=== PATIENT | female | born 1940 | race Caucasian/White ===

== ENCOUNTER 2016-12-27 06:02 | Inpatient (IN) | payer OTHER ==
[2016-11-28 10:59] VITALS: BMI 29.0
--- NOTE | 2016-11-28 11:31 | PAT Medication Instructions ---
Service Date Nov 28, 2016. Current Home Medication List Diltiazem Hcl Ext Rel (Tiazac), 120 MG PO QAM Metformin Hcl (Glucophage), 500 MG PO BID Montelukast Sodium (Singulair), 10 MG PO QAM Naproxen (Aleve), 440 MG PO BID Omeprazole (Prilosec), 20 MG PO QAM Orphenadrine Citrate (Norflex), 100 MG PO BID Pioglitazone (Actos), 1 TAB PO QAM Pregabalin (Lyrica), 50 MG PO TID Simvastatin (Zocor), 20 MG PO QPM Telmisartan (Micardis), 80 MG PO QAM Tolterodine Tartrate (Detrol LA), 1 CAP PO QAM [Magnesium], 1 TAB PO QAM Medication Instructions For Your Scheduled Surgery - Hold the following medications per surgeon's instructions: Naproxen (Aleve), 440 MG PO BID - Hold the following medications 48 hours prior to surgery: Metformin Hcl (Glucophage), 500 MG PO BID - Hold the following medications the morning of surgery: Telmisartan (Micardis), 80 MG PO QAM [Magnesium], 1 TAB PO QAM Orphenadrine Citrate (Norflex), 100 MG PO BID Pioglitazone (Actos), 1 TAB PO QAM - Take the following medications the morning of surgery with a sip of water OTHERWISE NOTHING TO EAT OR DRINK AFTER MIDNIGHT: Montelukast Sodium (Singulair), 10 MG PO QAM Omeprazole (Prilosec), 20 MG PO QAM Diltiazem Hcl Ext Rel (Tiazac), 120 MG PO QAM Tolterodine Tartrate (Detrol LA), 1 CAP PO QAM Pregabalin (Lyrica), 50 MG PO TID - Take the following medications as scheduled the night before surgery: Pregabalin (Lyrica), 50 MG PO TID Simvastatin (Zocor), 20 MG PO QPM If you have any questions please call us at [phone] or [phone] or [phone]
--- NOTE | 2016-11-28 12:22 | DIAGNOSTIC IMAGING REPORT ---
CHEST PREADMISSION(PA/LAT) CLINICAL HISTORY: PAT preoperative evaluation COMPARISON STUDY: 06/13/2015 FINDINGS: The bones soft tissues and hemidiaphragms are normal. The cardiomediastinal silhouette is normal. The lungs are clear. The pulmonary vasculature is normal. IMPRESSION: Negative chest. The above report was generated using voice recognition software. It may contain grammatical, syntax or spelling errors. Electronically signed by: Taye Tucker M.D. 11/28/2016 12:21 PM Dictated Date/Time: 11/28/2016 12:20 PM
[2016-11-28 13:33] LABS: COMPLETE YES; EOS % 1.6 %; HEMATOCRIT 33.1 % (37-47); IG% 0.2 %; LYMPH % 13.7 %; LYMPH ABS # 0.69 K/uL (1.2-3.4); MEAN CELL VOLUME 81.1 fL (80-100); MEAN CORPUSCULAR HEMOGLOBIN 24.3 pg (25-34); MEAN CORPUSCULAR HGB CONC 29.9 g/dl (32-36); MEAN PLATELET VOLUME 10.6 fL (7.4-10.4); MONO % 9.3 %; NEUT % 75.2 %; PLATELET COUNT 259 K/uL (130-400); RED BLOOD COUNT 4.08 M/uL (4.2-5.4); WHITE BLOOD COUNT 5.03 K/uL (4.8-10.8)
[2016-11-28 13:49] LABS: INR 0.9 (0.9-1.1); PROTHROMBIN TIME (PATIENT) 10.1 SECONDS (9.0-12.0)
[2016-11-28 13:51] LABS: BUN/CREATININE RATIO 21.3 (10-20); CREATININE 1.5 mg/dl (0.60-1.20)
[2016-11-28 13:58] LABS: ESTIMATED AVERAGE GLUCOSE 140 mg/dl; HA1C FLAG Normal (Normal)
--- NOTE | 2016-12-26 16:37 | HISTORY & PHYSICAL EXAMINATION ---
DATE OF ADMISSION: 12/27/2016 CHIEF COMPLAINT: Right hip pain. HISTORY OF PRESENT ILLNESS: The patient is a 76-year-old female with known osteoarthritis about her right hip. She is unable to take anti-inflammatory medications due to stage III kidney disease. She has pain with activities of daily living and requires a cane to assist her in ambulation. Due to ongoing pain and disability, she now desires to proceed with right total hip arthroplasty. PAST MEDICAL HISTORY: Stage III chronic kidney disease, COPD, type 2 diabetes, hypertension, hyperkalemia, and normocytic anemia. PAST SURGICAL HISTORY: Knee replacement, lumbar spine surgery, section, colonoscopy, appendectomy, and hysterectomy. MEDICATIONS: Detrol-LA 4 mg daily, Lyrica 50 mg 3 times daily, orphenadrine citrate ER 100 mg 2 times daily, Micardis 80 mg daily, diltiazem CD 120 mg daily, Zocor 10 mg daily, Actos 30 mg daily, Singulair 10 mg daily, Glucophage 500 mg twice daily, and multivitamin daily. ALLERGIES: TAQUERIA INHIBITORS, ADHESIVE TAPE, BACTRIM, BARBITURATES, COZAAR, , IODINE, NORTRIPTYLINE, PENICILLIN A CHILD, PHENYTOIN SODIUM, QUININE SULFATE, AND ULTRAM. SOCIAL HISTORY AND REVIEW OF SYSTEMS: Noncontributory. PHYSICAL EXAMINATION: GENERAL: Well-nourished and well-developed elderly female, who appears her stated age. HEENT: Normocephalic and atraumatic. Extraocular movements intact. Oropharynx pink and moist. NECK: Supple without adenopathy. LUNGS: Clear to auscultation bilaterally. HEART: Regular rate and rhythm. ABDOMEN: Soft, nontender, and nondistended. Obese. EXTREMITIES: The upper extremities are within normal limits. The right hip demonstrates limited range of motion. There is limitation of active and passive internal/external rotation of the right hip with pain at end range. X-RAYS: X-rays were reviewed. She has moderate to severe osteoarthritis about the right hip with near complete loss of the joint space. There are large osteophytes about the femoral head and acetabulum. ASSESSMENT: Right hip degenerative joint disease. PLAN: Risks versus benefits were discussed. Consent was obtained. The patient's primary care physician is Dr. Chiu from [facility]. We will proceed with right total hip arthroplasty upon preop workup and medical clearance.
[~2016-12-27] VITALS: Ht 162.6 cm; Wt 74.0 kg
[2016-12-27] VITALS (10 sets, daily range): BP systolic 105–147; BP diastolic 58–77; PULSE 68–78; TEMP 36.2–37.2; O2SAT 87–100; Ht 162.6 cm; Wt 74.0 kg
[~2016-12-27 06:02] MED LIST: ACETAMINOPHEN 500 MG TAB PO SCH; ACT30 PO; CLINDAMYCIN 600 MG/54 ML D5W 54 ML IV SCH; DILT120C68 PO; DTRSR4 PO; FAMOTIDINE 20 MG TAB PO SCH; GABAPENTIN 300 MG CAP PO SCH; GLC/500 PO; GLIM1TAB2 PO; LACTATED RINGER'S 1000ML 1,000 ML IV SCH; LACTATED RINGER'S 1000ML 500 ML IV ONE; LACTATED RINGER'S 1000ML IV SCH; LYR50 PO; MAGNESIUM PO; METOCLOPRAMIDE HCL 10 MG TAB PO SCH; MONT1TAB3 PO; NAPR1TAB9 PO; ORPH100T PO; PRLSR20 PO; ROPIVACAINE 5MG/ML 30 ML 150 MG, BUPIVACAINE/EPINEPHR 0.5% MPF 30 ML, KETOROLAC TROMETH... INFIL SCH; SIMV5TAB2 PO; TELM80TA PO
[2016-12-27] MEDS: TRANEXAMIC ACID INJ 1,000 MG in SODIUM CHLORIDE 0.9% 100ML 100 ML IV SCH ×2 (06:30→07:46)
[2016-12-27] MEDS ORDERED: BUPIVACAINE 0.5 % 5 MG/1 ML PF 10ML VIAL ONE (06:36)
[2016-12-27] MEDS ORDERED: LIDOCAINE HCL 2% 2 ML VIAL (20MG/ML) ONE (07:45)
[2016-12-27] MEDS ORDERED: PROPOFOL IV EMULSION 10 MG/ML 20 ML VIAL IV ONE (07:45)
[2016-12-27] MEDS ORDERED: MIDAZOLAM HCL 1 MG/ML 2ML VIAL ONE (07:46)
[2016-12-27] MEDS ORDERED: FENTANYL CITRATE INJ 50 MCG/1 ML 2 ML VIAL ONE (07:46)
--- NOTE | 2016-12-27 08:10 | History & Physical Bridge Note ---
H&P Re-Evaluation Bridge Note: I have examined the patient, reviewed the History & Physical and in the interval since the performance of the History & Physical I have noted the following changes of clinical significance: No changes noted
[2016-12-27] MEDS ORDERED: POVIDONE-IODINE OP SOLN 30 ML BTL ONE (08:12)
[2016-12-27] MEDS ORDERED: ORTHO JOINT ANESTHETIC ONE (08:12)
[2016-12-27] MEDS ORDERED: BACITRACIN 50000 UNIT VIAL ONE (08:12)
[2016-12-27] MEDS ORDERED: EpHEDrine SULFATE INJ 50 MG/ML AMP ONE (09:08)
--- NOTE | 2016-12-27 09:09 | [facility] Post Operative Brief Note ---
Immediate Operative Summary Operative Date Dec 27, 2016. Pre-Operative Diagnosis Right Hip Degenerative Joint Disease Post-Operative Diagnosis Right Hip Degenerative Joint Disease Procedure(s) Performed Right Total Hip Arthroplasty Surgeon Dr. Hendricks Branch Examiner Surgeon(s) Duran Abarca PA-C Estimated Blood Loss 50cc Findings oa Specimens A: Right Femoral Head Complication(s) None Disposition Recovery Room / PACU
[2016-12-27] MEDS ORDERED: MoRPHine SULFATE 4 MG/ML 1 ML CARP\\VIAL IV PRN (09:45)
[2016-12-27] MEDS ORDERED: EpHEDrine SULFATE INJ 50 MG/ML AMP IV PRN (09:45)
[2016-12-27] MEDS ORDERED: ZOLPIDEM TARTRATE 5 MG TAB PO PRN (09:45)
[2016-12-27] MEDS ORDERED: FENTANYL CITRATE INJ 50 MCG/1 ML 2 ML VIAL IV PRN (09:45)
[2016-12-27] MEDS ORDERED: ALUMINUM/MAGNESIUM/SIMETH (MAALOX MAX) 30 ML UDC PO PRN (09:45)
[2016-12-27] MEDS ORDERED: ONDANSETRON INJ 2 MG/ML 2 ML VIAL IV PRN ×2 (09:45)
[2016-12-27] MEDS ORDERED: MAGNESIUM HYDROXIDE SUSP 30 ML UDC PO PRN (09:45)
[2016-12-27] MEDS ORDERED: METOCLOPRAMIDE HCL INJ 5 MG/ML 2 ML VIAL IV PRN (09:45)
[2016-12-27] MEDS ORDERED: ATROPINE SULFATE 0.1 MG/ML 5ML SYR IV PRN (09:45)
[2016-12-27] MEDS ORDERED: OXYCODONE HCL IR 5 MG TAB (IMMEDIATE RELEASE) PO PRN (09:45)
--- NOTE | 2016-12-27 10:23 | Anesthesiology Progress Note ---
Anesthesia Post Op Note Date & Time Dec 27, 2016 at 10:22 Vital Signs Pain Intensity: 0 Vital Signs Past 12 Hours Date Time Temp Pulse Resp B/P (MAP) Pulse Ox O2 Delivery O2 Flow Rate FiO2 12/27/16 09:56 121/55 12/27/16 09:53 78 16 12/27/16 09:53 78 16 100 12/27/16 09:51 126/57 12/27/16 09:48 78 15 12/27/16 09:48 78 15 100 12/27/16 09:46 130/56 12/27/16 09:43 79 16 12/27/16 09:43 79 16 100 12/27/16 09:41 126/57 12/27/16 09:38 83 26 100 12/27/16 09:38 82 26 12/27/16 09:36 135/58 12/27/16 09:33 36.2 83 20 138/60 (74) 96 Oxymask 10 12/27/16 09:33 85 12/27/16 09:33 85 138/60 97 12/27/16 07:07 37.2 75 20 147/76 98 Room Air Notes Mental Status: alert / awake / arousable, participated in evaluation Pt Amnestic to Procedure: Yes Nausea / Vomiting: adequately controlled Pain: adequately controlled Airway Patency, RR, SpO2: stable & adequate BP & HR: stable & adequate Hydration State: stable & adequate Neuraxial Anesthesia: was administered, sensory block is resolving Anesthetic Complications: no major complications apparent
--- NOTE | 2016-12-27 10:34 | DIAGNOSTIC IMAGING REPORT ---
R PELVIS/UNILATERAL HIP 1 VIEW CLINICAL HISTORY: 76 years-old Female presenting with arthroplasty, postop. TECHNIQUE: Single frontal view the pelvis and crosstable lateral view of the right hip were obtained. COMPARISON: None. FINDINGS: Postsurgical changes of total right hip arthroplasty. No acute fracture or malalignment. No hardware complication. A surgical drain, soft tissue emphysema, and overlying skin kristi noted. Remaining bony pelvis unremarkable. IMPRESSION: Expected postsurgical appearance status post total right hip arthroplasty. Electronically signed by: Woody García M.D. 12/27/2016 10:32 AM Dictated Date/Time: 12/27/2016 10:31 AM
[2016-12-27] MEDS ORDERED: MoRPHine SULFATE 2 MG/ML CARP IV PRN (11:30)
[2016-12-27] MEDS ORDERED: GLUCOSE 40% GEL 15 GM TUBE PO PRN (11:30)
[2016-12-27] MEDS ORDERED: GLUCAGON FOR INJ 1 MG VIAL SQ PRN (11:30)
[2016-12-27] MEDS ORDERED: GLUCOSE 10 TABS/TUBE PO PRN (11:30)
[2016-12-27] MEDS ORDERED: DEXTROSE 50% 50 ML SYR IV PRN (11:30)
--- NOTE | 2016-12-27 12:06 | OPERATIVE REPORT ---
DATE OF OPERATION: 12/27/2016 PREOPERATIVE DIAGNOSIS: Osteoarthritis, right hip. POSTOPERATIVE DIAGNOSIS: Osteoarthritis, right hip. PROCEDURE: Right connective total hip arthroplasty. SURGEON: Jose Hendricks. LAUNDRY FOLDER: Duran Abarca PA-C. ANESTHESIA: Spinal. COMPLICATIONS: None. OPERATION AND FINDINGS: Acetabular reamer used 54, acetabular shell 54, femoral stem 4, femoral head +0 x 36 mm ceramic. PROCEDURE: Following induction of adequate spinal anesthesia, the patient was placed in left lateral decubitus position and right Mikhail-Langenbeck incision was made. Subcutaneous tissue was sharply dissected. Electrocautery used for hemostasis. The fascia was incised throughout the length of the wound and a marie scissor placed beneath the short external rotators. The pyriformis was tagged with #1 Vicryl. The short external rotators were divided from the posterior aspect of the femur using electrocautery. These were swept posteriorly. A T-capsulotomy incision was made and the hip was dislocated using a combination of flexion, adduction, and internal rotation. Exposure of the femoral neck with old-style Hohmann and a blunt Hohmann was carried out and a femoral rasp was utilized as a guide for making the appropriate level femoral neck cut. This bone fragment was removed and reserved on the back table. Next, attention was turned to the acetabulum where bone hook was used to retract the femur while the offset retractors were placed anterior and posteriorly. A double-angled Hohmann was placed in superior and anterior position exposing the acetabulum nicely. Acetabular labrum as well as posterior capsule elements were removed using a long knife and a long pickup. Fovea centralis was cleared of all soft tissue. Sequential reamings were carried up to a 54 and decision was made to proceed with impaction of a 54 trabecular metal cup. This was impacted and held using a single 35 mm bone screw. The acetabular liner was placed with 15 of elevated posterior wall in the superior and posterior position. Next, attention was turned to the femoral portion of the case where a Bovie and pickup was used to further clear short external rotators from their insertion on the femur. Box osteotome was used to gain access to the femoral canal and the T-handled rasp and a rattail rasp were used to further open and lateral the canal. Sequentially raspings were carried up to a 54, which gave good fit and fill of the proximal femur. A trial reduction was carried out and 4 offset femoral neck component was chosen as the size to be used. A +0 x 36 mm femoral head was impacted into position, +0 head was utilized. The trial reduction was stable in all degrees of rotation with no [id number] impingement. The hip was dislocated. The trial components were removed and the final femoral stem, neck, and femoral head combination were assembled on the back table and impacted into position. Hip was relocated. Range of motion checked once again successful and the wound was irrigated. The pyriformis repaired to the greater trochanter using #1 Vicryl [id number] suture. A Hemovac drain was placed and the fascia was closed using #1 Vicryl, subcutaneous tissue was closed using 0 Dexon, and skin was closed with kristi. Sterile dressing of Adaptic, 4 x 4's, ABDs, and foam tape was applied. The patient tolerated the procedure well. Due to the complex nature of the procedure, the entire surgery was performed with the operational assistance of Duran Abarca PA-C. The commercial loan assistant, under direct supervision, was involved in the actual performance of all aspects of the surgical procedure including hemostasis, tissue retraction and incision, instrument management, patient positioning, and wound closure. DISPOSITION: Recovery room stable. I attest to the content of the Intraoperative Record and any orders documented therein. Any exception s are noted below.
[2016-12-27] MEDS ORDERED: SIMV10TA5 PO (12:07)
--- NOTE | 2016-12-27 12:45 | Medical Consult ---
Consultation Date of Consultation: Dec 27, 2016. Attending Physician: Jose Hendricks M.D. Reason for Consultation: post op medical management History of Present Illness Pt seen and examined after R total hip by Dr Hendricks today. Pt reports chronic dry cough in the mornings which is unchanged. Last BM yesterday. Has not voided yet after surgery. Has not eaten yet. Pt with recent RUSSELL and hyperkalemia, seen by nephorology. ARB and metformin held and was placed on lasix. Lasix was discontinued secondary to worsening kidney functions. Pt was on low potassium diet. Potassium returned to 4.7, CR 1.4 on 12/18/16. Pt had recent ankle sprain and was given prednisone. She then developed elevated BS. Started on glimepiride and then experienced hypoglycemia in the am and her dose was decreased. Now BS have been stable at home (119). Pt denies CP, SOB, PETERSON, dizziness, abdominal pain, N/V. Past Medical/Surgical History Medical Problems: (1) Allergic rhinitis Status: Chronic (2) CKD (chronic kidney disease), stage III Status: Chronic (3) COPD (chronic obstructive pulmonary disease) Status: Chronic (4) DM type 2 (diabetes mellitus, type 2) Status: Chronic (5) HTN (hypertension) Status: Chronic (6) Neuropathy, diabetic Status: Chronic (7) Stress incontinence Status: Chronic Surgical Problems: (1) H/O: hysterectomy Status: Chronic (2) History of appendectomy Status: Chronic (3) History of arthroplasty of left knee Status: Chronic (4) History of arthroplasty of right knee Status: Chronic (5) History of left oophorectomy Status: Chronic (6) History of lumbosacral spine surgery Status: Chronic (7) Hx laparoscopic cholecystectomy Status: Chronic (8) S/P section Status: Chronic Family History Asthma BROTHER SISTER FH: CAD (coronary artery disease) FATHER BROTHER FH: cancer MOTHER Social History Smoking Status: Never Smoker Alcohol Use: none Marital Status: Housing Status: lives with family Allergies Coded Allergies: Atropine (Verified Allergy, Intermediate, hives, 12/27/16) Barbiturates (Verified Allergy, Intermediate, hives, 12/27/16) Hyoscyamine (Verified Allergy, Intermediate, hives, 12/27/16) Iodine (Verified Allergy, Intermediate, BLISTERS WITH TOPICAL, 12/27/16) Nortriptyline (Verified Allergy, Intermediate, hives, 12/27/16) Phenobarbital (Verified Allergy, Intermediate, hives, 12/27/16) Phenytoin (Verified Allergy, Intermediate, HIVES, 12/27/16) Scopolamine (Verified Allergy, Intermediate, hives, 12/27/16) Sulfamethoxazole w/Trimethoprim (Verified Allergy, Intermediate, HIVES, ) Adhesives (Verified Allergy, Mild, HIVES, RASH, 12/27/16) Penicillins (Verified Allergy, Mild, UNKNOWN, 12/27/16) CI Pigment Blue 63 (Verified Adverse Reaction, Intermediate, loss of balance, 12/27/16) Duloxetine (Verified Adverse Reaction, Intermediate, loss of balance, 12/27) TAQUERIA Inhibitors (Verified Adverse Reaction, Mild, cough, 12/27/16) Losartan (Verified Adverse Reaction, Mild, GI UPSET, 12/27/16) Quinine Hydrochloride Dihydrate (Verified Adverse Reaction, Mild, GI UPSET , 12/27/16) Tramadol (Verified Adverse Reaction, Mild, N/V, 12/27/16) Home Medications Active Reported Zocor (Simvastatin) 10 Mg Tab 10 Mg PO QPM Glimepiride 1 Mg Tab 0.5 Tab PO QAM Aleve (Naproxen) 220 Mg Tab 440 Mg PO BID Lyrica (Pregabalin) 50 Mg Cap 50 Mg PO TID Detrol LA (Tolterodine Tartrate) 4 Mg Capcr 1 Cap PO QAM 90 Days Prilosec (Omeprazole) 20 Mg Capcr 20 Mg PO BID Singulair (Montelukast Sodium) 10 Mg Tab 10 Mg PO QAM Tiazac (Diltiazem HCl) 120 Mg Capcr 120 Mg PO QAM Actos (Pioglitazone) 30 Mg Tab 1 Tab PO QAM 90 Days Norflex (Orphenadrine Citrate) 100 Mg Tabcr 100 Mg PO BID Current Inpatient Medications Current Inpatient Medications Medications (Trade) Dose Ordered Sig/Charis Route Start Time Stop Time Status Last Admin Dose Admin Lactated Ringer's 1,000 ml @ 15 mls/hr Q24H IV 12/27/16 06:00 12/28/16 05:59 12/27/16 07:16 15 MLS/HR Lactated Ringer's 1,000 ml @ 60 mls/hr [id number] IV 12/27/16 06:00 12/27/16 22:39 Clindamycin Phosphate 54 ml @ 100 mls/hr PREOP IV 12/27/16 06:00 12/27/16 18:00 12/27/16 08:21 100 MLS/HR Acetaminophen (Tylenol Tab) 1,000 mg PREOP PO 12/27/16 06:00 12/27/16 18:00 12/27/16 07:22 1,000 MG Famotidine (Pepcid Tab) 20 mg PREOP PO 12/27/16 06:00 12/27/16 18:00 12/27/16 07:22 20 MG Gabapentin (Neurontin Cap) 300 mg PREOP PO 12/27/16 06:00 12/27/16 18:00 12/27/16 07:22 300 MG Metoclopramide HCl (Reglan Tab) 10 mg PREOP PO 12/27/16 06:00 12/27/16 18:00 12/27/16 07:21 10 MG Tranexamic Acid 1000 mg/Sodium Chloride 110 ml @ 660 mls/hr TODAY@06,0630 IV 12/27/16 06:00 12/27/16 18:00 12/27/16 07:46 660 MLS/HR Ropivacaine 150 mg/Bupivacaine HCl/Epinephrine Bitart 30 ml/ Ketorolac Tromethamine 30 mg/Dexamethasone Sodium Phosphate 4 mg/Ketamine HCl 10 mg/Clonidine 100 mcg/Sodium Chloride 30 ml/ Empty Bag 93.2 ml @ 0 mls/hr TODAY@06 INFIL 12/27/16 06:00 12/27/16 16:00 12/27/16 09:13 93.2 MLS/HR Fentanyl Citrate (Fentanyl Inj) 50 mcg Q5M PRN IV 12/27/16 09:45 12/27/16 14:45 Ondansetron HCl (Zofran Inj) 4 mg ONE PRN IV 12/27/16 09:45 12/27/16 14:45 Ephedrine Sulfate (EpHEDrine SULFATE INJ) 5 mg Q5M PRN IV 12/27/16 09:45 12/27/16 14:45 Sodium Chloride 1,000 ml @ 100 mls/hr Q10H IV 12/27/16 09:32 12/28/16 09:31 Clindamycin Phosphate 600 mg/ Dextrose 54 ml @ 100 mls/hr Q8H IV 12/27/16 16:00 12/28/16 00:33 Oxycodone HCl (Roxicodone Immediate Rel Tab) 1 TABLET FOR PAIN RATING... Q4H PRN PO 12/27/16 09:45 01/10/17 09:44 Morphine Sulfate (MoRPHine SULFATE INJ) 4 mg Q2HWA PRN IV 12/27/16 09:45 01/10/17 09:44 Acetaminophen (Tylenol Tab) 1,000 mg Q8H PO 12/27/16 22:00 01/26/17 21:59 Pregabalin (Lyrica Cap) 75 mg BID PO 12/27/16 21:00 01/26/17 20:59 UNV Magnesium Hydroxide (Milk Of Magnesia Susp) 30 ml Q6H PRN PO 12/27/16 09:45 01/26/17 09:44 Docusate Sodium (coLACE CAP) 100 mg BID PO 12/27/16 21:00 01/26/17 20:59 Diphenhydramine HCl (Benadryl Cap) 25 mg Q8H PRN PO 12/27/16 09:45 01/26/17 09:44 Al Hydrox/Mg Hydrox/Simethicone (Maalox Max Susp) 15 ml Q4H PRN PO 12/27/16 09:45 01/26/17 09:44 Zolpidem Tartrate (Ambien Tab) 5 mg HSZ PRN PO 12/27/16 09:45 01/26/17 09:44 Multivitamins (Multivitamin Tab) 1 tab QAM PO 12/28/16 09:00 01/27/17 08:59 Ondansetron HCl (Zofran Inj) 4 mg Q6H PRN IV 12/27/16 09:45 01/26/17 09:44 Metoclopramide HCl (Reglan Inj) 10 mg Q6H PRN IV 12/27/16 09:45 01/26/17 09:44 Ferrous Gluconate (Ferrous Gluconate Tab) 324 mg TIDM PO 12/27/16 12:30 01/26/17 12:29 Pantoprazole Sodium (Protonix Tab) 40 mg QAM PO 12/28/16 09:00 01/27/17 08:59 Dexamethasone Sodium Phosphate 10 mg/Syringe 2.5 ml @ 1 mls/min ONE ONCE IV 12/28/16 07:30 12/28/16 07:32 Aspirin (Ecotrin Tab) 81 mg BID PO 12/27/16 21:00 01/26/17 20:59 Diltiazem HCl (TIAzac CAP) 120 mg QAM PO 12/28/16 09:00 01/27/17 08:59 Montelukast Sodium (Singulair Tab) 10 mg QAM PO 12/28/16 09:00 01/27/17 08:59 Orphenadrine Citrate (Norflex Tab) 100 mg BID PO 12/27/16 21:00 01/26/17 20:59 Pregabalin (Lyrica Cap) 50 mg TID PO 12/27/16 14:00 01/26/17 13:59 UNV Simvastatin (Zocor Tab) 20 mg QPM PO 12/27/16 21:00 01/26/17 20:59 Tolterodine Tartrate (Detrol LA Cap) 4 mg QAM PO 12/28/16 09:00 01/27/17 08:59 Morphine Sulfate (MoRPHine SULFATE INJ) 2 mg Q2HWA PRN IV 12/27/16 11:30 01/10/17 11:29 Insulin Aspart (novoLOG ASPART) SLIDING SCALE If C... ACHS SC 12/27/16 12:00 01/26/17 11:59 Glucose (Glucose 40% Gel) 15-30 GRAMS 15 GRAMS... UD PRN PO 12/27/16 11:30 01/26/17 11:29 Glucose (Glucose Chew Tab) 4-8 Tablets 4 Tabl... UD PRN PO 12/27/16 11:30 01/26/17 11:29 Dextrose (Dextrose 50% 50ML Syringe) 25-50ML OF 50% DW IV FOR... UD PRN IV 12/27/16 11:30 01/26/17 11:29 Glucagon (Glucagon Inj) 1 mg UD PRN SQ 12/27/16 11:30 01/26/17 11:29 Review of Systems ROS as per HPI. All other systems reviewed and negative. Constitutional: No fever Respiratory: No cough, No shortness of breath Cardiovascular: No chest pain Abdomen: No nausea, No vomiting, No diarrhea, No GI bleeding Musculoskeletal: + joint pain Genitourinary - Female: No dysuria, No hematuria Hematologic / Lymphatic: No abnormal bleeding/bruising Physical Exam Date Time Temp Pulse Resp B/P (MAP) Pulse Ox O2 Delivery O2 Flow Rate FiO2 12/27/16 11:43 97 Nasal Cannula 2.0 12/27/16 11:42 72 16 114/70 (85) 87 Room Air 12/27/16 11:16 72 16 113/70 (84) 94 Room Air 12/27/16 10:45 36.3 78 16 112/69 (83) 95 Room Air 12/27/16 10:45 95 Room Air 12/27/16 10:45 Room Air 12/27/16 10:38 75 15 12/27/16 10:38 75 15 97 12/27/16 10:36 119/58 12/27/16 10:33 75 22 12/27/16 10:33 84 22 97 12/27/16 10:31 119/75 12/27/16 10:28 76 15 96 12/27/16 10:28 76 15 12/27/16 10:26 126/62 12/27/16 10:24 36.8 75 16 126/62 96 Nasal Cannula 2 12/27/16 10:23 74 23 100 12/27/16 10:23 74 23 12/27/16 10:22 74 14 96 12/27/16 10:22 75 14 12/27/16 10:21 115/64 12/27/16 10:17 77 16 12/27/16 10:17 75 16 100 12/27/16 10:16 117/58 12/27/16 10:12 77 16 99 12/27/16 10:12 77 16 12/27/16 10:11 122/61 12/27/16 10:07 77 14 12/27/16 10:07 77 14 98 12/27/16 10:06 117/54 12/27/16 10:02 77 15 12/27/16 10:02 77 15 99 12/27/16 10:01 119/54 12/27/16 09:57 79 15 12/27/16 09:57 79 15 100 12/27/16 09:56 121/55 12/27/16 09:53 78 16 12/27/16 09:53 78 16 100 12/27/16 09:51 126/57 12/27/16 09:48 78 15 12/27/16 09:48 78 15 100 12/27/16 09:46 130/56 12/27/16 09:43 79 16 12/27/16 09:43 79 16 100 12/27/16 09:41 126/57 12/27/16 09:38 83 26 100 12/27/16 09:38 82 26 12/27/16 09:36 135/58 12/27/16 09:33 36.2 83 20 138/60 (74) 96 Oxymask 10 12/27/16 09:33 85 12/27/16 09:33 85 138/60 97 12/27/16 07:07 37.2 75 20 147/76 98 Room Air General Appearance: WD/WN, no apparent distress, + pertinent finding (Daughter at bedside) Head: normocephalic, atraumatic Eyes: normal inspection, PERRL, EOMI, sclerae normal ENT: hearing grossly normal, pharynx normal Neck: supple, trachea midline Respiratory/Chest: lungs clear, normal breath sounds, no respiratory distress, no accessory muscle use Cardiovascular: regular rate, rhythm, no murmur Abdomen/GI: normal bowel sounds, non tender, soft Extremities/Musculoskelatal: no calf tenderness, no pedal edema, + pertinent finding (s/p R hip arthroplasty, dressing in place. Hemovac drain in place with bloody drainage. SCDs in place) Neurologic/Psych: alert, normal mood/affect, oriented x 3, + pertinent finding (Ankle flexion and extension intact bilaterally. Sensation to light touch intact bilateral feet) Skin: normal color, warm/dry, + pertinent finding (Dressing in place on R lateral hip) Laboratory Results Last 24 Hours Test 12/27/16 06:56 12/27/16 09:40 Bedside Glucose 124 mg/dl 153 mg/dl Assessment & Plan S/P R total hip arthroplasty Post-op day [address] Hendricks Pain management, wound care and activity as per ortho Monitor daily H&H for signs of acute blood loss anemia Continue incentive spirometry Continue PT/OT DM Type II Hold glimepiride and actos during hospitalization NovoLog sliding scale ordered Monitor BSG ACHS BS 120-150 so far today CKD Stage 3 Recent RUSSELL. Last CR 1.4 on 12/18/16 Check PRP tomorrow morning Hold NSAIDs and other nephrotoxins HTN Continue Cardizem BP stable currently 112/69 GERD Continue PPI Stress Incontinence Continue Detrol COPD Pt with hx of second hand smoke exposure with symptoms. No second hand smoke exposure currently and pt without any exacerbations. Does not use any inhalers currently. Hypercholesterolemia Continue Statin DVT prophylaxis as per ortho Disposition as per ortho Pt seen in collaboration with Dr Whitehead Pt will be seen tomorrow by Dr Howard SUPERVISING PHYSICIAN ADDENDUM Record reviewed. Patient interviewed and examined in her room around 19:30. Care coordinated with Fabienne Lucero PA-C. Please refer to her documentation for patient's history. Briefly, 76 YO female with history of hypertension, COPD, CKD, DM, and other problems. Underwent right ELIJAH today with Dr. Hendricks. Doing well postoperatively. No chest pain. No cough or dyspnea. No nausea or vomiting. Postop pain well-controlled. EXAM: General- sitting in chair at bedside, no distress VS- as noted HEENT- anicteric Neck- no JVD Lungs- clear Heart- RRR Abdomen- + BS, soft, nontender Extremities- TEDS on; no calf tenderness Neuro- alert, oriented DATA: Fingerstick blood sugar 277 at 17:07. Hgb A1C 6.5 on 11/28/16. Other labs studies as noted. ASSESSMENT AND PLAN: S/P ELIJAH POD # 0. Doing well postoperatively. HYPERTENSION Hemodynamically stable. Continue diltiazem. Follow and titrate therapy. COPD Respiratory status stable. DM TYPE 2 Well-controlled at home. Recent Hgb A1C 6.5 on 11/28/16. Blood sugars elevated postoperatively due to multiple variables. Hold oral agents during hospital stay. Lantus + NovoLog per protocol. VTE PROPHYLAXIS Per Ortho protocol. Please refer to FLOR Hawthorne's documentation for discussion of other issues. Thank you for this consultation. We will follow the patient with you during their hospital stay. Dr. Howard will be rounding for our team starting Thursday 12/28. You can reach a [facility] via pager @ [phone]. You can reach me via cell @ [phone]. Taurus Whitehead MD .
[2016-12-27] MEDS: SODIUM CHLORIDE 0.9% 1000ML 1,000 ML IV SCH ×2 (13:02→19:46)
[2016-12-27] MEDS: FERROUS GLUCONATE 324 MG TAB PO SCH ×2 (13:02→17:47)
[2016-12-27] MEDS: INSULIN ASPART 100 UNITS/ML 3 ML PEN SC SCH ×3 (13:10→21:05)
[2016-12-27] MEDS: PREGABALIN 50 MG CAP PO SCH ×2 (13:10→21:01)
[2016-12-27] MEDS: CLINDAMYCIN IV 600 MG in DEXTROSE 5% 50ML 50 ML IV SCH ×2 (16:03→23:28)
[2016-12-27] MEDS: ORPHENADRINE CITRATE 100 MG TABCR PO SCH (20:58)
[2016-12-27] MEDS: ASPIRIN 81 MG ECTAB PO SCH (20:58)
[2016-12-27] MEDS: DOCUSATE SODIUM 100 MG CAP PO SCH (20:59)
[2016-12-27] MEDS: SIMVASTATIN 10 MG TAB PO SCH (20:59)
[2016-12-27] MEDS ORDERED: PREGABALIN 75 MG CAP PO SCH (21:00)
[2016-12-27] MEDS: PANTOprazole SOD 40 MG TAB PO SCH (21:00)
[2016-12-27] MEDS ORDERED: SIMVASTATIN 5 MG TAB PO SCH (21:00)
[2016-12-27] MEDS: ACETAMINOPHEN 500 MG TAB PO SCH (21:02)
[2016-12-27] MEDS: INSULIN GLARGINE SOLOSTAR 100 UNITS/ML 3 ML PEN SC SCH (21:06)
[2016-12-28] MEDS ORDERED: INSULIN ASPART 100 UNITS/ML 3 ML PEN SC ONE (01:00)
[2016-12-28] MEDS: SODIUM CHLORIDE 0.9% 1000ML 1,000 ML IV SCH (03:44)
[2016-12-28 03:57] VITALS: BP 121/75; PULSE 69; TEMP 36.5; O2SAT 97
[2016-12-28] MEDS: ACETAMINOPHEN 500 MG TAB PO SCH ×3 (06:04→21:24)
[2016-12-28 06:56] LABS: BUN/CREATININE RATIO 13.2 (10-20); CALCIUM 7.9 mg/dl (8.5-10.1); POTASSIUM 4.1 mmol/L (3.5-5.1)
--- NOTE | 2016-12-28 07:25 | Orthopedic Progress Note ---
Orthopedic Progress Note Date of Service Dec 28, 2016. Subjective Post OP Day: 1 Reports: feeling well Objective N/V intact, dressing C/D/I (Hemovac d/c'd), toes mobile Date Time Temp Pulse Resp B/P (MAP) Pulse Ox O2 Delivery O2 Flow Rate FiO2 12/28/16 03:57 36.5 69 16 121/75 (90) 97 Room Air 12/27/16 23:34 Room Air 12/27/16 23:03 36.3 68 16 122/77 (92) 96 Room Air 12/27/16 18:57 36.4 70 17 109/64 (79) 98 Room Air 12/27/16 15:31 36.5 70 17 115/69 (84) 97 Room Air 12/27/16 15:15 Nasal Cannula 2.0 12/27/16 13:53 36.2 73 15 105/71 (82) 98 Nasal Cannula 2.0 12/27/16 13:14 36.3 73 17 107/58 (74) 100 Nasal Cannula 2.0 12/27/16 11:43 97 Nasal Cannula 2.0 12/27/16 11:42 72 16 114/70 (85) 87 Room Air 12/27/16 11:16 72 16 113/70 (84) 94 Room Air 12/27/16 10:45 36.3 78 16 112/69 (83) 95 Room Air 12/27/16 10:45 95 Room Air 12/27/16 10:45 Room Air 12/27/16 10:38 75 15 12/27/16 10:38 75 15 97 12/27/16 10:36 119/58 12/27/16 10:33 75 22 12/27/16 10:33 84 22 97 12/27/16 10:31 119/75 12/27/16 10:28 76 15 96 12/27/16 10:28 76 15 12/27/16 10:26 126/62 12/27/16 10:24 36.8 75 16 126/62 96 Nasal Cannula 2 12/27/16 10:23 74 23 100 12/27/16 10:23 74 23 12/27/16 10:22 74 14 96 12/27/16 10:22 75 14 12/27/16 10:21 115/64 12/27/16 10:17 77 16 12/27/16 10:17 75 16 100 12/27/16 10:16 117/58 12/27/16 10:12 77 16 99 12/27/16 10:12 77 16 12/27/16 10:11 122/61 12/27/16 10:07 77 14 12/27/16 10:07 77 14 98 12/27/16 10:06 117/54 12/27/16 10:02 77 15 12/27/16 10:02 77 15 99 12/27/16 10:01 119/54 12/27/16 09:57 79 15 12/27/16 09:57 79 15 100 12/27/16 09:56 121/55 12/27/16 09:53 78 16 12/27/16 09:53 78 16 100 12/27/16 09:51 126/57 12/27/16 09:48 78 15 12/27/16 09:48 78 15 100 12/27/16 09:46 130/56 12/27/16 09:43 79 16 12/27/16 09:43 79 16 100 12/27/16 09:41 126/57 12/27/16 09:38 83 26 100 12/27/16 09:38 82 26 12/27/16 09:36 135/58 12/27/16 09:33 36.2 83 20 138/60 (74) 96 Oxymask 10 12/27/16 09:33 85 12/27/16 09:33 85 138/60 97 Laboratory Results 24 Hours: Test 12/28/16 05:41 12/28/16 07:14 White Blood Count K/uL Red Blood Count M/uL Hemoglobin g/dL Hematocrit % Mean Corpuscular Volume fL Mean Corpuscular Hemoglobin pg Mean Corpuscular Hemoglobin Concent g/dl Platelet Count K/uL Assessment & Plan Assessment: 76 yo female stable POD #1 s/p right ELIJAH Plan: 1. Med management 2. DVT prophylaxis- ASA, SCDs 3. PT/OT 4. D/C planning- home w/ HH
--- NOTE | 2016-12-28 07:27 | Discharge Instructions ---
Discharge Instructions Date of Service Dec 28, 2016. Admission Reason for Admission: Right Hip Osteoarthritis Discharge Discharge Diagnosis / Problem: Right hip arthritis Discharge Goals Goal(s): Decrease discomfort, Improve function Activity Recommendations Activity Limitations: as noted below Weightbearing Status: Right weightbearing (as tolerated) . Instructions / Follow-Up Instructions / Follow-Up ACTIVITY RECOMMENDATIONS: SELF CARE INSTRUCTIONS AFTER TOTAL HIP REPLACEMENT Until the incision and soft tissues around your hip have healed, there is a possibility that the hip prosthesis could dislocate. A. Observe the following precautions to prevent dislocation: 1. Don't bend your hip greater than 90 degrees. 2. Avoid crossing your legs or ankles while standing or lying. 3. Sit with your feet placed 6 inches apart. 4. When sitting, keep your knees below your hips. Sit on a firm surface, avoid deep, soft chairs and couches. Use an elevated toilet seat in the bathroom. 5. Don't bend over at the waist. Use a long handled shoehorn and a sock aid to help you put on your shoes and socks. A lap polisher can help you fruit picker objects that are too high or too low to reach. 6. Keep car riding to a minimum for at least one month after surgery. B. Your balance may be shaky for a while. Use crutches or a walker until directed by your doctor. C. Use hand rails when walking on stairs. D. Wear low heeled shoes with non-slip soles. E. Be sure that your floors are free of things that could trip you - throw rugs , electrical cords, small objects. Avoid wet and waxed floors, especially with crutches and canes. F. Try to walk several times a day with rest periods between. G. Continue with all the exercises taught to you in the hospital. Again, make walking a part of your daily routine. SPECIAL CARE INSTRUCTIONS: VERY IMPORTANT TO READ AND REVIEW A. You may still be at risk for phlebitis and blood clots. 1. Wear surgical stockings (THOMAS hose) for 2 weeks after surgery to improve circulation and reduce swelling. 2. Take Aspirin 81mg twice daily for 4 weeks or as directed by your doctor. This is your blood thinner. 3. High risk patients may be prescribed a stronger blood thinner if necessary. 4. If you are on Coumadin normally, your family doctor/motor and controls tester should monitor your blood work. Expect a phone call the day of or the day after bloodwork is drawn to adjust your dosage. B. You must take antibiotics before having dental work, bladder, bowel and other surgery. Your doctor will provide you with a permanent card to carry describing precautions. C. Call [facility] if you have a fever, redness or swelling around the incision, cloudy drainage from incision, or sudden increase in pain in your hip, not relieved by your regular pain medication. D. Please call the office at if you have any concerns or questions about your operation or recovery. * YOU MAY SHOWER, NO TUB BATHS UNTIL CLEARED BY YOUR DOCTOR. * WEAR THOMAS HOSE 20 HOURS PER DAY FOR 2 WEEKS. * YOU SHOULD USE A WALKER OR CRUTCHES FOR 2-4 WEEKS. THIS WILL HELP PREVENT STRAIN ON YOUR HIP MUSCLE AND ALLOW IT TO HEAL PROPERLY. YOU MAY WEAN TO A CANE TOLERATED. * MOST PATIENTS WILL HAVE HOME NURSING FOR THERAPY. IF YOU DECIDE TO DO OUTPATIENT PHYSICAL THERAPY, PLEASE SCHEDULE THIS 3 TIMES PER WEEK. FOLLOW UP VISIT: If appointment is not already scheduled: Please call [facility] to make a follow-up appointment for 2 weeks after your surgery at . Current Hospital Diet Patient's current hospital diet: Diabetes Type 2 Diet, Low Potassium Diet (2g K) Discharge Diet Recommended Diet: Diabetes Type 2 Diet, Low Potassium Diet (2g K) Procedures Procedures Performed: Right Total Hip Arthroplasty Pending Studies Studies pending at discharge: no Laboratory Results Hemoglobin A1c Test 11/28/16 11:45 Range/Units Estimated Average Glucose 140 mg/dl Hemoglobin A1c 6.5 H 4.5-5.6 % Medical Emergencies . Who to Call and When: Medical Emergencies: If at any time you feel your situation is an emergency, please call 911 immediately. . Non-Emergent Contact Non-Emergency issues call your: Surgeon Call Non-Emergent contact if: temperature is above 101.5, your pain is not controlled, wound has increased drainage, wound has increased redness . "Provider Documentation" section prepared by Duran Abarca PA-C. . VTE Core Measure Inpt VTE Proph given/why not?: Other Anticoagulation (ASA 81mg bid), T.E.D. Stockings, SCD's [place] Drug Monitoring Program Search Results: patient reviewed within database, no issues identified
[2016-12-28] MEDS ORDERED: DEXAMETHASONE INJ 10 MG in SYRINGE 0 ML IV ONE (07:30)
[2016-12-28 07:38] VITALS: BP 145/75; PULSE 75; TEMP 36.7; O2SAT 97
[2016-12-28 08:09] LABS: HEMATOCRIT 27.3 % (37-47); MEAN CELL VOLUME 79.6 fL (80-100); MEAN CORPUSCULAR HEMOGLOBIN 24.8 pg (25-34); MEAN CORPUSCULAR HGB CONC 31.1 g/dl (32-36); MEAN PLATELET VOLUME 10.2 fL (7.4-10.4); PLATELET COUNT 166 K/uL (130-400); RED BLOOD COUNT 3.43 M/uL (4.2-5.4)
[2016-12-28 08:10] LABS: ANISOCYTOSIS PRESENT; COMPLETE YES; IG% 0.3 %; LYMPH % 3.5 %; LYMPH ABS # 0.31 K/uL (1.2-3.4); MONO % 9.7 %; NEUT % 86.5 %
[2016-12-28] MEDS: ASPIRIN 81 MG ECTAB PO SCH ×2 (08:13→21:13)
[2016-12-28] MEDS: MULTIVITAMIN TAB PO SCH (08:13)
[2016-12-28] MEDS: MONTELUKAST SOD 10 MG TAB PO SCH (08:13)
[2016-12-28] MEDS: TOLTERODINE TARTRATE LA 4 MG CAPCR PO SCH (08:14)
[2016-12-28] MEDS: DILTIAZEM HCL 120 MG EXT REL CAP PO SCH (08:14)
[2016-12-28] MEDS: DOCUSATE SODIUM 100 MG CAP PO SCH ×2 (08:14→21:13)
[2016-12-28] MEDS: PANTOprazole SOD 40 MG TAB PO SCH ×2 (08:14→21:14)
[2016-12-28] MEDS: FERROUS GLUCONATE 324 MG TAB PO SCH ×3 (08:14→18:27)
[2016-12-28] MEDS: ORPHENADRINE CITRATE 100 MG TABCR PO SCH ×2 (08:14→21:14)
[2016-12-28] MEDS: PREGABALIN 50 MG CAP PO SCH ×3 (08:18→21:21)
[2016-12-28] MEDS: INSULIN GLARGINE SOLOSTAR 100 UNITS/ML 3 ML PEN SC SCH ×2 (08:21→21:20)
--- NOTE | 2016-12-28 08:32 | Anesthesiology Progress Note ---
Anesthesia Post Op Note Date & Time Dec 28, 2016 at 08:32 Vital Signs Vital Signs Past 12 Hours Date Time Temp Pulse Resp B/P (MAP) Pulse Ox O2 Delivery O2 Flow Rate FiO2 12/28/16 07:38 36.7 75 16 145/75 (98) 97 Room Air 12/28/16 03:57 36.5 69 16 121/75 (90) 97 Room Air 12/27/16 23:34 Room Air 12/27/16 23:03 36.3 68 16 122/77 (92) 96 Room Air Notes Mental Status: alert / awake / arousable, participated in evaluation Pt Amnestic to Procedure: Yes Nausea / Vomiting: adequately controlled Pain: adequately controlled Airway Patency, RR, SpO2: stable & adequate BP & HR: stable & adequate Hydration State: stable & adequate Neuraxial Anesthesia: was administered, sensory block resolved Anesthetic Complications: no major complications apparent
[2016-12-28] MEDS ORDERED: NON-FORMULARY MEDICATION (Pioglitazone (Actos) 1 TAB) PO SCH (09:00)
[2016-12-28] MEDS ORDERED: GLIMEPIRIDE PO SCH (09:00)
[2016-12-28] MEDS ORDERED: PANTOprazole SOD 40 MG TAB PO SCH (09:00)
[2016-12-28] MEDS: INSULIN ASPART 100 UNITS/ML 3 ML PEN SC SCH ×4 (09:14→21:19)
[2016-12-28 11:19] VITALS: BP 121/72; PULSE 73; TEMP 36.2; O2SAT 96
[2016-12-28 14:50] VITALS: BP 116/70; PULSE 69; TEMP 36.5; O2SAT 97
[2016-12-28] MEDS: SIMVASTATIN 10 MG TAB PO SCH (21:14)
--- NOTE | 2016-12-28 22:41 | Progress Note ---
Medicine Progress Note Date & Time of Visit: Dec 28, 2016 at 22:35. Subjective resting in bed, comfortable states she feels well overall denies right hip pain no headache, dizziness, chest pain, dyspnea, nausea, problems with urination or BM no other symptoms Objective Last 8 Hrs Date Time Temp Pulse Resp B/P (MAP) Pulse Ox O2 Delivery O2 Flow Rate FiO2 12/28/16 15:05 Room Air 12/28/16 14:50 36.5 69 18 116/70 (85) 97 Room Air Physical Exam: General- oriented x 3, not in distress, speaks in sentences with no effort Eyes- anicteric Neck- supple, no JVD Lungs- clear to auscultation bilaterally Heart- regular rhythm; no murmur, normal rate Abdomen- normal bowel sounds, soft, nontender Extremities- no pretibial edema, no calf tenderness (+) right hip surgical site with dressing in place- no bleeding or discharge, no tenderness noted Neuro- alert, oriented x 3;no gross focal deficits Skin- warm & dry Laboratory Results: Last 24 Hours Test 12/28/16 00:53 12/28/16 05:41 12/28/16 07:14 12/28/16 08:17 Bedside Glucose 215 mg/dl 192 mg/dl White Blood Count K/uL 8.80 K/uL Red Blood Count M/uL 3.43 M/uL Hemoglobin g/dL 8.5 g/dL Hematocrit % 27.3 % Mean Corpuscular Volume fL 79.6 fL Mean Corpuscular Hemoglobin pg 24.8 pg Mean Corpuscular Hemoglobin Concent g/dl 31.1 g/dl Platelet Count K/uL 166 K/uL RDW Standard Deviation fL 44.3 fL RDW Coefficient of Variation % 15.2 % Sodium Level 141 mmol/L Potassium Level 4.1 mmol/L Chloride Level 108 mmol/L Carbon Dioxide Level 26 mmol/L Anion Gap 7.0 mmol/L Blood Urea Nitrogen 13 mg/dl Creatinine 1.00 mg/dl Est Creatinine Clear Calc Drug Dose 47.9 ml/min Estimated GFR () 63.8 Estimated GFR (Non- 55.1 BUN/Creatinine Ratio 13.2 Random Glucose 221 mg/dl Calcium Level 7.9 mg/dl Hepatitis C Antibody Screen NEG Mean Platelet Volume 10.2 fL Neutrophils (%) (Auto) 86.5 % Lymphocytes (%) (Auto) 3.5 % Monocytes (%) (Auto) 9.7 % Eosinophils (%) (Auto) 0.0 % Basophils (%) (Auto) 0.0 % Neutrophils # (Auto) 7.61 K/uL Lymphocytes # (Auto) 0.31 K/uL Monocytes # (Auto) 0.85 K/uL Eosinophils # (Auto) 0.00 K/uL Basophils # (Auto) 0.00 K/uL Immature Granulocyte % (Auto) 0.3 % Immature Granulocyte # (Auto) 0.03 K/uL Anisocytosis PRESENT Test 12/28/16 11:43 12/28/16 16:57 12/28/16 20:27 Bedside Glucose 200 mg/dl 245 mg/dl 273 mg/dl Assessment & Plan S/P R total hip arthroplasty Post-op day 1 Pain management, wound care and activity as per ortho -- appear stable overall except for hyperglycemia, management noted below Monitor daily H&H Continue incentive spirometry Continue PT/OT DM Type II Hold glimepiride and actos during hospitalization NovoLog sliding scale and Lantus BID ordered -- BSGs elevated likely from post op stress, dexamethasone received will consult Pharmacy Glycemic Control SVCs CKD Stage 3 Recent RUSSELL. Last CR 1.4 on 12/18/16 Crea stable HTN stable Continue Cardizem GERD Continue PPI Stress Incontinence Continue Detrol COPD stable Hypercholesterolemia Continue Statin DVT prophylaxis as per ortho Thank you for this consultation. We will follow the patient with you during their hospital stay. You can reach a member of the [facility] Hospitalist Team 15/10 via pager @ [phone]. Current Inpatient Medications: Current Inpatient Medications Medications (Trade) Dose Ordered Sig/Charis Route Start Time Stop Time Status Last Admin Dose Admin Oxycodone HCl (Roxicodone Immediate Rel Tab) 1 TABLET FOR PAIN RATING... Q4H PRN PO 12/27/16 09:45 01/10/17 09:44 Morphine Sulfate (MoRPHine SULFATE INJ) 4 mg Q2HWA PRN IV 12/27/16 09:45 01/10/17 09:44 Acetaminophen (Tylenol Tab) 1,000 mg Q8H PO 12/27/16 22:00 01/26/17 21:59 12/28/16 21:24 1,000 MG Magnesium Hydroxide (Milk Of Magnesia Susp) 30 ml Q6H PRN PO 12/27/16 09:45 01/26/17 09:44 Docusate Sodium (coLACE CAP) 100 mg BID PO 12/27/16 21:00 01/26/17 20:59 12/28/16 21:13 100 MG Diphenhydramine HCl (Benadryl Cap) 25 mg Q8H PRN PO 12/27/16 09:45 01/26/17 09:44 Al Hydrox/Mg Hydrox/Simethicone (Maalox Max Susp) 15 ml Q4H PRN PO 12/27/16 09:45 01/26/17 09:44 Zolpidem Tartrate (Ambien Tab) 5 mg HSZ PRN PO 12/27/16 09:45 01/26/17 09:44 Multivitamins (Multivitamin Tab) 1 tab QAM PO 12/28/16 09:00 01/27/17 08:59 12/28/16 08:13 1 TAB Ondansetron HCl (Zofran Inj) 4 mg Q6H PRN IV 12/27/16 09:45 01/26/17 09:44 Metoclopramide HCl (Reglan Inj) 10 mg Q6H PRN IV 12/27/16 09:45 01/26/17 09:44 Ferrous Gluconate (Ferrous Gluconate Tab) 324 mg TIDM PO 12/27/16 12:30 01/26/17 12:29 12/28/16 18:27 324 MG Aspirin (Ecotrin Tab) 81 mg BID PO 12/27/16 21:00 01/26/17 20:59 12/28/16 21:13 81 MG Diltiazem HCl (TIAzac CAP) 120 mg QAM PO 12/28/16 09:00 01/27/17 08:59 12/28/16 08:14 120 MG Montelukast Sodium (Singulair Tab) 10 mg QAM PO 12/28/16 09:00 01/27/17 08:59 12/28/16 08:13 10 MG Orphenadrine Citrate (Norflex Tab) 100 mg BID PO 12/27/16 21:00 01/26/17 20:59 12/28/16 21:14 100 MG Pregabalin (Lyrica Cap) 50 mg TID PO 12/27/16 14:00 01/26/17 13:59 12/28/16 21:21 50 MG Tolterodine Tartrate (Detrol LA Cap) 4 mg QAM PO 12/28/16 09:00 01/27/17 08:59 12/28/16 08:14 4 MG Morphine Sulfate (MoRPHine SULFATE INJ) 2 mg Q2HWA PRN IV 12/27/16 11:30 01/10/17 11:29 Insulin Aspart (novoLOG ASPART) SLIDING SCALE If C... ACHS SC 12/27/16 12:00 01/26/17 11:59 12/28/16 21:19 4 UNITS Glucose (Glucose 40% Gel) 15-30 GRAMS 15 GRAMS... UD PRN PO 12/27/16 11:30 01/26/17 11:29 Glucose (Glucose Chew Tab) 4-8 Tablets 4 Tabl... UD PRN PO 12/27/16 11:30 01/26/17 11:29 Dextrose (Dextrose 50% 50ML Syringe) 25-50ML OF 50% DW IV FOR... UD PRN IV 12/27/16 11:30 01/26/17 11:29 Glucagon (Glucagon Inj) 1 mg UD PRN SQ 12/27/16 11:30 01/26/17 11:29 Pantoprazole Sodium (Protonix Tab) 40 mg BID PO 12/27/16 21:00 01/27/17 08:59 12/28/16 21:14 40 MG Simvastatin (Zocor Tab) 10 mg QPM PO 12/27/16 21:00 01/26/17 20:59 12/28/16 21:14 10 MG Insulin Glargine (Lantus Solostar Pen) 5 units BID SC 12/27/16 21:00 01/26/17 20:59 12/28/16 21:20 5 UNITS Miscellaneous Information (Consult Glycemic Management Pharmacy) 1 ea NOW STAT N/A 12/28/16 22:29 12/28/16 22:30 UNV
[2016-12-28] MEDS ORDERED: PHARMACY GLYCEMIC MGMT CONSULT PRN (22:42)
[2016-12-28] MEDS ORDERED: INSULIN GLARGINE SOLOSTAR 100 UNITS/ML 3 ML PEN SC STA (22:44)
[2016-12-28 23:23] VITALS: BP 151/71; PULSE 70; TEMP 36.5; O2SAT 99
[2016-12-29] MEDS: INSULIN ASPART 100 UNITS/ML 3 ML PEN SC SCH ×5 (00:13→18:15)
[2016-12-29] MEDS: ACETAMINOPHEN 500 MG TAB PO SCH ×2 (05:21→13:25)
[2016-12-29 06:28] LABS: BUN/CREATININE RATIO 15.7 (10-20); CALCIUM 8.3 mg/dl (8.5-10.1); CREATININE 0.91 mg/dl (0.60-1.20); POTASSIUM 3.8 mmol/L (3.5-5.1)
[2016-12-29 07:02] VITALS: BP 135/75; PULSE 73; TEMP 36.6; O2SAT 98
--- NOTE | 2016-12-29 08:16 | Orthopedic Progress Note ---
Orthopedic Progress Note Date of Service Dec 29, 2016. Subjective Post OP Day: 2 Reports: feeling well Objective calves soft nontender, N/V intact, dressing C/D/I, toes mobile Date Time Temp Pulse Resp B/P (MAP) Pulse Ox O2 Delivery O2 Flow Rate FiO2 12/29/16 07:05 Room Air 12/29/16 07:02 36.6 73 18 135/75 (95) 98 Room Air 12/28/16 23:23 36.5 70 16 151/71 (97) 99 Room Air 12/28/16 23:15 Room Air 12/28/16 15:05 Room Air 12/28/16 14:50 36.5 69 18 116/70 (85) 97 Room Air 12/28/16 11:19 36.2 73 16 121/72 (88) 96 Room Air Assessment & Plan Assessment: 76 yo female stable POD #2 s/p right ELIJAH Plan: 1. Med management 2. DVT prophylaxis- ASA, SCDs 3. PT/OT 4. D/C planning- home w/ HH
[2016-12-29] MEDS ORDERED: RXC5 PO (08:20)
[2016-12-29] MEDS ORDERED: ACET-24 PO (08:20)
[2016-12-29] MEDS ORDERED: ONDA8TAB12 PO ×2 (08:20→17:39)
[2016-12-29] MEDS ORDERED: FRRG PO (08:20)
[2016-12-29] MEDS ORDERED: ASPEC81 PO (08:20)
[2016-12-29] MEDS ORDERED: INSULIN GLARGINE SOLOSTAR 100 UNITS/ML 3 ML PEN SC SCH (09:00)
[2016-12-29] MEDS: FERROUS GLUCONATE 324 MG TAB PO SCH ×3 (09:04→17:45)
[2016-12-29] MEDS: MONTELUKAST SOD 10 MG TAB PO SCH (09:04)
[2016-12-29] MEDS: MULTIVITAMIN TAB PO SCH (09:04)
[2016-12-29] MEDS: TOLTERODINE TARTRATE LA 4 MG CAPCR PO SCH (09:04)
[2016-12-29] MEDS: ASPIRIN 81 MG ECTAB PO SCH (09:05)
[2016-12-29] MEDS: DILTIAZEM HCL 120 MG EXT REL CAP PO SCH (09:05)
[2016-12-29] MEDS: PANTOprazole SOD 40 MG TAB PO SCH (09:05)
[2016-12-29] MEDS: ORPHENADRINE CITRATE 100 MG TABCR PO SCH (09:05)
[2016-12-29] MEDS: DOCUSATE SODIUM 100 MG CAP PO SCH (09:06)
[2016-12-29] MEDS: PREGABALIN 50 MG CAP PO SCH ×2 (09:07→13:24)
[2016-12-29 11:55] LABS: HEMATOCRIT 28.2 % (37-47); IG% 0.4 %; MEAN CELL VOLUME 79.2 fL (80-100); MEAN CORPUSCULAR HGB CONC 31.6 g/dl (32-36); MEAN PLATELET VOLUME 9.8 fL (7.4-10.4); MONO % 8.2 %; NEUT % 87.4 %; PLATELET COUNT 180 K/uL (130-400); RED BLOOD COUNT 3.56 M/uL (4.2-5.4); WHITE BLOOD COUNT 12.37 K/uL (4.8-10.8)
[2016-12-29 12:26] LABS: COMPLETE YES; TEAR DROP CELLS OCCASIONAL
[2016-12-29 15:15] VITALS: BP 134/82; PULSE 69; TEMP 36.6; O2SAT 97
[2016-12-29 16:04] VITALS: BP 134/82; PULSE 69; TEMP 36.6; O2SAT 97
[2016-12-29] MEDS ORDERED: FERR325T18 PO (17:39)
[2016-12-29] MEDS ORDERED: ASPI81TA28 PO (17:39)
[2016-12-31] MEDS ORDERED: OXYC-609 PO (17:39)
--- NOTE | 2017-01-09 12:53 | DISCHARGE SUMMARY ---
CHIEF COMPLAINT: Right hip pain. Please see complete history and physical examination. HOSPITAL COURSE: The patient underwent right total hip arthroplasty without complication. She tolerated the procedure well and was discharged to recovery room in stable condition. Her postoperative course was relatively uneventful. Her postoperative pain was reasonably well controlled with a combination of spinal anesthesia, intraoperative joint injection, IV, and oral pain medications. She was started on aspirin for DVT prophylaxis. She also utilized THOMAS stockings and SCDs for additional prophylaxis. Her H&H was stable and did not require transfusion. A medical consult was asked for to assist in her postoperative medical management. Her surgical drain was discontinued on postoperative day 1, her surgical dressing will remain in place for approximately 7 days postoperative. She tolerated postoperative physical therapy reasonably well where she was ambulating and transferring appropriately. She was observing all total hip precautions. She was discharged home on postoperative day 2. She will continue physical therapy at home. She will continue her aspirin for DVT prophylaxis and follow up in our office in approximately 10-14 days for initial postop evaluation.
== END 2016-12-29 18:20 | disposition home health service (06) | DRG 470 ==
LOC: C.ACU 06:02 → C.3E 08:00 → ENRESERV 10:11
PROC: 0SR901Z Replacement of Right Hip Joint with Metal Synthetic Substitute, Open Approach (ICD-10-PCS; principal; 2016-12-27 08:15)
DX: M16.11 Unilateral primary osteoarthritis, right hip (principal); N18.3 Chronic kidney disease, stage 3 (moderate); J44.9 Chronic obstructive pulmonary disease, unspecified; E11.40 Type 2 diabetes mellitus with diabetic neuropathy, unspecified; Z96.659 Presence of unspecified artificial knee joint; N39.3 Stress incontinence (female) (male); I12.9 Hypertensive chronic kidney disease with stage 1 through stage 4 chronic kidney disease, or unspecified chronic kidney disease

== ENCOUNTER 2017-01-02 16:26 | Inpatient (IN) | payer OTHER ==
[~2017-01-02] VITALS: Ht 162.6 cm; Wt 80.2 kg
[~2017-01-02 16:26] MED LIST changes: +ACET-24 PO; -ACETAMINOPHEN 500 MG TAB PO SCH; +ASPEC81 PO; +ASPI81TA28 PO; -CLINDAMYCIN 600 MG/54 ML D5W 54 ML IV SCH; -FAMOTIDINE 20 MG TAB PO SCH; +FERR325T18 PO; +FRRG PO; -GABAPENTIN 300 MG CAP PO SCH; -GLC/500 PO; -LACTATED RINGER'S 1000ML 1,000 ML IV SCH; -LACTATED RINGER'S 1000ML 500 ML IV ONE; -LACTATED RINGER'S 1000ML IV SCH; -MAGNESIUM PO; -METOCLOPRAMIDE HCL 10 MG TAB PO SCH; -NAPR1TAB9 PO; +ONDA8TAB12 PO; +OXYC-609 PO; -ROPIVACAINE 5MG/ML 30 ML 150 MG, BUPIVACAINE/EPINEPHR 0.5% MPF 30 ML, KETOROLAC TROMETH... INFIL SCH; +RXC5 PO; +SIMV10TA5 PO; -SIMV5TAB2 PO; -TELM80TA PO
[2017-01-02] MEDS ORDERED: ONDANSETRON INJ 2 MG/ML 2 ML VIAL IV STA (16:50)
[2017-01-02] MEDS ORDERED: SODIUM CHLORIDE 0.9% 1000ML 1,000 ML IV STA (16:50)
--- NOTE | 2017-01-02 16:56 | EMERGENCY ROOM VISIT NOTE ---
History Report prepared by Corey: Ramu Noonan Under the Supervision of: Dr. Mike Thakkar D.O. First contact with patient: 16:44 Chief Complaint: HIP PAIN Stated Complaint: HIP PAIN History of Present Illness The patient is a 76 year old female who presents to the Emergency Room with complaints of constant right hip pain starting around 1400 today. The patient states that her right leg gave out from under her, she felt a pop, and she fell. The patient had her right hip replaced six days ago. The patient denies any left leg pain, foot pain, abdominal pain, and neck pain. The patient states that she took oxycodone, and the last time she ate was 1100. Source of History: patient Onset: 1400 Position: other (right hip) Timing: constant Associated Symptoms: No neck pain, No abdominal pain Review of Systems See HPI for pertinent positives & negatives. A total of 10 systems reviewed and were otherwise negative. Past Medical & Surgical Medical Problems: (1) Allergic rhinitis (2) Arthritis of right hip (3) CKD (chronic kidney disease), stage III (4) COPD (chronic obstructive pulmonary disease) (5) Displaced intertrochanteric fracture of femur (6) DM type 2 (diabetes mellitus, type 2) (7) HTN (hypertension) (8) Lumbar stenosis with neurogenic claudication (9) Neuropathy, diabetic (10) Stress incontinence Surgical Problems: (1) H/O: hysterectomy (2) History of appendectomy (3) History of arthroplasty of left knee (4) History of arthroplasty of right knee (5) History of left oophorectomy (6) History of lumbosacral spine surgery (7) Hx laparoscopic cholecystectomy (8) S/P section Family History Asthma BROTHER SISTER FH: CAD (coronary artery disease) FATHER BROTHER FH: cancer MOTHER Social History Smoking Status: Never Smoker Marital Status: Housing Status: lives with family Current/Historical Medications Scheduled Acetaminophen (Sb Non-Aspirin Extra Stre), 1,000 MG PO Q8H Aspirin (Aspirin Ec), 81 MG PO BID Diltiazem Hcl Ext Rel (Tiazac), 120 MG PO QAM Ferrous Gluconate (Ferrous Gluconate), 324 MG PO TIDM Glimepiride (Glimepiride), 0.5 TAB PO QAM Montelukast Sodium (Singulair), 10 MG PO QAM Omeprazole (Prilosec), 20 MG PO BID Orphenadrine Citrate (Norflex), 100 MG PO BID Pioglitazone (Actos), 1 TAB PO QAM Pregabalin (Lyrica), 50 MG PO TID Simvastatin (Zocor), 10 MG PO QPM Tolterodine Tartrate (Detrol LA), 1 CAP PO QAM Scheduled PRN Ondansetron Hcl (Zofran), 8 MG PO Q8 PRN for Nausea or Vomiting Oxycodone HCl (Oxycodone HCl), 1-2 TAB PO Q4H PRN for Pain Allergies Coded Allergies: Atropine (Verified Allergy, Intermediate, hives, 01/02/17) Barbiturates (Verified Allergy, Intermediate, hives, 01/02/17) Hyoscyamine (Verified Allergy, Intermediate, hives, 01/02/17) Iodine (Verified Allergy, Intermediate, BLISTERS WITH TOPICAL, 01/02/17) Nortriptyline (Verified Allergy, Intermediate, hives, 01/02/17) Phenobarbital (Verified Allergy, Intermediate, hives, 01/02/17) Phenytoin (Verified Allergy, Intermediate, HIVES, 01/02/17) Scopolamine (Verified Allergy, Intermediate, hives, 01/02/17) Sulfamethoxazole w/Trimethoprim (Verified Allergy, Intermediate, HIVES, ) Adhesives (Verified Allergy, Mild, HIVES, RASH, 01/02/17) Penicillins (Verified Allergy, Mild, UNKNOWN, 01/02/17) CI Pigment Blue 63 (Verified Adverse Reaction, Intermediate, loss of balance, 01/02/17) Duloxetine (Verified Adverse Reaction, Intermediate, loss of balance, 02/08) TAQUERIA Inhibitors (Verified Adverse Reaction, Mild, cough, 01/02/17) Losartan (Verified Adverse Reaction, Mild, GI UPSET, 01/02/17) Quinine Hydrochloride Dihydrate (Verified Adverse Reaction, Mild, GI UPSET , 01/02/17) Tramadol (Verified Adverse Reaction, Mild, N/V, 01/02/17) Physical Exam Vital Signs Date Time Temp Pulse Resp B/P (MAP) Pulse Ox O2 Delivery O2 Flow Rate FiO2 01/02/17 19:01 100 161/82 95 Room Air 01/02/17 17:27 88 01/02/17 16:46 37.5 95 140/90 96 Room Air Physical Exam GENERAL: Patient is awake, alert, and very anxious and uncomfortable. EYES: The conjunctivae are clear. The pupils are round and reactive. EARS, NOSE, MOUTH AND THROAT: The nose is without any evidence of any deformity. Mucous membranes are moist tongue is midline NECK: The neck is nontender and supple. RESPIRATORY: Normal respiratory effort is noted there is no evidence of wheezing rhonchi or rales CARDIOVASCULAR: Regular rate and rhythm noted there no murmurs rubs or gallops normal S1 normal S2 GASTROINTESTINAL: The abdomen is soft. Bowel sounds are present in all quadrants. Abdomen is nontender MUSCULOSKELETAL/EXTREMITIES: Right lower extremity was shortened and mildly internally rotated. The patient resists and range of motion at the hip. Significant tenderness in the right hip. Recent post-surgical site on the lateral aspect of the right hip.. Skin kristi in place. No swelling or erythema. SKIN: Pedal edema bilaterally. There is no obvious evidence of any rash. There are no petechiae, pallor or cyanosis noted. NEUROLOGIC: Patient is awake alert and oriented x3 Medical Decision & Procedures ER Provider Diagnostic Interpretation: Radiology results as stated below per my review and radiologist interpretation: R PELVIS/UNILATERAL HIP 2-3VIEWS CLINICAL HISTORY: Right hip pain following fall. Recent right hip replacement. COMPARISON: Pelvis and right hip radiographs December 27, 2016. FINDINGS: There is a new acute mildly displaced intertrochanteric periprosthetic fracture of the right femur. Fracture is displaced 6 mm. Fracture involves the lesser trochanter. The right hip arthroplasty is anatomically aligned. The hardware is intact. Lumbar spine fusion and discectomy is noted. IMPRESSION: Acute mildly displaced intertrochanteric periprosthetic fracture of the right femur. Electronically signed by: Chavez Ruiz M.D. 01/02/2017 5:48 PM Dictated Date/Time: 01/02/2017 5:46 PM Laboratory Results Test 01/02/17 16:55 01/02/17 18:13 Immature Granulocyte % (Auto) 0.7 % White Blood Count 4.59 K/uL (4.8-10.8) Red Blood Count 3.51 M/uL (4.2-5.4) Hemoglobin 8.7 g/dL (12.0-16.0) Hematocrit 28.2 % (37-47) Mean Corpuscular Volume 80.3 fL (80-100) Mean Corpuscular Hemoglobin 24.8 pg (25-34) Mean Corpuscular Hemoglobin Concent 30.9 g/dl (32-36) Platelet Count 187 K/uL (130-400) Mean Platelet Volume 9.6 fL (7.4-10.4) Neutrophils (%) (Auto) 73.4 % Lymphocytes (%) (Auto) 17.2 % Monocytes (%) (Auto) 6.5 % Eosinophils (%) (Auto) 2.2 % Basophils (%) (Auto) 0.0 % Neutrophils # (Auto) 3.37 K/uL (1.4-6.5) Lymphocytes # (Auto) 0.79 K/uL (1.2-3.4) Monocytes # (Auto) 0.30 K/uL (0.11-0.59) Eosinophils # (Auto) 0.10 K/uL (0-0.5) Basophils # (Auto) 0.00 K/uL (0-0.2) Immature Granulocyte # (Auto) 0.03 K/uL (0.00-0.02) Red Blood Cell Morphology Unremarkable Prothrombin Time 10.4 SECONDS (9.0-12.0) Prothromb Time International Ratio 1.0 (0.9-1.1) Activated Partial Thromboplast Time 24.4 SECONDS (21.0-31.0) Partial Thromboplastin Ratio 0.9 Total Bilirubin 0.4 mg/dl (0.2-1) Direct Bilirubin < 0.1 mg/dl (0-0.2) Aspartate Amino Transf (AST/SGOT) 19 U/L (15-37) Alanine Aminotransferase (ALT/SGPT) 31 U/L (12-78) Alkaline Phosphatase 99 U/L (45-117) Total Protein 6.2 gm/dl (6.4-8.2) Albumin 2.8 gm/dl (3.4-5.0) Lipase 119 U/L (73-393) Urine Color YELLOW Urine Appearance CLOUDY (CLEAR) Urine pH 5.5 (4.5-7.5) Urine Specific [place] 1.017 (1.000-1.030) Urine Protein NEG (NEG) Urine Glucose (UA) NEG (NEG) Urine Ketones NEG (NEG) Urine Occult Blood NEG (NEG) Urine Nitrite POS (NEG) Urine Bilirubin NEG (NEG) Urine Urobilinogen NEG (NEG) Urine Leukocyte Esterase LARGE (NEG) Urine WBC (Auto) >30 /hpf (0-5) Urine RBC (Auto) 0-4 /hpf (0-4) Urine Hyaline Casts (Auto) 0 /lpf (0-5) Urine Epithelial Cells (Auto) 10-20 /lpf (0-5) Urine Bacteria (Auto) 4+ (NEG) Urine Pathogenic Casts /lpf (0) Laboratory results per my review. Medications Administered Medications (Trade) Dose Ordered Sig/Charis Route Start Time Stop Time Status Last Admin Dose Admin Sodium Chloride 1,000 ml @ 125 mls/hr Q8H STAT IV 01/02/17 16:50 01/02/17 20:26 DC 01/02/17 17:19 125 MLS/HR Morphine Sulfate (MoRPHine SULFATE INJ) 4 mg Q15M PRN IV 01/02/17 17:00 01/02/17 20:30 DC 01/02/17 17:20 4 MG Ondansetron HCl (Zofran Inj) 4 mg NOW STAT IV 01/02/17 16:50 01/02/17 16:53 DC 01/02/17 17:19 4 MG ED Course 1644: The patient was evaluated in room B4. A complete history and physical examination were performed. 1650: Zofran Inj 4mg IV, NSS 1,000 ml @ 125 mls/hr IV 1700: Morphine Sulfate 4mg IV 1804: I reevaluated the patient, and I discussed the treatment plan with her, and she is agreeable. 1815: I discussed the patient's case with Dr. So, Orthopedics, and he recommends evaluation by a hospitalist for further management and treatment. 1818: I discussed the patient's case with MARCELA Collins. The patient will be evaluated for further management. Medical Decision Differential diagnosis: Etiologies such as fracture, dislocation, neurovascular compromise, compartment syndrome, soft tissue injury, as well as others were entertained. Nursing notes reviewed. Additional history is obtained from the patient's daughter. The patient is a 76-year-old female who presented to the emergency department for an evaluation after a right hip injury. The patient has a history of a recently replaced right hip. She states that she felt a pain in her right thigh and then fell to the ground. Her x-rays revealed a periprosthetic right hip fracture. The patient was treated with IV fluids IV pain medicine IV antiemetics. She was reevaluated multiple times. On subsequent reevaluation she was much more comfortable. I discussed her case with the on-call orthopedic physician covering for the patient's primary orthopedic surgeon. I also discussed his case with the [facility] hospitalist. The patient was felt to be a good candidate for further operative management of this hip fracture. She was agreeable to this plan. Medication Reconcilliation Current Medication List: was personally reviewed by me Blood Pressure Screening Patient's blood pressure: Elevated blood pressure Blood pressure disposition: Elevated BP felt to be situational Consults Time Called: 174 Consulting Physician: Dr. So, Orthopedics Returned Call: [phone] I discussed the patient's case with Dr. So, Orthopedics, and he recommends evaluation by a hospitalist for further management and treatment. Additional Consults: Time Called: 180 Consulted Physician: MARCELA Collins Returned Call: [phone] Additional Comments: I discussed the patient's case with MARCELA Collins. The patient will be evaluated for further management. Impression Primary Impression: Periprosthetic hip fracture Additional Impression: Postoperative anemia Scribe Attestation The scribe's documentation has been prepared under my direction and personally reviewed by me in its entirety. I confirm that the note above accurately reflects all work, treatment, procedures, and medical decision making performed by me. Departure Information Dispostion Being Evaluated By Hospitalist Referrals Thais Chiu M.D. (PCP) Patient Instructions My [facility] Problem Qualifiers Primary Impression: Periprosthetic hip fracture Encounter type: initial encounter Qualified Codes: M97.8XXA - Periprosthetic fracture around other internal prosthetic joint, initial encounter; Z96.649 - Presence of unspecified artificial hip joint
[2017-01-02] MEDS ORDERED: MoRPHine SULFATE 4 MG/ML 1 ML CARP\\VIAL IV PRN (17:00)
[2017-01-02 17:08] LABS: EOS % 2.2 %; HEMATOCRIT 28.2 % (37-47); IG% 0.7 %; LYMPH % 17.2 %; LYMPH ABS # 0.79 K/uL (1.2-3.4); MEAN CELL VOLUME 80.3 fL (80-100); MEAN CORPUSCULAR HEMOGLOBIN 24.8 pg (25-34); MEAN CORPUSCULAR HGB CONC 30.9 g/dl (32-36); MEAN PLATELET VOLUME 9.6 fL (7.4-10.4); MONO % 6.5 %; NEUT % 73.4 %; PLATELET COUNT 187 K/uL (130-400); RED BLOOD COUNT 3.51 M/uL (4.2-5.4); WHITE BLOOD COUNT 4.59 K/uL (4.8-10.8)
[2017-01-02 17:17] LABS: PARTIAL THROMBOPLASTIN RATIO 0.9; PROTHROMBIN TIME (PATIENT) 10.4 SECONDS (9.0-12.0)
[2017-01-02 17:28] LABS: COMPLETE YES
[2017-01-02 17:37] LABS: BLOOD UREA NITROGEN 22 mg/dl (7-18); BUN/CREATININE RATIO 20.2 (10-20); CALCIUM 8.6 mg/dl (8.5-10.1); CARBON DIOXIDE 27 mmol/L (21-32); CHLORIDE 106 mmol/L (98-107); GLUCOSE 146 mg/dl (70-99); POTASSIUM 3.9 mmol/L (3.5-5.1); SODIUM 140 mmol/L (136-145)
[2017-01-02 17:40] LABS: ALKALINE PHOSPHATASE 99 U/L (45-117); ALT/SGPT 31 U/L (12-78); AST/SGOT 19 U/L (15-37)
--- NOTE | 2017-01-02 17:50 | DIAGNOSTIC IMAGING REPORT ---
R PELVIS/UNILATERAL HIP 2-3VIEWS CLINICAL HISTORY: Right hip pain following fall. Recent right hip replacement. COMPARISON: Pelvis and right hip radiographs December 27, 2016. FINDINGS: There is a new acute mildly displaced intertrochanteric periprosthetic fracture of the right femur. Fracture is displaced 6 mm. Fracture involves the lesser trochanter. The right hip arthroplasty is anatomically aligned. The hardware is intact. Lumbar spine fusion and discectomy is noted. IMPRESSION: Acute mildly displaced intertrochanteric periprosthetic fracture of the right femur. Electronically signed by: Chavez Ruiz M.D. 01/02/2017 5:48 PM Dictated Date/Time: 01/02/2017 5:46 PM
[2017-01-02] MEDS ORDERED: BISACODYL 10 MG SUPP PR PRN (19:15)
[2017-01-02] MEDS ORDERED: NALOXONE HCL 0.4 MG/1 ML VIAL/CARP IV PRN (19:15)
[2017-01-02] MEDS ORDERED: HYDROmorphone INJ 0.5 MG/0.5 ML SYR IV PRN ×2 (19:15)
[2017-01-02] MEDS ORDERED: SOD PHOSPHATE/SOD BIPHOSPHATE ENEMA 132 ML BTL PR PRN (19:15)
[2017-01-02] MEDS ORDERED: MAGNESIUM HYDROXIDE SUSP 30 ML UDC PO PRN (19:15)
[2017-01-02] MEDS ORDERED: ONDANSETRON INJ 2 MG/ML 2 ML VIAL IV PRN (19:15)
--- NOTE | 2017-01-02 19:33 | History and Physical ---
History & Physical Date & Time of Service: Jan 02, 2017 at 19:22 Chief Complaint: Hip Pain Primary Care Physician: Thais Chiu M.D. History of Present Illness Source: patient, clinic records, hospital records This is a 76yo F with a PMH of R OA (s/p R ELIJAH on 12/28), CKD III, COPD, DM II, HTN and other conditions listed below who presents with R hip pain that started at 2pm this afternoon. Last , patient underwent a R hip replacement with Dr. Hendricks. Did well post-operatively and was discharged home on Saturday evening. Has been recovering without issue at home until this afternoon, when patient was ambulating by walker into her living room and her right leg "gave out". Patient states that she heard a popping noise and slowly fell onto her walker. This event was not precipitated by any lightheadedness, CP or SOB. Was able to sit down on edge of chair but was in severe 10/10 pain. Patient was home alone at this time but was able to call daughter at work. Was encouraged to call an ambulance. Currently patient endorses 6/10 pain, even after initial morphine. Denies any lightheadedness, confusion, headache, visual change, CP, SOB, nausea, vomiting, abd pain, numbness/tingling in LE. Denies any pain in L leg. Past Medical/Surgical History Medical Problems: (1) Allergic rhinitis Status: Chronic (2) CKD (chronic kidney disease), stage III Status: Chronic (3) COPD (chronic obstructive pulmonary disease) Status: Chronic (4) DM type 2 (diabetes mellitus, type 2) Status: Chronic (5) HTN (hypertension) Status: Chronic (6) Neuropathy, diabetic Status: Chronic (7) Stress incontinence Status: Chronic Surgical Problems: (1) H/O: hysterectomy Status: Chronic (2) History of appendectomy Status: Chronic (3) History of arthroplasty of left knee Status: Chronic (4) History of arthroplasty of right knee Status: Chronic (5) History of left oophorectomy Status: Chronic (6) History of lumbosacral spine surgery Status: Chronic (7) Hx laparoscopic cholecystectomy Status: Chronic (8) S/P section Status: Chronic Family History Asthma BROTHER SISTER FH: CAD (coronary artery disease) FATHER BROTHER FH: cancer MOTHER Social History Smoking Status: Never Smoker Marital Status: Housing status: lives with family (daughter Ally) Multi-Drug Resistant Organisms History of MDRO: No Allergies Coded Allergies: Atropine (Verified Allergy, Intermediate, hives, 01/02/17) Barbiturates (Verified Allergy, Intermediate, hives, 01/02/17) Hyoscyamine (Verified Allergy, Intermediate, hives, 01/02/17) Iodine (Verified Allergy, Intermediate, BLISTERS WITH TOPICAL, 01/02/17) Nortriptyline (Verified Allergy, Intermediate, hives, 01/02/17) Phenobarbital (Verified Allergy, Intermediate, hives, 01/02/17) Phenytoin (Verified Allergy, Intermediate, HIVES, 01/02/17) Scopolamine (Verified Allergy, Intermediate, hives, 01/02/17) Sulfamethoxazole w/Trimethoprim (Verified Allergy, Intermediate, HIVES, ) Adhesives (Verified Allergy, Mild, HIVES, RASH, 01/02/17) Penicillins (Verified Allergy, Mild, UNKNOWN, 01/02/17) CI Pigment Blue 63 (Verified Adverse Reaction, Intermediate, loss of balance, 01/02/17) Duloxetine (Verified Adverse Reaction, Intermediate, loss of balance, 02/08) TAQUERIA Inhibitors (Verified Adverse Reaction, Mild, cough, 01/02/17) Losartan (Verified Adverse Reaction, Mild, GI UPSET, 01/02/17) Quinine Hydrochloride Dihydrate (Verified Adverse Reaction, Mild, GI UPSET , 01/02/17) Tramadol (Verified Adverse Reaction, Mild, N/V, 01/02/17) Home Medications Scheduled Acetaminophen (Sb Non-Aspirin Extra Stre), 1,000 MG PO Q8H Aspirin (Aspirin Ec), 81 MG PO BID Diltiazem Hcl Ext Rel (Tiazac), 120 MG PO QAM Ferrous Gluconate (Ferrous Gluconate), 324 MG PO TIDM Glimepiride (Glimepiride), 0.5 TAB PO QAM Montelukast Sodium (Singulair), 10 MG PO QAM Omeprazole (Prilosec), 20 MG PO BID Orphenadrine Citrate (Norflex), 100 MG PO BID Pioglitazone (Actos), 1 TAB PO QAM Pregabalin (Lyrica), 50 MG PO TID Simvastatin (Zocor), 10 MG PO QPM Tolterodine Tartrate (Detrol LA), 1 CAP PO QAM Scheduled PRN Ondansetron Hcl (Zofran), 8 MG PO Q8 PRN for Nausea or Vomiting Oxycodone HCl (Oxycodone HCl), 1-2 TAB PO Q4H PRN for Pain Review of Systems Constitutional- no fever; no weight loss Eyes- no acute visual changes ENT- no sinus drainage; no pharyngitis Pulmonary- no cough, no wheezing, no shortness of breath Cardiac- See HPI GI- no nausea, no vomiting, no diarrhea, no melena, no hematochezia - no dysuria, no hematuria Musculoskeletal- See HPI Derm- no rashes, no new skin lesions, no changing skin lesions Hematologic- no unusual bruising, no unusual bleeding Lymphatics- no adenopathy Endocrine- no polyuria or polydipsia; no heat or cold intolerance Neuro- no headaches, no focal neurologic symptoms Psych- no anxiety, no depression Physical Exam Vital Signs Date Time Temp Pulse Resp B/P (MAP) Pulse Ox O2 Delivery O2 Flow Rate FiO2 01/02/17 19:01 100 161/82 95 Room Air 01/02/17 17:27 88 01/02/17 16:46 37.5 95 140/90 96 Room Air General appearance: awake and alert, appears healthy, no deformities BP: 140/90 HR: 95, regular Resp: 16 Eyes: Sclera: white, conjuntiva: pink. Eyelids without erythema or lesions. PERRL. Pupils and irises round and symmetric. ENT: External ears without lesions, masses or tenderness. Nose with pink mucosa , no discharge. Septum midline, turbinates normal. Oropharynx mucosa intact.Dentition intact. Neck: Supple, without lesions or masses. Trachea midline. Thyroid is non- enlarged, non-tender. Respiratory: Normal respiratory effort. No intercostal retractions or use of accessory muscles. Chest is non-tender. Clear breath sounds on auscultation. No wheezing, rales, rhonci. Cardiovascular: No lifts or heaves visualized. PMI palpable, non-displaced. S1 S2 normal, no murmurs, gallops, rubs. No edema in extremities. GI: No masses or abnormal pulsations visualized. Bowel sounds normal. Abdomen soft, non-tender. No hepatomegaly or splenomegaly. MSK: No clubbing, cyanosis of digits. Normal capillary refill. R hip shortened and externally rotated. Unable to move 2/2 pain. [place] visualized on hip without any surrounding erythema. L LE without any asymmetry, defects or tenderness. Full ROM and 5/5 BARI. No muscle atrophy or abnormal movements. DP pulses 2+ bilaterally. Skin: No rashes, lesions, ulcers. Palpation is normal, no induration or sub- cutaneous nodules. Neuro: CN II-XII intact. Sensation intact with light and sharp touch. Proprioception intact. Psych: Normal judgement, insight. Alert and oriented to person, place, time. Normal mood and affect. Diagnostics Laboratory Results Results Past 24 Hours Test 01/02/17 16:55 01/02/17 18:13 Range/Units White Blood Count 4.59 4.8-10.8 K/uL Red Blood Count 3.51 4.2-5.4 M/uL Hemoglobin 8.7 12.0-16.0 g/dL Hematocrit 28.2 37-47 % Mean Corpuscular Volume 80.3 80-100 fL Mean Corpuscular Hemoglobin 24.8 25-34 pg Mean Corpuscular Hemoglobin Concent 30.9 32-36 g/dl Platelet Count 187 130-400 K/uL Mean Platelet Volume 9.6 7.4-10.4 fL Neutrophils (%) (Auto) 73.4 % Lymphocytes (%) (Auto) 17.2 % Monocytes (%) (Auto) 6.5 % Eosinophils (%) (Auto) 2.2 % Basophils (%) (Auto) 0.0 % Neutrophils # (Auto) 3.37 1.4-6.5 K/uL Lymphocytes # (Auto) 0.79 1.2-3.4 K/uL Monocytes # (Auto) 0.30 0.11-0.59 K/uL Eosinophils # (Auto) 0.10 0-0.5 K/uL Basophils # (Auto) 0.00 0-0.2 K/uL RDW Standard Deviation 45.7 36.4-46.3 fL RDW Coefficient of Variation 15.7 11.5-14.5 % Immature Granulocyte % (Auto) 0.7 % Immature Granulocyte # (Auto) 0.03 0.00-0.02 K/uL Red Blood Cell Morphology Unremarkable Prothrombin Time 10.4 9.0-12.0 SECONDS Prothromb Time International Ratio 1.0 0.9-1.1 Activated Partial Thromboplast Time 24.4 21.0-31.0 SECONDS Partial Thromboplastin Ratio 0.9 Sodium Level 140 136-145 mmol/L Potassium Level 3.9 3.5-5.1 mmol/L Chloride Level 106 98-107 mmol/L Carbon Dioxide Level 27 21-32 mmol/L Anion Gap 7.0 3-11 mmol/L Blood Urea Nitrogen 22 7-18 mg/dl Creatinine 1.10 0.60-1.20 mg/dl Est Creatinine Clear Calc Drug Dose 45.3 ml/min Estimated GFR () 56.9 Estimated GFR (Non- 49.1 BUN/Creatinine Ratio 20.2 10-20 Random Glucose 146 70-99 mg/dl Calcium Level 8.6 8.5-10.1 mg/dl Total Bilirubin 0.4 0.2-1 mg/dl Direct Bilirubin < 0.1 0-0.2 mg/dl Aspartate Amino Transf (AST/SGOT) 19 15-37 U/L Alanine Aminotransferase (ALT/SGPT) 31 12-78 U/L Alkaline Phosphatase 99 45-117 U/L Total Protein 6.2 6.4-8.2 gm/dl Albumin 2.8 3.4-5.0 gm/dl Lipase 119 73-393 U/L Diagnostic Radiology Hip/pelvis XR: IMPRESSION: Acute mildly displaced intertrochanteric periprosthetic fracture of the right femur. Impression Assessment and Plan This is a 76yo F with a PMH of R OA (s/p R hip replacement on 12/28), CKD III, COPD, DM II, HTN and other conditions listed below who presents with R hip pain that started at 2pm this afternoon. R periprosthetic femur fracture: -Hip/pelvis XR shows "acute mildly displaced intertrochanteric periprosthetic fracture of the R femur" -Hemodynamically stable -Recent CX (11/28/16) was normal. -Recent EKG (11/28/16) with NSR and LAD (previously documented) -Ortho consulted; plan for surgical repair tomorrow -Pain control, pre-op antibiotics, IVF per protocol -NPO after midnight Iron deficiency anemia: -Diagnosed with MORENO during pre-operative labwork -Started on iron supplement -Hgb of 8.7 today. Was 8.9 when discharged 6 days ago -Type and screen ordered with H/H in AM -Ortho to decide whether or not a transfusion is indicated DM II: well-controlled -Has not been taking glimepiride and actos since hospital discharge due to low BG readings -Hgb a1c of 6.5 in Nov -Hold home meds -In-patient management plan per attending addendum CKD III: -Recent RUSSELL at the end of Nov (Cr 1.4) -Cr 1.1 today, which is back to baseline -BMP in AM -Avoid nephrotoxic agents HTN: -BP elevated slightly to 161/82 -Likely 2/2 pain -Continue Diltiazem -Monitor COPD: -No exacerbation. Patient at baseline for dyspnea. -O2 saturation in high 90s on room air -Continue singulair HLD: -Continue statin GERD: -Continue PPI Stress Incontinence: -Continue Detrol DVT Ppx: Per ortho Code status: FULL, per my discussion with patient PCP: Apple Keller seen in collaboration with Dr. Whitehead. Level of Care Med/Surg Advanced Directives Existing Living Will: Yes Resuscitation Status FULL RESUSCITATION VTE Prophylaxis VTE Risk Assessment Done? Y/N: Yes Risk Level: Moderate Given or contraindicated: SCD's Note ATTENDING ADDENDUM Record reviewed. Patient interviewed and examined in ED. Care coordinated with Scarlet Evans PA-C. Please refer to her documentation for patient's history. Briefly, 76 YO female with history of hypertension, COPD, CKD, DM, and other problems. Underwent right ELIJAH on 12/27/16. Did well postoperatively and discharged to home. Today she was ambulating with walker and about to sit down, when she simultaneously experienced her right leg giving out and a popping sensation in her right hip. No syncope, near-syncope, trauma. EXAM: General- somewhat uncomfortable, no acute distress VS- as noted Lungs- clear Heart- RRR Abdomen- + BS, soft, nontender Extremities- right leg shortened; no pretibial edema or calf tenderness Neuro- alert DATA: Hgb 8.7 Random glucose 146. BUN 22, creatinine 1.1. Other lab studies as noted. R PELVIS/UNILATERAL HIP 2-3VIEWS FINDINGS: There is a new acute mildly displaced intertrochanteric periprosthetic fracture of the right femur. Fracture is displaced 6 mm. Fracture involves the lesser trochanter. The right hip arthroplasty is anatomically aligned. The hardware is intact. Lumbar spine fusion and discectomy is noted. IMPRESSION: Acute mildly displaced intertrochanteric periprosthetic fracture of the right femur. Electronically signed by: Chavez Ruiz M.D. 01/02/2017 5:48 PM Dictated Date/Time: 01/02/2017 5:46 PM ASSESSMENT AND PLAN: PERIPROSTHETIC FRACTURE RIGHT FEMUR Management per Geriatric Hip Fracture protocol. Consult Ortho and Anesthesia. HYPERTENSION Hemodynamically stable. Continue diltiazem. Follow and titrate therapy. COPD Respiratory status stable. DM TYPE 2 Well-controlled at home. Recent Hgb A1C 6.5 on 11/28/16. Random blood glucose in ED 146. Hold oral agents during hospital stay. Lantus + NovoLog per protocol. ANEMIA Hgb 8.7 compared to discharge Hgb of 8.9 on 12/29/16. Probably no need for transfusion at this time per guidelines. Type and screen pRBC's. Follow H/H. VTE PROPHYLAXIS SCD's preop. Postop prophylaxis to be determined. Please refer to FLOR Evans's documentation for discussion of other issues. Taurus Whitehead MD
[2017-01-02 19:49] LABS: URINE APPEARANCE CLOUDY (CLEAR); URINE BILIRUBIN NEG (NEG); URINE COLOR YELLOW; URINE NITRITE POS (NEG); URINE PH 5.5 (4.5-7.5); URINE SPECIFIC GRAVITY 1.017 (1.000-1.030); UROBILINOGEN NEG (NEG)
[2017-01-02 19:52] LABS: MANUAL MICROSCOPIC REQUIRED? NO; REVIEW REQ? YES
[2017-01-02 20:15] VITALS: BP 153/61; PULSE 101; TEMP 37.8; O2SAT 93; Ht 162.6 cm; Wt 80.2 kg
[2017-01-02] MEDS: SODIUM CHLORIDE 0.9% 1000ML 1,000 ML IV SCH (20:36)
[2017-01-02] MEDS: PANTOprazole SOD 40 MG TAB PO SCH (21:00)
--- NOTE | 2017-01-02 21:06 | Progress Note ---
Progress Note Date of Service Jan 02, 2017. Progress Note Pt is a 76 yo female s/p R ELIJAH on 12/27/16 who fell at home and sustained R periprosthetic hip fx. Pt is scheduled for ORIF tomorrow. Pt seen and interviewed. PMH significant for COPD that is well controlled, HTN, hyperlipidemia and DM II. Anesthesia plan discussed with patient and daughter, all questions answered and consent was signed. Pt was advised to be NPO after midnight.
[2017-01-02] MEDS: PREGABALIN 50 MG CAP PO SCH (21:10)
[2017-01-02] MEDS: ORPHENADRINE CITRATE 100 MG TABCR PO SCH (21:10)
[2017-01-02] MEDS: DOCUSATE SODIUM/SENNA 50/8.6MG TAB PO SCH (21:11)
[2017-01-02] MEDS: SIMVASTATIN 10 MG TAB PO SCH (21:11)
[2017-01-02] MEDS: ACETAMINOPHEN 500 MG TAB PO SCH (21:11)
[2017-01-02 21:52] VITALS: O2SAT 98
[2017-01-02] MEDS ORDERED: GLUCOSE 40% GEL 15 GM TUBE PO PRN (22:30)
[2017-01-02] MEDS ORDERED: GLUCOSE 10 TABS/TUBE PO PRN (22:30)
[2017-01-02] MEDS ORDERED: DEXTROSE 50% 50 ML SYR IV PRN (22:30)
[2017-01-02] MEDS ORDERED: GLUCAGON FOR INJ 1 MG VIAL SQ PRN (22:30)
[2017-01-02 23:35] VITALS: BP 119/72; PULSE 91; TEMP 37.2; O2SAT 99
[2017-01-03] VITALS (20 sets, daily range): BP systolic 110–165; BP diastolic 60–87; PULSE 71–90; TEMP 36.5–37.8; O2SAT 89–100
[2017-01-03] MEDS ORDERED: NURSING DECISION MEDICATION ORDER SCH (01:30)
[2017-01-03] MEDS: SODIUM CHLORIDE 0.9% 1000ML 1,000 ML IV SCH ×2 (05:26→17:52)
[2017-01-03] MEDS: ACETAMINOPHEN 500 MG TAB PO SCH ×3 (05:27→21:12)
[2017-01-03] MEDS: INSULIN ASPART 100 UNITS/ML 3 ML PEN SC SCH ×4 (05:31→21:18)
[2017-01-03] MEDS ORDERED: CLINDAMYCIN IV 900 MG in DEXTROSE 5% 100ML 100 ML IV SCH (06:00)
[2017-01-03 06:11] LABS: BUN/CREATININE RATIO 17.6 (10-20); CALCIUM 7.5 mg/dl (8.5-10.1); CREATININE 1.1 mg/dl (0.60-1.20); POTASSIUM 4.4 mmol/L (3.5-5.1)
[2017-01-03 06:13] LABS: HEMATOCRIT 21.6 % (37-47); MEAN CELL VOLUME 80.6 fL (80-100); MEAN CORPUSCULAR HEMOGLOBIN 25.4 pg (25-34); MEAN CORPUSCULAR HGB CONC 31.5 g/dl (32-36); MEAN PLATELET VOLUME 9.4 fL (7.4-10.4); PLATELET COUNT 145 K/uL (130-400); RED BLOOD COUNT 2.68 M/uL (4.2-5.4); WHITE BLOOD COUNT 3.62 K/uL (4.8-10.8)
[2017-01-03] MEDS ORDERED: BUPIVACAINE 0.5 % 5 MG/1 ML PF 10ML VIAL ONE (06:45)
[2017-01-03] MEDS ORDERED: INSULIN ASPART 100 UNITS/ML 3 ML PEN SC SCH (08:00)
--- NOTE | 2017-01-03 08:16 | CONSULTATION REPORT ---
DATE OF CONSULTATION: 01/03/2017 CHIEF COMPLAINT: Right periprosthetic hip fracture. HISTORY OF PRESENT ILLNESS: Ms. Tellez is a pleasant 76-year-old female who is status post right total hip arthroplasty with Dr. Hendricks on 12/28/2016. The patient had a noncomplicated intraoperative course. She was discharged home last week in stable condition. The patient states she was doing well at home. She was ambulating to the living room with her walker when she heard a popping noise and her right leg gave way. The patient was able to lower herself into a chair. She did not fall. She did not lose consciousness or hit her head. The patient was having severe pain at 10/10. The patient was home alone but she did call her daughter who told her to call an ambulance. The patient was brought to [facility] for further evaluation. PAST MEDICAL HISTORY: Allergic rhinitis, stage III kidney disease, COPD, type 2 diabetes, hypertension, chronic neuropathy, and stress incontinence. PAST SURGICAL HISTORY: Bilateral total knee arthroplasty, appendectomy, hysterectomy, x3, cholecystectomy, and spine surgery. FAMILY HISTORY: Noncontributory. SOCIAL HISTORY: The patient denies alcohol or tobacco use. She lives at home alone in a single floor with her daughter. She is retired. ALLERGIES: Please see the chart. MEDICATIONS: Please see the chart. PHYSICAL EXAMINATION: VITAL SIGNS: Height 64 inches, weight 176 pounds. BMI is 30. GENERAL: This is a well-developed, well-nourished female who is alert and oriented x3. Mood and affect are appropriate. She is currently in no acute distress. HEENT: Normocephalic, atraumatic. Mucous membranes are moist and intact. NECK: Supple without lymphadenopathy. HEART: Regular rate and rhythm without murmurs, rubs or gallops. LUNGS: Clear to auscultation without wheezes or rhonchi. ABDOMEN: Soft and nontender. Bowel sounds are equal and active. EXTREMITIES: No ecchymosis, redness or warmth. She does have some increased swelling of the right thigh and right lower extremity is slightly shortened. Range of motion was deferred due to fracture. Calves are soft and nontender. She has full dorsi plantarflexion. Previous hip incision is healing well. There is no redness or drainage. X-RAY EXAMINATION: AP views of the pelvis show a mildly displaced right intertrochanteric periprosthetic hip fracture. PLAN: I had a slight fever yesterday evening at 37.8. She also had 6.8 this morning. She is currently receiving 2 units of PRBCs, pending medical reevaluation. She may be cleared for ORIF this afternoon. She is currently n.p.o., may consider holding off until tomorrow until her hemoglobin is stabilized. We will discuss with Dr. Hendricks who will consent the patient later today.
--- NOTE | 2017-01-03 08:26 | Clinical Documentation Query ---
CLINICAL DOCUMENTATION QUERY Dr. BUNDY, In your clinical opinion is this patient being managed for: ( + ) Acute blood loss anemia ( ) Not Agree ( ) Other explanation of clinical findings (Please Explain) ( ) Unable to determine (Please Define) ( ) Need to Discuss The medical record reflects the following clinical findings, treatment, and risk factors. Clinical Indicators: 76 yo female presenting with a periprosthetic R femur fracture. Presenting Hgb 8.7, Hct 28.2 which has dropped to 6.8/21.6 Treatment: IV fluids, transfuse 1 U PRBC Risk Factors: periprosthetic R femur fracture Please clarify and document your clinical opinion in the progress notes and discharge summary. Terms such as "probable", "suspected", "likely", "questionable", "possible", or "still to be ruled out" are acceptable. IF IN AGREEMENT, YOU MUST DOCUMENT ABOVE DIAGNOSTIC STATEMENT IN DAILY PROGRESS NOTES AND DISCHARGE SUMMARY. This document is not part of the patient's record. Thank You, Cathy Zavaleta RN [phone]
[2017-01-03] MEDS: INSULIN GLARGINE SOLOSTAR 100 UNITS/ML 3 ML PEN SC SCH ×2 (09:44→21:19)
[2017-01-03] MEDS: ORPHENADRINE CITRATE 100 MG TABCR PO SCH ×2 (09:52→21:12)
[2017-01-03] MEDS: TOLTERODINE TARTRATE LA 4 MG CAPCR PO SCH (09:52)
[2017-01-03] MEDS: MONTELUKAST SOD 10 MG TAB PO SCH (09:53)
[2017-01-03] MEDS: DILTIAZEM HCL 120 MG EXT REL CAP PO SCH (09:56)
[2017-01-03] MEDS: PREGABALIN 50 MG CAP PO SCH ×3 (09:57→21:11)
[2017-01-03] MEDS: PANTOprazole SOD 40 MG TAB PO SCH ×2 (10:18→21:11)
[2017-01-03] MEDS ORDERED: MIDAZOLAM HCL 1 MG/ML 2ML VIAL ONE ×2 (11:02→11:49)
[2017-01-03] MEDS ORDERED: FENTANYL CITRATE INJ 50 MCG/1 ML 2 ML VIAL ONE ×2 (11:02→11:49)
[2017-01-03] MEDS ORDERED: LIDOCAINE HCL 2% 2 ML VIAL (20MG/ML) ONE (11:07)
[2017-01-03] MEDS ORDERED: PROPOFOL IV EMULSION 10 MG/ML 20 ML VIAL IV ONE ×2 (11:07→11:45)
[2017-01-03] MEDS ORDERED: ONDANSETRON INJ 2 MG/ML 2 ML VIAL ONE (11:07)
[2017-01-03] MEDS ORDERED: ORTHO JOINT ANESTHETIC ONE (12:15)
[2017-01-03] MEDS ORDERED: BACITRACIN 50000 UNIT VIAL ONE (12:15)
[2017-01-03] MEDS ORDERED: ROPIVACAINE 5MG/ML 30 ML 150 MG, BUPIVACAINE/EPINEPHR 0.5% MPF 30 ML, KETOROLAC TROMETH... INFIL SCH ×7 (12:30)
[2017-01-03] MEDS ORDERED: CLINDAMYCIN 600 MG/54 ML D5W IV ONE (12:51)
[2017-01-03] MEDS ORDERED: ATROPINE SULFATE 0.1 MG/ML 5ML SYR IV PRN (14:00)
[2017-01-03] MEDS ORDERED: ONDANSETRON INJ 2 MG/ML 2 ML VIAL IV PRN (14:00)
[2017-01-03] MEDS ORDERED: PHENYLEPHRINE 100MCG/ML 5ML SYR IV PRN (14:00)
[2017-01-03] MEDS ORDERED: HYDROmorphone INJ 2 MG/ML SYR/VIAL IV PRN (14:00)
[2017-01-03] MEDS ORDERED: EpHEDrine SULFATE INJ 50 MG/ML AMP IV PRN (14:00)
[2017-01-03] MEDS ORDERED: PHENYLEPHRINE 100MCG/ML 5ML SYR ONE (14:16)
--- NOTE | 2017-01-03 16:19 | DIAGNOSTIC IMAGING REPORT ---
R HIP OR FILMS CLINICAL HISTORY: Right hip revision. Periprosthetic fracture. COMPARISON STUDY: Pelvis and right hip radiographs December 03, 2016. FLUOROSCOPY TIME: 11 seconds. FINDINGS: 2 fluoroscopic images demonstrate placement of proximal right femoral cerclage wires for the periprosthetic fracture of the right femur shown on exam of January 02, 2017. IMPRESSION: Fluoroscopic images demonstrating placement of cerclage wires for the periprosthetic right femoral fracture. Electronically signed by: Chavez Ruiz M.D. 01/03/2017 4:17 PM Dictated Date/Time: 01/03/2017 4:16 PM
--- NOTE | 2017-01-03 17:10 | Anesthesiology Progress Note ---
Anesthesia Post Op Note Date & Time Jan 03, 2017 at 17:09 Vital Signs Pain Intensity: 0 Vital Signs Past 12 Hours Date Time Temp Pulse Resp B/P (MAP) Pulse Ox O2 Delivery O2 Flow Rate FiO2 01/03/17 16:58 72 15 100 01/03/17 16:58 72 15 01/03/17 16:56 131/58 01/03/17 16:53 75 20 96 01/03/17 16:53 82 20 01/03/17 16:51 115/60 01/03/17 16:48 22 01/03/17 16:48 22 01/03/17 16:47 125/59 01/03/17 16:45 73 19 01/03/17 16:45 89 19 96 01/03/17 16:41 156/70 01/03/17 16:40 75 22 01/03/17 16:40 74 22 01/03/17 16:37 142/73 01/03/17 16:35 71 16 01/03/17 16:35 71 16 100 01/03/17 16:31 128/68 01/03/17 16:30 75 17 92 01/03/17 16:30 36.8 75 16 128/68 100 Oxymask 10 01/03/17 16:30 76 17 01/03/17 16:06 Room Air 98.0 01/03/17 16:03 37.0 74 18 165/87 (113) 89 Room Air 01/03/17 12:25 37.5 83 18 142/65 97 01/03/17 11:25 37.2 78 18 140/75 96 01/03/17 11:25 37.2 78 18 140/75 96 01/03/17 11:10 37.4 80 78 162/75 96 01/03/17 11:01 37.4 75 18 144/73 94 01/03/17 10:15 36.8 72 16 135/76 100 1.0 01/03/17 09:55 134/75 (94) 01/03/17 09:13 36.9 71 17 120/76 100 1.0 01/03/17 08:45 36.9 71 18 127/72 97 1.0 01/03/17 08:15 37.0 72 15 119/75 100 1.0 01/03/17 08:00 37.0 71 20 116/69 100 1.0 01/03/17 07:45 Nasal Cannula 1.0 01/03/17 07:42 37.1 75 20 128/60 01/03/17 07:38 37.1 75 20 128/60 100 1.0 Notes Mental Status: alert / awake / arousable, participated in evaluation Pt Amnestic to Procedure: Yes Nausea / Vomiting: adequately controlled Pain: adequately controlled Airway Patency, RR, SpO2: stable & adequate BP & HR: stable & adequate Hydration State: stable & adequate Neuraxial Anesthesia: was administered, sensory block is resolving Anesthetic Complications: no major complications apparent
[2017-01-03] MEDS ORDERED: NURSING VERBAL MED ORDER ONE (17:45)
--- NOTE | 2017-01-03 17:51 | OPERATIVE REPORT ---
REVISED REPORT DATE OF OPERATION: 01/03/2017 PREOPERATIVE DIAGNOSIS: Periprosthetic femur fracture, right. POSTOPERATIVE DIAGNOSIS: Periprosthetic femur fracture, right. PROCEDURE: Open reduction internal fixation, proximal femur fracture with revision femoral stem and head to holiness modular conical stem. SURGEON: Dr. Hendricks. TROLLEY OPERATOR: Campos Fox PA-C. He was necessary for all portions of the case including prepping, draping, environmental services assistant, wound closure and dressing application. ANESTHESIA: General. COMPLICATIONS: None. DESCRIPTION OF PROCEDURE: Following induction of adequate general anesthesia, the patient was placed in right lateral decubitus position and right Mikhail-Langenbeck incision was reopened. Subcutaneous tissue was sharply dissected. Electrocautery was used for hemostasis. The extensor clot was noted throughout the wound and the femoral stem was sounded easily be removed using a pair of pliers. The fracture was explored and could be manually reduced with the leg in neutral reduction was carried out. A single cable was placed beneath the lesser trochanter circumferentially. Check x-rays revealed adequate reduction and a second cable was placed in the greater trochanter to undergo the lesser trochanter as an adequate calcar remained to cable above the lesser trochanter. The construct was stable and attention was turned to the proximal femur where lateralizing femur was used to remove the medial surface of the undersurface of the greater trochanter. Sequential reamings were taken up to a size 16, which seemed to give good filling of the canal with stability and a proximal reaming was carried out for a 21 mm proximal body. Trials were placed in multiple lengths arriving finally on a 21 cone body, +0 length and a minus 5 femoral neck. This was the shortest construct available with aforementioned stem. Trials were all removed, the hip was thoroughly irrigated and the final body was impacted into position and torqued in place. The final ceramic femoral head was impacted into position, the hip was reduced, and found to be quite stable. The cables were finally tightened up and locked with the set screws. Cables were cut to appropriate length. Wound was thoroughly irrigated, joint injection was utilized throughout the joint and an iodine soak was carried out. A Hemovac drain was placed. Fascia was closed using #1 Vicryl, subcutaneous tissue was closed using 0 Dexon, and the skin was closed with kristi. Sterile dressing of Adaptic, 4x4s, ABDs, foam tape was applied. The patient tolerated the procedure well. I attest to the content of the Intraoperative Record and any orders documented therein. Any exceptions are noted below. MTDD
--- NOTE | 2017-01-03 17:52 | DIAGNOSTIC IMAGING REPORT ---
R HIP UNILATERAL 2 VIEWS CLINICAL HISTORY: post-op ELIJAH revision COMPARISON: Pelvis and right hip radiographs January 02, 2017. FINDINGS: Alignment of the total right hip arthroplasty is anatomic. Revision right hip arthroplasty is noted with placement of cerclage wires. Alignment of the periprosthetic fracture is now near anatomic. Skin kristi and drains are in place. IMPRESSION: Expected findings following revision right hip arthroplasty with placement of proximal femoral cerclage wires. Electronically signed by: Chavez Ruiz M.D. 01/03/2017 5:51 PM Dictated Date/Time: 01/03/2017 5:48 PM
[2017-01-03] MEDS: OXYCODONE HCL IR 5 MG TAB (IMMEDIATE RELEASE) PO PRN (18:11)
--- NOTE | 2017-01-03 19:06 | Progress Note ---
Internal Med Progress Note Date of Service: Jan 03, 2017. Provider Documentation: SUBJECTIVE: The patient was seen and examined S/P ORIF Has Pain at the surgery site Denies any CP,Palpitation ,SOB OBJECTIVE: Vital Signs-as noted below Exam: General-NO distress at rest Eyes-normal ENT-normal Neck-supple Lungs-Clear to auscultate bilaterally Heart-Regular,no murmur appreciated Abdomen-Benign,no masses,bowel sound present Extremities-NO edema Neuro-AAOx3 Lab data as noted below. ASSESSMENT & PLAN: ASSESSMENT AND PLAN: PERIPROSTHETIC FRACTURE RIGHT FEMUR Management per Geriatric Hip Fracture protocol. Consult Ortho and Anesthesia. 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 Management as per Ortho Acute Blood Loss Anemia Hb dropped to 6.8 Received 2 units of PRBC Hb went up to 9.9 HYPERTENSION Hemodynamically stable. Continue diltiazem. Follow and titrate therapy. BP remains stable COPD Respiratory status stable. Continue current medications DM TYPE 2 Well-controlled at home. Recent Hgb A1C 6.5 on 11/28/16. Random blood glucose in ED 146. Hold oral agents during hospital stay. Lantus + NovoLog per protocol. HLD: -Continue statin GERD: -Continue PPI Stress Incontinence: -Continue Detrol VTE PROPHYLAXIS SCD's preop. Postop prophylaxis to be determined. Vital Signs: Date Time Temp Pulse Resp B/P (MAP) Pulse Ox O2 Delivery O2 Flow Rate FiO2 01/03/17 18:16 36.8 82 18 154/62 (92) 91 Nasal Cannula 2.0 01/03/17 17:45 37.1 89 18 143/76 (98) 92 Nasal Cannula 2.0 01/03/17 17:45 Nasal Cannula 2.0 01/03/17 17:45 Nasal Cannula 2.0 01/03/17 17:32 75 15 100 01/03/17 17:32 75 15 01/03/17 17:30 133/67 01/03/17 17:27 76 19 01/03/17 17:27 75 19 95 01/03/17 17:25 117/70 01/03/17 17:22 22 01/03/17 17:22 78 22 01/03/17 17:21 119/79 01/03/17 17:17 72 16 01/03/17 17:17 100 16 98 01/03/17 17:17 36.9 01/03/17 17:16 137/71 01/03/17 17:14 75 16 01/03/17 17:14 77 16 97 01/03/17 17:11 131/94 01/03/17 17:09 76 20 90 01/03/17 17:09 76 20 01/03/17 17:06 141/73 01/03/17 17:04 77 19 01/03/17 17:04 76 19 85 01/03/17 16:59 74 17 01/03/17 16:59 73 17 98 01/03/17 16:58 72 15 100 01/03/17 16:58 72 15 01/03/17 16:56 131/58 01/03/17 16:53 75 20 96 01/03/17 16:53 82 20 01/03/17 16:51 115/60 01/03/17 16:48 22 01/03/17 16:48 22 01/03/17 16:47 125/59 01/03/17 16:45 73 19 01/03/17 16:45 89 19 96 01/03/17 16:41 156/70 01/03/17 16:40 75 22 01/03/17 16:40 74 22 01/03/17 16:37 142/73 01/03/17 16:35 71 16 01/03/17 16:35 71 16 100 01/03/17 16:31 128/68 01/03/17 16:30 75 17 92 01/03/17 16:30 36.8 75 16 128/68 100 Oxymask 10 01/03/17 16:30 76 17 01/03/17 16:06 Room Air 98.0 01/03/17 16:03 37.0 74 18 165/87 (113) 89 Room Air 01/03/17 12:25 37.5 83 18 142/65 97 01/03/17 11:25 37.2 78 18 140/75 96 01/03/17 11:25 37.2 78 18 140/75 96 01/03/17 11:10 37.4 80 78 162/75 96 01/03/17 11:01 37.4 75 18 144/73 94 01/03/17 10:15 36.8 72 16 135/76 100 1.0 01/03/17 09:55 134/75 (94) 01/03/17 09:13 36.9 71 17 120/76 100 1.0 01/03/17 08:45 36.9 71 18 127/72 97 1.0 01/03/17 08:15 37.0 72 15 119/75 100 1.0 01/03/17 08:00 37.0 71 20 116/69 100 1.0 01/03/17 07:45 Nasal Cannula 1.0 01/03/17 07:42 37.1 75 20 128/60 01/03/17 07:38 37.1 75 20 128/60 100 1.0 01/03/17 00:03 Nasal Cannula 1.0 01/02/17 23:35 37.2 91 16 119/72 (88) 99 Nasal Cannula 2.0 01/02/17 21:52 98 Nasal Cannula 1.0 01/02/17 20:15 37.8 101 18 153/61 (91) 93 Room Air 01/02/17 20:15 37.8 101 18 153/61 93 Room Air 01/02/17 19:01 100 161/82 95 Room Air Lab Results: Results Past 24 Hours Test 01/03/17 05:18 01/03/17 05:22 01/03/17 05:30 01/03/17 16:33 Range/Units Sodium Level 141 136-145 mmol/L Potassium Level 4.4 3.5-5.1 mmol/L Chloride Level 108 98-107 mmol/L Carbon Dioxide Level 28 21-32 mmol/L Anion Gap 5.0 3-11 mmol/L Blood Urea Nitrogen 19 7-18 mg/dl Creatinine 1.10 0.60-1.20 mg/dl Est Creatinine Clear Calc Drug Dose 45.3 ml/min Estimated GFR () 56.9 Estimated GFR (Non- 49.1 BUN/Creatinine Ratio 17.6 10-20 Random Glucose 114 70-99 mg/dl Calcium Level 7.5 8.5-10.1 mg/dl White Blood Count 3.62 4.8-10.8 K/uL Red Blood Count 2.68 4.2-5.4 M/uL Hemoglobin 6.8 12.0-16.0 g/dL Hematocrit 21.6 37-47 % Mean Corpuscular Volume 80.6 80-100 fL Mean Corpuscular Hemoglobin 25.4 25-34 pg Mean Corpuscular Hemoglobin Concent 31.5 32-36 g/dl RDW Standard Deviation 46.8 36.4-46.3 fL RDW Coefficient of Variation 15.9 11.5-14.5 % Platelet Count 145 130-400 K/uL Mean Platelet Volume 9.4 7.4-10.4 fL Bedside Glucose 114 84 70-90 mg/dl Test 01/03/17 17:10 Range/Units Hemoglobin 9.9 12.0-16.0 g/dL Hematocrit 30.0 37-47 % Microbiology Results 01/02/17 MRSA DNA Surveillance Screen - Final, Complete Specimen Negative for MRSA by DNA Probe
[2017-01-03] MEDS: SIMVASTATIN 10 MG TAB PO SCH (21:12)
[2017-01-03] MEDS: DOCUSATE SODIUM/SENNA 50/8.6MG TAB PO SCH (21:12)
[2017-01-03] MEDS: CLINDAMYCIN IV 600 MG in DEXTROSE 5% 50ML 50 ML IV SCH (21:52)
[2017-01-04] MEDS: SODIUM CHLORIDE 0.9% 1000ML 1,000 ML IV SCH ×3 (02:27→21:29)
[2017-01-04 03:39] VITALS: BP 117/70; PULSE 67; TEMP 36.4; O2SAT 100
[2017-01-04] MEDS: ACETAMINOPHEN 500 MG TAB PO SCH ×3 (05:43→21:29)
[2017-01-04] MEDS: CLINDAMYCIN IV 600 MG in DEXTROSE 5% 50ML 50 ML IV SCH ×2 (05:43→13:26)
[2017-01-04] MEDS ORDERED: CLINDAMYCIN 600 MG/54 ML D5W 54 ML IV SCH (06:00)
--- NOTE | 2017-01-04 06:31 | Clinical Documentation Query ---
CLINICAL DOCUMENTATION QUERY Dr. WILEY, LATERALITY IS INCORRECT ON THE OPERATIVE RECORD In your clinical opinion is this patient being managed for: ( ) ORIF Right Femur ( ) Not Agree ( ) Other explanation of clinical findings (Please Explain) ( ) Unable to determine (Please Define) ( X ) Need to Discuss ORIF/Revision ELIJAH The medical record reflects the following clinical findings, treatment, and risk factors. Clinical Indicators: Pt admitted with R periprosthetic femur fracture. Operative record indicates pt with Periprosthetic femur fracture, left. Treatment: ORIF RIGHT femur Risk Factors:femur fracture Please clarify and document your clinical opinion in the progress notes and discharge summary. Terms such as "probable", "suspected", "likely", "questionable", "possible", or "still to be ruled out" are acceptable. IF IN AGREEMENT, YOU MUST DOCUMENT ABOVE DIAGNOSTIC STATEMENT IN DAILY PROGRESS NOTES AND DISCHARGE SUMMARY. This document is not part of the patient's record. Thank You, Cathy Zavaleta, JORDIN [phone]
[2017-01-04 07:20] VITALS: BP 120/68; PULSE 68; TEMP 36.9; O2SAT 99
[2017-01-04 07:54] LABS: MEAN CELL VOLUME 81.4 fL (80-100); MEAN CORPUSCULAR HEMOGLOBIN 26.4 pg (25-34); MEAN CORPUSCULAR HGB CONC 32.5 g/dl (32-36); MEAN PLATELET VOLUME 9.7 fL (7.4-10.4); PLATELET COUNT 132 K/uL (130-400); RED BLOOD COUNT 2.95 M/uL (4.2-5.4); WHITE BLOOD COUNT 6.11 K/uL (4.8-10.8)
--- NOTE | 2017-01-04 07:56 | Anesthesiology Progress Note ---
Anesthesia Post Op Note Date & Time Jan 04, 2017 at 07:55 Vital Signs Vital Signs Past 12 Hours Date Time Temp Pulse Resp B/P (MAP) Pulse Ox O2 Delivery O2 Flow Rate FiO2 01/04/17 07:20 36.9 68 19 120/68 (85) 99 Room Air 01/04/17 03:39 36.4 67 16 117/70 (86) 100 Nasal Cannula 2.0 01/04/17 00:00 Nasal Cannula 2.0 01/03/17 23:05 36.5 73 16 110/70 (83) 100 Nasal Cannula 2.0 01/03/17 20:50 37.8 83 18 113/66 (82) 98 Nasal Cannula 2.0 Notes Mental Status: alert / awake / arousable, participated in evaluation Pt Amnestic to Procedure: Yes Nausea / Vomiting: adequately controlled Pain: adequately controlled Airway Patency, RR, SpO2: stable & adequate BP & HR: stable & adequate Hydration State: stable & adequate Neuraxial Anesthesia: was administered, sensory block resolved Anesthetic Complications: no major complications apparent
--- NOTE | 2017-01-04 08:28 | Orthopedic Progress Note ---
Orthopedic Progress Note Date of Service Jan 04, 2017. Subjective Post OP Day: 1 Reports: feeling well, pain controlled w PO medications, Denies: chest pain, SOB , nausea / vomiting, light headedness, calf pain Objective calves soft nontender, N/V intact, hip located, dressing C/D/I, A&O x3, toes mobile, hemovac drainage (75ml latest shift) Date Time Temp Pulse Resp B/P (MAP) Pulse Ox O2 Delivery O2 Flow Rate FiO2 01/04/17 07:20 36.9 68 19 120/68 (85) 99 Room Air 01/04/17 03:39 36.4 67 16 117/70 (86) 100 Nasal Cannula 2.0 01/04/17 00:00 Nasal Cannula 2.0 01/03/17 23:05 36.5 73 16 110/70 (83) 100 Nasal Cannula 2.0 01/03/17 20:50 37.8 83 18 113/66 (82) 98 Nasal Cannula 2.0 01/03/17 19:45 37.6 82 18 119/69 (86) 97 Nasal Cannula 2.0 01/03/17 19:00 37.5 82 18 123/65 (84) 94 Nasal Cannula 2.0 01/03/17 18:16 36.8 82 18 154/62 (92) 91 Nasal Cannula 2.0 01/03/17 17:45 37.1 89 18 143/76 (98) 92 Nasal Cannula 2.0 01/03/17 17:45 Nasal Cannula 2.0 01/03/17 17:45 Nasal Cannula 2.0 01/03/17 17:32 75 15 100 01/03/17 17:32 75 15 01/03/17 17:30 133/67 01/03/17 17:27 76 19 01/03/17 17:27 75 19 95 01/03/17 17:25 117/70 01/03/17 17:22 22 01/03/17 17:22 78 22 01/03/17 17:21 119/79 01/03/17 17:17 72 16 01/03/17 17:17 100 16 98 01/03/17 17:17 36.9 01/03/17 17:16 137/71 01/03/17 17:14 75 16 01/03/17 17:14 77 16 97 01/03/17 17:11 131/94 01/03/17 17:09 76 20 90 01/03/17 17:09 76 20 01/03/17 17:06 141/73 01/03/17 17:04 77 19 01/03/17 17:04 76 19 85 01/03/17 16:59 74 17 01/03/17 16:59 73 17 98 01/03/17 16:58 72 15 100 01/03/17 16:58 72 15 01/03/17 16:56 131/58 01/03/17 16:53 75 20 96 01/03/17 16:53 82 20 01/03/17 16:51 115/60 01/03/17 16:48 22 01/03/17 16:48 22 01/03/17 16:47 125/59 01/03/17 16:45 73 19 01/03/17 16:45 89 19 96 01/03/17 16:41 156/70 01/03/17 16:40 75 22 01/03/17 16:40 74 22 01/03/17 16:37 142/73 01/03/17 16:35 71 16 01/03/17 16:35 71 16 100 01/03/17 16:31 128/68 01/03/17 16:30 75 17 92 01/03/17 16:30 36.8 75 16 128/68 100 Oxymask 10 01/03/17 16:30 76 17 01/03/17 16:06 Room Air 98.0 01/03/17 16:03 37.0 74 18 165/87 (113) 89 Room Air 01/03/17 12:25 37.5 83 18 142/65 97 01/03/17 11:25 37.2 78 18 140/75 96 01/03/17 11:25 37.2 78 18 140/75 96 01/03/17 11:10 37.4 80 78 162/75 96 01/03/17 11:01 37.4 75 18 144/73 94 01/03/17 10:15 36.8 72 16 135/76 100 1.0 01/03/17 09:55 134/75 (94) 01/03/17 09:13 36.9 71 17 120/76 100 1.0 01/03/17 08:45 36.9 71 18 127/72 97 1.0 Laboratory Results 24 Hours: Test 01/03/17 17:10 01/04/17 07:08 Hematocrit 30.0 % 24.0 % Hemoglobin 9.9 g/dL 7.8 g/dL Assessment & Plan Assessment: POD 1 s/p R ELIJAH Revision/ORIF femur Anemia Plan: PT/OT - NWB RLE Follow H/H - will redraw H/H at 1600 - asymptomatic at present time Hoping to go to [facility] upon DC 1653 ADDENDUM: HGB 7.9 NO OVERALL CHANGE. WILL REDRAW H/H TOMORROW AM. Inhouse Planning Pain Management: Dilaudid, PO Tylenol, Oxy IR DVT Prophylaxis: TEDs, SCDs, Xarelto Discharge Planning Discharge Planning: rehab hospital
[2017-01-04 08:37] LABS: BUN/CREATININE RATIO 18.8 (10-20); CALCIUM 7.2 mg/dl (8.5-10.1); CREATININE 0.8 mg/dl (0.60-1.20); POTASSIUM 4.6 mmol/L (3.5-5.1)
[2017-01-04] MEDS: TOLTERODINE TARTRATE LA 4 MG CAPCR PO SCH (08:48)
[2017-01-04] MEDS: ORPHENADRINE CITRATE 100 MG TABCR PO SCH ×2 (08:49→21:00)
[2017-01-04] MEDS: PANTOprazole SOD 40 MG TAB PO SCH ×2 (08:49→21:00)
[2017-01-04] MEDS: MONTELUKAST SOD 10 MG TAB PO SCH (08:49)
[2017-01-04 08:51] VITALS: BP 135/77; PULSE 73
[2017-01-04] MEDS: DILTIAZEM HCL 120 MG EXT REL CAP PO SCH (08:52)
[2017-01-04] MEDS: INSULIN ASPART 100 UNITS/ML 3 ML PEN SC SCH ×4 (08:55→21:03)
[2017-01-04] MEDS: PREGABALIN 50 MG CAP PO SCH ×3 (08:56→21:00)
[2017-01-04] MEDS: INSULIN GLARGINE SOLOSTAR 100 UNITS/ML 3 ML PEN SC SCH ×2 (08:56→21:01)
[2017-01-04] MEDS: OXYCODONE HCL IR 5 MG TAB (IMMEDIATE RELEASE) PO PRN (12:02)
[2017-01-04 14:58] VITALS: BP 123/71; PULSE 77; TEMP 36.8; O2SAT 98
[2017-01-04] MEDS: RIVAROXABAN 10 MG TAB PO SCH (15:33)
[2017-01-04 16:18] LABS: HEMATOCRIT 23.5 % (37-47)
--- NOTE | 2017-01-04 18:23 | Progress Note ---
Subjective Date of Service: Jan 04, 2017. Subjective Pt evaluation today including: conversation w/ patient, physical exam, lab review, review of studies, review of inpatient medication list Saw/examined the patient in room 361 Pain improved with pain medications Good PO intake No other issues to note Problem List Medical Problems: (1) Periprosthetic hip fracture Status: Acute (2) Postoperative anemia Status: Acute Review of Systems Constitutional: No fever, No chills Respiratory: No cough, No shortness of breath Cardiac: No chest pain Abdomen: No pain, No nausea, No vomiting, No diarrhea Musculoskeletal: + joint pain (controlled with pain) Medications Current Inpatient Medications Medications (Trade) Dose Ordered Sig/Charis Route Start Time Stop Time Status Last Admin Dose Admin Sodium Chloride 1,000 ml @ 100 mls/hr Q10H IV 01/02/17 20:30 02/01/17 20:29 01/04/17 13:25 100 MLS/HR Ondansetron HCl (Zofran Inj) 4 mg Q6H PRN IV 01/02/17 19:15 02/01/17 19:14 Hydromorphone HCl (Dilaudid Inj) 0.25 mg Q20M PRN IV 01/02/17 19:15 01/16/17 19:14 01/02/17 21:05 0.25 MG Hydromorphone HCl (Dilaudid Inj) 0.5 mg Q20M PRN IV 01/02/17 19:15 01/16/17 19:14 Naloxone HCl (Narcan Inj) 0.1 mg PRN PRN IV 01/02/17 19:15 02/01/17 19:14 Senna/Docusate Sodium (Senokot S Tab) 2 tab HS PO 01/02/17 21:00 02/01/17 20:59 01/03/17 21:12 2 TAB Polyethylene (Miralax Powder Packet) 17 gm DAILY PRN PO 01/02/17 19:15 02/01/17 19:14 Magnesium Hydroxide (Milk Of Magnesia Susp) 30 ml DAILY PRN PO 01/02/17 19:15 02/01/17 19:14 Bisacodyl (Dulcolax Supp) 10 mg DAILY PRN RI 01/02/17 19:15 02/01/17 19:14 Sodium Biphosphate/ Sodium Phosphate (Fleet Enema) 132 ml PRN PRN RI 01/02/17 19:15 Acetaminophen (Tylenol Tab) 1,000 mg Q8H PO 01/02/17 22:00 02/01/17 21:59 01/04/17 13:27 1,000 MG Diltiazem HCl (TIAzac CAP) 120 mg QAM PO 01/03/17 09:00 02/02/17 08:59 01/04/17 08:52 120 MG Montelukast Sodium (Singulair Tab) 10 mg QAM PO 01/03/17 09:00 02/02/17 08:59 01/04/17 08:49 10 MG Orphenadrine Citrate (Norflex Tab) 100 mg BID PO 01/02/17 21:00 02/01/17 20:59 01/04/17 08:49 100 MG Pregabalin (Lyrica Cap) 50 mg TID PO 01/02/17 21:00 02/01/17 20:59 01/04/17 13:30 50 MG Simvastatin (Zocor Tab) 10 mg QPM PO 01/02/17 21:00 02/01/17 20:59 01/03/17 21:12 10 MG Tolterodine Tartrate (Detrol LA Cap) 4 mg QAM PO 01/03/17 09:00 02/02/17 08:59 01/04/17 08:48 4 MG Pantoprazole Sodium (Protonix Tab) 40 mg BID PO 01/02/17 21:00 02/01/17 20:59 01/04/17 08:49 40 MG Insulin Glargine (Lantus Solostar Pen) 6 units BID SC 01/03/17 09:00 02/02/17 08:59 01/04/17 08:56 6 UNITS Glucose (Glucose 40% Gel) 15-30 GRAMS 15 GRAMS... UD PRN PO 01/02/17 22:30 02/01/17 22:29 Glucose (Glucose Chew Tab) 4-8 Tablets 4 Tabl... UD PRN PO 01/02/17 22:30 02/01/17 22:29 Dextrose (Dextrose 50% 50ML Syringe) 25-50ML OF 50% DW IV FOR... UD PRN IV 01/02/17 22:30 11/10/17 22:29 Glucagon (Glucagon Inj) 1 mg UD PRN SQ 01/02/17 22:30 02/01/17 22:29 Oxycodone HCl (Roxicodone Immediate Rel Tab) @ Q6 PRN PO 01/03/17 16:00 01/17/17 15:59 01/04/17 12:02 10 MG Rivaroxaban (Xarelto Tab) 10 mg DAILY@1600 PO 01/04/17 16:00 02/03/17 15:59 01/04/17 15:33 10 MG Clindamycin Phosphate 600 mg/ Dextrose 54 ml @ 100 mls/hr Q8H IV 01/03/17 22:00 01/04/17 21:59 01/04/17 13:26 100 MLS/HR Insulin Aspart (novoLOG ASPART) SLIDING SCALE G... ACHS SC 01/03/17 21:00 02/02/17 20:59 01/04/17 13:22 3 UNITS Objective Vital Signs Date Time Temp Pulse Resp B/P (MAP) Pulse Ox O2 Delivery O2 Flow Rate FiO2 01/04/17 15:59 Room Air 01/04/17 14:58 36.8 77 18 123/71 (88) 98 Room Air 01/04/17 08:51 73 135/77 (96) 01/04/17 07:35 Nasal Cannula 01/04/17 07:20 36.9 68 19 120/68 (85) 99 Room Air 01/04/17 03:39 36.4 67 16 117/70 (86) 100 Nasal Cannula 2.0 01/04/17 00:00 Nasal Cannula 2.0 01/03/17 23:05 36.5 73 16 110/70 (83) 100 Nasal Cannula 2.0 01/03/17 20:50 37.8 83 18 113/66 (82) 98 Nasal Cannula 2.0 01/03/17 19:45 37.6 82 18 119/69 (86) 97 Nasal Cannula 2.0 01/03/17 19:00 37.5 82 18 123/65 (84) 94 Nasal Cannula 2.0 Physical Exam General Appearance: no apparent distress Respiratory/Chest: lungs clear, normal breath sounds, no respiratory distress, no accessory muscle use Cardiovascular: regular rate, rhythm, no edema, no murmur Extremities: normal inspection, no pedal edema Neurologic/Psychiatric: no motor/sensory deficits, alert, normal mood/affect Laboratory Results Last 24 Hours Test 01/03/17 20:46 01/04/17 07:08 01/04/17 07:50 01/04/17 12:02 Bedside Glucose 182 mg/dl 141 mg/dl 166 mg/dl White Blood Count 6.11 K/uL Red Blood Count 2.95 M/uL Hemoglobin 7.8 g/dL Hematocrit 24.0 % Mean Corpuscular Volume 81.4 fL Mean Corpuscular Hemoglobin 26.4 pg Mean Corpuscular Hemoglobin Concent 32.5 g/dl RDW Standard Deviation 45.1 fL RDW Coefficient of Variation 15.2 % Platelet Count 132 K/uL Mean Platelet Volume 9.7 fL Sodium Level 136 mmol/L Potassium Level 4.6 mmol/L Chloride Level 106 mmol/L Carbon Dioxide Level 25 mmol/L Anion Gap 5.0 mmol/L Blood Urea Nitrogen 15 mg/dl Creatinine 0.80 mg/dl Est Creatinine Clear Calc Drug Dose 62.3 ml/min Estimated GFR () 83.6 Estimated GFR (Non- 72.1 BUN/Creatinine Ratio 18.8 Random Glucose 132 mg/dl Calcium Level 7.2 mg/dl Chemistry Specimen Hemolysis Test 01/04/17 16:02 Hemoglobin 7.9 g/dL Hematocrit 23.5 % Assessment and Plan PERIPROSTHETIC FRACTURE RIGHT FEMUR Management per Geriatric Hip Fracture protocol Consult Ortho and Anesthesia s/p ELIJAH R hip revision/L femur ORIF Hgb = 7.9 monitor H/H, no coronary artery disease; if stable, no need for transfusion Acute Blood Loss Anemia Hb dropped to 6.8 Received 2 units of PRBC Hb went up to 9.9 Hgb at 7.9 today, recheck in AM (01/05) HYPERTENSION Hemodynamically stable. Continue diltiazem. Follow and titrate therapy. BP remains stable COPD Respiratory status stable. Continue current medications DM TYPE 2 Well-controlled at home. Recent Hgb A1C 6.5 on 11/28/16. Random blood glucose in ED 146. Hold oral agents during hospital stay. Lantus + NovoLog per protocol. HLD: -Continue statin GERD: -Continue PPI Stress Incontinence: -Continue Detrol VTE PROPHYLAXIS SCD's preop. Postop prophylaxis to be determined.
[2017-01-04] MEDS: SIMVASTATIN 10 MG TAB PO SCH (21:00)
[2017-01-04] MEDS: DOCUSATE SODIUM/SENNA 50/8.6MG TAB PO SCH (21:00)
[2017-01-04 23:47] VITALS: BP 120/75; PULSE 75; TEMP 37; O2SAT 93
[2017-01-05] MEDS: ACETAMINOPHEN 500 MG TAB PO SCH ×3 (06:02→21:46)
[2017-01-05 07:03] VITALS: BP 143/71; PULSE 74; TEMP 36.9; O2SAT 93
[2017-01-05 07:19] LABS: HEMATOCRIT 24.7 % (37-47); MEAN CELL VOLUME 81.3 fL (80-100); MEAN CORPUSCULAR HGB CONC 33.2 g/dl (32-36); PLATELET COUNT 165 K/uL (130-400); RED BLOOD COUNT 3.04 M/uL (4.2-5.4); WHITE BLOOD COUNT 4.66 K/uL (4.8-10.8)
[2017-01-05 07:53] LABS: BLOOD UREA NITROGEN 13 mg/dl (7-18); BUN/CREATININE RATIO 14.9 (10-20); CALCIUM 7.8 mg/dl (8.5-10.1); CARBON DIOXIDE 26 mmol/L (21-32); CHLORIDE 109 mmol/L (98-107); CREATININE 0.84 mg/dl (0.60-1.20); GLUCOSE 113 mg/dl (70-99); SODIUM 140 mmol/L (136-145)
[2017-01-05] MEDS: INSULIN ASPART 100 UNITS/ML 3 ML PEN SC SCH ×4 (08:00→21:00)
[2017-01-05] MEDS: SODIUM CHLORIDE 0.9% 1000ML 1,000 ML IV SCH ×2 (08:04→19:19)
[2017-01-05] MEDS: MONTELUKAST SOD 10 MG TAB PO SCH (08:05)
[2017-01-05] MEDS: TOLTERODINE TARTRATE LA 4 MG CAPCR PO SCH (08:05)
[2017-01-05] MEDS: DILTIAZEM HCL 120 MG EXT REL CAP PO SCH (08:05)
[2017-01-05] MEDS: PANTOprazole SOD 40 MG TAB PO SCH ×2 (08:05→20:09)
[2017-01-05] MEDS: ORPHENADRINE CITRATE 100 MG TABCR PO SCH ×2 (08:05→20:09)
[2017-01-05] MEDS: OXYCODONE HCL IR 5 MG TAB (IMMEDIATE RELEASE) PO PRN ×3 (08:05→20:10)
[2017-01-05] MEDS: PREGABALIN 50 MG CAP PO SCH ×3 (08:05→20:10)
[2017-01-05] MEDS: INSULIN GLARGINE SOLOSTAR 100 UNITS/ML 3 ML PEN SC SCH ×2 (08:09→21:48)
--- NOTE | 2017-01-05 09:27 | Orthopedic Progress Note ---
Orthopedic Progress Note Date of Service Jan 05, 2017. Subjective Post OP Day: 2 Reports: feeling well, pain controlled w PO medications, Denies: complaints, chest pain, SOB, nausea / vomiting, light headedness, calf pain Objective calves soft nontender, N/V intact, hip located, dressing C/D/I, A&O x3, toes mobile Date Time Temp Pulse Resp B/P (MAP) Pulse Ox O2 Delivery O2 Flow Rate FiO2 01/05/17 07:03 36.9 74 19 143/71 (95) 93 Room Air 01/04/17 23:53 Room Air 01/04/17 23:47 37.0 75 16 120/75 (90) 93 Room Air 01/04/17 15:59 Room Air 01/04/17 14:58 36.8 77 18 123/71 (88) 98 Room Air Laboratory Results 24 Hours: Test 01/04/17 16:02 01/05/17 06:29 Hematocrit 23.5 % 24.7 % Hemoglobin 7.9 g/dL 8.2 g/dL Assessment & Plan Assessment: POD 2 s/p R ELIJAH Revision/ORIF femur Anemia Plan: PT/OT - NWB RLE Follow H/H - will redraw H/H at 1600 - asymptomatic at present time Hoping to go to [facility] upon DC H/H stable, asymptomatic, will cont to observe. Discharge Planning Discharge Planning: rehab hospital
[2017-01-05 15:05] VITALS: BP 127/70; PULSE 75; TEMP 36.8; O2SAT 97
[2017-01-05] MEDS: RIVAROXABAN 10 MG TAB PO SCH (15:49)
[2017-01-05 16:00] VITALS: O2SAT 97
--- NOTE | 2017-01-05 18:08 | Progress Note ---
Subjective Date of Service: Jan 05, 2017. Subjective Pt evaluation today including: conversation w/ patient, physical exam, lab review, review of studies, review of inpatient medication list Saw/examined the patient in room 361 She is doing okay, pain controlled with pain medications No BMs as of yet No other issues to note. Problem List Medical Problems: (1) Periprosthetic hip fracture Status: Acute (2) Postoperative anemia Status: Acute Review of Systems Constitutional: No fever, No chills Respiratory: No cough, No sputum, No shortness of breath Cardiac: No chest pain Abdomen: No pain, No nausea, No vomiting, No diarrhea Heme: No abnormal bleeding/bruising Medications Current Inpatient Medications Medications (Trade) Dose Ordered Sig/Charis Route Start Time Stop Time Status Last Admin Dose Admin Sodium Chloride 1,000 ml @ 100 mls/hr Q10H IV 01/02/17 20:30 02/01/17 20:29 01/05/17 08:04 100 MLS/HR Ondansetron HCl (Zofran Inj) 4 mg Q6H PRN IV 01/02/17 19:15 02/01/17 19:14 Hydromorphone HCl (Dilaudid Inj) 0.25 mg Q20M PRN IV 01/02/17 19:15 01/16/17 19:14 01/02/17 21:05 0.25 MG Hydromorphone HCl (Dilaudid Inj) 0.5 mg Q20M PRN IV 01/02/17 19:15 01/16/17 19:14 01/05/17 08:58 0.5 MG Naloxone HCl (Narcan Inj) 0.1 mg PRN PRN IV 01/02/17 19:15 02/01/17 19:14 Senna/Docusate Sodium (Senokot S Tab) 2 tab HS PO 01/02/17 21:00 02/01/17 20:59 01/04/17 21:00 2 TAB Polyethylene (Miralax Powder Packet) 17 gm DAILY PRN PO 01/02/17 19:15 02/01/17 19:14 Magnesium Hydroxide (Milk Of Magnesia Susp) 30 ml DAILY PRN PO 01/02/17 19:15 02/01/17 19:14 01/05/17 08:04 30 ML Bisacodyl (Dulcolax Supp) 10 mg DAILY PRN AL 01/02/17 19:15 02/01/17 19:14 Sodium Biphosphate/ Sodium Phosphate (Fleet Enema) 132 ml PRN PRN AL 01/02/17 19:15 Acetaminophen (Tylenol Tab) 1,000 mg Q8H PO 01/02/17 22:00 02/01/17 21:59 01/05/17 13:37 1,000 MG Diltiazem HCl (TIAzac CAP) 120 mg QAM PO 01/03/17 09:00 02/02/17 08:59 01/05/17 08:05 120 MG Montelukast Sodium (Singulair Tab) 10 mg QAM PO 01/03/17 09:00 02/02/17 08:59 01/05/17 08:05 10 MG Orphenadrine Citrate (Norflex Tab) 100 mg BID PO 01/02/17 21:00 02/01/17 20:59 01/05/17 08:05 100 MG Pregabalin (Lyrica Cap) 50 mg TID PO 01/02/17 21:00 02/01/17 20:59 01/05/17 13:36 50 MG Simvastatin (Zocor Tab) 10 mg QPM PO 01/02/17 21:00 02/01/17 20:59 01/04/17 21:00 10 MG Tolterodine Tartrate (Detrol LA Cap) 4 mg QAM PO 01/03/17 09:00 02/02/17 08:59 01/05/17 08:05 4 MG Pantoprazole Sodium (Protonix Tab) 40 mg BID PO 01/02/17 21:00 02/01/17 20:59 01/05/17 08:05 40 MG Insulin Glargine (Lantus Solostar Pen) 6 units BID SC 01/03/17 09:00 02/02/17 08:59 01/05/17 08:09 6 UNITS Glucose (Glucose 40% Gel) 15-30 GRAMS 15 GRAMS... UD PRN PO 01/02/17 22:30 02/01/17 22:29 Glucose (Glucose Chew Tab) 4-8 Tablets 4 Tabl... UD PRN PO 01/02/17 22:30 02/01/17 22:29 Dextrose (Dextrose 50% 50ML Syringe) 25-50ML OF 50% DW IV FOR... UD PRN IV 01/02/17 22:30 02/01/17 22:29 Glucagon (Glucagon Inj) 1 mg UD PRN SQ 01/02/17 22:30 02/01/17 22:29 Oxycodone HCl (Roxicodone Immediate Rel Tab) @ Q6 PRN PO 01/03/17 16:00 01/17/17 15:59 01/05/17 13:37 10 MG Rivaroxaban (Xarelto Tab) 10 mg DAILY@1600 PO 01/04/17 16:00 02/03/17 15:59 01/05/17 15:49 10 MG Insulin Aspart (novoLOG ASPART) SLIDING SCALE G... ACHS SC 01/03/17 21:00 02/02/17 20:59 01/04/17 21:03 1 UNITS Objective Vital Signs Date Time Temp Pulse Resp B/P (MAP) Pulse Ox O2 Delivery O2 Flow Rate FiO2 01/05/17 16:00 97 Room Air 01/05/17 15:05 36.8 75 18 127/70 (89) 97 Room Air 01/05/17 10:35 Room Air 01/05/17 07:03 36.9 74 19 143/71 (95) 93 Room Air 01/04/17 23:53 Room Air 01/04/17 23:47 37.0 75 16 120/75 (90) 93 Room Air Physical Exam General Appearance: no apparent distress Respiratory/Chest: lungs clear, normal breath sounds, no respiratory distress, no accessory muscle use Cardiovascular: regular rate, rhythm, no edema, no murmur Laboratory Results Last 24 Hours Test 01/04/17 21:00 01/05/17 06:29 01/05/17 08:03 01/05/17 08:09 Bedside Glucose 170 mg/dl 125 mg/dl White Blood Count 4.66 K/uL Red Blood Count 3.04 M/uL Hemoglobin 8.2 g/dL Hematocrit 24.7 % Mean Corpuscular Volume 81.3 fL Mean Corpuscular Hemoglobin 27.0 pg Mean Corpuscular Hemoglobin Concent 33.2 g/dl RDW Standard Deviation 46.2 fL RDW Coefficient of Variation 15.7 % Platelet Count 165 K/uL Mean Platelet Volume 10.0 fL Sodium Level 140 mmol/L Potassium Level mmol/L 4.1 mmol/L Chloride Level 109 mmol/L Carbon Dioxide Level 26 mmol/L Anion Gap 5.0 mmol/L Blood Urea Nitrogen 13 mg/dl Creatinine 0.84 mg/dl Est Creatinine Clear Calc Drug Dose 59.3 ml/min Estimated GFR () 78.8 Estimated GFR (Non- 68.0 BUN/Creatinine Ratio 14.9 Random Glucose 113 mg/dl Calcium Level 7.8 mg/dl Test 01/05/17 11:48 Bedside Glucose 129 mg/dl Assessment and Plan PERIPROSTHETIC FRACTURE RIGHT FEMUR 01/05 Hgb > 8 continue pain regimen bowel regimen for constipation - milk of mag added NWB status on R plan to d/c to rehab Management per Geriatric Hip Fracture protocol Consult Ortho and Anesthesia s/p ELIJAH R hip revision/L femur ORIF Hgb = 7.9 monitor H/H, no coronary artery disease; if stable, no need for transfusion Acute Blood Loss Anemia Hb dropped to 6.8 Received 2 units of PRBC Hb went up to 9.9 Hgb at 7.9 today, recheck in AM (01/05) HYPERTENSION Hemodynamically stable. Continue diltiazem. Follow and titrate therapy. BP remains stable COPD Respiratory status stable. Continue current medications DM TYPE 2 Well-controlled at home. Recent Hgb A1C 6.5 on 11/28/16. Random blood glucose in ED 146. Hold oral agents during hospital stay. Lantus + NovoLog per protocol. HLD: -Continue statin GERD: -Continue PPI Stress Incontinence: -Continue Detrol VTE PROPHYLAXIS SCD's preop. Postop prophylaxis to be determined.
[2017-01-05] MEDS: DOCUSATE SODIUM/SENNA 50/8.6MG TAB PO SCH (20:09)
[2017-01-05] MEDS: SIMVASTATIN 10 MG TAB PO SCH (20:10)
[2017-01-06] VITALS (7 sets, daily range): BP systolic 131–179; BP diastolic 66–75; PULSE 75–97; TEMP 36.9–39.4; O2SAT 94–98
[2017-01-06] MEDS: SODIUM CHLORIDE 0.9% 1000ML 1,000 ML IV SCH ×2 (04:56→13:57)
[2017-01-06] MEDS: ACETAMINOPHEN 500 MG TAB PO SCH ×3 (05:56→22:33)
[2017-01-06 06:24] LABS: HEMATOCRIT 24.9 % (37-47); MEAN CELL VOLUME 82.7 fL (80-100); MEAN CORPUSCULAR HEMOGLOBIN 26.6 pg (25-34); MEAN CORPUSCULAR HGB CONC 32.1 g/dl (32-36); MEAN PLATELET VOLUME 9.3 fL (7.4-10.4); PLATELET COUNT 177 K/uL (130-400); RED BLOOD COUNT 3.01 M/uL (4.2-5.4); WHITE BLOOD COUNT 4.27 K/uL (4.8-10.8)
--- NOTE | 2017-01-06 06:52 | Orthopedic Progress Note ---
Orthopedic Progress Note Date of Service Jan 06, 2017. Subjective Post OP Day: 3 Reports: feeling well, pain controlled w PO medications, Denies: complaints, chest pain, SOB, nausea / vomiting, light headedness, calf pain Objective calves soft nontender, N/V intact, capillary refill less than 2 sec., incision C /D/I, A&O x3, toes mobile Date Time Temp Pulse Resp B/P (MAP) Pulse Ox O2 Delivery O2 Flow Rate FiO2 01/06/17 00:07 37.0 75 18 146/75 (98) 97 Room Air 01/05/17 19:45 Room Air 01/05/17 16:00 97 Room Air 01/05/17 15:05 36.8 75 18 127/70 (89) 97 Room Air 01/05/17 10:35 Room Air 01/05/17 07:03 36.9 74 19 143/71 (95) 93 Room Air Laboratory Results 24 Hours: Test 01/06/17 05:54 Hematocrit 24.9 % Hemoglobin 8.0 g/dL Assessment & Plan Assessment: POD 3 s/p R ELIJAH Revision/ORIF femur Anemia- H/h Stable, asymptomatic Plan: PT/OT - NWB RLE Hoping to go to [facility] upon DC H/H stable, asymptomatic, will cont to observe. Discharge Planning Discharge Planning: rehab hospital
[2017-01-06 06:54] LABS: BUN/CREATININE RATIO 13.5 (10-20); CALCIUM 7.6 mg/dl (8.5-10.1); CREATININE 0.8 mg/dl (0.60-1.20); POTASSIUM 4.2 mmol/L (3.5-5.1)
[2017-01-06] MEDS: INSULIN ASPART 100 UNITS/ML 3 ML PEN SC SCH ×4 (08:00→21:00)
[2017-01-06] MEDS: INSULIN GLARGINE SOLOSTAR 100 UNITS/ML 3 ML PEN SC SCH ×2 (09:00→21:00)
[2017-01-06] MEDS: TOLTERODINE TARTRATE LA 4 MG CAPCR PO SCH (10:15)
[2017-01-06] MEDS: ORPHENADRINE CITRATE 100 MG TABCR PO SCH ×2 (10:15→21:28)
[2017-01-06] MEDS: PREGABALIN 50 MG CAP PO SCH ×3 (10:15→21:28)
[2017-01-06] MEDS: MONTELUKAST SOD 10 MG TAB PO SCH (10:16)
[2017-01-06] MEDS: DILTIAZEM HCL 120 MG EXT REL CAP PO SCH (10:16)
[2017-01-06] MEDS: PANTOprazole SOD 40 MG TAB PO SCH ×2 (10:16→21:28)
[2017-01-06] MEDS: POLYETHYLENE (MIRALAX) 17 GM PACK PO PRN (12:24)
[2017-01-06] MEDS: RIVAROXABAN 10 MG TAB PO SCH (16:05)
[2017-01-06] MEDS: SIMVASTATIN 10 MG TAB PO SCH (21:28)
[2017-01-06] MEDS: DOCUSATE SODIUM/SENNA 50/8.6MG TAB PO SCH (21:28)
--- NOTE | 2017-01-06 22:51 | DIAGNOSTIC IMAGING REPORT ---
CHEST ONE VIEW PORTABLE CLINICAL HISTORY: Postoperative fever. COMPARISON STUDY: Chest radiograph November 28, 2016. FINDINGS: Lung volumes are normal. There is no pneumothorax or pleural effusion. Minimal left basilar opacity favors atelectasis. There is no evidence of pulmonary edema. Cardiomediastinal silhouette is normal. There are cholecystectomy clips. IMPRESSION: 1. No acute cardiopulmonary findings. 2. Mild left basilar opacity suggestive of atelectasis. Electronically signed by: Chavez Ruiz M.D. 01/06/2017 10:50 PM Dictated Date/Time: 01/06/2017 10:49 PM
[2017-01-06 23:24] LABS: URINE APPEARANCE CLOUDY (CLEAR); URINE BILIRUBIN NEG (NEG); URINE COLOR YELLOW; URINE NITRITE POS (NEG); URINE PH 5.5 (4.5-7.5); URINE SPECIFIC GRAVITY 1.013 (1.000-1.030); UROBILINOGEN NEG (NEG); ZZUR CULT IF INDIC CLEAN CATCH YES
[2017-01-06 23:25] LABS: MANUAL MICROSCOPIC REQUIRED? NO; REVIEW REQ? YES
--- NOTE | 2017-01-06 23:55 | Progress Note ---
Subjective Date of Service: Jan 06, 2017. Subjective Pt evaluation today including: conversation w/ patient, physical exam, lab review, review of studies, review of inpatient medication list Saw/examined the patient in room 361 +fevers earlier today on repeat temp; down to 38.1 Denies cough/shortness of breath No swelling of lower extremities Problem List Medical Problems: (1) Periprosthetic hip fracture Status: Acute (2) Postoperative anemia Status: Acute Review of Systems Constitutional: + fever, + chills, No weakness Respiratory: No cough, No sputum, No shortness of breath Cardiac: No chest pain Abdomen: No pain, No nausea, No diarrhea Medications Current Inpatient Medications Medications (Trade) Dose Ordered Sig/Charis Route Start Time Stop Time Status Last Admin Dose Admin Sodium Chloride 1,000 ml @ 100 mls/hr Q10H IV 01/02/17 20:30 02/01/17 20:29 01/06/17 13:57 100 MLS/HR Ondansetron HCl (Zofran Inj) 4 mg Q6H PRN IV 01/02/17 19:15 02/01/17 19:14 Hydromorphone HCl (Dilaudid Inj) 0.25 mg Q20M PRN IV 01/02/17 19:15 01/16/17 19:14 01/02/17 21:05 0.25 MG Hydromorphone HCl (Dilaudid Inj) 0.5 mg Q20M PRN IV 01/02/17 19:15 01/16/17 19:14 01/05/17 08:58 0.5 MG Naloxone HCl (Narcan Inj) 0.1 mg PRN PRN IV 01/02/17 19:15 02/01/17 19:14 Senna/Docusate Sodium (Senokot S Tab) 2 tab HS PO 01/02/17 21:00 02/01/17 20:59 01/06/17 21:28 2 TAB Polyethylene (Miralax Powder Packet) 17 gm DAILY PRN PO 01/02/17 19:15 02/01/17 19:14 01/06/17 12:24 17 GM Magnesium Hydroxide (Milk Of Magnesia Susp) 30 ml DAILY PRN PO 01/02/17 19:15 02/01/17 19:14 01/05/17 08:04 30 ML Bisacodyl (Dulcolax Supp) 10 mg DAILY PRN [place] 01/02/17 19:15 02/01/17 19:14 01/06/17 10:14 10 MG Sodium Biphosphate/ Sodium Phosphate (Fleet Enema) 132 ml PRN PRN [place] 01/02/17 19:15 Acetaminophen (Tylenol Tab) 1,000 mg Q8H PO 01/02/17 22:00 02/01/17 21:59 01/06/17 22:33 1,000 MG Diltiazem HCl (TIAzac CAP) 120 mg QAM PO 01/03/17 09:00 02/02/17 08:59 01/06/17 10:16 120 MG Montelukast Sodium (Singulair Tab) 10 mg QAM PO 01/03/17 09:00 02/02/17 08:59 01/06/17 10:16 10 MG Orphenadrine Citrate (Norflex Tab) 100 mg BID PO 01/02/17 21:00 02/01/17 20:59 01/06/17 21:28 100 MG Pregabalin (Lyrica Cap) 50 mg TID PO 01/02/17 21:00 02/01/17 20:59 01/06/17 21:28 50 MG Simvastatin (Zocor Tab) 10 mg QPM PO 01/02/17 21:00 02/01/17 20:59 01/06/17 21:28 10 MG Tolterodine Tartrate (Detrol LA Cap) 4 mg QAM PO 01/03/17 09:00 02/02/17 08:59 01/06/17 10:15 4 MG Pantoprazole Sodium (Protonix Tab) 40 mg BID PO 01/02/17 21:00 02/01/17 20:59 01/06/17 21:28 40 MG Insulin Glargine (Lantus Solostar Pen) 6 units BID SC 01/03/17 09:00 02/02/17 08:59 01/05/17 21:48 6 UNITS Glucose (Glucose 40% Gel) 15-30 GRAMS 15 GRAMS... UD PRN PO 01/02/17 22:30 02/01/17 22:29 Glucose (Glucose Chew Tab) 4-8 Tablets 4 Tabl... UD PRN PO 01/02/17 22:30 02/01/17 22:29 Dextrose (Dextrose 50% 50ML Syringe) 25-50ML OF 50% DW IV FOR... UD PRN IV 01/02/17 22:30 02/01/17 22:29 Glucagon (Glucagon Inj) 1 mg UD PRN SQ 01/02/17 22:30 02/01/17 22:29 Oxycodone HCl (Roxicodone Immediate Rel Tab) @ Q6 PRN PO 01/03/17 16:00 01/17/17 15:59 01/05/17 20:10 10 MG Rivaroxaban (Xarelto Tab) 10 mg DAILY@1600 PO 01/04/17 16:00 02/03/17 15:59 01/06/17 16:05 10 MG Insulin Aspart (novoLOG ASPART) SLIDING SCALE G... ACHS SC 01/03/17 21:00 02/02/17 20:59 01/06/17 18:24 1 UNITS Objective Vital Signs Date Time Temp Pulse Resp B/P (MAP) Pulse Ox O2 Delivery O2 Flow Rate FiO2 01/06/17 22:33 39.4 01/06/17 21:40 39.1 95 24 179/69 (105) 98 Room Air 01/06/17 15:56 38.1 91 20 147/73 (97) 98 Room Air 01/06/17 15:50 Room Air 01/06/17 15:00 39.0 97 20 131/66 (87) 95 Room Air 01/06/17 07:40 94 Room Air 01/06/17 07:08 36.9 97 18 148/70 (96) 94 Room Air 01/06/17 00:07 37.0 75 18 146/75 (98) 97 Room Air Physical Exam General Appearance: no apparent distress Respiratory/Chest: lungs clear, normal breath sounds, no respiratory distress, no accessory muscle use Cardiovascular: regular rate, rhythm, no edema, no murmur Extremities: normal inspection, no pedal edema, no calf tenderness Laboratory Results Last 24 Hours Test 01/06/17 05:54 01/06/17 08:21 01/06/17 12:04 01/06/17 17:20 White Blood Count 4.27 K/uL Red Blood Count 3.01 M/uL Hemoglobin 8.0 g/dL Hematocrit 24.9 % Mean Corpuscular Volume 82.7 fL Mean Corpuscular Hemoglobin 26.6 pg Mean Corpuscular Hemoglobin Concent 32.1 g/dl RDW Standard Deviation 49.0 fL RDW Coefficient of Variation 16.3 % Platelet Count 177 K/uL Mean Platelet Volume 9.3 fL Nucleated RBC Absolute Count (auto) 0.02 K/uL Nucleated Red Blood Cells % 0.4 % Sodium Level 140 mmol/L Potassium Level 4.2 mmol/L Chloride Level 109 mmol/L Carbon Dioxide Level 26 mmol/L Anion Gap 6.0 mmol/L Blood Urea Nitrogen 11 mg/dl Creatinine 0.80 mg/dl Est Creatinine Clear Calc Drug Dose 62.3 ml/min Estimated GFR () 83.6 Estimated GFR (Non- 72.1 BUN/Creatinine Ratio 13.5 Random Glucose 84 mg/dl Calcium Level 7.6 mg/dl Bedside Glucose 80 mg/dl 75 mg/dl 82 mg/dl Test 01/06/17 21:04 01/06/17 23:05 Bedside Glucose 87 mg/dl Urine Color YELLOW Urine Appearance CLOUDY Urine pH 5.5 Urine Specific [place] 1.013 Urine Protein NEG Urine Glucose (UA) NEG Urine Ketones NEG Urine Occult Blood TRACE Urine Nitrite POS Urine Bilirubin NEG Urine Urobilinogen NEG Urine Leukocyte Esterase MODERATE Urine WBC (Auto) >30 /hpf Urine RBC (Auto) 0-4 /hpf Urine Hyaline Casts (Auto) 0 /lpf Urine Epithelial Cells (Auto) 5-10 /lpf Urine Bacteria (Auto) 3+ Urine Pathogenic Casts /lpf Assessment and Plan PERIPROSTHETIC FRACTURE RIGHT FEMUR 01/06 Hgb stable developed fevers CXR no acute findings possibly UTI - UA dirty, cultures pending, Rocephin started 01/05 Hgb > 8 continue pain regimen bowel regimen for constipation - milk of mag added NWB status on R plan to d/c to rehab Management per Geriatric Hip Fracture protocol Consult Ortho and Anesthesia s/p ELIJAH R hip revision/L femur ORIF Hgb = 7.9 monitor H/H, no coronary artery disease; if stable, no need for transfusion Acute Blood Loss Anemia Hb dropped to 6.8 Received 2 units of PRBC Hb went up to 9.9 Hgb at 7.9 today, recheck in AM (01/05) HYPERTENSION Hemodynamically stable. Continue diltiazem. Follow and titrate therapy. BP remains stable COPD Respiratory status stable. Continue current medications DM TYPE 2 Well-controlled at home. Recent Hgb A1C 6.5 on 11/28/16. Random blood glucose in ED 146. Hold oral agents during hospital stay. Lantus + NovoLog per protocol. HLD: -Continue statin GERD: -Continue PPI Stress Incontinence: -Continue Detrol VTE PROPHYLAXIS SCD's preop. Postop prophylaxis to be determined.
[2017-01-07] VITALS (7 sets, daily range): BP systolic 129–152; BP diastolic 71–77; PULSE 71–95; TEMP 37–38.3; O2SAT 94–98
[2017-01-07] MEDS ORDERED: CEFTRIAXONE SOD INJ 1 GM in DEXTROSE 5% ADD-VANTAGE 50ML 50 ML IV SCH ×2
[2017-01-07] MEDS: SODIUM CHLORIDE 0.9% 1000ML 1,000 ML IV SCH ×3 (00:40→20:13)
[2017-01-07] MEDS: CIPROFLOXACIN 500 MG TAB PO SCH ×3 (00:48→22:37)
[2017-01-07] MEDS: ACETAMINOPHEN 500 MG TAB PO SCH ×3 (05:52→22:40)
[2017-01-07 06:59] LABS: HEMATOCRIT 22.9 % (37-47); MEAN CELL VOLUME 81.2 fL (80-100); MEAN CORPUSCULAR HEMOGLOBIN 26.6 pg (25-34); MEAN CORPUSCULAR HGB CONC 32.8 g/dl (32-36); MEAN PLATELET VOLUME 9.3 fL (7.4-10.4); PLATELET COUNT 194 K/uL (130-400); RED BLOOD COUNT 2.82 M/uL (4.2-5.4); WHITE BLOOD COUNT 4.21 K/uL (4.8-10.8)
[2017-01-07 07:32] LABS: BUN/CREATININE RATIO 16.7 (10-20); CALCIUM 7.4 mg/dl (8.5-10.1); CREATININE 0.69 mg/dl (0.60-1.20)
--- NOTE | 2017-01-07 08:37 | Consultant Recommendations ---
Metal Sorter Recommendations Date of Service Jan 07, 2017. Metal Sorter Recommendations [facility] [place] HIP FRACTURE SELF CARE INSTRUCTIONS: A. You are to ambulate with a walker or crutches for approximately 6 weeks. B. You are NON WEIGHT BEARING on your operative lower extremity for at least 4 weeks. C. Wear low heeled shoes with non-slip soles D. Be sure that your floors are free of things that could trip you throw rugs, electrical cords, and small objects. Avoid wet and waxed floors, especially with crutches/walker/cane. E. Try to walk several times a day with rest periods between. F. You may shower 48 hours after surgery and get the incision area wet, but DO NOT soak or submerge incision area in water. (No baths, swimming pools, hot tubs ) G. You may have a large, band-aid like dressing over your incision (Aquacel). This will remain on your incision for 7 days, and then can be removed. You CAN shower with this on. If incision is leaking through the dressing, please call the office . H. Do NOT apply soap or any ointment/lotions directly over incision. I. You may use ice as needed to operative site. SPECIAL CARE INSTRUCTIONS: VERY IMPORTANT TO READ AND REVIEW A. You may be at risk for phlebitis or blood clots. a. Wear surgical stockings (THOMAS hose) for 2 weeks after surgery to improve circulation and reduce swelling. b. Take XARELTO 10MG DAILY or as directed. This is your blood thinner. c. If you are on Coumadin- you will have daily/weekly blood work to monitor your levels. This will be done by either your family physician/ dance studio manager (if you are on Coumadin chronically) versus your orthopedic surgeon. Expect a phone call the day of or the day after your blood work is drawn to adjust your dose accordingly. B. There are a few signs you need to watch for after you are home. Call [facility] at [phone] if you experience any of the following: a. If you have a temperature of 101 degrees or higher. b. Sudden increase in pain in your hip not relieved by rest or pain medication. c. Any fluid or drainage from the incision; redness of the incision. d. Shortness of breath or chest pain. B. Please call [facility] at [phone] if you have any questions or concerns about your operation or recovery. C. Call your physician if: a. Temperature is greater than 101 degrees (F). b. Pain is not relieved by prescribed pain medications. c. Increase drainage or redness from incision. d. Unanswered questions or concerns. D. Pain Medication: a. You will be prescribed pain medication upon discharge that should last till your first post-operative appointment. b. If you experience nausea and/or skin rash, discontinue this medication and contact our office for an alternative medication. c. Caution- narcotic pain medication can cause constipation. FOLLOW UP VISIT: Please call [facility] at [phone] to schedule a follow up appointment 10-14 days from the date of your surgery date.
--- NOTE | 2017-01-07 08:39 | Orthopedic Progress Note ---
Orthopedic Progress Note Date of Service Jan 07, 2017. Subjective Post OP Day: 4 Reports: feeling well, Denies: chest pain, SOB, nausea / vomiting, light headedness, calf pain Objective calves soft nontender, N/V intact, capillary refill less than 2 sec., incision C /D/I, A&O x3, toes mobile Date Time Temp Pulse Resp B/P (MAP) Pulse Ox O2 Delivery O2 Flow Rate FiO2 01/07/17 07:19 37.0 71 17 129/71 (90) 98 Room Air 01/07/17 00:15 37.4 01/07/17 00:01 38.3 95 16 152/74 (100) 94 Room Air 01/06/17 23:50 Room Air 01/06/17 22:33 39.4 01/06/17 21:40 39.1 95 24 179/69 (105) 98 Room Air 01/06/17 15:56 38.1 91 20 147/73 (97) 98 Room Air 01/06/17 15:50 Room Air 01/06/17 15:00 39.0 97 20 131/66 (87) 95 Room Air Laboratory Results 24 Hours: Test 01/07/17 06:37 Hematocrit 22.9 % Hemoglobin 7.5 g/dL Assessment & Plan Assessment: POD 4 s/p R ELIJAH Revision/ORIF femur Anemia- H/h Stable, asymptomatic Plan: PT/OT - NWB RLE Hoping to go to [facility] upon DC H/H stable, asymptomatic, will cont to observe. ORTHOPEDICALLY STABLE. ORTHO WILL SIGN OFF. FOLLOW UP IN 10 DAYS. MAINTAIN NWB STATUS. SEE [facility] CENTER ASSOCIATE RECOMMENDATIONS. Inhouse Planning Pain Management: Dilaudid, PO Tylenol, Oxy IR DVT Prophylaxis: TEDs, SCDs, Xarelto Discharge Planning Discharge Planning: rehab hospital
[2017-01-07] MEDS: INSULIN GLARGINE SOLOSTAR 100 UNITS/ML 3 ML PEN SC SCH ×2 (09:00→21:00)
[2017-01-07] MEDS: INSULIN ASPART 100 UNITS/ML 3 ML PEN SC SCH ×4 (09:16→21:00)
[2017-01-07] MEDS: ORPHENADRINE CITRATE 100 MG TABCR PO SCH ×2 (09:17→22:37)
[2017-01-07] MEDS: TOLTERODINE TARTRATE LA 4 MG CAPCR PO SCH (09:17)
[2017-01-07] MEDS: PANTOprazole SOD 40 MG TAB PO SCH ×2 (09:18→22:38)
[2017-01-07] MEDS: MONTELUKAST SOD 10 MG TAB PO SCH (09:18)
[2017-01-07] MEDS: DILTIAZEM HCL 120 MG EXT REL CAP PO SCH (09:18)
[2017-01-07] MEDS: PREGABALIN 50 MG CAP PO SCH ×3 (09:19→22:37)
[2017-01-07] MEDS: RIVAROXABAN 10 MG TAB PO SCH (15:38)
--- NOTE | 2017-01-07 16:49 | Progress Note ---
Subjective Date of Service: Jan 07, 2017. Subjective Pt evaluation today including: conversation w/ patient, physical exam, lab review, review of studies, review of inpatient medication list Saw/examined the patient in room 361 Feeling better today Yesterday was spiking fevers/chills - was really weak Currently, resting, and no distress Problem List Medical Problems: (1) Periprosthetic hip fracture Status: Acute (2) Postoperative anemia Status: Acute Review of Systems Constitutional: + fever, + chills, + weakness Respiratory: No cough, No sputum, No shortness of breath Cardiac: No chest pain Abdomen: No pain, No nausea, No vomiting, No diarrhea Medications Current Inpatient Medications Medications (Trade) Dose Ordered Sig/Charis Route Start Time Stop Time Status Last Admin Dose Admin Sodium Chloride 1,000 ml @ 100 mls/hr Q10H IV 01/02/17 20:30 02/01/17 20:29 01/07/17 10:34 100 MLS/HR Ondansetron HCl (Zofran Inj) 4 mg Q6H PRN IV 01/02/17 19:15 02/01/17 19:14 Hydromorphone HCl (Dilaudid Inj) 0.25 mg Q20M PRN IV 01/02/17 19:15 01/16/17 19:14 01/02/17 21:05 0.25 MG Hydromorphone HCl (Dilaudid Inj) 0.5 mg Q20M PRN IV 01/02/17 19:15 01/16/17 19:14 01/05/17 08:58 0.5 MG Naloxone HCl (Narcan Inj) 0.1 mg PRN PRN IV 01/02/17 19:15 02/01/17 19:14 Senna/Docusate Sodium (Senokot S Tab) 2 tab HS PO 01/02/17 21:00 02/01/17 20:59 01/06/17 21:28 2 TAB Polyethylene (Miralax Powder Packet) 17 gm DAILY PRN PO 01/02/17 19:15 02/01/17 19:14 01/06/17 12:24 17 GM Magnesium Hydroxide (Milk Of Magnesia Susp) 30 ml DAILY PRN PO 01/02/17 19:15 02/01/17 19:14 01/05/17 08:04 30 ML Bisacodyl (Dulcolax Supp) 10 mg DAILY PRN [place] 01/02/17 19:15 02/01/17 19:14 01/06/17 10:14 10 MG Sodium Biphosphate/ Sodium Phosphate (Fleet Enema) 132 ml PRN PRN [place] 01/02/17 19:15 Acetaminophen (Tylenol Tab) 1,000 mg Q8H PO 01/02/17 22:00 02/01/17 21:59 01/07/17 13:36 1,000 MG Diltiazem HCl (TIAzac CAP) 120 mg QAM PO 01/03/17 09:00 02/02/17 08:59 01/07/17 09:18 120 MG Montelukast Sodium (Singulair Tab) 10 mg QAM PO 01/03/17 09:00 02/02/17 08:59 01/07/17 09:18 10 MG Orphenadrine Citrate (Norflex Tab) 100 mg BID PO 01/02/17 21:00 02/01/17 20:59 01/07/17 09:17 100 MG Pregabalin (Lyrica Cap) 50 mg TID PO 01/02/17 21:00 02/01/17 20:59 01/07/17 13:36 50 MG Simvastatin (Zocor Tab) 10 mg QPM PO 01/02/17 21:00 02/01/17 20:59 01/06/17 21:28 10 MG Tolterodine Tartrate (Detrol LA Cap) 4 mg QAM PO 01/03/17 09:00 02/02/17 08:59 01/07/17 09:17 4 MG Pantoprazole Sodium (Protonix Tab) 40 mg BID PO 01/02/17 21:00 02/01/17 20:59 01/07/17 09:18 40 MG Insulin Glargine (Lantus Solostar Pen) 6 units BID SC 01/03/17 09:00 02/02/17 08:59 01/05/17 21:48 6 UNITS Glucose (Glucose 40% Gel) 15-30 GRAMS 15 GRAMS... UD PRN PO 01/02/17 22:30 02/01/17 22:29 Glucose (Glucose Chew Tab) 4-8 Tablets 4 Tabl... UD PRN PO 01/02/17 22:30 02/01/17 22:29 Dextrose (Dextrose 50% 50ML Syringe) 25-50ML OF 50% DW IV FOR... UD PRN IV 01/02/17 22:30 02/01/17 22:29 Glucagon (Glucagon Inj) 1 mg UD PRN SQ 01/02/17 22:30 02/01/17 22:29 Oxycodone HCl (Roxicodone Immediate Rel Tab) @ Q6 PRN PO 01/03/17 16:00 01/17/17 15:59 01/05/17 20:10 10 MG Rivaroxaban (Xarelto Tab) 10 mg DAILY@1600 PO 01/04/17 16:00 02/03/17 15:59 01/07/17 15:38 10 MG Insulin Aspart (novoLOG ASPART) SLIDING SCALE G... ACHS SC 01/03/17 21:00 02/02/17 20:59 01/06/17 18:24 1 UNITS Ciprofloxacin (Cipro Tab) 500 mg BID PO 01/07/17 00:30 01/17/17 00:29 01/07/17 09:17 500 MG Objective Vital Signs Date Time Temp Pulse Resp B/P (MAP) Pulse Ox O2 Delivery O2 Flow Rate FiO2 01/07/17 15:30 37.6 01/07/17 15:21 38.2 85 17 148/72 (97) 94 Room Air 01/07/17 13:23 37.0 71 17 98 Room Air 01/07/17 08:10 Room Air 01/07/17 07:19 37.0 71 17 129/71 (90) 98 Room Air 01/07/17 00:15 37.4 01/07/17 00:01 38.3 95 16 152/74 (100) 94 Room Air 01/06/17 23:50 Room Air 01/06/17 22:33 39.4 01/06/17 21:40 39.1 95 24 179/69 (105) 98 Room Air Physical Exam General Appearance: no apparent distress Respiratory/Chest: chest non-tender, lungs clear, normal breath sounds, no respiratory distress, no accessory muscle use Cardiovascular: regular rate, rhythm, no edema, no murmur Abdomen: normal bowel sounds, non tender, soft, + pertinent finding (Zafar catheter in place) Laboratory Results Last 24 Hours Test 01/06/17 17:20 01/06/17 21:04 01/06/17 23:05 01/07/17 06:37 Bedside Glucose 82 mg/dl 87 mg/dl Urine Color YELLOW Urine Appearance CLOUDY Urine pH 5.5 Urine Specific [place] 1.013 Urine Protein NEG Urine Glucose (UA) NEG Urine Ketones NEG Urine Occult Blood TRACE Urine Nitrite POS Urine Bilirubin NEG Urine Urobilinogen NEG Urine Leukocyte Esterase MODERATE Urine WBC (Auto) >30 /hpf Urine RBC (Auto) 0-4 /hpf Urine Hyaline Casts (Auto) 0 /lpf Urine Epithelial Cells (Auto) 5-10 /lpf Urine Bacteria (Auto) 3+ Urine Pathogenic Casts /lpf White Blood Count 4.21 K/uL Red Blood Count 2.82 M/uL Hemoglobin 7.5 g/dL Hematocrit 22.9 % Mean Corpuscular Volume 81.2 fL Mean Corpuscular Hemoglobin 26.6 pg Mean Corpuscular Hemoglobin Concent 32.8 g/dl RDW Standard Deviation 49.8 fL RDW Coefficient of Variation 16.7 % Platelet Count 194 K/uL Mean Platelet Volume 9.3 fL Sodium Level 141 mmol/L Potassium Level 4.0 mmol/L Chloride Level 108 mmol/L Carbon Dioxide Level 26 mmol/L Anion Gap 7.0 mmol/L Blood Urea Nitrogen 12 mg/dl Creatinine 0.69 mg/dl Est Creatinine Clear Calc Drug Dose 72.2 ml/min Estimated GFR () 98.7 Estimated GFR (Non- 85.2 BUN/Creatinine Ratio 16.7 Random Glucose 74 mg/dl Calcium Level 7.4 mg/dl Test 01/07/17 08:02 01/07/17 12:10 Bedside Glucose 82 mg/dl 98 mg/dl Assessment and Plan PERIPROSTHETIC FRACTURE RIGHT FEMUR 01/07 patient has been spiking fevers likely secondary to UTI started on Cipro if fevers persist, may consider d/c'ing Zafar - though difficult due to NWB status of R LE monitor H/H - if <7 - can transfuse plan is to d/c to [facility] when stable 01/06 Hgb stable developed fevers CXR no acute findings possibly UTI - UA dirty, cultures pending, Rocephin started 01/05 Hgb > 8 continue pain regimen bowel regimen for constipation - milk of mag added NWB status on R plan to d/c to rehab Management per Geriatric Hip Fracture protocol Consult Ortho and Anesthesia s/p ELIJAH R hip revision/L femur ORIF Hgb = 7.9 monitor H/H, no coronary artery disease; if stable, no need for transfusion Acute Blood Loss Anemia Hb dropped to 6.8 Received 2 units of PRBC Hb went up to 9.9 Hgb at 7.9 today, recheck in AM (01/05) HYPERTENSION Hemodynamically stable. Continue diltiazem. Follow and titrate therapy. BP remains stable COPD Respiratory status stable. Continue current medications DM TYPE 2 Well-controlled at home. Recent Hgb A1C 6.5 on 11/28/16. Random blood glucose in ED 146. Hold oral agents during hospital stay. Lantus + NovoLog per protocol. HLD: -Continue statin GERD: -Continue PPI Stress Incontinence: -Continue Detrol VTE PROPHYLAXIS SCD's preop. Postop prophylaxis to be determined.
[2017-01-07] MEDS: DOCUSATE SODIUM/SENNA 50/8.6MG TAB PO SCH (22:38)
[2017-01-07] MEDS: SIMVASTATIN 10 MG TAB PO SCH (22:39)
[2017-01-07] MEDS: OXYCODONE HCL IR 5 MG TAB (IMMEDIATE RELEASE) PO PRN (23:24)
[2017-01-08] VITALS (16 sets, daily range): BP systolic 138–160; BP diastolic 66–80; PULSE 77–97; TEMP 36.8–38.1; O2SAT 93–96
[2017-01-08] MEDS: SODIUM CHLORIDE 0.9% 1000ML 1,000 ML IV SCH ×2 (05:38→16:03)
[2017-01-08] MEDS: ACETAMINOPHEN 500 MG TAB PO SCH ×3 (05:38→21:45)
[2017-01-08 06:45] LABS: MEAN CELL VOLUME 81.7 fL (80-100); MEAN CORPUSCULAR HEMOGLOBIN 26.5 pg (25-34); MEAN CORPUSCULAR HGB CONC 32.4 g/dl (32-36); MEAN PLATELET VOLUME 8.9 fL (7.4-10.4); PLATELET COUNT 193 K/uL (130-400); RED BLOOD COUNT 2.57 M/uL (4.2-5.4); WHITE BLOOD COUNT 3.66 K/uL (4.8-10.8)
[2017-01-08 07:12] LABS: BUN/CREATININE RATIO 16.1 (10-20); CALCIUM 7.9 mg/dl (8.5-10.1); CREATININE 0.7 mg/dl (0.60-1.20); POTASSIUM 3.7 mmol/L (3.5-5.1)
[2017-01-08] MEDS: INSULIN GLARGINE SOLOSTAR 100 UNITS/ML 3 ML PEN SC SCH (09:30)
[2017-01-08] MEDS: CIPROFLOXACIN 500 MG TAB PO SCH ×2 (09:34→20:26)
[2017-01-08] MEDS: MONTELUKAST SOD 10 MG TAB PO SCH (09:35)
[2017-01-08] MEDS: ORPHENADRINE CITRATE 100 MG TABCR PO SCH ×2 (09:35→20:26)
[2017-01-08] MEDS: TOLTERODINE TARTRATE LA 4 MG CAPCR PO SCH (09:35)
[2017-01-08] MEDS: PANTOprazole SOD 40 MG TAB PO SCH ×2 (09:35→20:26)
[2017-01-08] MEDS: PREGABALIN 50 MG CAP PO SCH ×3 (09:35→20:26)
[2017-01-08] MEDS: DILTIAZEM HCL 120 MG EXT REL CAP PO SCH (09:36)
[2017-01-08] MEDS: INSULIN ASPART 100 UNITS/ML 3 ML PEN SC SCH ×4 (09:38→20:33)
[2017-01-08 12:35] LABS: HEMATOCRIT 26.4 % (37-47)
--- NOTE | 2017-01-08 15:27 | Progress Note ---
Medicine Progress Note Date & Time of Visit: Jan 08, 2017 at 15:27. Subjective resting in bed, comfortable states she feels about the same as yesterday had some chills after lunch, appetite fair denies abdominal pain, cough, headache, nausea/vomiting right hip pain tolerable denies other symptoms Objective Last 8 Hrs Date Time Temp Pulse Resp B/P (MAP) Pulse Ox O2 Delivery O2 Flow Rate FiO2 01/08/17 11:12 37.5 77 16 147/80 (102) 95 Room Air 01/08/17 11:02 37.5 77 14 147/80 95 01/08/17 10:00 37.3 84 16 150/72 95 01/08/17 10:00 Room Air 01/08/17 09:30 37.3 97 16 146/66 01/08/17 09:00 37.1 79 16 150/72 96 01/08/17 08:50 95 Room Air 01/08/17 08:45 36.8 81 16 150/74 94 01/08/17 08:30 36.8 80 16 160/76 01/08/17 08:25 36.8 80 16 160/76 Physical Exam: General- oriented x 3, not in distress, speaks in sentences with no effort Head- atraumatic Eyes- PERRL, EOMI, anicteric ENT- oropharynx clear Neck- supple, no JVD, no adenopathy, no thyromegaly Lungs- clear breath sounds bilaterally Heart- regular rhythm; no murmur, normal rate Abdomen- normal bowel sounds, soft, nontender Extremities- Right Hip: surgical dressing in place, (+) moderate edema on the thigh with no tenderness/erythema/warmth trace pretibial edema, no calf tenderness; peripheral pulses intact Neuro- alert, oriented x 3;no gross focal deficits Skin- warm & dry Laboratory Results: Last 24 Hours Test 01/07/17 16:50 01/07/17 20:46 01/08/17 06:14 01/08/17 07:52 Bedside Glucose 101 mg/dl 94 mg/dl 80 mg/dl White Blood Count 3.66 K/uL Red Blood Count 2.57 M/uL Hemoglobin 6.8 g/dL Hematocrit 21.0 % Mean Corpuscular Volume 81.7 fL Mean Corpuscular Hemoglobin 26.5 pg Mean Corpuscular Hemoglobin Concent 32.4 g/dl RDW Standard Deviation 49.9 fL RDW Coefficient of Variation 16.6 % Platelet Count 193 K/uL Mean Platelet Volume 8.9 fL Sodium Level 143 mmol/L Potassium Level 3.7 mmol/L Chloride Level 110 mmol/L Carbon Dioxide Level 26 mmol/L Anion Gap 7.0 mmol/L Blood Urea Nitrogen 11 mg/dl Creatinine 0.70 mg/dl Est Creatinine Clear Calc Drug Dose 71.1 ml/min Estimated GFR () 98.2 Estimated GFR (Non- 84.8 BUN/Creatinine Ratio 16.1 Random Glucose 87 mg/dl Calcium Level 7.9 mg/dl Test 01/08/17 12:06 Hemoglobin 8.6 g/dL Hematocrit 26.4 % Assessment & Plan 76 year old female with history of DM, HTN, COPD presenting with right hip pain s/p right hip surgery 12/28/16. PERIPROSTHETIC FRACTURE RIGHT FEMUR - 01/04/16: s/p repair of periprosthetic fracture by Dr. Hendricks : Open reduction internal fixation, proximal femur fracture with revision femoral stem and head to [employer] modular conical stem. - (+) fevers 01/06- cultures blood: negative so far urine: gram negative bacilli - on Cipro Day 2 fever curve improving change richardson cath ff up cultures ACUTE BLOOD LOSS ANEMIA Hb dropped to 6.8 Received 2 units of PRBC Hg went down again to 6.8 - no signs of acute bleeding - 2 more units pRBC ordered - monitor Hg HYPERTENSION Hemodynamically stable. Continue diltiazem. COPD Respiratory status stable. Continue current medications DM TYPE 2 Well-controlled at home. Recent Hgb A1C 6.5 on 11/28/16. Hold oral agents during hospital stay. Lantus decreased to daily as BSG low in AM monitor also on ISS HLD: -Continue statin GERD: -Continue PPI Stress Incontinence: -Continue Detrol VTE PROPHYLAXIS on Xarelto Disposition work up and treatment for fever and anemia in progress anticipate d/c to [facility] when medically stable PCP Dr. Chiu Ortho Dr. Hendricks Current Inpatient Medications: Current Inpatient Medications Medications (Trade) Dose Ordered Sig/Charis Route Start Time Stop Time Status Last Admin Dose Admin Sodium Chloride 1,000 ml @ 100 mls/hr Q10H IV 01/02/17 20:30 02/01/17 20:29 01/08/17 05:38 100 MLS/HR Ondansetron HCl (Zofran Inj) 4 mg Q6H PRN IV 01/02/17 19:15 02/01/17 19:14 Hydromorphone HCl (Dilaudid Inj) 0.25 mg Q20M PRN IV 01/02/17 19:15 01/16/17 19:14 01/02/17 21:05 0.25 MG Hydromorphone HCl (Dilaudid Inj) 0.5 mg Q20M PRN IV 01/02/17 19:15 01/16/17 19:14 01/05/17 08:58 0.5 MG Naloxone HCl (Narcan Inj) 0.1 mg PRN PRN IV 01/02/17 19:15 02/01/17 19:14 Senna/Docusate Sodium (Senokot S Tab) 2 tab HS PO 01/02/17 21:00 02/01/17 20:59 01/07/17 22:38 2 TAB Polyethylene (Miralax Powder Packet) 17 gm DAILY PRN PO 01/02/17 19:15 02/01/17 19:14 01/06/17 12:24 17 GM Magnesium Hydroxide (Milk Of Magnesia Susp) 30 ml DAILY PRN PO 01/02/17 19:15 02/01/17 19:14 01/05/17 08:04 30 ML Bisacodyl (Dulcolax Supp) 10 mg DAILY PRN [place] 01/02/17 19:15 02/01/17 19:14 01/06/17 10:14 10 MG Sodium Biphosphate/ Sodium Phosphate (Fleet Enema) 132 ml PRN PRN LA 01/02/17 19:15 Acetaminophen (Tylenol Tab) 1,000 mg Q8H PO 01/02/17 22:00 02/01/17 21:59 01/08/17 13:23 1,000 MG Diltiazem HCl (TIAzac CAP) 120 mg QAM PO 01/03/17 09:00 02/02/17 08:59 01/08/17 09:36 120 MG Montelukast Sodium (Singulair Tab) 10 mg QAM PO 01/03/17 09:00 02/02/17 08:59 01/08/17 09:35 10 MG Orphenadrine Citrate (Norflex Tab) 100 mg BID PO 01/02/17 21:00 02/01/17 20:59 01/08/17 09:35 100 MG Pregabalin (Lyrica Cap) 50 mg TID PO 01/02/17 21:00 02/01/17 20:59 01/08/17 13:22 50 MG Simvastatin (Zocor Tab) 10 mg QPM PO 01/02/17 21:00 02/01/17 20:59 01/07/17 22:39 10 MG Tolterodine Tartrate (Detrol LA Cap) 4 mg QAM PO 01/03/17 09:00 02/02/17 08:59 01/08/17 09:35 4 MG Pantoprazole Sodium (Protonix Tab) 40 mg BID PO 01/02/17 21:00 02/01/17 20:59 01/08/17 09:35 40 MG Glucose (Glucose 40% Gel) 15-30 GRAMS 15 GRAMS... UD PRN PO 01/02/17 22:30 02/01/17 22:29 Glucose (Glucose Chew Tab) 4-8 Tablets 4 Tabl... UD PRN PO 01/02/17 22:30 02/01/17 22:29 Dextrose (Dextrose 50% 50ML Syringe) 25-50ML OF 50% DW IV FOR... UD PRN IV 01/02/17 22:30 02/01/17 22:29 Glucagon (Glucagon Inj) 1 mg UD PRN SQ 01/02/17 22:30 02/01/17 22:29 Oxycodone HCl (Roxicodone Immediate Rel Tab) @ Q6 PRN PO 01/03/17 16:00 01/17/17 15:59 01/07/17 23:24 10 MG Rivaroxaban (Xarelto Tab) 10 mg DAILY@1600 PO 01/04/17 16:00 02/03/17 15:59 01/07/17 15:38 10 MG Insulin Aspart (novoLOG ASPART) SLIDING SCALE G... ACHS SC 01/03/17 21:00 02/02/17 20:59 01/08/17 12:59 1 UNITS Ciprofloxacin (Cipro Tab) 500 mg BID PO 01/07/17 00:30 01/17/17 00:29 01/08/17 09:34 500 MG Insulin Glargine (Lantus Solostar Pen) 6 units DAILY SC 01/09/17 09:00 02/02/17 08:59
[2017-01-08] MEDS: RIVAROXABAN 10 MG TAB PO SCH (16:03)
[2017-01-08] MEDS: DOCUSATE SODIUM/SENNA 50/8.6MG TAB PO SCH (20:26)
[2017-01-08] MEDS: SIMVASTATIN 10 MG TAB PO SCH (20:26)
[2017-01-09] MEDS: SODIUM CHLORIDE 0.9% 1000ML 1,000 ML IV SCH ×2 (01:54→12:56)
[2017-01-09] MEDS: ACETAMINOPHEN 500 MG TAB PO SCH ×3 (05:50→21:32)
[2017-01-09 06:20] LABS: HEMATOCRIT 25.4 % (37-47); IG% 0.9 %; LYMPH % 16.2 %; LYMPH ABS # 0.54 K/uL (1.2-3.4); MEAN CELL VOLUME 82.7 fL (80-100); MEAN CORPUSCULAR HGB CONC 33.9 g/dl (32-36); MEAN PLATELET VOLUME 9.2 fL (7.4-10.4); MONO % 12.9 %; PLATELET COUNT 231 K/uL (130-400); RED BLOOD COUNT 3.07 M/uL (4.2-5.4); WHITE BLOOD COUNT 3.34 K/uL (4.8-10.8)
[2017-01-09 06:46] LABS: BUN/CREATININE RATIO 11.3 (10-20); CALCIUM 7.7 mg/dl (8.5-10.1); CREATININE 0.74 mg/dl (0.60-1.20)
[2017-01-09 06:55] LABS: COMPLETE YES
[2017-01-09 07:34] VITALS: BP 150/72; PULSE 84; TEMP 37.5; O2SAT 95
[2017-01-09] MEDS: MONTELUKAST SOD 10 MG TAB PO SCH (08:25)
[2017-01-09] MEDS: TOLTERODINE TARTRATE LA 4 MG CAPCR PO SCH (08:25)
[2017-01-09] MEDS: PANTOprazole SOD 40 MG TAB PO SCH ×2 (08:25→20:38)
[2017-01-09] MEDS: DILTIAZEM HCL 120 MG EXT REL CAP PO SCH (08:25)
[2017-01-09] MEDS: CIPROFLOXACIN 500 MG TAB PO SCH ×2 (08:25→20:37)
[2017-01-09] MEDS: ORPHENADRINE CITRATE 100 MG TABCR PO SCH ×2 (08:26→20:38)
[2017-01-09] MEDS: PREGABALIN 50 MG CAP PO SCH ×3 (08:27→20:37)
[2017-01-09] MEDS: INSULIN GLARGINE SOLOSTAR 100 UNITS/ML 3 ML PEN SC SCH (08:34)
[2017-01-09] MEDS: INSULIN ASPART 100 UNITS/ML 3 ML PEN SC SCH ×4 (08:35→20:37)
[2017-01-09 15:25] VITALS: BP 142/71; PULSE 78; TEMP 37.2; O2SAT 94
[2017-01-09] MEDS: RIVAROXABAN 10 MG TAB PO SCH (15:47)
[2017-01-09] MEDS: POLYETHYLENE (MIRALAX) 17 GM PACK PO PRN (16:37)
--- NOTE | 2017-01-09 18:22 | Progress Note ---
Medicine Progress Note Date & Time of Visit: Jan 09, 2017 at 18:14. Subjective seen having dinner, brighter states she feels improved today denies abdominal pain, nausea no chest pain, dyspnea, dizziness denies other symptoms Objective Last 8 Hrs Date Time Temp Pulse Resp B/P (MAP) Pulse Ox O2 Delivery O2 Flow Rate FiO2 01/09/17 15:40 Room Air 01/09/17 15:25 37.2 78 17 142/71 (94) 94 Room Air Physical Exam: General- oriented x 3, not in distress, speaks in sentences with no effort Eyes- EOMI, anicteric Neck- supple, no JVD Lungs- clear breath sounds bilaterally, no rales/wheezes Heart- regular rhythm; no murmur, normal rate Abdomen- normal bowel sounds, soft, nontender Extremities- Right Hip: surgical dressing in place, (+) moderate edema on the thigh with no tenderness/erythema/warmth grade 1 lower leg edema on the right, mild on the lef, no calf tenderness; peripheral pulses intact Neuro- alert, oriented x 3;no gross focal deficits Skin- warm & dry Laboratory Results: Last 24 Hours Test 01/08/17 20:32 01/09/17 05:58 01/09/17 08:15 01/09/17 12:12 Bedside Glucose 131 mg/dl 109 mg/dl 104 mg/dl White Blood Count 3.34 K/uL Red Blood Count 3.07 M/uL Hemoglobin 8.6 g/dL Hematocrit 25.4 % Mean Corpuscular Volume 82.7 fL Mean Corpuscular Hemoglobin 28.0 pg Mean Corpuscular Hemoglobin Concent 33.9 g/dl Platelet Count 231 K/uL Mean Platelet Volume 9.2 fL Neutrophils (%) (Auto) 61.0 % Lymphocytes (%) (Auto) 16.2 % Monocytes (%) (Auto) 12.9 % Eosinophils (%) (Auto) 9.0 % Basophils (%) (Auto) 0.0 % Neutrophils # (Auto) 2.04 K/uL Lymphocytes # (Auto) 0.54 K/uL Monocytes # (Auto) 0.43 K/uL Eosinophils # (Auto) 0.30 K/uL Basophils # (Auto) 0.00 K/uL RDW Standard Deviation 49.3 fL RDW Coefficient of Variation 16.3 % Immature Granulocyte % (Auto) 0.9 % Immature Granulocyte # (Auto) 0.03 K/uL Red Blood Cell Morphology Unremarkable Sodium Level 141 mmol/L Potassium Level 4.0 mmol/L Chloride Level 109 mmol/L Carbon Dioxide Level 25 mmol/L Anion Gap 7.0 mmol/L Blood Urea Nitrogen 8 mg/dl Creatinine 0.74 mg/dl Est Creatinine Clear Calc Drug Dose 67.3 ml/min Estimated GFR () 91.9 Estimated GFR (Non- 79.3 BUN/Creatinine Ratio 11.3 Random Glucose 101 mg/dl Calcium Level 7.7 mg/dl Assessment & Plan 76 year old female with history of DM, HTN, COPD presenting with right hip pain s/p right hip surgery 12/28/16. PERIPROSTHETIC FRACTURE RIGHT FEMUR - 01/04/16: s/p repair of periprosthetic fracture by Dr. Hendricks : Open reduction internal fixation, proximal femur fracture with revision femoral stem and head to [employer] modular conical stem. - (+) fevers 01/06- cultures blood: negative so far urine: Klebsiella , pansensitive - on Cipro Day 3 fever continues to improve changed richardson cath - anticipate d/c to [facility] tomorrow if afebrile, feels better ACUTE BLOOD LOSS ANEMIA Hb dropped to 6.8 Received 2 units of PRBC Hg went down again to 6.8 - no signs of acute bleeding - 2 more units pRBC ordered - Hg increased again to 8.6 monitor HYPERTENSION BP not at goal add Lisinopril 5mg po daily Continue diltiazem. -- monitor BP COPD Respiratory status stable. Continue current medications DM TYPE 2 Well-controlled at home. Recent Hgb A1C 6.5 on 11/28/16. Hold oral agents during hospital stay. Lantus decreased to daily as BSG low in AM HLD: -Continue statin GERD: -Continue PPI Stress Incontinence: -Continue Detrol VTE PROPHYLAXIS on Xarelto Disposition anticipate d/c to [facility] tomorrow when medically stable PCP Dr. Chiu Ortho Dr. Hendricks Current Inpatient Medications: Current Inpatient Medications Medications (Trade) Dose Ordered Sig/Charis Route Start Time Stop Time Status Last Admin Dose Admin Ondansetron HCl (Zofran Inj) 4 mg Q6H PRN IV 01/02/17 19:15 02/01/17 19:14 Hydromorphone HCl (Dilaudid Inj) 0.25 mg Q20M PRN IV 01/02/17 19:15 01/16/17 19:14 01/02/17 21:05 0.25 MG Hydromorphone HCl (Dilaudid Inj) 0.5 mg Q20M PRN IV 01/02/17 19:15 01/16/17 19:14 01/05/17 08:58 0.5 MG Naloxone HCl (Narcan Inj) 0.1 mg PRN PRN IV 01/02/17 19:15 02/01/17 19:14 Senna/Docusate Sodium (Senokot S Tab) 2 tab HS PO 01/02/17 21:00 02/01/17 20:59 01/08/17 20:26 2 TAB Polyethylene (Miralax Powder Packet) 17 gm DAILY PRN PO 01/02/17 19:15 02/01/17 19:14 01/09/17 16:37 17 GM Magnesium Hydroxide (Milk Of Magnesia Susp) 30 ml DAILY PRN PO 01/02/17 19:15 02/01/17 19:14 01/05/17 08:04 30 ML Bisacodyl (Dulcolax Supp) 10 mg DAILY PRN [place] 01/02/17 19:15 02/01/17 19:14 01/06/17 10:14 10 MG Sodium Biphosphate/ Sodium Phosphate (Fleet Enema) 132 ml PRN PRN [place] 01/02/17 19:15 Acetaminophen (Tylenol Tab) 1,000 mg Q8H PO 01/02/17 22:00 02/01/17 21:59 01/09/17 13:01 1,000 MG Diltiazem HCl (TIAzac CAP) 120 mg QAM PO 01/03/17 09:00 02/02/17 08:59 01/09/17 08:25 120 MG Montelukast Sodium (Singulair Tab) 10 mg QAM PO 01/03/17 09:00 02/02/17 08:59 01/09/17 08:25 10 MG Orphenadrine Citrate (Norflex Tab) 100 mg BID PO 01/02/17 21:00 02/01/17 20:59 01/09/17 08:26 100 MG Pregabalin (Lyrica Cap) 50 mg TID PO 01/02/17 21:00 02/01/17 20:59 01/09/17 13:01 50 MG Simvastatin (Zocor Tab) 10 mg QPM PO 01/02/17 21:00 02/01/17 20:59 01/08/17 20:26 10 MG Tolterodine Tartrate (Detrol LA Cap) 4 mg QAM PO 01/03/17 09:00 02/02/17 08:59 01/09/17 08:25 4 MG Pantoprazole Sodium (Protonix Tab) 40 mg BID PO 01/02/17 21:00 02/01/17 20:59 01/09/17 08:25 40 MG Glucose (Glucose 40% Gel) 15-30 GRAMS 15 GRAMS... UD PRN PO 01/02/17 22:30 02/01/17 22:29 Glucose (Glucose Chew Tab) 4-8 Tablets 4 Tabl... UD PRN PO 01/02/17 22:30 02/01/17 22:29 Dextrose (Dextrose 50% 50ML Syringe) 25-50ML OF 50% DW IV FOR... UD PRN IV 01/02/17 22:30 02/01/17 22:29 Glucagon (Glucagon Inj) 1 mg UD PRN SQ 01/02/17 22:30 02/01/17 22:29 Oxycodone HCl (Roxicodone Immediate Rel Tab) @ Q6 PRN PO 01/03/17 16:00 01/17/17 15:59 01/07/17 23:24 10 MG Rivaroxaban (Xarelto Tab) 10 mg DAILY@1600 PO 01/04/17 16:00 02/03/17 15:59 01/09/17 15:47 10 MG
[2017-01-09] MEDS: DOCUSATE SODIUM/SENNA 50/8.6MG TAB PO SCH (20:38)
[2017-01-09] MEDS: SIMVASTATIN 10 MG TAB PO SCH (20:38)
[2017-01-09 23:15] VITALS: BP 150/64; PULSE 97; TEMP 38.2; O2SAT 96
[2017-01-09 23:48] VITALS: TEMP 37.6
[2017-01-10] VITALS (10 sets, daily range): BP systolic 147–158; BP diastolic 67–81; PULSE 81–97; TEMP 37–38.5; O2SAT 95–96
[2017-01-10] MEDS: ACETAMINOPHEN 500 MG TAB PO SCH (05:25)
[2017-01-10 06:30] LABS: BASO % 0.3 %; BASO ABS # 0.01 K/uL (0-0.2); EOS % 13.3 %; HEMATOCRIT 25.8 % (37-47); IG% 0.7 %; LYMPH % 18.3 %; LYMPH ABS # 0.55 K/uL (1.2-3.4); MEAN CELL VOLUME 82.4 fL (80-100); MEAN CORPUSCULAR HEMOGLOBIN 26.5 pg (25-34); MEAN CORPUSCULAR HGB CONC 32.2 g/dl (32-36); MEAN PLATELET VOLUME 8.7 fL (7.4-10.4); MONO % 11.6 %; NEUT % 55.8 %; PLATELET COUNT 249 K/uL (130-400); RED BLOOD COUNT 3.13 M/uL (4.2-5.4); WHITE BLOOD COUNT 3.01 K/uL (4.8-10.8)
--- NOTE | 2017-01-10 06:41 | DIAGNOSTIC IMAGING REPORT ---
ULTRASOUND VENOUS DOPPLER LWR EXT BILA CLINICAL HISTORY: Leg swelling COMPARISON STUDY: No previous studies for comparison. FINDINGS: Real-time and color flow Doppler imaging were performed. Flow was seen within the femoral, popliteal and calf veins with no intraluminal thrombus demonstrated. The saphenous vein is patent. IMPRESSION: No evidence of lower extremity DVT. Electronically signed by: Nicolas Gore M.D. 01/10/2017 6:40 AM Dictated Date/Time: 01/10/2017 6:39 AM
[2017-01-10 07:00] LABS: COMPLETE YES; POIKILOCYTOSIS PRESENT
[2017-01-10 07:12] LABS: BUN/CREATININE RATIO 16.5 (10-20); CALCIUM 7.8 mg/dl (8.5-10.1); CREATININE 0.59 mg/dl (0.60-1.20); POTASSIUM 3.4 mmol/L (3.5-5.1)
[2017-01-10] MEDS: INSULIN ASPART 100 UNITS/ML 3 ML PEN SC SCH ×4 (08:00→21:00)
[2017-01-10] MEDS ORDERED: POTASSIUM CHLORIDE 10 MEQ TABCR PO ONE (09:00)
[2017-01-10] MEDS ORDERED: LISINOPRIL 5 MG TAB PO SCH (09:00)
[2017-01-10] MEDS: LEVOFLOXACIN / D5W 750 MG in PREMIXED IN D5W 150 ML IV SCH (09:24)
[2017-01-10] MEDS: PANTOprazole SOD 40 MG TAB PO SCH ×2 (09:25→20:27)
[2017-01-10] MEDS: ORPHENADRINE CITRATE 100 MG TABCR PO SCH ×2 (09:25→20:27)
[2017-01-10] MEDS: TOLTERODINE TARTRATE LA 4 MG CAPCR PO SCH (09:25)
[2017-01-10] MEDS: MONTELUKAST SOD 10 MG TAB PO SCH (09:26)
[2017-01-10] MEDS: DILTIAZEM HCL 120 MG EXT REL CAP PO SCH (09:26)
--- NOTE | 2017-01-10 09:32 | Progress Note ---
Medicine Progress Note Date & Time of Visit: Jan 10, 2017 at 09:28. Subjective patient seen sitting in bedside chair, comfortable spiked fever last night feels fine this morning denies abdominal pain, nausea, chills denies dizziness, chest pain, palpitations, dyspnea no other symptoms Objective Last 8 Hrs Date Time Temp Pulse Resp B/P (MAP) Pulse Ox O2 Delivery O2 Flow Rate FiO2 01/10/17 08:31 37.2 97 20 150/81 (104) 95 Room Air 01/10/17 05:26 37.0 Physical Exam: General- oriented x 3, not in distress, speaks in sentences with no effort Eyes- anicteric Neck- no JVD Lungs- clear breath sounds BL Heart- regular rhythm; no murmur, normal rate Abdomen- normal bowel sounds, soft, nontender Extremities- Right Hip: surgical wound healing well, no signs of infection , (+) moderate edema on the thigh with no tenderness/erythema/warmth grade 1 lower leg edema on the right, mild on the left, no calf tenderness; peripheral pulses intact Neuro- alert, oriented x 3;no gross focal deficits Skin- warm & dry Laboratory Results: Last 24 Hours Test 01/09/17 12:12 01/09/17 17:04 01/09/17 20:04 01/10/17 06:13 Bedside Glucose 104 mg/dl 101 mg/dl 140 mg/dl White Blood Count 3.01 K/uL Red Blood Count 3.13 M/uL Hemoglobin 8.3 g/dL Hematocrit 25.8 % Mean Corpuscular Volume 82.4 fL Mean Corpuscular Hemoglobin 26.5 pg Mean Corpuscular Hemoglobin Concent 32.2 g/dl Platelet Count 249 K/uL Mean Platelet Volume 8.7 fL Neutrophils (%) (Auto) 55.8 % Lymphocytes (%) (Auto) 18.3 % Monocytes (%) (Auto) 11.6 % Eosinophils (%) (Auto) 13.3 % Basophils (%) (Auto) 0.3 % Neutrophils # (Auto) 1.68 K/uL Lymphocytes # (Auto) 0.55 K/uL Monocytes # (Auto) 0.35 K/uL Eosinophils # (Auto) 0.40 K/uL Basophils # (Auto) 0.01 K/uL RDW Standard Deviation 48.7 fL RDW Coefficient of Variation 16.1 % Immature Granulocyte % (Auto) 0.7 % Immature Granulocyte # (Auto) 0.02 K/uL Poikilocytosis PRESENT Sodium Level 142 mmol/L Potassium Level 3.4 mmol/L Chloride Level 109 mmol/L Carbon Dioxide Level 28 mmol/L Anion Gap 5.0 mmol/L Blood Urea Nitrogen 10 mg/dl Creatinine 0.59 mg/dl Est Creatinine Clear Calc Drug Dose 84.4 ml/min Estimated GFR () 103.9 Estimated GFR (Non- 89.7 BUN/Creatinine Ratio 16.5 Random Glucose 87 mg/dl Calcium Level 7.8 mg/dl Test 01/10/17 08:04 Bedside Glucose 99 mg/dl Assessment & Plan 76 year old female with history of DM, HTN, COPD presenting with right hip pain s/p right hip surgery 12/28/16. PERIPROSTHETIC FRACTURE RIGHT FEMUR - 01/04/16: s/p repair of periprosthetic fracture by Dr. Hendricks : Open reduction internal fixation, proximal femur fracture with revision femoral stem and head to [employer] modular conical stem. - (+) fevers 01/06- cultures blood: negative so far urine: Klebsiella , pansensitive - (+) fever spike evening of 01/08/17 change Cipro po BID to Levaquin IV (abx day 4) - if afebrile for 24 hr, d/c to HS ACUTE BLOOD LOSS ANEMIA Hb dropped to 6.8 Received 2 units of PRBC Hg went down again to 6.8 - no signs of acute bleeding - 2 more units pRBC ordered - Hg remains ~8 monitor HYPERTENSION BP not at goal added Lisinopril 5mg po daily Continue diltiazem. -- monitor BP COPD Respiratory status stable. Continue current medications DM TYPE 2 Well-controlled at home. Recent Hgb A1C 6.5 on 11/28/16. Hold oral agents during hospital stay. Lantus decreased to daily as BSG low in AM -- BSGs stable HLD: -Continue statin GERD: -Continue PPI Stress Incontinence: -Continue Detrol VTE PROPHYLAXIS on Xarelto Disposition anticipate d/c to [facility] when afebrile for [address] Chiu Orth[address] Dr[address] Hendricks Current Inpatient Medications: Current Inpatient Medications Medications (Trade) Dose Ordered Sig/Charis Route Start Time Stop Time Status Last Admin Dose Admin Ondansetron HCl (Zofran Inj) 4 mg Q6H PRN IV 01/02/17 19:15 02/01/17 19:14 Hydromorphone HCl (Dilaudid Inj) 0.25 mg Q20M PRN IV 01/02/17 19:15 01/16/17 19:14 01/02/17 21:05 0.25 MG Hydromorphone HCl (Dilaudid Inj) 0.5 mg Q20M PRN IV 01/02/17 19:15 01/16/17 19:14 01/05/17 08:58 0.5 MG Naloxone HCl (Narcan Inj) 0.1 mg PRN PRN IV 01/02/17 19:15 02/01/17 19:14 Senna/Docusate Sodium (Senokot S Tab) 2 tab HS PO 01/02/17 21:00 02/01/17 20:59 01/09/17 20:38 2 TAB Polyethylene (Miralax Powder Packet) 17 gm DAILY PRN PO 01/02/17 19:15 02/01/17 19:14 01/09/17 16:37 17 GM Magnesium Hydroxide (Milk Of Magnesia Susp) 30 ml DAILY PRN PO 01/02/17 19:15 02/01/17 19:14 01/05/17 08:04 30 ML Bisacodyl (Dulcolax Supp) 10 mg DAILY PRN [place] 01/02/17 19:15 02/01/17 19:14 01/06/17 10:14 10 MG Sodium Biphosphate/ Sodium Phosphate (Fleet Enema) 132 ml PRN PRN [place] 01/02/17 19:15 Diltiazem HCl (TIAzac CAP) 120 mg QAM PO 01/03/17 09:00 02/02/17 08:59 01/09/17 08:25 120 MG Montelukast Sodium (Singulair Tab) 10 mg QAM PO 01/03/17 09:00 02/02/17 08:59 01/09/17 08:25 10 MG Orphenadrine Citrate (Norflex Tab) 100 mg BID PO 01/02/17 21:00 02/01/17 20:59 01/09/17 20:38 100 MG Pregabalin (Lyrica Cap) 50 mg TID PO 01/02/17 21:00 02/01/17 20:59 01/09/17 20:37 50 MG Simvastatin (Zocor Tab) 10 mg QPM PO 01/02/17 21:00 02/01/17 20:59 01/09/17 20:38 10 MG Tolterodine Tartrate (Detrol LA Cap) 4 mg QAM PO 01/03/17 09:00 02/02/17 08:59 01/09/17 08:25 4 MG Pantoprazole Sodium (Protonix Tab) 40 mg BID PO 01/02/17 21:00 02/01/17 20:59 01/09/17 20:38 40 MG Glucose (Glucose 40% Gel) 15-30 GRAMS 15 GRAMS... UD PRN PO 01/02/17 22:30 02/01/17 22:29 Glucose (Glucose Chew Tab) 4-8 Tablets 4 Tabl... UD PRN PO 01/02/17 22:30 02/01/17 22:29 Dextrose (Dextrose 50% 50ML Syringe) 25-50ML OF 50% DW IV FOR... UD PRN IV 01/02/17 22:30 02/01/17 22:29 Glucagon (Glucagon Inj) 1 mg UD PRN SQ 01/02/17 22:30 02/01/17 22:29 Oxycodone HCl (Roxicodone Immediate Rel Tab) @ Q6 PRN PO 01/03/17 16:00 01/17/17 15:59 01/07/17 23:24 10 MG Rivaroxaban (Xarelto Tab) 10 mg DAILY@1600 PO 01/04/17 16:00 02/03/17 15:59 01/09/17 15:47 10 MG Insulin Aspart (novoLOG ASPART) SLIDING SCALE G... ACHS SC 01/03/17 21:00 02/02/17 20:59 01/09/17 19:09 1 UNITS Insulin Glargine (Lantus Solostar Pen) 6 units DAILY SC 01/09/17 09:00 02/02/17 08:59 01/09/17 08:34 6 UNITS Lisinopril (Zestril Tab) 5 mg QAM PO 01/10/17 09:00 02/09/17 08:59 Levofloxacin 750 mg/Prmx 150 ml @ 100 mls/hr DAILY@0800 IV 01/10/17 08:00 01/20/17 07:59 Acetaminophen (Tylenol Tab) 1,000 mg Q8H PRN PO 01/10/17 14:00 02/01/17 21:59
[2017-01-10] MEDS: PREGABALIN 50 MG CAP PO SCH ×3 (09:37→20:27)
[2017-01-10] MEDS: INSULIN GLARGINE SOLOSTAR 100 UNITS/ML 3 ML PEN SC SCH (09:38)
[2017-01-10] MEDS: RIVAROXABAN 10 MG TAB PO SCH (16:36)
[2017-01-10] MEDS: ACETAMINOPHEN 500 MG TAB PO PRN (18:16)
[2017-01-10] MEDS ORDERED: ENALAPRILAT IV 0.625 MG in DEXTROSE 5% 25ML 25 ML IV PRN (18:45)
[2017-01-10] MEDS: DOCUSATE SODIUM/SENNA 50/8.6MG TAB PO SCH (20:27)
[2017-01-10] MEDS: SIMVASTATIN 10 MG TAB PO SCH (20:28)
[2017-01-11] VITALS (10 sets, daily range): BP systolic 143–164; BP diastolic 73–84; PULSE 80–91; TEMP 36.8–37.9; O2SAT 95–96
[2017-01-11 05:51] LABS: BASO % 0.4 %; BASO ABS # 0.01 K/uL (0-0.2); EOS % 13.8 %; HEMATOCRIT 24.4 % (37-47); IG% 0.7 %; LYMPH % 20.1 %; LYMPH ABS # 0.57 K/uL (1.2-3.4); MEAN CELL VOLUME 81.9 fL (80-100); MEAN CORPUSCULAR HEMOGLOBIN 26.2 pg (25-34); MEAN PLATELET VOLUME 8.8 fL (7.4-10.4); MONO % 15.2 %; NEUT % 49.8 %; PLATELET COUNT 278 K/uL (130-400); RED BLOOD COUNT 2.98 M/uL (4.2-5.4); WHITE BLOOD COUNT 2.83 K/uL (4.8-10.8)
[2017-01-11 06:26] LABS: BUN/CREATININE RATIO 13.6 (10-20); CREATININE 0.75 mg/dl (0.60-1.20); POTASSIUM 3.5 mmol/L (3.5-5.1)
[2017-01-11 06:32] LABS: COMPLETE YES; HYPERSEGMENTED POLYS 1+; LARGE PLATELETS 1+; OVALOCYTES 1+; TEAR DROP CELLS OCCASIONAL
[2017-01-11] MEDS: LEVOFLOXACIN / D5W 750 MG in PREMIXED IN D5W 150 ML IV SCH (07:43)
[2017-01-11] MEDS: LISINOPRIL 10 MG TAB PO SCH (08:39)
[2017-01-11] MEDS: PREGABALIN 50 MG CAP PO SCH ×3 (08:39→21:01)
[2017-01-11] MEDS: DILTIAZEM HCL 120 MG EXT REL CAP PO SCH (08:40)
[2017-01-11] MEDS: PANTOprazole SOD 40 MG TAB PO SCH ×2 (08:40→21:01)
[2017-01-11] MEDS: MONTELUKAST SOD 10 MG TAB PO SCH (08:40)
[2017-01-11] MEDS: TOLTERODINE TARTRATE LA 4 MG CAPCR PO SCH (08:40)
[2017-01-11] MEDS: ORPHENADRINE CITRATE 100 MG TABCR PO SCH ×2 (08:41→21:01)
[2017-01-11] MEDS: INSULIN ASPART 100 UNITS/ML 3 ML PEN SC SCH ×4 (08:44→20:59)
[2017-01-11] MEDS: INSULIN GLARGINE SOLOSTAR 100 UNITS/ML 3 ML PEN SC SCH (08:45)
--- NOTE | 2017-01-11 08:50 | Progress Note ---
Medicine Progress Note Date & Time of Visit: Jan 11, 2017 at 08:31. Subjective seen resting in bed, comfortable spiked fevers in the evening states she was sweaty reports dry cough no abdominal pain, diarrhea richardson cath still in place denies other symptoms Objective Last 8 Hrs Date Time Temp Pulse Resp B/P (MAP) Pulse Ox O2 Delivery O2 Flow Rate FiO2 01/11/17 07:50 37.0 80 17 144/73 (96) 96 Room Air 01/11/17 05:57 36.8 Physical Exam: General- oriented x 3, not in distress, speaks in sentences with no effort Eyes- anicteric Neck- no JVD Lungs- clear breath sounds BL, no crackles, wheezing Heart- regular rhythm; no murmur, normal rate Abdomen- normal bowel sounds, soft, nontender Extremities- Right Hip: surgical wound healing well, no signs of infection , (+) moderate edema on the thigh with no tenderness/erythema/warmth grade 1 lower leg edema on the right, mild on the left, no calf tenderness; peripheral pulses intact Neuro- alert, oriented x 3;no gross focal deficits Skin- warm & dry Laboratory Results: Last 24 Hours Test 01/10/17 12:21 01/10/17 17:29 01/10/17 20:35 01/11/17 05:34 Bedside Glucose 104 mg/dl 113 mg/dl 144 mg/dl White Blood Count 2.83 K/uL Red Blood Count 2.98 M/uL Hemoglobin 7.8 g/dL Hematocrit 24.4 % Mean Corpuscular Volume 81.9 fL Mean Corpuscular Hemoglobin 26.2 pg Mean Corpuscular Hemoglobin Concent 32.0 g/dl Platelet Count 278 K/uL Mean Platelet Volume 8.8 fL Neutrophils (%) (Auto) 49.8 % Lymphocytes (%) (Auto) 20.1 % Monocytes (%) (Auto) 15.2 % Eosinophils (%) (Auto) 13.8 % Basophils (%) (Auto) 0.4 % Neutrophils # (Auto) 1.41 K/uL Lymphocytes # (Auto) 0.57 K/uL Monocytes # (Auto) 0.43 K/uL Eosinophils # (Auto) 0.39 K/uL Basophils # (Auto) 0.01 K/uL RDW Standard Deviation 49.4 fL RDW Coefficient of Variation 16.3 % Immature Granulocyte % (Auto) 0.7 % Immature Granulocyte # (Auto) 0.02 K/uL Hypersegmented Polys 1+ Large Platelets 1+ Tear Drop Cells OCCASIONAL Ovalocytes 1+ Sodium Level 140 mmol/L Potassium Level 3.5 mmol/L Chloride Level 107 mmol/L Carbon Dioxide Level 26 mmol/L Anion Gap 7.0 mmol/L Blood Urea Nitrogen 10 mg/dl Creatinine 0.75 mg/dl Est Creatinine Clear Calc Drug Dose 66.4 ml/min Estimated GFR () 90.4 Estimated GFR (Non- 78.0 BUN/Creatinine Ratio 13.6 Random Glucose 101 mg/dl Calcium Level 8.0 mg/dl Date/Time Source Procedure Growth Status 01/10/17 19:27 Blood Blood Culture Pending Received 01/10/17 19:19 Blood Blood Culture Pending Received 01/10/17 20:45 Urine,Catheterized Urine Culture Pending Received Assessment & Plan 76 year old female with history of DM, HTN, COPD presenting with right hip pain s/p right hip surgery 12/28/16. PERIPROSTHETIC FRACTURE RIGHT FEMUR - 01/04/16: s/p repair of periprosthetic fracture by Dr. Hendricks : Open reduction internal fixation, proximal femur fracture with revision femoral stem and head to voodoo modular conical stem. - (+) persistent fever spikes cultures blood: negative so far urine: Klebsiella , pansensitive 01/10/17: changed Cipro po BID to Levaquin IV ( now abx day 5) - repeat urine and blood cultures ordered cxr ordered ID consulted ACUTE BLOOD LOSS ANEMIA s/p 3 units pRBC ordered Hg 7.8 1 more unit prbc ordered HYPERTENSION BP not at goal added Lisinopril 10 mg po daily Continue diltiazem. -- monitor BP COPD Respiratory status stable. Continue current medications DM TYPE 2 Well-controlled at home. Recent Hgb A1C 6.5 on 11/28/16. Hold oral agents during hospital stay. Lantus decreased to daily as BSG low in AM -- BSGs stable HLD: -Continue statin GERD: -Continue PPI Stress Incontinence: -Continue Detrol VTE PROPHYLAXIS on Xarelto Disposition anticipate d/c to [facility] when stable PCP Dr. Chiu Ortho Dr. Hendricks Current Inpatient Medications: Current Inpatient Medications Medications (Trade) Dose Ordered Sig/Charis Route Start Time Stop Time Status Last Admin Dose Admin Ondansetron HCl (Zofran Inj) 4 mg Q6H PRN IV 01/02/17 19:15 02/01/17 19:14 Hydromorphone HCl (Dilaudid Inj) 0.25 mg Q20M PRN IV 01/02/17 19:15 01/16/17 19:14 01/02/17 21:05 0.25 MG Hydromorphone HCl (Dilaudid Inj) 0.5 mg Q20M PRN IV 01/02/17 19:15 01/16/17 19:14 01/05/17 08:58 0.5 MG Naloxone HCl (Narcan Inj) 0.1 mg PRN PRN IV 01/02/17 19:15 02/01/17 19:14 Senna/Docusate Sodium (Senokot S Tab) 2 tab HS PO 01/02/17 21:00 02/01/17 20:59 01/10/17 20:27 2 TAB Polyethylene (Miralax Powder Packet) 17 gm DAILY PRN PO 01/02/17 19:15 02/01/17 19:14 01/09/17 16:37 17 GM Magnesium Hydroxide (Milk Of Magnesia Susp) 30 ml DAILY PRN PO 01/02/17 19:15 02/01/17 19:14 01/05/17 08:04 30 ML Bisacodyl (Dulcolax Supp) 10 mg DAILY PRN HI 01/02/17 19:15 02/01/17 19:14 01/06/17 10:14 10 MG Sodium Biphosphate/ Sodium Phosphate (Fleet Enema) 132 ml PRN PRN HI 01/02/17 19:15 Diltiazem HCl (TIAzac CAP) 120 mg QAM PO 01/03/17 09:00 02/02/17 08:59 01/10/17 09:26 120 MG Montelukast Sodium (Singulair Tab) 10 mg QAM PO 01/03/17 09:00 02/02/17 08:59 01/10/17 09:26 10 MG Orphenadrine Citrate (Norflex Tab) 100 mg BID PO 01/02/17 21:00 02/01/17 20:59 01/10/17 20:27 100 MG Pregabalin (Lyrica Cap) 50 mg TID PO 01/02/17 21:00 02/01/17 20:59 01/10/17 20:27 50 MG Simvastatin (Zocor Tab) 10 mg QPM PO 01/02/17 21:00 02/01/17 20:59 01/10/17 20:28 10 MG Tolterodine Tartrate (Detrol LA Cap) 4 mg QAM PO 01/03/17 09:00 02/02/17 08:59 01/10/17 09:25 4 MG Pantoprazole Sodium (Protonix Tab) 40 mg BID PO 01/02/17 21:00 02/01/17 20:59 01/10/17 20:27 40 MG Glucose (Glucose 40% Gel) 15-30 GRAMS 15 GRAMS... UD PRN PO 01/02/17 22:30 02/01/17 22:29 Glucose (Glucose Chew Tab) 4-8 Tablets 4 Tabl... UD PRN PO 01/02/17 22:30 02/01/17 22:29 Dextrose (Dextrose 50% 50ML Syringe) 25-50ML OF 50% DW IV FOR... UD PRN IV 01/02/17 22:30 02/01/17 22:29 Glucagon (Glucagon Inj) 1 mg UD PRN SQ 01/02/17 22:30 02/01/17 22:29 Oxycodone HCl (Roxicodone Immediate Rel Tab) @ Q6 PRN PO 01/03/17 16:00 01/17/17 15:59 01/07/17 23:24 10 MG Rivaroxaban (Xarelto Tab) 10 mg DAILY@1600 PO 01/04/17 16:00 02/03/17 15:59 01/10/17 16:36 10 MG Insulin Aspart (novoLOG ASPART) SLIDING SCALE G... ACHS SC 01/03/17 21:00 02/02/17 20:59 01/10/17 18:09 1 UNITS Insulin Glargine (Lantus Solostar Pen) 6 units DAILY SC 01/09/17 09:00 02/02/17 08:59 01/10/17 09:38 6 UNITS Levofloxacin 750 mg/Prmx 150 ml @ 100 mls/hr DAILY@0800 IV 01/10/17 08:00 01/20/17 07:59 01/11/17 07:43 100 MLS/HR Acetaminophen (Tylenol Tab) 1,000 mg Q8H PRN PO 01/10/17 14:00 02/01/17 21:59 01/10/17 18:16 1,000 MG Enalaprilat 0.625 mg/Dextrose 25.5 ml @ 100 mls/hr Q6H PRN IV 01/10/17 18:45 02/09/17 18:44 Lisinopril (Zestril Tab) 10 mg QAM PO 01/11/17 09:00 02/09/17 08:59
--- NOTE | 2017-01-11 09:30 | DIAGNOSTIC IMAGING REPORT ---
CHEST ONE VIEW PORTABLE HISTORY: Cough. r/o pneumonia COMPARISON: Chest 01/06/2017. FINDINGS: Linear densities the left lung base persist and favor subsegmental atelectasis or scarring. Otherwise, the lungs are clear. No pleural fusions. No pneumothorax. The heart is normal in size. IMPRESSION: No significant change compared to the prior study. No acute process. Electronically signed by: Boyd Garcia M.D. 01/11/2017 9:28 AM Dictated Date/Time: 01/11/2017 9:26 AM
--- NOTE | 2017-01-11 15:02 | Medical Consult ---
Consultation Date of Consultation: Jan 11, 2017. Attending Physician: Kai Howard MD Reason for Consultation: Fever, s/p hip surgery History of Present Illness 73-year-old female with history of diabetes mellitus, status post right hip replacement in early December, who did well initially, but who was readmitted after suffering fracture, now status post Surgical repair. Patient has had persistent fever postoperatively, without localizing signs or symptoms, and feeling reasonably well except for chills with fever. Has had positive urine culture for Klebsiella, treated with levofloxacin, with follow-up culture pending. Chest x-ray shows no evidence of pneumonia, surgical site has been healing well without evidence of infection. Patient voices no other localizing signs or symptoms of infection. Past Medical/Surgical History Medical Problems: (1) Periprosthetic hip fracture Status: Acute (2) Postoperative anemia Status: Acute Medical Problems: (1) Allergic rhinitis (2) Arthritis of right hip (3) CKD (chronic kidney disease), stage III (4) COPD (chronic obstructive pulmonary disease) (5) Displaced intertrochanteric fracture of femur (6) DM type 2 (diabetes mellitus, type 2) (7) HTN (hypertension) (8) Lumbar stenosis with neurogenic claudication (9) Neuropathy, diabetic (10) Stress incontinence Surgical Problems: (1) H/O: hysterectomy (2) History of appendectomy (3) History of arthroplasty of left knee (4) History of arthroplasty of right knee (5) History of left oophorectomy (6) History of lumbosacral spine surgery (7) Hx laparoscopic cholecystectomy (8) S/P section Family History Asthma BROTHER SISTER FH: CAD (coronary artery disease) FATHER BROTHER FH: cancer MOTHER Social History Smoking Status: Never Smoker Marital Status: Housing Status: lives with family Allergies Coded Allergies: Atropine (Verified Allergy, Intermediate, hives, 01/02/17) Barbiturates (Verified Allergy, Intermediate, hives, 01/02/17) Hyoscyamine (Verified Allergy, Intermediate, hives, 01/02/17) Iodine (Verified Allergy, Intermediate, BLISTERS WITH TOPICAL, 01/02/17) Nortriptyline (Verified Allergy, Intermediate, hives, 01/02/17) Phenobarbital (Verified Allergy, Intermediate, hives, 01/02/17) Phenytoin (Verified Allergy, Intermediate, HIVES, 01/02/17) Scopolamine (Verified Allergy, Intermediate, hives, 01/02/17) Sulfamethoxazole w/Trimethoprim (Verified Allergy, Intermediate, HIVES, ) Adhesives (Verified Allergy, Mild, HIVES, RASH, 01/02/17) Penicillins (Verified Allergy, Mild, UNKNOWN, 01/02/17) CI Pigment Blue 63 (Verified Adverse Reaction, Intermediate, loss of balance, 01/02/17) Duloxetine (Verified Adverse Reaction, Intermediate, loss of balance, 02/08) TAQUERIA Inhibitors (Verified Adverse Reaction, Mild, cough, 01/02/17) Losartan (Verified Adverse Reaction, Mild, GI UPSET, 01/02/17) Quinine Hydrochloride Dihydrate (Verified Adverse Reaction, Mild, GI UPSET , 01/02/17) Tramadol (Verified Adverse Reaction, Mild, N/V, 01/02/17) Current Inpatient Medications Current Inpatient Medications Medications (Trade) Dose Ordered Sig/Charis Route Start Time Stop Time Status Last Admin Dose Admin Ondansetron HCl (Zofran Inj) 4 mg Q6H PRN IV 01/02/17 19:15 02/01/17 19:14 Hydromorphone HCl (Dilaudid Inj) 0.25 mg Q20M PRN IV 01/02/17 19:15 01/16/17 19:14 01/02/17 21:05 0.25 MG Hydromorphone HCl (Dilaudid Inj) 0.5 mg Q20M PRN IV 01/02/17 19:15 01/16/17 19:14 01/05/17 08:58 0.5 MG Naloxone HCl (Narcan Inj) 0.1 mg PRN PRN IV 01/02/17 19:15 02/01/17 19:14 Senna/Docusate Sodium (Senokot S Tab) 2 tab HS PO 01/02/17 21:00 02/01/17 20:59 01/10/17 20:27 2 TAB Polyethylene (Miralax Powder Packet) 17 gm DAILY PRN PO 01/02/17 19:15 02/01/17 19:14 01/09/17 16:37 17 GM Magnesium Hydroxide (Milk Of Magnesia Susp) 30 ml DAILY PRN PO 01/02/17 19:15 02/01/17 19:14 01/05/17 08:04 30 ML Bisacodyl (Dulcolax Supp) [address] 01/02/17 19:15 02/01/17 19:14 01/06/17 10:14 10 MG Sodium Biphosphate/ Sodium Phosphate (Fleet Enema) [address] 01/02/17 19:15 Diltiazem HCl (TIAzac CAP) 120 mg QAM PO 01/03/17 09:00 02/02/17 08:59 01/11/17 08:40 120 MG Montelukast Sodium (Singulair Tab) 10 mg QAM PO 01/03/17 09:00 02/02/17 08:59 01/11/17 08:40 10 MG Orphenadrine Citrate (Norflex Tab) 100 mg BID PO 01/02/17 21:00 02/01/17 20:59 01/11/17 08:41 100 MG Pregabalin (Lyrica Cap) 50 mg TID PO 01/02/17 21:00 02/01/17 20:59 01/11/17 14:46 50 MG Simvastatin (Zocor Tab) 10 mg QPM PO 01/02/17 21:00 02/01/17 20:59 01/10/17 20:28 10 MG Tolterodine Tartrate (Detrol LA Cap) 4 mg QAM PO 01/03/17 09:00 02/02/17 08:59 01/11/17 08:40 4 MG Pantoprazole Sodium (Protonix Tab) 40 mg BID PO 01/02/17 21:00 02/01/17 20:59 01/11/17 08:40 40 MG Glucose (Glucose 40% Gel) 15-30 GRAMS 15 GRAMS... UD PRN PO 01/02/17 22:30 02/01/17 22:29 Glucose (Glucose Chew Tab) 4-8 Tablets 4 Tabl... UD PRN PO 01/02/17 22:30 02/01/17 22:29 Dextrose (Dextrose 50% 50ML Syringe) 25-50ML OF 50% DW IV FOR... UD PRN IV 01/02/17 22:30 02/01/17 22:29 Glucagon (Glucagon Inj) 1 mg UD PRN SQ 01/02/17 22:30 02/01/17 22:29 Oxycodone HCl (Roxicodone Immediate Rel Tab) @ Q6 PRN PO 01/03/17 16:00 01/17/17 15:59 01/07/17 23:24 10 MG Rivaroxaban (Xarelto Tab) 10 mg DAILY@1600 PO 01/04/17 16:00 02/03/17 15:59 01/10/17 16:36 10 MG Insulin Aspart (novoLOG ASPART) SLIDING SCALE G... ACHS SC 01/03/17 21:00 02/02/17 20:59 01/11/17 08:44 1 UNITS Insulin Glargine (Lantus Solostar Pen) 6 units DAILY SC 01/09/17 09:00 02/02/17 08:59 01/11/17 08:45 6 UNITS Levofloxacin 750 mg/Prmx 150 ml @ 100 mls/hr DAILY@0800 IV 01/10/17 08:00 01/20/17 07:59 01/11/17 07:43 100 MLS/HR Acetaminophen (Tylenol Tab) 1,000 mg Q8H PRN PO 01/10/17 14:00 02/01/17 21:59 01/10/17 18:16 1,000 MG Enalaprilat 0.625 mg/Dextrose 25.5 ml @ 100 mls/hr Q6H PRN IV 01/10/17 18:45 02/09/17 18:44 Lisinopril (Zestril Tab) 10 mg QAM PO 01/11/17 09:00 02/09/17 08:59 01/11/17 08:39 10 MG Review of Systems All systems were reviewed and are negative except as per HPI Physical Exam Date Time Temp Pulse Resp B/P (MAP) Pulse Ox O2 Delivery O2 Flow Rate FiO2 01/11/17 12:15 37.1 85 16 162/79 95 01/11/17 11:16 37.1 82 17 159/80 96 01/11/17 10:45 37.1 82 17 164/79 95 01/11/17 10:15 36.9 84 17 162/84 96 01/11/17 10:00 37.0 83 16 152/81 96 01/11/17 09:45 37.0 86 18 143/79 96 01/11/17 07:50 37.0 80 17 144/73 (96) 96 Room Air 01/11/17 07:35 Room Air 01/11/17 05:57 36.8 01/10/17 23:55 Room Air 01/10/17 23:14 37.1 86 17 147/76 (99) 95 Room Air 01/10/17 22:00 37.3 01/10/17 20:13 38.5 91 151/67 (95) 01/10/17 18:12 37.8 01/10/17 16:40 37.7 01/10/17 16:30 Room Air General Appearance: WD/WN, no apparent distress Head: normocephalic, atraumatic Eyes: normal inspection, EOMI, funduscopic exam normal ENT: normal ENT inspection, hearing grossly normal, pharynx normal Neck: supple, no adenopathy, thyroid normal, trachea midline Respiratory/Chest: chest non-tender, lungs clear, normal breath sounds, no respiratory distress Cardiovascular: regular rate, rhythm, no gallop, no murmur Abdomen/GI: normal bowel sounds, non tender, soft, no organomegaly Back: normal inspection, no CVA tenderness Extremities/Musculoskelatal: no calf tenderness, normal capillary refill Neurologic/Psych: alert, normal mood/affect, oriented x 3 Skin: normal color, no rash, + pertinent finding ( surgical site appears clean without evidence of infection) Lymphatic: no adenopathy Laboratory Results Date/Time Source Procedure Growth Status 01/10/17 19:27 Blood Blood Culture Pending Received 01/10/17 19:19 Blood Blood Culture Pending Received 01/10/17 20:45 Urine,Catheterized Urine Culture - Preliminary NO GROWTH - LESS THAN 1,000 COLONIES/... Resulted Last 24 Hours Test 01/10/17 17:29 01/10/17 20:35 01/11/17 05:34 01/11/17 07:59 Bedside Glucose 113 mg/dl 144 mg/dl 102 mg/dl White Blood Count 2.83 K/uL Red Blood Count 2.98 M/uL Hemoglobin 7.8 g/dL Hematocrit 24.4 % Mean Corpuscular Volume 81.9 fL Mean Corpuscular Hemoglobin 26.2 pg Mean Corpuscular Hemoglobin Concent 32.0 g/dl Platelet Count 278 K/uL Mean Platelet Volume 8.8 fL Neutrophils (%) (Auto) 49.8 % Lymphocytes (%) (Auto) 20.1 % Monocytes (%) (Auto) 15.2 % Eosinophils (%) (Auto) 13.8 % Basophils (%) (Auto) 0.4 % Neutrophils # (Auto) 1.41 K/uL Lymphocytes # (Auto) 0.57 K/uL Monocytes # (Auto) 0.43 K/uL Eosinophils # (Auto) 0.39 K/uL Basophils # (Auto) 0.01 K/uL RDW Standard Deviation 49.4 fL RDW Coefficient of Variation 16.3 % Immature Granulocyte % (Auto) 0.7 % Immature Granulocyte # (Auto) 0.02 K/uL Hypersegmented Polys 1+ Large Platelets 1+ Tear Drop Cells OCCASIONAL Ovalocytes 1+ Sodium Level 140 mmol/L Potassium Level 3.5 mmol/L Chloride Level 107 mmol/L Carbon Dioxide Level 26 mmol/L Anion Gap 7.0 mmol/L Blood Urea Nitrogen 10 mg/dl Creatinine 0.75 mg/dl Est Creatinine Clear Calc Drug Dose 66.4 ml/min Estimated GFR () 90.4 Estimated GFR (Non- 78.0 BUN/Creatinine Ratio 13.6 Random Glucose 101 mg/dl Calcium Level 8.0 mg/dl Test 01/11/17 12:13 Bedside Glucose 82 mg/dl Patient Name: CHERRI WILKINSON Unit Number: [id number] Dictated: 01/11/17925 Transcribed: 01/11/17925 Bustle Printed Date/Time: [~ rep prt dt]/[~ rep prt tm] [~ rep ct labl] - [~ rep ct ivnm] [facility] [place] [address] Dictated: 01/11/17925 Transcribed: 01/11/17925 Bustle Printed Date/Time: [~ rep prt dt]/[~ rep prt tm] [~ rep ct labl] - [~ rep ct ivnm] Patient: CHERRI WILKINSON Address1: [address] [facility] Rec: [id number] Address2: [facility] [address] ID: [id number] [facility] [place] [place] [address] Date: 1940 Sex: F Room/Bed: [facility] Ref Phy: Thais Chiu M.D. SC: DEDE Att Phy: Kai Howard MD Report #: [id number] Annette Phy: Thais Chiu M.D. Test: [id number] Admit Phy: Taurus Whitehead M.D. Rn Acute Dialysis: [id number] Interpreting Phy: Boyd Garcia MD Diagnosis: DISPLACED INTERTROCHANTERIC FRACTURE OF FEMUR Ordering Phy: Kai Howard MD Service Date: 01/11/17 Admit Date: 01/02/1710/11/17 MNE: [id number] CONF: DICTATED BY: Boyd Garcia M.D.]] CC: Thasi Chiu M.D., Robin A., MD Endcc: [~ rep ct add3]] CHEST ONE VIEW PORTABLE HISTORY: Cough. r/o pneumonia COMPARISON: Chest 01/06/2017. FINDINGS: Linear densities the left lung base persist and favor subsegmental atelectasis or scarring. Otherwise, the lungs are clear. No pleural fusions. No pneumothorax. The heart is normal in size. IMPRESSION: No significant change compared to the prior study. No acute process. Electronically signed by: Boyd Garcia M.D. 01/11/2017 9:28 AM Dictated Date/Time: 01/11/2017 9:26 AM The status of this report is Signed. Draft = Not yet reviewed or approved by Radiologist. Signed = Reviewed and approved by Radiologist. <AttendingPhy>Kai Howard MD</AttendingPhy> <FamilyPhy>Thais Chiu M.D.</FamilyPhy> <PrimaryPhy>Thais Chiu M.D.</PrimaryPhy> <UnitNumber> [id number]</UnitNumber> <VisitNumber>[id number]</VisitNumber> <PatientName> CHERRI WILKINSON</PatientName> <DateOfBirth>1940</DateOfBirth> < Location>[facility]</Location> <ServiceDate>01/02/17</ServiceDate> <MNE>ESINDI</MNE> <OrderingPhy>Kai Howard MD</OrderingPhy> <OrderingPhyMNE>f rep ord dr lopez </OrderingPhyMNE> <DictatingPhyMNE>f rep dict dr lopez</DictatingPhyMNE> < CCListMNE>f rep ct mne</CCListMNE> <AdmittingPhyMNE>f pt admit dr lopez</ AdmittingPhyMNE> <AttendingPhyMNE>f pt attend dr lopez</AttendingPhyMNE> <ConsultingPhyMNE>f pt consult dr lopez</ConsultingPhyMNE> <FamilyPhyMNE>f pt fam dr lopez</FamilyPhyMNE> <OtherPhyMNE>f pt other dr lopez</OtherPhyMNE> < PrimaryPhyMNE>f pt prim care dr lopez</PrimaryPhyMNE> <ReferringPhyMNE>f pt referring dr lopez</ReferringPhyMNE> Assessment & Plan Intermittent fever following hip surgery, treated Klebsiella UTI, without other localizing finding and negative cultures. Afebrile thus far today. Wonder about possibility of fever associated with transfusions. Would continue present Rx for now pending culture results. Will follow.
[2017-01-11] MEDS: RIVAROXABAN 10 MG TAB PO SCH (15:57)
[2017-01-11] MEDS: POLYETHYLENE (MIRALAX) 17 GM PACK PO PRN (19:23)
[2017-01-11] MEDS: SIMVASTATIN 10 MG TAB PO SCH (21:01)
[2017-01-11] MEDS: DOCUSATE SODIUM/SENNA 50/8.6MG TAB PO SCH (21:01)
[2017-01-12] VITALS (8 sets, daily range): BP systolic 99–161; BP diastolic 58–81; PULSE 90–95; TEMP 36.8–39.4; O2SAT 92–96
[2017-01-12 06:10] LABS: BASO % 0.3 %; BASO ABS # 0.01 K/uL (0-0.2); COMPLETE YES; EOS % 10.1 %; HEMATOCRIT 28.6 % (37-47); IG% 0.7 %; LYMPH % 26.1 %; MEAN CELL VOLUME 82.4 fL (80-100); MEAN CORPUSCULAR HEMOGLOBIN 26.8 pg (25-34); MEAN CORPUSCULAR HGB CONC 32.5 g/dl (32-36); MEAN PLATELET VOLUME 8.8 fL (7.4-10.4); MONO % 14.3 %; NEUT % 48.5 %; PLATELET COUNT 310 K/uL (130-400); RED BLOOD COUNT 3.47 M/uL (4.2-5.4); WHITE BLOOD COUNT 3.07 K/uL (4.8-10.8)
[2017-01-12 06:42] LABS: BUN/CREATININE RATIO 12.8 (10-20); CALCIUM 8.3 mg/dl (8.5-10.1); CREATININE 0.75 mg/dl (0.60-1.20); POTASSIUM 3.6 mmol/L (3.5-5.1)
[2017-01-12] MEDS: INSULIN GLARGINE SOLOSTAR 100 UNITS/ML 3 ML PEN SC SCH (09:00)
[2017-01-12] MEDS: PREGABALIN 50 MG CAP PO SCH ×3 (09:17→20:58)
[2017-01-12] MEDS: TOLTERODINE TARTRATE LA 4 MG CAPCR PO SCH (09:18)
[2017-01-12] MEDS: DILTIAZEM HCL 120 MG EXT REL CAP PO SCH (09:18)
[2017-01-12] MEDS: LEVOFLOXACIN / D5W 750 MG in PREMIXED IN D5W 150 ML IV SCH (09:18)
[2017-01-12] MEDS: MONTELUKAST SOD 10 MG TAB PO SCH (09:18)
[2017-01-12] MEDS: ORPHENADRINE CITRATE 100 MG TABCR PO SCH ×2 (09:18→20:58)
[2017-01-12] MEDS: PANTOprazole SOD 40 MG TAB PO SCH ×2 (09:19→20:58)
[2017-01-12] MEDS: LISINOPRIL 10 MG TAB PO SCH (09:20)
[2017-01-12] MEDS: INSULIN ASPART 100 UNITS/ML 3 ML PEN SC SCH ×4 (09:21→20:58)
--- NOTE | 2017-01-12 09:58 | Progress Note ---
Medicine Progress Note Date & Time of Visit: Jan 12, 2017 at 09:56. Subjective seen resting in bed, using ipad states she feels better today no chills no cough, dyspnea, abdominal pain no bleeding denies other symptoms Objective Last 8 Hrs Date Time Temp Pulse Resp B/P (MAP) Pulse Ox O2 Delivery O2 Flow Rate FiO2 01/12/17 06:52 37.5 90 17 161/76 (104) 92 Room Air 01/12/17 03:36 37.7 Physical Exam: General- oriented x 3, not in distress, speaks in sentences with no effort Eyes- anicteric Neck- no JVD Lungs- clear BS BL Heart- regular rhythm; no murmur, normal rate Abdomen- normal bowel sounds, soft, nontender Extremities- Right Hip: surgical wound healing well, no signs of infection , (+) mild edema on the thigh with no tenderness/erythema/warmth trace edema on the right, mild on the left, no calf tenderness; peripheral pulses intact Neuro- alert, oriented x 3;no gross focal deficits Skin- warm & dry Laboratory Results: Last 24 Hours Test 01/11/17 12:13 01/11/17 15:13 01/11/17 17:12 01/11/17 20:58 Bedside Glucose 82 mg/dl 89 mg/dl 100 mg/dl Procalcitonin 0.07 ng/ml Test 01/12/17 05:42 01/12/17 08:00 White Blood Count 3.07 K/uL Red Blood Count 3.47 M/uL Hemoglobin 9.3 g/dL Hematocrit 28.6 % Mean Corpuscular Volume 82.4 fL Mean Corpuscular Hemoglobin 26.8 pg Mean Corpuscular Hemoglobin Concent 32.5 g/dl Platelet Count 310 K/uL Mean Platelet Volume 8.8 fL Neutrophils (%) (Auto) 48.5 % Lymphocytes (%) (Auto) 26.1 % Monocytes (%) (Auto) 14.3 % Eosinophils (%) (Auto) 10.1 % Basophils (%) (Auto) 0.3 % Neutrophils # (Auto) 1.49 K/uL Lymphocytes # (Auto) 0.80 K/uL Monocytes # (Auto) 0.44 K/uL Eosinophils # (Auto) 0.31 K/uL Basophils # (Auto) 0.01 K/uL RDW Standard Deviation 47.8 fL RDW Coefficient of Variation 15.7 % Immature Granulocyte % (Auto) 0.7 % Immature Granulocyte # (Auto) 0.02 K/uL Sodium Level 139 mmol/L Potassium Level 3.6 mmol/L Chloride Level 105 mmol/L Carbon Dioxide Level 26 mmol/L Anion Gap 8.0 mmol/L Blood Urea Nitrogen 10 mg/dl Creatinine 0.75 mg/dl Est Creatinine Clear Calc Drug Dose 66.4 ml/min Estimated GFR () 90.4 Estimated GFR (Non- 78.0 BUN/Creatinine Ratio 12.8 Random Glucose 81 mg/dl Calcium Level 8.3 mg/dl Bedside Glucose 87 mg/dl Assessment & Plan 76 year old female with history of DM, HTN, COPD presenting with right hip pain s/p right hip surgery 12/28/16. PERIPROSTHETIC FRACTURE RIGHT FEMUR - 01/04/16: s/p repair of periprosthetic fracture by Dr. Hendricks : Open reduction internal fixation, proximal femur fracture with revision femoral stem and head to yazdanism modular conical stem. - (+) persistent fever spikes cultures blood: negative so far urine: Klebsiella , pansensitive 01/10/17: changed Cipro po BID to Levaquin IV ( now abx day 6) - repeat urine and blood cultures ordered: negative so far cxr ordered: no pneumonia ID consulted, appreciate the consult ACUTE BLOOD LOSS ANEMIA s/p 3 units pRBC ordered Hg 7.8 1 more unit prbc ordered -- Hg now 9 HYPERTENSION BP not at goal added Lisinopril 10 mg po daily Continue diltiazem. -- monitor BP COPD Respiratory status stable. Continue current medications DM TYPE 2 Well-controlled at home. Recent Hgb A1C 6.5 on 11/28/16. Hold oral agents during hospital stay. Lantus decreased to daily as BSG low in AM -- BSGs stable HLD: -Continue statin GERD: -Continue PPI Stress Incontinence: -Continue Detrol VTE PROPHYLAXIS on Xarelto Disposition anticipate d/c to [facility] when stable PCP Dr. Apple Hendricks Current Inpatient Medications: Current Inpatient Medications Medications (Trade) Dose Ordered Sig/Charis Route Start Time Stop Time Status Last Admin Dose Admin Ondansetron HCl (Zofran Inj) 4 mg Q6H PRN IV 01/02/17 19:15 11/10/17 19:14 Hydromorphone HCl (Dilaudid Inj) 0.25 mg Q20M PRN IV 01/02/17 19:15 01/16/17 19:14 01/02/17 21:05 0.25 MG Hydromorphone HCl (Dilaudid Inj) 0.5 mg Q20M PRN IV 01/02/17 19:15 01/16/17 19:14 01/05/17 08:58 0.5 MG Naloxone HCl (Narcan Inj) 0.1 mg PRN PRN IV 01/02/17 19:15 02/01/17 19:14 Senna/Docusate Sodium (Senokot S Tab) 2 tab HS PO 01/02/17 21:00 02/01/17 20:59 01/11/17 21:01 2 TAB Polyethylene (Miralax Powder Packet) 17 gm DAILY PRN PO 01/02/17 19:15 02/01/17 19:14 01/11/17 19:23 17 GM Magnesium Hydroxide (Milk Of Magnesia Susp) 30 ml DAILY PRN PO 01/02/17 19:15 02/01/17 19:14 01/05/17 08:04 30 ML Bisacodyl (Dulcolax Supp) 10 mg DAILY PRN [place] 01/02/17 19:15 02/01/17 19:14 01/06/17 10:14 10 MG Sodium Biphosphate/ Sodium Phosphate (Fleet Enema) 132 ml PRN PRN [place] 01/02/17 19:15 Diltiazem HCl (TIAzac CAP) 120 mg QAM PO 01/03/17 09:00 02/02/17 08:59 01/12/17 09:18 120 MG Montelukast Sodium (Singulair Tab) 10 mg QAM PO 01/03/17 09:00 02/02/17 08:59 01/12/17 09:18 10 MG Orphenadrine Citrate (Norflex Tab) 100 mg BID PO 01/02/17 21:00 02/01/17 20:59 01/12/17 09:18 100 MG Pregabalin (Lyrica Cap) 50 mg TID PO 01/02/17 21:00 02/01/17 20:59 01/12/17 09:17 50 MG Simvastatin (Zocor Tab) 10 mg QPM PO 01/02/17 21:00 02/01/17 20:59 01/11/17 21:01 10 MG Tolterodine Tartrate (Detrol LA Cap) 4 mg QAM PO 01/03/17 09:00 02/02/17 08:59 01/12/17 09:18 4 MG Pantoprazole Sodium (Protonix Tab) 40 mg BID PO 01/02/17 21:00 02/01/17 20:59 01/12/17 09:19 40 MG Glucose (Glucose 40% Gel) 15-30 GRAMS 15 GRAMS... UD PRN PO 01/02/17 22:30 02/01/17 22:29 Glucose (Glucose Chew Tab) 4-8 Tablets 4 Tabl... UD PRN PO 01/02/17 22:30 02/01/17 22:29 Dextrose (Dextrose 50% 50ML Syringe) 25-50ML OF 50% DW IV FOR... UD PRN IV 01/02/17 22:30 02/01/17 22:29 Glucagon (Glucagon Inj) 1 mg UD PRN SQ 01/02/17 22:30 02/01/17 22:29 Oxycodone HCl (Roxicodone Immediate Rel Tab) @ Q6 PRN PO 01/03/17 16:00 01/17/17 15:59 01/07/17 23:24 10 MG Rivaroxaban (Xarelto Tab) 10 mg DAILY@1600 PO 01/04/17 16:00 02/03/17 15:59 01/11/17 15:57 10 MG Insulin Aspart (novoLOG ASPART) SLIDING SCALE G... ACHS SC 01/03/17 21:00 02/02/17 20:59 01/11/17 08:44 1 UNITS Insulin Glargine (Lantus Solostar Pen) 6 units DAILY SC 01/09/17 09:00 02/02/17 08:59 01/11/17 08:45 6 UNITS Levofloxacin 750 mg/Prmx 150 ml @ 100 mls/hr DAILY@0800 IV 01/10/17 08:00 01/20/17 07:59 01/12/17 09:18 100 MLS/HR Acetaminophen (Tylenol Tab) 1,000 mg Q8H PRN PO 01/10/17 14:00 02/01/17 21:59 01/10/17 18:16 1,000 MG Enalaprilat 0.625 mg/Dextrose 25.5 ml @ 100 mls/hr Q6H PRN IV 01/10/17 18:45 02/09/17 18:44 Lisinopril (Zestril Tab) 10 mg QAM PO 01/11/17 09:00 02/09/17 08:59 01/12/17 09:20 10 MG
[2017-01-12] MEDS: OXYCODONE HCL IR 5 MG TAB (IMMEDIATE RELEASE) PO PRN ×2 (13:52→19:58)
[2017-01-12] MEDS: RIVAROXABAN 10 MG TAB PO SCH (15:26)
--- NOTE | 2017-01-12 18:41 | Infectious Disease Progress Nt ---
Progress Note Date of Service Jan 12, 2017. Subjective Pt evaluation today including: conversation w/ patient, physical exam, chart review, lab review, review of studies, conversation w/ mergers and acquisitions consultant, review of inpatient medication list Patient transfused this morning, with fever all afternoon, but now afebrile in feeling well. Had chills with fever, otherwise offers no new complaints. Mild chronic cough, without sputum production, no GI or complaints. Follow- up urine culture negative. All Other Systems: Reviewed and Negative Medications Current Inpatient Medications Medications (Trade) Dose Ordered Sig/Charis Route Start Time Stop Time Status Last Admin Dose Admin Ondansetron HCl (Zofran Inj) 4 mg Q6H PRN IV 01/02/17 19:15 02/01/17 19:14 Hydromorphone HCl (Dilaudid Inj) 0.25 mg Q20M PRN IV 01/02/17 19:15 01/16/17 19:14 01/02/17 21:05 0.25 MG Hydromorphone HCl (Dilaudid Inj) 0.5 mg Q20M PRN IV 01/02/17 19:15 01/16/17 19:14 01/05/17 08:58 0.5 MG Naloxone HCl (Narcan Inj) 0.1 mg PRN PRN IV 01/02/17 19:15 02/01/17 19:14 Senna/Docusate Sodium (Senokot S Tab) 2 tab HS PO 01/02/17 21:00 02/01/17 20:59 01/11/17 21:01 2 TAB Polyethylene (Miralax Powder Packet) 17 gm DAILY PRN PO 01/02/17 19:15 02/01/17 19:14 01/11/17 19:23 17 GM Magnesium Hydroxide (Milk Of Magnesia Susp) 30 ml DAILY PRN PO 01/02/17 19:15 02/01/17 19:14 01/05/17 08:04 30 ML Bisacodyl (Dulcolax Supp) 10 mg DAILY PRN [place] 01/02/17 19:15 02/01/17 19:14 01/06/17 10:14 10 MG Sodium Biphosphate/ Sodium Phosphate (Fleet Enema) 132 ml PRN PRN [place] 01/02/17 19:15 Diltiazem HCl (TIAzac CAP) 120 mg QAM PO 01/03/17 09:00 02/02/17 08:59 01/12/17 09:18 120 MG Montelukast Sodium (Singulair Tab) 10 mg QAM PO 01/03/17 09:00 02/02/17 08:59 01/12/17 09:18 10 MG Orphenadrine Citrate (Norflex Tab) 100 mg BID PO 01/02/17 21:00 02/01/17 20:59 01/12/17 09:18 100 MG Pregabalin (Lyrica Cap) 50 mg TID PO 01/02/17 21:00 02/01/17 20:59 01/12/17 14:01 50 MG Simvastatin (Zocor Tab) 10 mg QPM PO 01/02/17 21:00 02/01/17 20:59 01/11/17 21:01 10 MG Tolterodine Tartrate (Detrol LA Cap) 4 mg QAM PO 01/03/17 09:00 02/02/17 08:59 01/12/17 09:18 4 MG Pantoprazole Sodium (Protonix Tab) 40 mg BID PO 01/02/17 21:00 02/01/17 20:59 01/12/17 09:19 40 MG Glucose (Glucose 40% Gel) 15-30 GRAMS 15 GRAMS... UD PRN PO 01/02/17 22:30 02/01/17 22:29 Glucose (Glucose Chew Tab) 4-8 Tablets 4 Tabl... UD PRN PO 01/02/17 22:30 02/01/17 22:29 Dextrose (Dextrose 50% 50ML Syringe) 25-50ML OF 50% DW IV FOR... UD PRN IV 01/02/17 22:30 02/01/17 22:29 Glucagon (Glucagon Inj) 1 mg UD PRN SQ 01/02/17 22:30 02/01/17 22:29 Oxycodone HCl (Roxicodone Immediate Rel Tab) @ Q6 PRN PO 01/03/17 16:00 01/17/17 15:59 01/12/17 13:52 5 MG Rivaroxaban (Xarelto Tab) 10 mg DAILY@1600 PO 01/04/17 16:00 02/03/17 15:59 01/12/17 15:26 10 MG Insulin Aspart (novoLOG ASPART) SLIDING SCALE G... ACHS SC 01/03/17 21:00 02/02/17 20:59 01/11/17 08:44 1 UNITS Insulin Glargine (Lantus Solostar Pen) 6 units DAILY SC 01/09/17 09:00 02/02/17 08:59 01/11/17 08:45 6 UNITS Levofloxacin 750 mg/Prmx 150 ml @ 100 mls/hr DAILY@0800 IV 01/10/17 08:00 01/20/17 07:59 01/12/17 09:18 100 MLS/HR Acetaminophen (Tylenol Tab) 1,000 mg Q8H PRN PO 01/10/17 14:00 02/01/17 21:59 01/10/17 18:16 1,000 MG Enalaprilat 0.625 mg/Dextrose 25.5 ml @ 100 mls/hr Q6H PRN IV 01/10/17 18:45 02/09/17 18:44 Lisinopril (Zestril Tab) 10 mg QAM PO 01/11/17 09:00 02/09/17 08:59 01/12/17 09:20 10 MG Objective Vital Signs Date Time Temp Pulse Resp B/P (MAP) Pulse Ox O2 Delivery O2 Flow Rate FiO2 01/12/17 15:08 38.5 94 18 127/75 (92) 94 Room Air 01/12/17 14:09 94 95 01/12/17 08:15 Room Air 01/12/17 06:52 37.5 90 17 161/76 (104) 92 Room Air 01/12/17 03:36 37.7 01/11/17 23:30 Room Air 01/11/17 23:18 37.9 91 16 154/78 (103) 95 Room Air Physical Exam General Appearance: WD/WN, no apparent distress Eyes: normal inspection, EOMI, sclerae normal ENT: normal ENT inspection, pharynx normal Neck: supple, no adenopathy, thyroid normal, trachea midline Respiratory/Chest: chest non-tender, lungs clear, normal breath sounds, no respiratory distress Cardiovascular: regular rate, rhythm, no gallop, no murmur Abdomen: normal bowel sounds, non tender, soft, no organomegaly Extremities: non-tender, no calf tenderness, normal capillary refill Neurologic/Psychiatric: alert, normal mood/affect, oriented x 3 Skin: normal color, warm/dry, no rash Lymphatic: no adenopathy Laboratory Results RUN DATE: 01/12/17 [facility] LAB PAGE 1 RUN TIME: 1148 Specimen Inquiry PATIENT: CHERRI WILKINSON LOC: W U # : [id number] AGE/SX: 76/F ROOM: [facility] REG : 01/02/[address]: Kai Howard MD : 1940 BED: 1 DIS : STATUS: ADM IN TLOC: SPEC #: [id number] KANU: 01/10/17 STATUS: COMP REQ #: [id number] RECD: 01/10/[address]: Kai Howard MD SOURCE: URINE CATH ENTR: 01/10/[address] [facility] [address]: Casey So D.O. [facility]: Taurus Whitehead M.D. Lavery, Doriann M.D. Martin, Jill ., P.A.-C. Wigan, Caroline V., M.D. ORDERED: CULTURE UR CATH COMMENTS: Has Specimen Been Obtained/Collected? Y Procedure Result Verified Site URINE CULTURE Final 01/12/17-1148 NO GROWTH - LESS THAN 1,000 COLONIES/ML Last 24 Hours Test 01/11/17 20:58 01/12/17 05:42 01/12/17 08:00 01/12/17 12:05 Bedside Glucose 100 mg/dl 87 mg/dl 92 mg/dl White Blood Count 3.07 K/uL Red Blood Count 3.47 M/uL Hemoglobin 9.3 g/dL Hematocrit 28.6 % Mean Corpuscular Volume 82.4 fL Mean Corpuscular Hemoglobin 26.8 pg Mean Corpuscular Hemoglobin Concent 32.5 g/dl Platelet Count 310 K/uL Mean Platelet Volume 8.8 fL Neutrophils (%) (Auto) 48.5 % Lymphocytes (%) (Auto) 26.1 % Monocytes (%) (Auto) 14.3 % Eosinophils (%) (Auto) 10.1 % Basophils (%) (Auto) 0.3 % Neutrophils # (Auto) 1.49 K/uL Lymphocytes # (Auto) 0.80 K/uL Monocytes # (Auto) 0.44 K/uL Eosinophils # (Auto) 0.31 K/uL Basophils # (Auto) 0.01 K/uL RDW Standard Deviation 47.8 fL RDW Coefficient of Variation 15.7 % Immature Granulocyte % (Auto) 0.7 % Immature Granulocyte # (Auto) 0.02 K/uL Sodium Level 139 mmol/L Potassium Level 3.6 mmol/L Chloride Level 105 mmol/L Carbon Dioxide Level 26 mmol/L Anion Gap 8.0 mmol/L Blood Urea Nitrogen 10 mg/dl Creatinine 0.75 mg/dl Est Creatinine Clear Calc Drug Dose 66.4 ml/min Estimated GFR () 90.4 Estimated GFR (Non- 78.0 BUN/Creatinine Ratio 12.8 Random Glucose 81 mg/dl Calcium Level 8.3 mg/dl Test 01/12/17 17:11 Bedside Glucose 78 mg/dl Assessment and Plan Intermittent fever following hip surgery, treated Klebsiella UTI, without other localizing finding and negative cultures. Has been afebrile, developed fever following transfusion. Still no localizing signs or symptoms of infection, and cultures negative to date. Suspect we are dealing with either transfusion reaction, drug fever or atelectasis. Have discontinued levofloxacin given negative urine cultures, will follow.
[2017-01-12] MEDS: SIMVASTATIN 10 MG TAB PO SCH (20:58)
[2017-01-12] MEDS: DOCUSATE SODIUM/SENNA 50/8.6MG TAB PO SCH (20:58)
[2017-01-12] MEDS: ACETAMINOPHEN 500 MG TAB PO PRN (20:59)
[2017-01-13 06:35] LABS: BASO % 0.3 %; BASO ABS # 0.01 K/uL (0-0.2); EOS % 7.2 %; HEMATOCRIT 27.6 % (37-47); IG% 0.8 %; LYMPH % 17.3 %; LYMPH ABS # 0.65 K/uL (1.2-3.4); MEAN CELL VOLUME 83.1 fL (80-100); MEAN CORPUSCULAR HEMOGLOBIN 26.8 pg (25-34); MEAN CORPUSCULAR HGB CONC 32.2 g/dl (32-36); MEAN PLATELET VOLUME 8.6 fL (7.4-10.4); MONO % 18.4 %; PLATELET COUNT 304 K/uL (130-400); RED BLOOD COUNT 3.32 M/uL (4.2-5.4); WHITE BLOOD COUNT 3.75 K/uL (4.8-10.8)
[2017-01-13 06:55] LABS: ANISOCYTOSIS PRESENT; COMPLETE YES
[2017-01-13 06:56] VITALS: BP 134/71; PULSE 90; TEMP 38.1; O2SAT 93
[2017-01-13 07:08] LABS: BUN/CREATININE RATIO 14.7 (10-20); CALCIUM 7.8 mg/dl (8.5-10.1); CREATININE 0.82 mg/dl (0.60-1.20); POTASSIUM 3.9 mmol/L (3.5-5.1)
[2017-01-13] MEDS: TOLTERODINE TARTRATE LA 4 MG CAPCR PO SCH (08:54)
[2017-01-13] MEDS: ORPHENADRINE CITRATE 100 MG TABCR PO SCH ×2 (08:54→20:47)
[2017-01-13] MEDS: DILTIAZEM HCL 120 MG EXT REL CAP PO SCH (08:54)
[2017-01-13] MEDS: MONTELUKAST SOD 10 MG TAB PO SCH (08:54)
[2017-01-13] MEDS: PANTOprazole SOD 40 MG TAB PO SCH ×2 (08:54→20:47)
[2017-01-13] MEDS: LISINOPRIL 10 MG TAB PO SCH (08:54)
[2017-01-13] MEDS: INSULIN ASPART 100 UNITS/ML 3 ML PEN SC SCH ×4 (09:00→20:51)
[2017-01-13] MEDS: INSULIN GLARGINE SOLOSTAR 100 UNITS/ML 3 ML PEN SC SCH (09:00)
[2017-01-13] MEDS: OXYCODONE HCL IR 5 MG TAB (IMMEDIATE RELEASE) PO PRN (09:01)
[2017-01-13] MEDS: PREGABALIN 50 MG CAP PO SCH ×3 (09:01→20:46)
--- NOTE | 2017-01-13 09:38 | Progress Note ---
Medicine Progress Note Date & Time of Visit: Jan 13, 2017 at 09:35. Subjective patient seen sitting in bedside chair, comfortable states she feels fine denies cough, sputum, abdominal pain, hip pain, fever/chills, diarrhea no other symptoms Objective Last 8 Hrs Date Time Temp Pulse Resp B/P (MAP) Pulse Ox O2 Delivery O2 Flow Rate FiO2 01/13/17 06:56 38.1 90 18 134/71 (92) 93 Room Air Physical Exam: General- oriented x 3, not in distress, speaks in sentences with no effort Eyes- anicteric Neck- no JVD Lungs- clear BS bilaterally Heart- regular rhythm; no murmur, normal rate Abdomen- normal bowel sounds, soft, nontender Extremities- Right Hip: surgical wound healing well, no signs of infection , (+) mild edema on the thigh with no tenderness/erythema/warmth mild edema on the right, mild on the left, no calf tenderness; peripheral pulses intact Neuro- alert, oriented x 3;no gross focal deficits Skin- warm & dry Laboratory Results: Last 24 Hours Test 01/12/17 12:05 01/12/17 17:11 01/12/17 20:38 01/13/17 06:15 Bedside Glucose 92 mg/dl 78 mg/dl 115 mg/dl White Blood Count 3.75 K/uL Red Blood Count 3.32 M/uL Hemoglobin 8.9 g/dL Hematocrit 27.6 % Mean Corpuscular Volume 83.1 fL Mean Corpuscular Hemoglobin 26.8 pg Mean Corpuscular Hemoglobin Concent 32.2 g/dl Platelet Count 304 K/uL Mean Platelet Volume 8.6 fL Neutrophils (%) (Auto) 56.0 % Lymphocytes (%) (Auto) 17.3 % Monocytes (%) (Auto) 18.4 % Eosinophils (%) (Auto) 7.2 % Basophils (%) (Auto) 0.3 % Neutrophils # (Auto) 2.10 K/uL Lymphocytes # (Auto) 0.65 K/uL Monocytes # (Auto) 0.69 K/uL Eosinophils # (Auto) 0.27 K/uL Basophils # (Auto) 0.01 K/uL RDW Standard Deviation 49.0 fL RDW Coefficient of Variation 15.9 % Immature Granulocyte % (Auto) 0.8 % Immature Granulocyte # (Auto) 0.03 K/uL Anisocytosis PRESENT Sodium Level 139 mmol/L Potassium Level 3.9 mmol/L Chloride Level 105 mmol/L Carbon Dioxide Level 27 mmol/L Anion Gap 7.0 mmol/L Blood Urea Nitrogen 12 mg/dl Creatinine 0.82 mg/dl Est Creatinine Clear Calc Drug Dose 60.7 ml/min Estimated GFR () 81.1 Estimated GFR (Non- 70.0 BUN/Creatinine Ratio 14.7 Random Glucose 93 mg/dl Calcium Level 7.8 mg/dl Test 01/13/17 07:57 Bedside Glucose 106 mg/dl Assessment & Plan 76 year old female with history of DM, HTN, COPD presenting with right hip pain s/p right hip surgery 12/28/16. PERIPROSTHETIC FRACTURE RIGHT FEMUR - 01/04/16: s/p repair of periprosthetic fracture by Dr. Hendricks : Open reduction internal fixation, proximal femur fracture with revision femoral stem and head to christian modular conical stem. - (+) persistent fever spikes cultures blood: negative so far urine: Klebsiella , pansensitive 01/10/17: changed Cipro po BID to Levaquin IV ( now abx day 6) - (+) persistent fever spikes - repeat urine and blood cultures ordered: negative so far cxr ordered: no pneumonia ID consulted, appreciate the consult finished Levaquin check CT of the hip to r/o infection, abscess ACUTE BLOOD LOSS ANEMIA s/p 3 units pRBC ordered Hg 7.8 1 more unit prbc ordered -- Hg now 9 HYPERTENSION BP not at goal added Lisinopril 10 mg po daily Continue diltiazem. -- monitor BP COPD Respiratory status stable. Continue current medications DM TYPE 2 Well-controlled at home. Recent Hgb A1C 6.5 on 11/28/16. Hold oral agents during hospital stay. Lantus decreased to daily as BSG low in AM -- BSGs stable HLD: -Continue statin GERD: -Continue PPI Stress Incontinence: -Continue Detrol VTE PROPHYLAXIS on Xarelto Disposition anticipate d/c to [facility] when stable PCP Dr. Chiu Ortho Dr. Hendricks Current Inpatient Medications: Current Inpatient Medications Medications (Trade) Dose Ordered Sig/Charis Route Start Time Stop Time Status Last Admin Dose Admin Ondansetron HCl (Zofran Inj) 4 mg Q6H PRN IV 01/02/17 19:15 02/01/17 19:14 Hydromorphone HCl (Dilaudid Inj) 0.25 mg Q20M PRN IV 01/02/17 19:15 01/16/17 19:14 01/02/17 21:05 0.25 MG Hydromorphone HCl (Dilaudid Inj) 0.5 mg Q20M PRN IV 01/02/17 19:15 01/16/17 19:14 01/05/17 08:58 0.5 MG Naloxone HCl (Narcan Inj) 0.1 mg PRN PRN IV 01/02/17 19:15 02/01/17 19:14 Senna/Docusate Sodium (Senokot S Tab) 2 tab HS PO 01/02/17 21:00 02/01/17 20:59 01/12/17 20:58 2 TAB Polyethylene (Miralax Powder Packet) 17 gm DAILY PRN PO 01/02/17 19:15 02/01/17 19:14 01/11/17 19:23 17 GM Magnesium Hydroxide (Milk Of Magnesia Susp) 30 ml DAILY PRN PO 01/02/17 19:15 02/01/17 19:14 01/05/17 08:04 30 ML Bisacodyl (Dulcolax Supp) 10 mg DAILY PRN [place] 01/02/17 19:15 02/01/17 19:14 01/06/17 10:14 10 MG Sodium Biphosphate/ Sodium Phosphate (Fleet Enema) 132 ml PRN PRN [place] 01/02/17 19:15 Diltiazem HCl (TIAzac CAP) 120 mg QAM PO 01/03/17 09:00 02/02/17 08:59 01/13/17 08:54 120 MG Montelukast Sodium (Singulair Tab) 10 mg QAM PO 01/03/17 09:00 02/02/17 08:59 01/13/17 08:54 10 MG Orphenadrine Citrate (Norflex Tab) 100 mg BID PO 01/02/17 21:00 02/01/17 20:59 01/13/17 08:54 100 MG Pregabalin (Lyrica Cap) 50 mg TID PO 01/02/17 21:00 02/01/17 20:59 01/13/17 09:01 50 MG Simvastatin (Zocor Tab) 10 mg QPM PO 01/02/17 21:00 02/01/17 20:59 01/12/17 20:58 10 MG Tolterodine Tartrate (Detrol LA Cap) 4 mg QAM PO 01/03/17 09:00 02/02/17 08:59 01/13/17 08:54 4 MG Pantoprazole Sodium (Protonix Tab) 40 mg BID PO 01/02/17 21:00 02/01/17 20:59 01/13/17 08:54 40 MG Glucose (Glucose 40% Gel) 15-30 GRAMS 15 GRAMS... UD PRN PO 01/02/17 22:30 02/01/17 22:29 Glucose (Glucose Chew Tab) 4-8 Tablets 4 Tabl... UD PRN PO 01/02/17 22:30 02/01/17 22:29 Dextrose (Dextrose 50% 50ML Syringe) 25-50ML OF 50% DW IV FOR... UD PRN IV 01/02/17 22:30 02/01/17 22:29 Glucagon (Glucagon Inj) 1 mg UD PRN SQ 01/02/17 22:30 02/01/17 22:29 Oxycodone HCl (Roxicodone Immediate Rel Tab) @ Q6 PRN PO 01/03/17 16:00 01/17/17 15:59 01/13/17 09:01 5 MG Rivaroxaban (Xarelto Tab) 10 mg DAILY@1600 PO 01/04/17 16:00 02/03/17 15:59 01/12/17 15:26 10 MG Insulin Aspart (novoLOG ASPART) SLIDING SCALE G... ACHS SC 01/03/17 21:00 02/02/17 20:59 01/13/17 09:00 1 UNITS Insulin Glargine (Lantus Solostar Pen) 6 units DAILY SC 01/09/17 09:00 02/02/17 08:59 01/13/17 09:00 6 UNITS Acetaminophen (Tylenol Tab) 1,000 mg Q8H PRN PO 01/10/17 14:00 02/01/17 21:59 01/12/17 20:59 1,000 MG Enalaprilat 0.625 mg/Dextrose 25.5 ml @ 100 mls/hr Q6H PRN IV 01/10/17 18:45 02/09/17 18:44 Lisinopril (Zestril Tab) 10 mg QAM PO 01/11/17 09:00 02/09/17 08:59 01/13/17 08:54 10 MG
--- NOTE | 2017-01-13 11:52 | DIAGNOSTIC IMAGING REPORT ---
CT R HIP-LOWER EXTREMITY WITHOUT CT DOSE: 370.10 mGy.cm CLINICAL HISTORY: Right hip pain. Fever. TECHNIQUE: Helical images were acquired in the transverse plane. No intravenous contrast was administered. A dose lowering technique was utilized adhering to the principles of ALARA. COMPARISON STUDY: Conventional radiographic study dated 01/03/2017 FINDINGS: There are postsurgical changes of a total right hip arthroplasty. There is a long femoral spike. There is a nondisplaced fracture of the medial cortex of the subtrochanteric femur. 2 cerclage wires are visualized. There is right thigh edema. There are no fluid collections on this noncontrast study to indicate an abscess. Evaluation the proximal soft tissues is significantly limited due to metallic artifact. Surgical IMPRESSION: 1. Postsurgical changes of a total right hip arthroplasty revision 2. Nondisplaced fracture involving the medial cortex of the subtrochanteric femur 3. Right thigh edema 4. There are no fluid collections suspicious for an abscess. Electronically signed by: Nicolas Gore M.D. 01/13/2017 11:51 AM Dictated Date/Time: 01/13/2017 11:47 AM
[2017-01-13 13:45] VITALS: TEMP 39.1
[2017-01-13] MEDS: ACETAMINOPHEN 500 MG TAB PO PRN ×2 (13:49→23:05)
[2017-01-13 13:50] VITALS: BP 145/83; PULSE 96; O2SAT 97
[2017-01-13 15:56] VITALS: BP 112/67; PULSE 95; TEMP 37.4; O2SAT 97
[2017-01-13] MEDS: RIVAROXABAN 10 MG TAB PO SCH (16:19)
[2017-01-13] MEDS: DOCUSATE SODIUM/SENNA 50/8.6MG TAB PO SCH (20:47)
[2017-01-13] MEDS: SIMVASTATIN 10 MG TAB PO SCH (20:48)
[2017-01-13 22:50] VITALS: BP 159/74; PULSE 98; TEMP 38.6; O2SAT 93
[2017-01-13 22:55] VITALS: TEMP 37.8; O2SAT 94
[2017-01-14 03:07] VITALS: TEMP 36.9
[2017-01-14 07:08] VITALS: BP 144/75; PULSE 70; TEMP 36.9; O2SAT 93
[2017-01-14 07:36] LABS: BASO % 0.6 %; BASO ABS # 0.02 K/uL (0-0.2); EOS % 8.1 %; HEMATOCRIT 27.2 % (37-47); IG% 0.3 %; LYMPH % 18.5 %; LYMPH ABS # 0.57 K/uL (1.2-3.4); MEAN CELL VOLUME 83.7 fL (80-100); MEAN CORPUSCULAR HEMOGLOBIN 27.4 pg (25-34); MEAN CORPUSCULAR HGB CONC 32.7 g/dl (32-36); MEAN PLATELET VOLUME 8.8 fL (7.4-10.4); MONO % 18.2 %; NEUT % 54.3 %; PLATELET COUNT 307 K/uL (130-400); RED BLOOD COUNT 3.25 M/uL (4.2-5.4); WHITE BLOOD COUNT 3.08 K/uL (4.8-10.8)
[2017-01-14 08:05] LABS: BUN/CREATININE RATIO 13.8 (10-20); CALCIUM 8.2 mg/dl (8.5-10.1); CREATININE 0.8 mg/dl (0.60-1.20)
[2017-01-14 08:11] LABS: COMPLETE YES; HYPERSEGMENTED POLYS 1+; TOXIC GRANULATION 1+
[2017-01-14] MEDS: LISINOPRIL 10 MG TAB PO SCH (08:49)
[2017-01-14] MEDS: DILTIAZEM HCL 120 MG EXT REL CAP PO SCH (08:49)
[2017-01-14] MEDS: TOLTERODINE TARTRATE LA 4 MG CAPCR PO SCH (08:50)
[2017-01-14] MEDS: PANTOprazole SOD 40 MG TAB PO SCH ×2 (08:50→20:53)
[2017-01-14] MEDS: ORPHENADRINE CITRATE 100 MG TABCR PO SCH ×2 (08:50→20:52)
[2017-01-14] MEDS: MONTELUKAST SOD 10 MG TAB PO SCH (08:50)
[2017-01-14] MEDS: INSULIN ASPART 100 UNITS/ML 3 ML PEN SC SCH ×4 (08:52→20:54)
[2017-01-14] MEDS: PREGABALIN 50 MG CAP PO SCH ×3 (08:56→20:52)
[2017-01-14] MEDS: INSULIN GLARGINE SOLOSTAR 100 UNITS/ML 3 ML PEN SC SCH (08:56)
[2017-01-14 09:33] VITALS: BP 136/72; PULSE 80; O2SAT 93
[2017-01-14 15:16] VITALS: BP 126/63; PULSE 85; TEMP 37.3; O2SAT 93
[2017-01-14] MEDS: RIVAROXABAN 10 MG TAB PO SCH (16:05)
--- NOTE | 2017-01-14 16:41 | Infectious Disease Progress Nt ---
Progress Note Date of Service Jan 14, 2017. Subjective Pt evaluation today including: conversation w/ patient, physical exam, chart review, lab review, review of studies, conversation w/ disaster recovery consultant, review of inpatient medication list Patient again with fever last night, but afebrile all today. Feels well, offers no new specific complaints. CT scan of the hip did not show any evidence of deep infection. All Other Systems: Reviewed and Negative Medications Current Inpatient Medications Medications (Trade) Dose Ordered Sig/Charis Route Start Time Stop Time Status Last Admin Dose Admin Ondansetron HCl (Zofran Inj) 4 mg Q6H PRN IV 01/02/17 19:15 02/01/17 19:14 01/13/17 12:58 4 MG Hydromorphone HCl (Dilaudid Inj) 0.25 mg Q20M PRN IV 01/02/17 19:15 01/16/17 19:14 01/02/17 21:05 0.25 MG Hydromorphone HCl (Dilaudid Inj) 0.5 mg Q20M PRN IV 01/02/17 19:15 01/16/17 19:14 01/05/17 08:58 0.5 MG Naloxone HCl (Narcan Inj) 0.1 mg PRN PRN IV 01/02/17 19:15 02/01/17 19:14 Senna/Docusate Sodium (Senokot S Tab) 2 tab HS PO 01/02/17 21:00 02/01/17 20:59 01/13/17 20:47 2 TAB Polyethylene (Miralax Powder Packet) 17 gm DAILY PRN PO 01/02/17 19:15 02/01/17 19:14 01/11/17 19:23 17 GM Magnesium Hydroxide (Milk Of Magnesia Susp) 30 ml DAILY PRN PO 01/02/17 19:15 02/01/17 19:14 01/05/17 08:04 30 ML Bisacodyl (Dulcolax Supp) 10 mg DAILY PRN [place] 01/02/17 19:15 02/01/17 19:14 01/06/17 10:14 10 MG Sodium Biphosphate/ Sodium Phosphate (Fleet Enema) 132 ml PRN PRN [place] 01/02/17 19:15 Diltiazem HCl (TIAzac CAP) 120 mg QAM PO 01/03/17 09:00 02/02/17 08:59 01/14/17 08:49 120 MG Montelukast Sodium (Singulair Tab) 10 mg QAM PO 01/03/17 09:00 02/02/17 08:59 01/14/17 08:50 10 MG Orphenadrine Citrate (Norflex Tab) 100 mg BID PO 01/02/17 21:00 02/01/17 20:59 01/14/17 08:50 100 MG Pregabalin (Lyrica Cap) 50 mg TID PO 01/02/17 21:00 02/01/17 20:59 01/14/17 13:40 50 MG Simvastatin (Zocor Tab) 10 mg QPM PO 01/02/17 21:00 02/01/17 20:59 01/13/17 20:48 10 MG Tolterodine Tartrate (Detrol LA Cap) 4 mg QAM PO 01/03/17 09:00 02/02/17 08:59 01/14/17 08:50 4 MG Pantoprazole Sodium (Protonix Tab) 40 mg BID PO 01/02/17 21:00 02/01/17 20:59 01/14/17 08:50 40 MG Glucose (Glucose 40% Gel) 15-30 GRAMS 15 GRAMS... UD PRN PO 01/02/17 22:30 02/01/17 22:29 Glucose (Glucose Chew Tab) 4-8 Tablets 4 Tabl... UD PRN PO 01/02/17 22:30 02/01/17 22:29 Dextrose (Dextrose 50% 50ML Syringe) 25-50ML OF 50% DW IV FOR... UD PRN IV 01/02/17 22:30 02/01/17 22:29 Glucagon (Glucagon Inj) 1 mg UD PRN SQ 01/02/17 22:30 02/01/17 22:29 Oxycodone HCl (Roxicodone Immediate Rel Tab) @ Q6 PRN PO 01/03/17 16:00 01/17/17 15:59 01/13/17 09:01 5 MG Rivaroxaban (Xarelto Tab) 10 mg DAILY@1600 PO 01/04/17 16:00 02/03/17 15:59 01/14/17 16:05 10 MG Insulin Aspart (novoLOG ASPART) SLIDING SCALE G... ACHS SC 01/03/17 21:00 02/02/17 20:59 01/14/17 12:56 1 UNITS Insulin Glargine (Lantus Solostar Pen) 6 units DAILY SC 01/09/17 09:00 02/02/17 08:59 01/14/17 08:56 6 UNITS Acetaminophen (Tylenol Tab) 1,000 mg Q8H PRN PO 01/10/17 14:00 02/01/17 21:59 01/13/17 23:05 1,000 MG Enalaprilat 0.625 mg/Dextrose 25.5 ml @ 100 mls/hr Q6H PRN IV 01/10/17 18:45 02/09/17 18:44 Lisinopril (Zestril Tab) 10 mg QAM PO 01/11/17 09:00 02/09/17 08:59 01/14/17 08:49 10 MG Objective Vital Signs Date Time Temp Pulse Resp B/P (MAP) Pulse Ox O2 Delivery O2 Flow Rate FiO2 01/14/17 15:16 37.3 85 18 126/63 (84) 93 Room Air 01/14/17 09:33 80 93 01/14/17 07:35 Room Air 01/14/17 07:08 36.9 70 18 144/75 (98) 93 Room Air 01/14/17 03:07 36.9 01/13/17 23:45 Room Air 01/13/17 22:55 37.8 94 Room Air 01/13/17 22:50 38.6 98 18 159/74 (102) 93 Room Air Physical Exam General Appearance: WD/WN, no apparent distress Eyes: normal inspection, EOMI, sclerae normal ENT: normal ENT inspection, pharynx normal Neck: supple, no adenopathy, thyroid normal, trachea midline Respiratory/Chest: chest non-tender, lungs clear, normal breath sounds, no respiratory distress Cardiovascular: regular rate, rhythm, no gallop, no murmur Abdomen: normal bowel sounds, non tender, soft, no organomegaly Extremities: non-tender, no calf tenderness Neurologic/Psychiatric: alert, normal mood/affect, oriented x 3 Skin: normal color, no rash, + pertinent finding ( Surgical site appears uninfected) Lymphatic: no adenopathy Laboratory Results Last 24 Hours Test 01/13/17 17:06 01/13/17 20:35 01/14/17 07:16 01/14/17 07:50 Bedside Glucose 119 mg/dl 130 mg/dl 83 mg/dl White Blood Count 3.08 K/uL Red Blood Count 3.25 M/uL Hemoglobin 8.9 g/dL Hematocrit 27.2 % Mean Corpuscular Volume 83.7 fL Mean Corpuscular Hemoglobin 27.4 pg Mean Corpuscular Hemoglobin Concent 32.7 g/dl Platelet Count 307 K/uL Mean Platelet Volume 8.8 fL Neutrophils (%) (Auto) 54.3 % Lymphocytes (%) (Auto) 18.5 % Monocytes (%) (Auto) 18.2 % Eosinophils (%) (Auto) 8.1 % Basophils (%) (Auto) 0.6 % Neutrophils # (Auto) 1.67 K/uL Lymphocytes # (Auto) 0.57 K/uL Monocytes # (Auto) 0.56 K/uL Eosinophils # (Auto) 0.25 K/uL Basophils # (Auto) 0.02 K/uL RDW Standard Deviation 48.3 fL RDW Coefficient of Variation 15.7 % Immature Granulocyte % (Auto) 0.3 % Immature Granulocyte # (Auto) 0.01 K/uL Hypersegmented Polys 1+ Toxic Granulation 1+ Red Blood Cell Morphology Unremarkable Sodium Level 141 mmol/L Potassium Level 4.0 mmol/L Chloride Level 106 mmol/L Carbon Dioxide Level 29 mmol/L Anion Gap 6.0 mmol/L Blood Urea Nitrogen 11 mg/dl Creatinine 0.80 mg/dl Est Creatinine Clear Calc Drug Dose 62.3 ml/min Estimated GFR () 83.6 Estimated GFR (Non- 72.1 BUN/Creatinine Ratio 13.8 Random Glucose 81 mg/dl Calcium Level 8.2 mg/dl Test 01/14/17 11:58 Bedside Glucose 86 mg/dl Assessment and Plan Intermittent fever following hip surgery, treated Klebsiella UTI, without other localizing finding and negative cultures. Has been afebrile, developed fever following transfusion. Still no localizing signs or symptoms of infection, and cultures negative to date. Suspect we are dealing with either transfusion reaction, drug fever or atelectasis. Will watch tonight recurrence of fever. Will follow.
--- NOTE | 2017-01-14 17:07 | Progress Note ---
Medicine Progress Note Date & Time of Visit: Jan 14, 2017 at 17:06. Subjective states she feels good today denies chills no cough, abdominal pain ,nausea/vomiting, diarrhea no other symptoms Objective Last 8 Hrs Date Time Temp Pulse Resp B/P (MAP) Pulse Ox O2 Delivery O2 Flow Rate FiO2 01/14/17 15:53 Room Air 01/14/17 15:16 37.3 85 18 126/63 (84) 93 Room Air 01/14/17 09:33 80 93 Physical Exam: General- oriented x 3, not in distress, speaks in sentences with no effort Lungs- clear breath sounds bilaterally Heart- regular rhythm; no murmur, normal rate Abdomen- normal bowel sounds, soft, nontender Extremities- Right Hip: surgical wound healing well, no signs of infection , (+) mild edema on the thigh with no tenderness/erythema/warmth mild edema on the right, mild on the left, no calf tenderness; peripheral pulses intact Neuro- alert, oriented x 3;no gross focal deficits Skin- warm & dry Laboratory Results: Last 24 Hours Test 01/13/17 20:35 01/14/17 07:16 01/14/17 07:50 01/14/17 11:58 Bedside Glucose 130 mg/dl 83 mg/dl 86 mg/dl White Blood Count 3.08 K/uL Red Blood Count 3.25 M/uL Hemoglobin 8.9 g/dL Hematocrit 27.2 % Mean Corpuscular Volume 83.7 fL Mean Corpuscular Hemoglobin 27.4 pg Mean Corpuscular Hemoglobin Concent 32.7 g/dl Platelet Count 307 K/uL Mean Platelet Volume 8.8 fL Neutrophils (%) (Auto) 54.3 % Lymphocytes (%) (Auto) 18.5 % Monocytes (%) (Auto) 18.2 % Eosinophils (%) (Auto) 8.1 % Basophils (%) (Auto) 0.6 % Neutrophils # (Auto) 1.67 K/uL Lymphocytes # (Auto) 0.57 K/uL Monocytes # (Auto) 0.56 K/uL Eosinophils # (Auto) 0.25 K/uL Basophils # (Auto) 0.02 K/uL RDW Standard Deviation 48.3 fL RDW Coefficient of Variation 15.7 % Immature Granulocyte % (Auto) 0.3 % Immature Granulocyte # (Auto) 0.01 K/uL Hypersegmented Polys 1+ Toxic Granulation 1+ Red Blood Cell Morphology Unremarkable Sodium Level 141 mmol/L Potassium Level 4.0 mmol/L Chloride Level 106 mmol/L Carbon Dioxide Level 29 mmol/L Anion Gap 6.0 mmol/L Blood Urea Nitrogen 11 mg/dl Creatinine 0.80 mg/dl Est Creatinine Clear Calc Drug Dose 62.3 ml/min Estimated GFR () 83.6 Estimated GFR (Non- 72.1 BUN/Creatinine Ratio 13.8 Random Glucose 81 mg/dl Calcium Level 8.2 mg/dl Assessment & Plan 76 year old female with history of DM, HTN, COPD presenting with right hip pain s/p right hip surgery 12/28/16. PERIPROSTHETIC FRACTURE RIGHT FEMUR - 01/04/16: s/p repair of periprosthetic fracture by Dr. Hendricks : Open reduction internal fixation, proximal femur fracture with revision femoral stem and head to advent modular conical stem. - (+) persistent fever spikes cultures blood: negative so far urine: Klebsiella , pansensitive 01/10/17: changed Cipro po BID to Levaquin IV - (+) persistent fever spikes - repeat urine and blood cultures ordered: negative so far cxr ordered: no pneumonia ID consulted, appreciate the consult finished Levaquin check CT of the hip to r/o infection, abscess: no infection - 01/14: afebrile so far possible d/c to tomorrow if afebrile ACUTE BLOOD LOSS ANEMIA s/p 3 units pRBC ordered Hg 7.8 1 more unit prbc ordered -- Hg now 9 HYPERTENSION BP not at goal added Lisinopril 10 mg po daily Continue diltiazem. -- monitor BP, improving COPD Respiratory status stable. Continue current medications DM TYPE 2 Well-controlled at home. Recent Hgb A1C 6.5 on 11/28/16. Hold oral agents during hospital stay. Lantus decreased to daily as BSG low in AM -- BSGs stable HLD: -Continue statin GERD: -Continue PPI Stress Incontinence: -Continue Detrol VTE PROPHYLAXIS on Xarelto Disposition anticipate d/c to [facility] when stable PCP Dr. Apple Hendricks Current Inpatient Medications: Current Inpatient Medications Medications (Trade) Dose Ordered Sig/Charis Route Start Time Stop Time Status Last Admin Dose Admin Ondansetron HCl (Zofran Inj) 4 mg Q6H PRN IV 01/02/17 19:15 02/01/17 19:14 01/13/17 12:58 4 MG Hydromorphone HCl (Dilaudid Inj) 0.25 mg Q20M PRN IV 01/02/17 19:15 01/16/17 19:14 01/02/17 21:05 0.25 MG Hydromorphone HCl (Dilaudid Inj) 0.5 mg Q20M PRN IV 01/02/17 19:15 01/16/17 19:14 01/05/17 08:58 0.5 MG Naloxone HCl (Narcan Inj) 0.1 mg PRN PRN IV 01/02/17 19:15 02/01/17 19:14 Senna/Docusate Sodium (Senokot S Tab) 2 tab HS PO 01/02/17 21:00 02/01/17 20:59 01/13/17 20:47 2 TAB Polyethylene (Miralax Powder Packet) 17 gm DAILY PRN PO 01/02/17 19:15 02/01/17 19:14 01/11/17 19:23 17 GM Magnesium Hydroxide (Milk Of Magnesia Susp) 30 ml DAILY PRN PO 01/02/17 19:15 02/01/17 19:14 01/05/17 08:04 30 ML Bisacodyl (Dulcolax Supp) 10 mg DAILY PRN [place] 01/02/17 19:15 02/01/17 19:14 01/06/17 10:14 10 MG Sodium Biphosphate/ Sodium Phosphate (Fleet Enema) 132 ml PRN PRN [place] 01/02/17 19:15 Diltiazem HCl (TIAzac CAP) 120 mg QAM PO 01/03/17 09:00 02/02/17 08:59 01/14/17 08:49 120 MG Montelukast Sodium (Singulair Tab) 10 mg QAM PO 01/03/17 09:00 02/02/17 08:59 01/14/17 08:50 10 MG Orphenadrine Citrate (Norflex Tab) 100 mg BID PO 01/02/17 21:00 02/01/17 20:59 01/14/17 08:50 100 MG Pregabalin (Lyrica Cap) 50 mg TID PO 01/02/17 21:00 02/01/17 20:59 01/14/17 13:40 50 MG Simvastatin (Zocor Tab) 10 mg QPM PO 01/02/17 21:00 02/01/17 20:59 01/13/17 20:48 10 MG Tolterodine Tartrate (Detrol LA Cap) 4 mg QAM PO 01/03/17 09:00 02/02/17 08:59 01/14/17 08:50 4 MG Pantoprazole Sodium (Protonix Tab) 40 mg BID PO 01/02/17 21:00 02/01/17 20:59 01/14/17 08:50 40 MG Glucose (Glucose 40% Gel) 15-30 GRAMS 15 GRAMS... UD PRN PO 01/02/17 22:30 02/01/17 22:29 Glucose (Glucose Chew Tab) 4-8 Tablets 4 Tabl... UD PRN PO 01/02/17 22:30 02/01/17 22:29 Dextrose (Dextrose 50% 50ML Syringe) 25-50ML OF 50% DW IV FOR... UD PRN IV 01/02/17 22:30 02/01/17 22:29 Glucagon (Glucagon Inj) 1 mg UD PRN SQ 01/02/17 22:30 02/01/17 22:29 Oxycodone HCl (Roxicodone Immediate Rel Tab) @ Q6 PRN PO 01/03/17 16:00 01/17/17 15:59 01/13/17 09:01 5 MG Rivaroxaban (Xarelto Tab) 10 mg DAILY@1600 PO 01/04/17 16:00 02/03/17 15:59 01/14/17 16:05 10 MG Insulin Aspart (novoLOG ASPART) SLIDING SCALE G... ACHS SC 01/03/17 21:00 02/02/17 20:59 01/14/17 12:56 1 UNITS Insulin Glargine (Lantus Solostar Pen) 6 units DAILY SC 01/09/17 09:00 02/02/17 08:59 01/14/17 08:56 6 UNITS Acetaminophen (Tylenol Tab) 1,000 mg Q8H PRN PO 01/10/17 14:00 02/01/17 21:59 01/13/17 23:05 1,000 MG Enalaprilat 0.625 mg/Dextrose 25.5 ml @ 100 mls/hr Q6H PRN IV 01/10/17 18:45 02/09/17 18:44 Lisinopril (Zestril Tab) 10 mg QAM PO 01/11/17 09:00 02/09/17 08:59 01/14/17 08:49 10 MG
[2017-01-14 20:06] VITALS: O2SAT 95
[2017-01-14] MEDS: DOCUSATE SODIUM/SENNA 50/8.6MG TAB PO SCH (20:53)
[2017-01-14] MEDS: SIMVASTATIN 10 MG TAB PO SCH (20:54)
[2017-01-14 23:03] VITALS: BP 124/71; PULSE 81; TEMP 37.3; O2SAT 92
[2017-01-15 06:58] VITALS: BP 134/72; PULSE 79; TEMP 37.1; O2SAT 95
[2017-01-15 06:59] LABS: BASO % 1.3 %; BASO ABS # 0.04 K/uL (0-0.2); EOS % 7.5 %; HEMATOCRIT 26.8 % (37-47); IG% 0.3 %; LYMPH % 28.7 %; LYMPH ABS # 0.88 K/uL (1.2-3.4); MEAN CELL VOLUME 83.8 fL (80-100); MEAN CORPUSCULAR HEMOGLOBIN 26.6 pg (25-34); MEAN CORPUSCULAR HGB CONC 31.7 g/dl (32-36); MEAN PLATELET VOLUME 8.7 fL (7.4-10.4); MONO % 19.2 %; PLATELET COUNT 348 K/uL (130-400); WHITE BLOOD COUNT 3.07 K/uL (4.8-10.8)
[2017-01-15 07:32] LABS: BUN/CREATININE RATIO 13.2 (10-20); CALCIUM 8.2 mg/dl (8.5-10.1); CREATININE 0.76 mg/dl (0.60-1.20); POTASSIUM 3.8 mmol/L (3.5-5.1)
[2017-01-15 08:13] LABS: COMPLETE YES; HYPERSEGMENTED POLYS 1+
[2017-01-15] MEDS: INSULIN ASPART 100 UNITS/ML 3 ML PEN SC SCH ×2 (08:31→13:49)
[2017-01-15] MEDS: INSULIN GLARGINE SOLOSTAR 100 UNITS/ML 3 ML PEN SC SCH (08:32)
[2017-01-15] MEDS: PANTOprazole SOD 40 MG TAB PO SCH (08:32)
[2017-01-15] MEDS: MONTELUKAST SOD 10 MG TAB PO SCH (08:32)
[2017-01-15] MEDS: DILTIAZEM HCL 120 MG EXT REL CAP PO SCH (08:33)
[2017-01-15] MEDS: TOLTERODINE TARTRATE LA 4 MG CAPCR PO SCH (08:34)
[2017-01-15] MEDS: LISINOPRIL 10 MG TAB PO SCH (08:35)
[2017-01-15] MEDS: PREGABALIN 50 MG CAP PO SCH ×2 (08:36→13:49)
[2017-01-15] MEDS: ORPHENADRINE CITRATE 100 MG TABCR PO SCH (08:36)
[2017-01-15 09:30] VITALS: BP 134/72; PULSE 79; TEMP 37.1; O2SAT 95
--- NOTE | 2017-01-15 10:02 | Progress Note ---
Medicine Progress Note Date & Time of Visit: Jan 15, 2017 at 09:43. Subjective patient seen resting in chair, comfortable states she feels fine overall denies chills, cough, problems with urination or BMs no other symptoms states she is ready and would like to be discharged today Objective Last 8 Hrs Date Time Temp Pulse Resp B/P (MAP) Pulse Ox O2 Delivery O2 Flow Rate FiO2 01/15/17 09:30 37.1 79 18 95 Room Air 01/15/17 08:25 Room Air 01/15/17 06:58 37.1 79 18 134/72 (92) 95 Room Air Physical Exam: General- oriented x 3, not in distress, speaks in sentences with no effort Lungs- clear breath sounds bilaterally, no crackles/wheezing Heart- regular rhythm; no murmur, normal rate Abdomen- normal bowel sounds, soft, nontender Extremities- Right Hip: surgical wound healing well, no signs of infection , (+) mild edema on the thigh with no tenderness/erythema/warmth mild edema on the right, mild on the left, no calf tenderness; peripheral pulses intact Neuro- alert, oriented x 3;no gross focal deficits Skin- warm & dry Laboratory Results: Last 24 Hours Test 01/14/17 11:58 01/14/17 17:07 01/14/17 20:31 01/15/17 06:15 Bedside Glucose 86 mg/dl 92 mg/dl 150 mg/dl White Blood Count 3.07 K/uL Red Blood Count 3.20 M/uL Hemoglobin 8.5 g/dL Hematocrit 26.8 % Mean Corpuscular Volume 83.8 fL Mean Corpuscular Hemoglobin 26.6 pg Mean Corpuscular Hemoglobin Concent 31.7 g/dl Platelet Count 348 K/uL Mean Platelet Volume 8.7 fL Neutrophils (%) (Auto) 43.0 % Lymphocytes (%) (Auto) 28.7 % Monocytes (%) (Auto) 19.2 % Eosinophils (%) (Auto) 7.5 % Basophils (%) (Auto) 1.3 % Neutrophils # (Auto) 1.32 K/uL Lymphocytes # (Auto) 0.88 K/uL Monocytes # (Auto) 0.59 K/uL Eosinophils # (Auto) 0.23 K/uL Basophils # (Auto) 0.04 K/uL RDW Standard Deviation 48.1 fL RDW Coefficient of Variation 15.6 % Immature Granulocyte % (Auto) 0.3 % Immature Granulocyte # (Auto) 0.01 K/uL Hypersegmented Polys 1+ Sodium Level 141 mmol/L Potassium Level 3.8 mmol/L Chloride Level 107 mmol/L Carbon Dioxide Level 27 mmol/L Anion Gap 7.0 mmol/L Blood Urea Nitrogen 10 mg/dl Creatinine 0.76 mg/dl Est Creatinine Clear Calc Drug Dose 65.5 ml/min Estimated GFR () 88.9 Estimated GFR (Non- 76.7 BUN/Creatinine Ratio 13.2 Random Glucose 88 mg/dl Calcium Level 8.2 mg/dl Assessment & Plan 76 year old female with history of DM, HTN, COPD presenting with right hip pain s/p right hip surgery 12/28/16. PERIPROSTHETIC FRACTURE RIGHT FEMUR - 01/04/16: s/p repair of periprosthetic fracture by Dr. Hendricks : Open reduction internal fixation, proximal femur fracture with revision femoral stem and head to [facility] modular conical stem. - (+) persistent fever spikes cultures blood: negative so far urine: Klebsiella , pansensitive 01/10/17: changed Cipro po BID to Levaquin IV - (+) persistent fever spikes - repeat urine and blood cultures ordered: negative so far cxr ordered: no pneumonia ID consulted, appreciate the consult finished Levaquin check CT of the hip to r/o infection, abscess: no infection - afebrile for 24 hours, clinically doing well, no signs/symptoms of infection d/c to HS today ACUTE BLOOD LOSS ANEMIA s/p 4 units pRBC ordered - Hg 8.5 - monitor CBC closely HYPERTENSION BP not at goal added Lisinopril 10 mg po daily Continue diltiazem i- improving -- monitor BP COPD Respiratory status stable. Continue current medications DM TYPE 2 Well-controlled at home. Recent Hgb A1C 6.5 on 11/28/16. Held oral agents during hospital stay. given Lantus and Sliding scale as inpatient resume oral medications monitor BSGs HLD: -Continue statin GERD: -Continue PPI Stress Incontinence: -Continue Detrol VTE PROPHYLAXIS on Xarelto Ortho SVC c/o Dr. Hendricks to determine duration of Xarelto for DVT prophylaxisw Disposition d/c to HS today follow up with Orthopedic Surgeon Dr. Hendricks in 1 week ff up with Primary Care Physician Dr. Chiu after Rehab stay Current Inpatient Medications: Current Inpatient Medications Medications (Trade) Dose Ordered Sig/Charis Route Start Time Stop Time Status Last Admin Dose Admin Ondansetron HCl (Zofran Inj) 4 mg Q6H PRN IV 01/02/17 19:15 02/01/17 19:14 01/13/17 12:58 4 MG Hydromorphone HCl (Dilaudid Inj) 0.25 mg Q20M PRN IV 01/02/17 19:15 01/16/17 19:14 01/02/17 21:05 0.25 MG Hydromorphone HCl (Dilaudid Inj) 0.5 mg Q20M PRN IV 01/02/17 19:15 01/16/17 19:14 01/05/17 08:58 0.5 MG Naloxone HCl (Narcan Inj) 0.1 mg PRN PRN IV 01/02/17 19:15 02/01/17 19:14 Senna/Docusate Sodium (Senokot S Tab) 2 tab HS PO 01/02/17 21:00 02/01/17 20:59 01/14/17 20:53 2 TAB Polyethylene (Miralax Powder Packet) 17 gm DAILY PRN PO 01/02/17 19:15 02/01/17 19:14 01/11/17 19:23 17 GM Magnesium Hydroxide (Milk Of Magnesia Susp) 30 ml DAILY PRN PO 01/02/17 19:15 02/01/17 19:14 01/05/17 08:04 30 ML Bisacodyl (Dulcolax Supp) 10 mg DAILY PRN [place] 01/02/17 19:15 02/01/17 19:14 01/06/17 10:14 10 MG Sodium Biphosphate/ Sodium Phosphate (Fleet Enema) 132 ml PRN PRN [place] 01/02/17 19:15 Diltiazem HCl (TIAzac CAP) 120 mg QAM PO 01/03/17 09:00 02/02/17 08:59 01/15/17 08:33 120 MG Montelukast Sodium (Singulair Tab) 10 mg QAM PO 01/03/17 09:00 02/02/17 08:59 01/15/17 08:32 10 MG Orphenadrine Citrate (Norflex Tab) 100 mg BID PO 01/02/17 21:00 02/01/17 20:59 01/15/17 08:36 100 MG Pregabalin (Lyrica Cap) 50 mg TID PO 01/02/17 21:00 02/01/17 20:59 01/15/17 08:36 50 MG Simvastatin (Zocor Tab) 10 mg QPM PO 01/02/17 21:00 02/01/17 20:59 01/14/17 20:54 10 MG Tolterodine Tartrate (Detrol LA Cap) 4 mg QAM PO 01/03/17 09:00 02/02/17 08:59 01/15/17 08:34 4 MG Pantoprazole Sodium (Protonix Tab) 40 mg BID PO 01/02/17 21:00 02/01/17 20:59 01/15/17 08:32 40 MG Glucose (Glucose 40% Gel) 15-30 GRAMS 15 GRAMS... UD PRN PO 01/02/17 22:30 02/01/17 22:29 Glucose (Glucose Chew Tab) 4-8 Tablets 4 Tabl... UD PRN PO 01/02/17 22:30 02/01/17 22:29 Dextrose (Dextrose 50% 50ML Syringe) 25-50ML OF 50% DW IV FOR... UD PRN IV 01/02/17 22:30 02/01/17 22:29 Glucagon (Glucagon Inj) 1 mg UD PRN SQ 01/02/17 22:30 02/01/17 22:29 Oxycodone HCl (Roxicodone Immediate Rel Tab) @ Q6 PRN PO 01/03/17 16:00 01/17/17 15:59 01/13/17 09:01 5 MG Rivaroxaban (Xarelto Tab) 10 mg DAILY@1600 PO 01/04/17 16:00 02/03/17 15:59 01/14/17 16:05 10 MG Insulin Aspart (novoLOG ASPART) SLIDING SCALE G... ACHS SC 01/03/17 21:00 02/02/17 20:59 01/14/17 12:56 1 UNITS Insulin Glargine (Lantus Solostar Pen) 6 units DAILY SC 01/09/17 09:00 02/02/17 08:59 01/14/17 08:56 6 UNITS Acetaminophen (Tylenol Tab) 1,000 mg Q8H PRN PO 01/10/17 14:00 02/01/17 21:59 01/13/17 23:05 1,000 MG Enalaprilat 0.625 mg/Dextrose 25.5 ml @ 100 mls/hr Q6H PRN IV 01/10/17 18:45 02/09/17 18:44 Lisinopril (Zestril Tab) 10 mg QAM PO 01/11/17 09:00 02/09/17 08:59 01/15/17 08:35 10 MG
[2017-01-15] MEDS ORDERED: LSN10 PO (10:10)
[2017-01-15] MEDS ORDERED: SENN8.6T7 PO (10:10)
[2017-01-15] MEDS ORDERED: OXYC-609 PO (10:10)
[2017-01-15] MEDS ORDERED: XRL10 PO (10:10)
[2017-01-15] MEDS ORDERED: ACET-24 PO (10:10)
--- NOTE | 2017-01-15 10:22 | Discharge Instructions ---
Discharge Instructions Date of Service Jan 15, 2017. Admission Reason for Admission: Displaced Intertrochanteric Fracture Of Femur Discharge Discharge Diagnosis / Problem: Periprosthetic femur fracture, right Discharge Goals Goal(s): Diagnostic testing, Therapeutic intervention Activity Recommendations Activity Level: Assistance Required Therapies: Physical Therapy, Occupational Therapy Weightbearing Status: Right non-weightbearing (at least 4 weeks per Ortho) . Additional Information Patient informed of condition: Yes Advance Directives: No (Unknown) DNR: No (Patient is Full Code) Level of Care: Acute Rehab Communicable Disease: No Prognosis: Improving Instructions / Follow-Up Instructions / Follow-Up PLEASE MONITOR BP, TEMPERATURE, BSG'S DAILY. CHECK CBC IN 3-5 DAYS (RE: ANEMIA, LAST HG 8.5). FOLLOW UP WITH ORTHOPEDIC SURGEON DR. WILEY THIS WEEK. FOLLOW UP WITH PRIMARY CARE PHYSICIAN DR. WONG AFTER REHAB STAY. PLEASE REFER TO ACCOMPANYING HOSPITAL DISCHARGE SUMMARY FOR FURTHER DETAILS. Current Hospital Diet Patient's current hospital diet: Diabetes Type 2 Diet Discharge Diet Recommended Diet: AHA Diet (Heart Healthy), Diabetes Type 2 Diet Procedures Procedures Performed: Right Hip Revision Periprosthetic Femur Fracture, pRBC transfusion 4 units Pending Studies Studies pending at discharge: yes List of pending studies: repeat CBC Physician Orders On Transfer Special Precautions: PLEASE MONITOR BP, TEMPERATURE, BSG'S DAILY. CHECK CBC IN 3-5 DAYS (RE: ANEMIA, LAST HG 8.5). FOLLOW UP WITH ORTHOPEDIC SURGEON DR. WILEY THIS WEEK. FOLLOW UP WITH PRIMARY CARE PHYSICIAN DR. WONG AFTER REHAB STAY. PLEASE REFER TO ACCOMPANYING HOSPITAL DISCHARGE SUMMARY FOR FURTHER DETAILS. Laboratory Results Hemoglobin A1c Test 11/28/16 11:45 Range/Units Estimated Average Glucose 140 mg/dl Hemoglobin A1c 6.5 H 4.5-5.6 % Medical Emergencies . Who to Call and When: Medical Emergencies: If at any time you feel your situation is an emergency, please call 911 immediately. . Non-Emergent Contact Non-Emergency issues call your: Primary Care Provider, Surgeon Call Non-Emergent contact if: you have a fever, your pain is not controlled, your pain is worsening, wound has increased drainage, wound has increased redness, wound has increased pain, you have any medication questions . . "Provider Documentation" section prepared by Kai Howard. . Hydropress Operator Recommendations Hydropress Operator Recommendations: UOC DISCHARGE INSTRUCTIONS: HIP FRACTURE SELF CARE INSTRUCTIONS: A. You are to ambulate with a walker or crutches for approximately 6 weeks. B. You are NON WEIGHT BEARING on your operative lower extremity for at least 4 weeks. C. Wear low heeled shoes with non-slip soles D. Be sure that your floors are free of things that could trip you throw rugs, electrical cords, and small objects. Avoid wet and waxed floors, especially with crutches/walker/cane. E. Try to walk several times a day with rest periods between. F. You may shower 48 hours after surgery and get the incision area wet, but DO NOT soak or submerge incision area in water. (No baths, swimming pools, hot tubs ) G. You may have a large, band-aid like dressing over your incision (Aquacel). This will remain on your incision for 7 days, and then can be removed. You CAN shower with this on. If incision is leaking through the dressing, please call the office . H. Do NOT apply soap or any ointment/lotions directly over incision. I. You may use ice as needed to operative site. SPECIAL CARE INSTRUCTIONS: VERY IMPORTANT TO READ AND REVIEW A. You may be at risk for phlebitis or blood clots. a. Wear surgical stockings (THOMAS hose) for 2 weeks after surgery to improve circulation and reduce swelling. b. Take XARELTO 10MG DAILY or as directed. This is your blood thinner. c. If you are on Coumadin- you will have daily/weekly blood work to monitor your levels. This will be done by either your family physician/ vegetable canner (if you are on Coumadin chronically) versus your orthopedic surgeon. Expect a phone call the day of or the day after your blood work is drawn to adjust your dose accordingly. B. There are a few signs you need to watch for after you are home. Call [facility] at [phone] if you experience any of the following: a. If you have a temperature of 101 degrees or higher. b. Sudden increase in pain in your hip not relieved by rest or pain medication. c. Any fluid or drainage from the incision; redness of the incision. d. Shortness of breath or chest pain. B. Please call [facility] at [phone] if you have any questions or concerns about your operation or recovery. C. Call your physician if: a. Temperature is greater than 101 degrees (F). b. Pain is not relieved by prescribed pain medications. c. Increase drainage or redness from incision. d. Unanswered questions or concerns. D. Pain Medication: a. You will be prescribed pain medication upon discharge that should last till your first post-operative appointment. b. If you experience nausea and/or skin rash, discontinue this medication and contact our office for an alternative medication. c. Caution- narcotic pain medication can cause constipation. FOLLOW UP VISIT: Please call [facility] at [phone] to schedule a follow up appointment 10-14 days from the date of your surgery date. Core Measure Problem Core Measures: None
--- NOTE | 2017-01-15 10:35 | Discharge Summary ---
Discharge Summary Date of Service Jan 15, 2017. Discharge Summary Admission Date: Jan 02, 2017 at 19:07 Discharge Disposition: Rehab Principal Diagnosis: PERIPROSTHETIC FRACTURE RIGHT FEMUR Secondary Diagnoses/Problems: Please refer to hospital course below. Procedures: 01/03/17: Open reduction internal fixation, proximal femur fracture with revision femoral stem and head to yazidi modular conical stem. pRBC transfusion 4 units Consultations: Orthopedic Surgeon Dr. Wiley, Infectious Disease Service Dr. Tucker Pending Studies/Follow-Up: PLEASE MONITOR BP, TEMPERATURE, BSG'S DAILY. CHECK CBC IN 3-5 DAYS (RE: ANEMIA, LAST HG 8.5). FOLLOW UP WITH ORTHOPEDIC SURGEON DR. WILEY THIS WEEK. FOLLOW UP WITH PRIMARY CARE PHYSICIAN DR. CHIU AFTER REHAB STAY. PLEASE REFER TO HOSPITAL COURSE BELOW. Medication Reconciliation New Medications: Acetaminophen (Sb Non-Aspirin Extra Stre) 500 Mg Tab 1000 MG PO Q8H PRN for pain for 10 Days Lisinopril (Zestril) 10 Mg Tab 10 MG PO QAM for 30 Days, #30 TAB 1 Refill Rivaroxaban (Xarelto) 10 Mg Tab 10 MG PO DAILY@1600 for 30 Days, #30 TAB 0 Refills Sennosides-Docusate Sodium (Senokot S) 1 Tab Tab 1 TAB PO HS for 30 Days, #30 TAB 1 Refill Changed Medications: Oxycodone HCl (Oxycodone HCl) 5 Mg Tab 1 TAB PO Q6H PRN for Pain for 7 Days, #10 TABS 0 Refills (Changed from: 1-2 TAB ; Q4H; Refills: ) Continued Medications: Diltiazem Hcl Ext Rel (Tiazac) 120 Mg Capcr 120 MG PO QAM, CAP Ferrous Gluconate (Ferrous Gluconate) 324 Mg Tab 324 MG PO TIDM, TAB Glimepiride (Glimepiride) 1 Mg Tab 0.5 TAB PO QAM Montelukast Sodium (Singulair) 10 Mg Tab 10 MG PO QAM, TAB Omeprazole (Prilosec) 20 Mg Capcr 20 MG PO BID, CAP Ondansetron Hcl (Zofran) 8 Mg Tab 8 MG PO Q8 PRN for Nausea or Vomiting, TAB Orphenadrine Citrate (Norflex) 100 Mg Tabcr 100 MG PO BID, TAB Pioglitazone (Actos) 30 Mg Tab 1 TAB PO QAM, TAB Pregabalin (Lyrica) 50 Mg Cap 50 MG PO TID, CAP Simvastatin (Zocor) 10 Mg Tab 10 MG PO QPM, TAB Tolterodine Tartrate (Detrol LA) 4 Mg Capcr 1 CAP PO QAM, CAP Discontinued Medications: Acetaminophen (Sb Non-Aspirin Extra Stre) 500 Mg Tab 1000 MG PO Q8H for 14 Days, TAB Aspirin (Aspirin Ec) 81 Mg Tab 81 MG PO BID for 28 Days Admission Information HPI (per Admitting provider): This is a 76yo F with a PMH of R OA (s/p R ELIJAH on 12/28), CKD III, COPD, DM II, HTN and other conditions listed below who presents with R hip pain that started at 2pm this afternoon. Last , patient underwent a R hip replacement with Dr. Wiley. Did well post-operatively and was discharged home on Saturday evening. Has been recovering without issue at home until this afternoon, when patient was ambulating by walker into her living room and her right leg "gave out". Patient states that she heard a popping noise and slowly fell onto her walker. This event was not precipitated by any lightheadedness, CP or SOB. Was able to sit down on edge of chair but was in severe 10/10 pain. Patient was home alone at this time but was able to call daughter at work. Was encouraged to call an ambulance. Currently patient endorses 6/10 pain, even after initial morphine. Denies any lightheadedness, confusion, headache, visual change, CP, SOB, nausea, vomiting, abd pain, numbness/tingling in LE. Denies any pain in L leg. Physical Exam (per Admitting): General appearance: awake and alert, appears healthy, no deformities BP: 140/90 HR: 95, regular Resp: 16 Eyes: Sclera: white, conjuntiva: pink. Eyelids without erythema or lesions. PERRL. Pupils and irises round and symmetric. ENT: External ears without lesions, masses or tenderness. Nose with pink mucosa , no discharge. Septum midline, turbinates normal. Oropharynx mucosa intact.Dentition intact. Neck: Supple, without lesions or masses. Trachea midline. Thyroid is non- enlarged, non-tender. Respiratory: Normal respiratory effort. No intercostal retractions or use of accessory muscles. Chest is non-tender. Clear breath sounds on auscultation. No wheezing, rales, rhonci. Cardiovascular: No lifts or heaves visualized. PMI palpable, non-displaced. S1 S2 normal, no murmurs, gallops, rubs. No edema in extremities. GI: No masses or abnormal pulsations visualized. Bowel sounds normal. Abdomen soft, non-tender. No hepatomegaly or splenomegaly. MSK: No clubbing, cyanosis of digits. Normal capillary refill. R hip shortened and externally rotated. Unable to move 2/2 pain. Arnett visualized on hip without any surrounding erythema. L LE without any asymmetry, defects or tenderness. Full ROM and 5/5 BARI. No muscle atrophy or abnormal movements. DP pulses 2+ bilaterally. Skin: No rashes, lesions, ulcers. Palpation is normal, no induration or sub- cutaneous nodules. Neuro: CN II-XII intact. Sensation intact with light and sharp touch. Proprioception intact. Psych: Normal judgement, insight. Alert and oriented to person, place, time. Normal mood and affect. Hospital Course 76 year old female with history of DM, HTN, COPD presenting with right hip pain s/p right hip surgery 12/28/16. PERIPROSTHETIC FRACTURE RIGHT FEMUR - 01/04/16: s/p repair of periprosthetic fracture by Dr. Wiley : Open reduction internal fixation, proximal femur fracture with revision femoral stem and head to yazidi modular conical stem. - postoperatively, patient had persistent fever spikes cultures blood: negative so far urine: Klebsiella , pansensitive complete course of Levaquin - still had persistent fever spikes repeat urine and blood cultures ordered: negative cxr ordered: no pneumonia CT of the hip to r/o infection, abscess: no infection ID consulted Dr. Tucker, no further antibiotics recommended - now afebrile for 24 hours, clinically doing well, no signs/symptoms of infection monitor for fever recurrence - kristi to be removed on discharge day ff up with Ortho Surgeon Dr. Wiley in 3-5 days non weightbearing on the right for at least 4 weeks on Xarelto for DVT prophylaxis, duration as per Dr. Wiley KLEBSIELLA UTI - completed course of Levaquin ACUTE BLOOD LOSS ANEMIA s/p 4 units pRBC ordered - Hg 8.5 - monitor CBC closely HYPERTENSION BP not at goal added Lisinopril 10 mg po daily Continue diltiazem - improving -- monitor BP COPD Respiratory status stable. Continue current medications DM TYPE 2 Recent Hgb A1C 6.5 on 11/28/16. Held oral agents during hospital stay. given Lantus and Sliding scale as inpatient resume oral medications monitor BSGs HLD: -Continue statin GERD: -Continue PPI Stress Incontinence: -Continue Detrol VTE PROPHYLAXIS on Xarelto Ortho SVC c/o Dr. Wiley to determine duration of Xarelto for DVT prophylaxisw Disposition d/c to follow up with Orthopedic Surgeon Dr. Wiley in 1 week ff up with Primary Care Physician Dr. Chiu after Rehab stay Total time spent on discharge = 45 mins This includes examination of the patient, discharge planning, medication reconciliation, and communication with other providers. Discharge Instructions Discharge Instructions Date of Service Jan 15, 2017. Admission Reason for Admission: Displaced Intertrochanteric Fracture Of Femur Discharge Discharge Diagnosis / Problem: Periprosthetic femur fracture, right Discharge Goals Goal(s): Diagnostic testing, Therapeutic intervention Activity Recommendations Activity Level: Assistance Required Therapies: Physical Therapy, Occupational Therapy Weightbearing Status: Right non-weightbearing (at least 4 weeks per Ortho) . Additional Information Patient informed of condition: Yes Advance Directives: No (Unknown) DNR: No (Patient is Full Code) Level of Care: Acute Rehab Communicable Disease: No Prognosis: Improving Instructions / Follow-Up Instructions / Follow-Up PLEASE MONITOR BP, TEMPERATURE, BSG'S DAILY. CHECK CBC IN 3-5 DAYS (RE: ANEMIA, LAST HG 8.5). FOLLOW UP WITH ORTHOPEDIC SURGEON DR. WILEY THIS WEEK. FOLLOW UP WITH PRIMARY CARE PHYSICIAN DR. CHIU AFTER REHAB STAY. PLEASE REFER TO ACCOMPANYING HOSPITAL DISCHARGE SUMMARY FOR FURTHER DETAILS. Current Hospital Diet Patient's current hospital diet: Diabetes Type 2 Diet Discharge Diet Recommended Diet: AHA Diet (Heart Healthy), Diabetes Type 2 Diet Procedures Procedures Performed: Right Hip Revision Periprosthetic Femur Fracture, pRBC transfusion 4 units Pending Studies Studies pending at discharge: yes List of pending studies: repeat CBC Physician Orders On Transfer Special Precautions: PLEASE MONITOR BP, TEMPERATURE, BSG'S DAILY. CHECK CBC IN 3-5 DAYS (RE: ANEMIA, LAST HG 8.5). FOLLOW UP WITH ORTHOPEDIC SURGEON DR. WLIEY THIS WEEK. FOLLOW UP WITH PRIMARY CARE PHYSICIAN DR. CHIU AFTER REHAB STAY. PLEASE REFER TO ACCOMPANYING HOSPITAL DISCHARGE SUMMARY FOR FURTHER DETAILS. Laboratory Results Hemoglobin A1c Test 11/28/16 11:45 Range/Units Estimated Average Glucose 140 mg/dl Hemoglobin A1c 6.5 H 4.5-5.6 % Medical Emergencies . Who to Call and When: Medical Emergencies: If at any time you feel your situation is an emergency, please call 911 immediately. . Non-Emergent Contact Non-Emergency issues call your: Primary Care Provider, Surgeon Call Non-Emergent contact if: you have a fever, your pain is not controlled, your pain is worsening, wound has increased drainage, wound has increased redness, wound has increased pain, you have any medication questions . . "Provider Documentation" section prepared by Kai Howard. . Radio Mechanic Recommendations Radio Mechanic Recommendations: U DISCHARGE INSTRUCTIONS: HIP FRACTURE SELF CARE INSTRUCTIONS: A. You are to ambulate with a walker or crutches for approximately 6 weeks. B. You are NON WEIGHT BEARING on your operative lower extremity for at least 4 weeks. C. Wear low heeled shoes with non-slip soles D. Be sure that your floors are free of things that could trip you throw rugs, electrical cords, and small objects. Avoid wet and waxed floors, especially with crutches/walker/cane. E. Try to walk several times a day with rest periods between. F. You may shower 48 hours after surgery and get the incision area wet, but DO NOT soak or submerge incision area in water. (No baths, swimming pools, hot tubs ) G. You may have a large, band-aid like dressing over your incision (Aquacel). This will remain on your incision for 7 days, and then can be removed. You CAN shower with this on. If incision is leaking through the dressing, please call the office . H. Do NOT apply soap or any ointment/lotions directly over incision. I. You may use ice as needed to operative site. SPECIAL CARE INSTRUCTIONS: VERY IMPORTANT TO READ AND REVIEW A. You may be at risk for phlebitis or blood clots. a. Wear surgical stockings (THOMAS hose) for 2 weeks after surgery to improve circulation and reduce swelling. b. Take XARELTO 10MG DAILY or as directed. This is your blood thinner. c. If you are on Coumadin- you will have daily/weekly blood work to monitor your levels. This will be done by either your family physician/ environmental sciences professor (if you are on Coumadin chronically) versus your orthopedic surgeon. Expect a phone call the day of or the day after your blood work is drawn to adjust your dose accordingly. B. There are a few signs you need to watch for after you are home. Call [facility] at [phone] if you experience any of the following: a. If you have a temperature of 101 degrees or higher. b. Sudden increase in pain in your hip not relieved by rest or pain medication. c. Any fluid or drainage from the incision; redness of the incision. d. Shortness of breath or chest pain. B. Please call [facility] at [phone] if you have any questions or concerns about your operation or recovery. C. Call your physician if: a. Temperature is greater than 101 degrees (F). b. Pain is not relieved by prescribed pain medications. c. Increase drainage or redness from incision. d. Unanswered questions or concerns. D. Pain Medication: a. You will be prescribed pain medication upon discharge that should last till your first post-operative appointment. b. If you experience nausea and/or skin rash, discontinue this medication and contact our office for an alternative medication. c. Caution- narcotic pain medication can cause constipation. FOLLOW UP VISIT: Please call [facility] at [phone] to schedule a follow up appointment 10-14 days from the date of your surgery date. Core Measure Problem Core Measures: None
--- NOTE | 2017-01-15 15:26 | Infectious Disease Progress Nt ---
Progress Note Date of Service Jan 15, 2017. Subjective Pt evaluation today including: conversation w/ patient, physical exam, chart review, lab review, review of studies, conversation w/ beauty sales consultant, review of inpatient medication list Patient offering no new complaints today. Has been afebrile for 2 days. Feeling well. No new specific concerns. Pain controlled. All Other Systems: Reviewed and Negative Medications Current Inpatient Medications Medications (Trade) Dose Ordered Sig/Charis Route Start Time Stop Time Status Last Admin Dose Admin Ondansetron HCl (Zofran Inj) 4 mg Q6H PRN IV 01/02/17 19:15 02/01/17 19:14 01/13/17 12:58 4 MG Hydromorphone HCl (Dilaudid Inj) 0.25 mg Q20M PRN IV 01/02/17 19:15 01/16/17 19:14 01/02/17 21:05 0.25 MG Hydromorphone HCl (Dilaudid Inj) 0.5 mg Q20M PRN IV 01/02/17 19:15 01/16/17 19:14 01/05/17 08:58 0.5 MG Naloxone HCl (Narcan Inj) 0.1 mg PRN PRN IV 01/02/17 19:15 02/01/17 19:14 Senna/Docusate Sodium (Senokot S Tab) 2 tab HS PO 01/02/17 21:00 02/01/17 20:59 01/14/17 20:53 2 TAB Polyethylene (Miralax Powder Packet) 17 gm DAILY PRN PO 01/02/17 19:15 02/01/17 19:14 01/11/17 19:23 17 GM Magnesium Hydroxide (Milk Of Magnesia Susp) 30 ml DAILY PRN PO 01/02/17 19:15 02/01/17 19:14 01/05/17 08:04 30 ML Bisacodyl (Dulcolax Supp) 10 mg DAILY PRN MO 01/02/17 19:15 02/01/17 19:14 01/06/17 10:14 10 MG Sodium Biphosphate/ Sodium Phosphate (Fleet Enema) 132 ml PRN PRN MO 01/02/17 19:15 Diltiazem HCl (TIAzac CAP) 120 mg QAM PO 01/03/17 09:00 02/02/17 08:59 01/15/17 08:33 120 MG Montelukast Sodium (Singulair Tab) 10 mg QAM PO 01/03/17 09:00 02/02/17 08:59 01/15/17 08:32 10 MG Orphenadrine Citrate (Norflex Tab) 100 mg BID PO 01/02/17 21:00 02/01/17 20:59 01/15/17 08:36 100 MG Pregabalin (Lyrica Cap) 50 mg TID PO 01/02/17 21:00 02/01/17 20:59 01/15/17 13:49 50 MG Simvastatin (Zocor Tab) 10 mg QPM PO 01/02/17 21:00 02/01/17 20:59 01/14/17 20:54 10 MG Tolterodine Tartrate (Detrol LA Cap) 4 mg QAM PO 01/03/17 09:00 02/02/17 08:59 01/15/17 08:34 4 MG Pantoprazole Sodium (Protonix Tab) 40 mg BID PO 01/02/17 21:00 02/01/17 20:59 01/15/17 08:32 40 MG Glucose (Glucose 40% Gel) 15-30 GRAMS 15 GRAMS... UD PRN PO 01/02/17 22:30 02/01/17 22:29 Glucose (Glucose Chew Tab) 4-8 Tablets 4 Tabl... UD PRN PO 01/02/17 22:30 02/01/17 22:29 Dextrose (Dextrose 50% 50ML Syringe) 25-50ML OF 50% DW IV FOR... UD PRN IV 01/02/17 22:30 02/01/17 22:29 Glucagon (Glucagon Inj) 1 mg UD PRN SQ 01/02/17 22:30 02/01/17 22:29 Oxycodone HCl (Roxicodone Immediate Rel Tab) @ Q6 PRN PO 01/03/17 16:00 01/17/17 15:59 01/13/17 09:01 5 MG Rivaroxaban (Xarelto Tab) 10 mg DAILY@1600 PO 01/04/17 16:00 02/03/17 15:59 01/14/17 16:05 10 MG Insulin Aspart (novoLOG ASPART) SLIDING SCALE G... ACHS SC 01/03/17 21:00 02/02/17 20:59 01/14/17 12:56 1 UNITS Insulin Glargine (Lantus Solostar Pen) 6 units DAILY SC 01/09/17 09:00 02/02/17 08:59 01/14/17 08:56 6 UNITS Acetaminophen (Tylenol Tab) 1,000 mg Q8H PRN PO 01/10/17 14:00 02/01/17 21:59 01/13/17 23:05 1,000 MG Enalaprilat 0.625 mg/Dextrose 25.5 ml @ 100 mls/hr Q6H PRN IV 01/10/17 18:45 02/09/17 18:44 Lisinopril (Zestril Tab) 10 mg QAM PO 01/11/17 09:00 02/09/17 08:59 01/15/17 08:35 10 MG Objective Vital Signs Date Time Temp Pulse Resp B/P (MAP) Pulse Ox O2 Delivery O2 Flow Rate FiO2 01/15/17 09:30 37.1 79 18 95 Room Air 01/15/17 08:25 Room Air 01/15/17 06:58 37.1 79 18 134/72 (92) 95 Room Air 01/15/17 00:10 Room Air 01/14/17 23:03 37.3 81 17 124/71 (88) 92 Room Air 01/14/17 20:06 95 Room Air 01/14/17 15:53 Room Air Physical Exam General Appearance: WD/WN, no apparent distress Eyes: normal inspection, sclerae normal ENT: normal ENT inspection, pharynx normal Neck: supple, no adenopathy, thyroid normal, trachea midline Respiratory/Chest: chest non-tender, lungs clear, normal breath sounds, no respiratory distress Cardiovascular: regular rate, rhythm, no gallop, no murmur Abdomen: normal bowel sounds, non tender, soft, no organomegaly Extremities: non-tender, no calf tenderness Neurologic/Psychiatric: alert, oriented x 3 Skin: normal color, no rash, + pertinent finding (Hip wound appears clean) Lymphatic: no adenopathy Laboratory Results Last 24 Hours Test 01/14/17 17:07 01/14/17 20:31 01/15/17 06:15 01/15/17 08:00 Bedside Glucose 92 mg/dl 150 mg/dl 94 mg/dl White Blood Count 3.07 K/uL Red Blood Count 3.20 M/uL Hemoglobin 8.5 g/dL Hematocrit 26.8 % Mean Corpuscular Volume 83.8 fL Mean Corpuscular Hemoglobin 26.6 pg Mean Corpuscular Hemoglobin Concent 31.7 g/dl Platelet Count 348 K/uL Mean Platelet Volume 8.7 fL Neutrophils (%) (Auto) 43.0 % Lymphocytes (%) (Auto) 28.7 % Monocytes (%) (Auto) 19.2 % Eosinophils (%) (Auto) 7.5 % Basophils (%) (Auto) 1.3 % Neutrophils # (Auto) 1.32 K/uL Lymphocytes # (Auto) 0.88 K/uL Monocytes # (Auto) 0.59 K/uL Eosinophils # (Auto) 0.23 K/uL Basophils # (Auto) 0.04 K/uL RDW Standard Deviation 48.1 fL RDW Coefficient of Variation 15.6 % Immature Granulocyte % (Auto) 0.3 % Immature Granulocyte # (Auto) 0.01 K/uL Hypersegmented Polys 1+ Sodium Level 141 mmol/L Potassium Level 3.8 mmol/L Chloride Level 107 mmol/L Carbon Dioxide Level 27 mmol/L Anion Gap 7.0 mmol/L Blood Urea Nitrogen 10 mg/dl Creatinine 0.76 mg/dl Est Creatinine Clear Calc Drug Dose 65.5 ml/min Estimated GFR () 88.9 Estimated GFR (Non- 76.7 BUN/Creatinine Ratio 13.2 Random Glucose 88 mg/dl Calcium Level 8.2 mg/dl Test 01/15/17 11:59 Bedside Glucose 98 mg/dl Assessment and Plan Intermittent fever following hip surgery, treated Klebsiella UTI, without other localizing finding and negative cultures. Fever appears to have resolved, either from discontinuation of levofloxacin, or resolution of transfusion associated fever. Either way, see no contraindication from ID standpoint for discharge off antibiotics.
== END 2017-01-15 15:45 | DRG 467 ==
LOC: EDBD 16:26 → C.EDB 16:27 → C.MSW 19:07 → ENRESERV 19:27
PROVIDERS: ADMIT Hospitalist; ATTEND Internal Medicine
PROC: 0SRR03Z Replacement of Right Hip Joint, Femoral Surface with Ceramic Synthetic Substitute, Open Approach (ICD-10-PCS; principal; 2017-01-03 12:30)
PROC: 0QS604Z Reposition Right Upper Femur with Internal Fixation Device, Open Approach (ICD-10-PCS; principal; 2017-01-03 12:30)
PROC: 0SP90JZ Removal of Synthetic Substitute from Right Hip Joint, Open Approach (ICD-10-PCS; principal; 2017-01-03 12:30)
DX: S72.101A Unspecified trochanteric fracture of right femur, initial encounter for closed fracture (principal); M97.01XA Periprosthetic fracture around internal prosthetic right hip joint, initial encounter; N39.0 Urinary tract infection, site not specified; D62 Acute posthemorrhagic anemia; N18.3 Chronic kidney disease, stage 3 (moderate); J44.9 Chronic obstructive pulmonary disease, unspecified; I12.9 Hypertensive chronic kidney disease with stage 1 through stage 4 chronic kidney disease, or unspecified chronic kidney disease; M48.062 Spinal stenosis, lumbar region with neurogenic claudication; E11.40 Type 2 diabetes mellitus with diabetic neuropathy, unspecified; Z96.653 Presence of artificial knee joint, bilateral; Z88.0 Allergy status to penicillin; Z98.890 Other specified postprocedural states; N39.3 Stress incontinence (female) (male); E11.21 Type 2 diabetes mellitus with diabetic nephropathy; K21.9 Gastro-esophageal reflux disease without esophagitis; Z96.641 Presence of right artificial hip joint; B96.1 Klebsiella pneumoniae [K. pneumoniae] as the cause of diseases classified elsewhere; E78.5 Hyperlipidemia, unspecified; Y92.018 Other place in single-family (private) house as the place of occurrence of the external cause; W18.39XA Other fall on same level, initial encounter

== ENCOUNTER 2017-10-19 15:19 | Emergency (ER) | payer OTHER ==
[~2017-10-19 15:19] MED LIST changes: -ASPEC81 PO; -ASPI81TA28 PO; -FRRG PO; +LSN10 PO; -RXC5 PO; +SENN8.6T7 PO; +XRL10 PO
[2017-10-19 15:27] VITALS: TEMP 37.2; Ht 162.6 cm
[2017-10-19] MEDS ORDERED: ACETAMINOPHEN 325 MG TAB PO STA (15:48)
--- NOTE | 2017-10-19 16:20 | DIAGNOSTIC IMAGING REPORT ---
CT HEAD WITHOUT CONTRAST (CT) CLINICAL HISTORY: Head pain status post trauma COMPARISON STUDY: No previous studies for comparison. TECHNIQUE: Axial CT of the brain is performed from the vertex to the skull base. IV contrast was not administered for this examination. A dose lowering technique was utilized adhering to the principles of ALARA. CT DOSE: 537.48 mGy.cm FINDINGS: No intra or extra-axial mass lesions are visualized. There is no CT evidence of acute cortical infarction. There is no evidence of midline shift. There is no acute hemorrhage. No calvarial fractures are visualized. There are patchy white matter hypodensities likely on a small vessel basis. There is no evidence of pathologic ventricular dilatation. There is no evidence of acute sinusitis IMPRESSION: No acute intracranial findings Electronically signed by: Nicolas Gore M.D. 10/19/2017 4:18 PM Dictated Date/Time: 10/19/2017 4:18 PM
--- NOTE | 2017-10-19 16:41 | DIAGNOSTIC IMAGING REPORT ---
L SHOULDER MIN 2 VIEWS ROUTINE CLINICAL HISTORY: Left shoulder pain status post trauma COMPARISON: None. DISCUSSION: No fractures or dislocations of the proximal humerus are visualized. There is a hairline lucency within the scapula. This is only visualized on one of 3 projections and therefore may represent a prominent trabecular marking as opposed to a nondisplaced fracture. There are moderate arthritic changes within the glenohumeral joint. IMPRESSION: 1. Osteoarthritic changes 2. No humeral fractures or dislocations identified 3. Hairline scapular lucency, likely representing a prominent trabecular marking as opposed to nondisplaced fracture Electronically signed by: Nicolas Gore M.D. 10/19/2017 4:40 PM Dictated Date/Time: 10/19/2017 4:38 PM
--- NOTE | 2017-10-19 16:42 | DIAGNOSTIC IMAGING REPORT ---
AP PELVIS AND RIGHT HIP 3 VIEWS CLINICAL HISTORY: Right hip pain status post trauma COMPARISON STUDY: 01/02/2017 FINDINGS: There are postsurgical changes of a total right hip arthroplasty with a long femoral spike. There are proximal cerclage wires. There is heterotopic ossification at the level of the lesser trochanter, extending superiorly to the medial aspect of the acetabular cup. There are postsurgical changes in the lower lumbar spine. No acute fractures or dislocations are visualized. IMPRESSION: 1. No acute fractures or dislocations 2. Postsurgical changes of a total right hip arthroplasty. Heterotopic ossification. Electronically signed by: Nicolas Gore M.D. 10/19/2017 4:41 PM Dictated Date/Time: 10/19/2017 4:40 PM
--- NOTE | 2017-10-19 16:45 | DIAGNOSTIC IMAGING REPORT ---
LUMBAR SPINE 2 OR 3 VIEWS CLINICAL HISTORY: Back pain status post trauma COMPARISON STUDY: No previous studies for comparison. FINDINGS: There are postsurgical changes of a discectomy and posterior pedicle screw spinal fusion at the L4-5 level. No acute lumbar fractures are visualized. There is a T12 compression fracture, likely old. IMPRESSION: 1. Inferior endplate T12 compression fracture, likely old 2. No acute lumbar fractures or subluxations 3. Postsurgical changes at the L4-5 level Electronically signed by: Nicolas Gore M.D. 10/19/2017 4:44 PM Dictated Date/Time: 10/19/2017 4:42 PM
--- NOTE | 2017-10-19 17:08 | EMERGENCY ROOM VISIT NOTE ---
History Report prepared by Corey: Sharon Alejo Under the Supervision of: Dr. Anil Benedict M.D. First contact with patient: 15:31 Chief Complaint: FALL Stated Complaint: FELL HURT R LEG/ L SHOULDER History of Present Illness The patient is a 77 year old white female with a past medical history of R hip replacement and back surgery who presents to the ED with a cc of constant R hip and L shoulder pain beginning 10.5 hours ago. She reports she fell this morning returning to her bedroom from the bathroom, and slid to the floor when reaching for her bed. The patient states she fell onto her L shoulder onto carpet, and then rolled over and hit her R hip on the floor. Her daughter notes she found the patient on the floor as she was unable to get up without assistance. The patient reports she has been walking very slowly using a walker since the fall, and only walking when necessary. She states she usually uses a walker or cane. The patient notes her legs have been feeling "tense" lately, and she planned to see Dr. Hendricks [place] [facility] who performed her second R hip replacement in December 2017. She [address] Dr. Ba of [facility] performed [place] back surgery in 2014. The patient reports she saw Dr. Stewart for back pain a few weeks ago, and received a pain shot that she states wore off after a few days. Source of History: patient, family (daughter) Onset: 10.5 hours ago Position: shoulder (left), pelvis (R hip) Timing: constant Note: Associated symptom: legs feeling "tense" Review of Systems See HPI for pertinent positives and negatives. A total of ten systems were reviewed and were otherwise negative. Past Medical & Surgical Medical Problems: (1) Allergic rhinitis (2) Arthritis of right hip (3) CKD (chronic kidney disease), stage III (4) COPD (chronic obstructive pulmonary disease) (5) Displaced intertrochanteric fracture of femur (6) DM type 2 (diabetes mellitus, type 2) (7) HTN (hypertension) (8) Lumbar stenosis with neurogenic claudication (9) Neuropathy, diabetic (10) Stress incontinence Surgical Problems: (1) H/O: hysterectomy (2) History of appendectomy (3) History of arthroplasty of left knee (4) History of arthroplasty of right knee (5) History of left oophorectomy (6) History of lumbosacral spine surgery (7) Hx laparoscopic cholecystectomy (8) S/P section Family History Asthma BROTHER SISTER FH: CAD (coronary artery disease) FATHER BROTHER FH: cancer MOTHER Social History Smoking Status: Never Smoker Marital Status: Housing Status: lives with family Current/Historical Medications Scheduled Diltiazem Hcl Ext Rel (Tiazac), 120 MG PO QAM Ferrous Gluconate (Ferrous Gluconate), 324 MG PO TIDM Glimepiride (Glimepiride), 0.5 TAB PO QAM Lisinopril (Zestril), 10 MG PO QAM Montelukast Sodium (Singulair), 10 MG PO QAM Omeprazole (Prilosec), 20 MG PO BID Orphenadrine Citrate (Norflex), 100 MG PO BID Pioglitazone (Actos), 1 TAB PO QAM Pregabalin (Lyrica), 50 MG PO TID Rivaroxaban (Xarelto), 10 MG PO DAILY@1600 Sennosides-Docusate Sodium (Senokot S), 1 TAB PO HS Simvastatin (Zocor), 10 MG PO QPM Tolterodine Tartrate (Detrol LA), 1 CAP PO QAM Scheduled PRN Acetaminophen (Sb Non-Aspirin Extra Stre), 1,000 MG PO Q8H PRN for pain Ondansetron Hcl (Zofran), 8 MG PO Q8 PRN for Nausea or Vomiting Oxycodone HCl (Oxycodone HCl), 1 TAB PO Q6H PRN for Pain Allergies Coded Allergies: Atropine (Verified Allergy, Intermediate, hives, 01/02/17) Barbiturates (Verified Allergy, Intermediate, hives, 01/02/17) Hyoscyamine (Verified Allergy, Intermediate, hives, 01/02/17) Iodine (Verified Allergy, Intermediate, BLISTERS WITH TOPICAL, 01/02/17) Nortriptyline (Verified Allergy, Intermediate, hives, 01/02/17) Phenobarbital (Verified Allergy, Intermediate, hives, 01/02/17) Phenytoin (Verified Allergy, Intermediate, HIVES, 01/02/17) Scopolamine (Verified Allergy, Intermediate, hives, 01/02/17) Sulfamethoxazole w/Trimethoprim (Verified Allergy, Intermediate, HIVES, ) Adhesives (Verified Allergy, Mild, HIVES, RASH, 01/02/17) Penicillins (Verified Allergy, Mild, UNKNOWN, 01/02/17) CI Pigment Blue 63 (Verified Adverse Reaction, Intermediate, loss of balance, 01/02/17) Duloxetine (Verified Adverse Reaction, Intermediate, loss of balance, 02/08) TAQUERIA Inhibitors (Verified Adverse Reaction, Mild, cough, 01/02/17) Losartan (Verified Adverse Reaction, Mild, GI UPSET, 01/02/17) Quinine Hydrochloride Dihydrate (Verified Adverse Reaction, Mild, GI UPSET , 01/02/17) Tramadol (Verified Adverse Reaction, Mild, N/V, 01/02/17) Physical Exam Vital Signs Date Time Temp Pulse Resp B/P (MAP) Pulse Ox O2 Delivery O2 Flow Rate FiO2 10/19/17 15:27 37.2 72 20 168/85 95 Room Air Physical Exam GENERAL: Awake, alert, well-appearing, NAD, wearing glasses. HENT: Normocephalic, atraumatic. EYES: Normal conjunctiva. Sclera non-icteric. PERRL. No anisocoria. NECK: Supple. No nuchal rigidity. FROM. RESPIRATORY: CTAB, no rhonchi, wheezing, crackles CARDIAC: RRR, no MRG ABDOMEN: Soft, NTND, BS+ MSK: No chest wall TTP, no LE edema. Mild pain to L humerus, lower back, and R hip, with no deformities. Incisional scars to midline low back and over R thigh. R leg NVI distally. L arm NVI distally NEURO: GCS 15, CN 2-12 intact, moves all 4s on command SKIN: No rash or jaundice noted. Medical Decision & Procedures ER Provider Diagnostic Interpretation: Radiology results as stated below per my review and radiologist interpretation: L SHOULDER MIN 2 VIEWS ROUTINE CLINICAL HISTORY: Left shoulder pain status post trauma COMPARISON: None. DISCUSSION: No fractures or dislocations of the proximal humerus are visualized. There is a hairline lucency within the scapula. This is only visualized on one of 3 projections and therefore may represent a prominent trabecular marking as opposed to a nondisplaced fracture. There are moderate arthritic changes within the glenohumeral joint. IMPRESSION: 1. Osteoarthritic changes 2. No humeral fractures or dislocations identified 3. Hairline scapular lucency, likely representing a prominent trabecular marking as opposed to nondisplaced fracture Electronically signed by: Nicolas Gore M.D. 10/19/2017 4:40 PM Dictated Date/Time: 10/19/2017 4:38 PM LUMBAR SPINE 2 OR 3 VIEWS CLINICAL HISTORY: Back pain status post trauma COMPARISON STUDY: No previous studies for comparison. FINDINGS: There are postsurgical changes of a discectomy and posterior pedicle screw spinal fusion at the L4-5 level. No acute lumbar fractures are visualized. There is a T12 compression fracture, likely old. IMPRESSION: 1. Inferior endplate T12 compression fracture, likely old 2. No acute lumbar fractures or subluxations 3. Postsurgical changes at the L4-5 level Electronically signed by: Nicolas Gore M.D. 10/19/2017 4:44 PM Dictated Date/Time: 10/19/2017 4:42 PM AP PELVIS AND RIGHT HIP 3 VIEWS CLINICAL HISTORY: Right hip pain status post trauma COMPARISON STUDY: 01/02/2017 FINDINGS: There are postsurgical changes of a total right hip arthroplasty with a long femoral spike. There are proximal cerclage wires. There is heterotopic ossification at the level of the lesser trochanter, extending superiorly to the medial aspect of the acetabular cup. There are postsurgical changes in the lower lumbar spine. No acute fractures or dislocations are visualized. IMPRESSION: 1. No acute fractures or dislocations 2. Postsurgical changes of a total right hip arthroplasty. Heterotopic ossification. Electronically signed by: Nicolas Gore M.D. 10/19/2017 4:41 PM Dictated Date/Time: 10/19/2017 4:[address] HEAD WITHOUT CONTRAST (CT) CLINICAL HISTORY: Head pain status post trauma COMPARISON STUDY: No previous studies for comparison. TECHNIQUE: Axial CT of the brain is performed from the vertex to the skull base. IV contrast was not administered for this examination. A dose lowering technique was utilized adhering to the principles of ALARA. CT DOSE: 537.48 mGy.cm FINDINGS: No intra or extra-axial mass lesions are visualized. There is no CT evidence of acute cortical infarction. There is no evidence of midline shift. There is no acute hemorrhage. No calvarial fractures are visualized. There are patchy white matter hypodensities likely on a small vessel basis. There is no evidence of pathologic ventricular dilatation. There is no evidence of acute sinusitis IMPRESSION: No acute intracranial findings Electronically signed by: Nicolas Gore M.D. Medications Administered Medications (Trade) Dose Ordered Sig/Charis Route Start Time Stop Time Status Last Admin Dose Admin Acetaminophen (Tylenol Tab) 650 mg NOW STAT PO 10/19/17 15:48 10/19/17 15:51 DC 10/19/17 15:55 650 MG ED Course 1541: The patient was evaluated in room B10. A complete history and physical exam was performed. 1655: I reevaluated the patient. Discussed results and discharge instructions: she verbalized understanding and agreement. The patient is ready for discharge. Medical Decision Nursing notes reviewed. Ancillary studies and prior records reviewed. The patient is a 77 year old white female with a past medical history of R hip replacement and back surgery who presents to the ED with a cc of constant R hip and L shoulder pain beginning 10.5 hours ago. Etiologies such as fracture, dislocation, intra-abdominal, pneumothorax, intrathoracic , intracranial, neurologic, as well as other traumatic pathologies were entertained. Patient was seen and evaluated the bedside. The patient was complaining some right hip as well as left shoulder pain. The patient does have some issues with chronic back pain does have an old thoracic compression fracture. The patient only wanted Tylenol but declined any other. The patient has been ambulatory with the assistance of a walker. Patient did a plain films completed along with a CT of the brain given the patient's age. Patient CT was negative. Plain films do not show any acute change. There was a questionable lucency but this was likely a marking and not a fracture. Patient was ambulatory. Patient was given some tips on at home care and pain improvement. Patient is to see her primary care physician as well as her primary orthopedist in the future. Patient was given strict follow- up, discharge, and return precautions. All questions were answered. Patient was deemed suitable for outpatient follow-up at this time. Patient agreed with the plan of care and was safely discharged home. Medication Reconcilliation Current Medication List: was personally reviewed by me Blood Pressure Screening Patient's blood pressure: Elevated blood pressure Blood pressure disposition: Elevated BP felt to be situational Impression Primary Impression: Fall Additional Impressions: Shoulder pain, left Hip pain, right Scribe Attestation The scribe's documentation has been prepared under my direction and personally reviewed by me in its entirety. I confirm that the note above accurately reflects all work, treatment, procedures, and medical decision making performed by me. Departure Information Dispostion Home / Self-Care Referrals Thais Chiu M.D. (PCP) Forms HOME CARE DOCUMENTATION FORM, IMPORTANT VISIT INFORMATION Patient Instructions ED Mechanical Fall, ED Prevention Fall, My [facility] Additional Instructions Please return to the emergency department if you have worsening or recurrent symptoms not amenable to at-home treatment. Please call for a follow-up appointment with her primary care physician. Please take your medications as prescribed. If you have other concerns and/or complaints please feel free to also call your primary care physician's office or return the ED for further evaluation, management, and treatment. You may take tylenol 650 mg every 6 hours as needed for pain/fever unless told by your physician to not take it or have liver problems. Take your medications as prescribed. You have been examined and treated today on an emergency basis only. This is not a substitute for, or an effort to provide, complete comprehensive medical care. It is impossible to recognize and treat all injuries or illnesses in a single emergency department visit. It is therefore important that you follow up closely with [facility], your PCP, and/or your specialist(s). Call as soon as possible for an appointment. Thank you for your time and consideration. I look forward to speaking with you again soon. Please don't hesitate to call us if you have any questions. Problem Qualifiers Primary Impression: Fall Encounter type: initial encounter Qualified Codes: W19.XXXA - Unspecified fall, initial encounter Additional Impressions: Shoulder pain, left Chronicity: acute Qualified Codes: M25.512 - Pain in left shoulder
[2017-10-19 17:36] VITALS: BP 168/92; PULSE 68; O2SAT 96
== END 2017-10-19 17:38 | disposition home or self-care (01) ==
LOC: C.EDB 15:20
DX: M25.512 Pain in left shoulder (principal); M25.551 Pain in right hip; W19.XXXA Unspecified fall, initial encounter; Y92.013 Bedroom of single-family (private) house as the place of occurrence of the external cause; Z96.641 Presence of right artificial hip joint; N18.3 Chronic kidney disease, stage 3 (moderate); J44.9 Chronic obstructive pulmonary disease, unspecified; E11.9 Type 2 diabetes mellitus without complications; I12.9 Hypertensive chronic kidney disease with stage 1 through stage 4 chronic kidney disease, or unspecified chronic kidney disease; M48.062 Spinal stenosis, lumbar region with neurogenic claudication; Z79.84 Long term (current) use of oral hypoglycemic drugs; Z79.01 Long term (current) use of anticoagulants; Z79.899 Other long term (current) drug therapy; Z88.0 Allergy status to penicillin; Z88.5 Allergy status to narcotic agent; Z88.8 Allergy status to other drugs, medicaments and biological substances; Z88.2 Allergy status to sulfonamides; Z91.048 Other nonmedicinal substance allergy status

== ENCOUNTER 2017-11-14 17:47 | Emergency (ER) | payer OTHER ==
[2017-11-14 17:49] VITALS: Ht 162.6 cm
[2017-11-14] MEDS ORDERED: SODIUM CHLORIDE 0.9% 1000ML 1,000 ML IV STA (18:05)
[2017-11-14 18:51] LABS: ISTAT CREATININE 0.7 mg/dl (0.6-1.3); ISTAT IONIZED CALCIUM 1.09 mmol/l (1.12-1.32); ISTAT POTASSIUM 3.7 mEq/L (3.3-5.0)
[2017-11-14 18:56] LABS: BASO % 0.1 %; BASO ABS # 0.01 K/uL (0-0.2); EOS ABS # 0.07 K/uL (0-0.5); HEMATOCRIT 38.4 % (37-47); HEMOGLOBIN 12.8 g/dL (12.0-16.0); IG# 0.03 K/uL (0.00-0.02); LYMPH % 9.3 %; LYMPH ABS # 0.66 K/uL (1.2-3.4); MEAN CELL VOLUME 89.1 fL (80-100); MEAN CORPUSCULAR HEMOGLOBIN 29.7 pg (25-34); MEAN CORPUSCULAR HGB CONC 33.3 g/dl (32-36); MEAN PLATELET VOLUME 10.1 fL (7.4-10.4); MONO % 12.2 %; MONO ABS # 0.87 K/uL (0.11-0.59); NEUT ABS # 5.49 K/uL (1.4-6.5); PLATELET COUNT 167 K/uL (130-400); RED CELL DISTRIBUTION WIDTH CV 12.5 % (11.5-14.5); RED CELL DISTRIBUTION WIDTH SD 40.2 fL (36.4-46.3); WHITE BLOOD COUNT 7.13 K/uL (4.8-10.8)
[2017-11-14] MEDS ORDERED: CEFTRIAXONE SOD INJ 1 GM ADDVIAL IV STA (19:04)
[2017-11-14 19:18] LABS: INR 0.9 (0.9-1.1)
[2017-11-14 19:20] LABS: ALBUMIN 3.3 gm/dl (3.4-5.0); ALKALINE PHOSPHATASE 99 U/L (45-117); ALT/SGPT 27 U/L (12-78); AST/SGOT 12 U/L (15-37); BLOOD UREA NITROGEN 10 mg/dl (7-18); CALCIUM 8.8 mg/dl (8.5-10.1); CARBON DIOXIDE 26 mmol/L (21-32); CKMB < 1.0 ng/ml (0.5-3.6); CREATININE 0.87 mg/dl (0.60-1.20); GLUCOSE 140 mg/dl (70-99); POTASSIUM 3.7 mmol/L (3.5-5.1); SODIUM 137 mmol/L (136-145); TOTAL PROTEIN 7.2 gm/dl (6.4-8.2)
--- NOTE | 2017-11-14 19:26 | DIAGNOSTIC IMAGING REPORT ---
CHEST ONE VIEW PORTABLE CLINICAL HISTORY: fever TRAUMA COMPARISON STUDY: 01/11/2017 FINDINGS: The cardiac and mediastinal contours are normal. There is no evidence of focal pulmonary consolidation. There is no evidence of failure. No pleural effusions are visualized.[ There is no pneumothorax. Advanced arthritic changes are present within the right shoulder. IMPRESSION: No active disease in the chest. Electronically signed by: Nicolas Gore M.D. 11/14/2017 7:25 PM Dictated Date/Time: 11/14/2017 7:24 PM
--- NOTE | 2017-11-14 19:27 | DIAGNOSTIC IMAGING REPORT ---
L HUMERUS MIN 2 VIEWS ROUTINE CLINICAL HISTORY: Left upper arm pain status post trauma COMPARISON: None. DISCUSSION: No fractures or dislocations are visualized. IMPRESSION: No fractures or dislocations identified. Electronically signed by: Nicolas Gore M.D. 11/14/2017 7:25 PM Dictated Date/Time: 11/14/2017 7:25 PM
--- NOTE | 2017-11-14 19:28 | DIAGNOSTIC IMAGING REPORT ---
L FOREARM 2 VIEWS ROUTINE CLINICAL HISTORY: Left forearm pain status post trauma COMPARISON: None. DISCUSSION: The study is somewhat limited from a positioning standpoint. No fractures or dislocations are visualized. IMPRESSION: No fractures or dislocations identified. Electronically signed by: Nicolas Gore M.D. 11/14/2017 7:26 PM Dictated Date/Time: 11/14/2017 7:25 PM
--- NOTE | 2017-11-14 19:33 | DIAGNOSTIC IMAGING REPORT ---
L HAND MIN 3 VIEWS ROUTINE CLINICAL HISTORY: Left hand pain status post trauma COMPARISON: None. DISCUSSION: The bones are osteopenic. There are osteoarthritic changes present. No acute fractures are visualized. IMPRESSION: Osteoarthritic change. No acute fractures or dislocations identified. Electronically signed by: Nicolas Gore M.D. 11/14/2017 7:32 PM Dictated Date/Time: 11/14/2017 7:31 PM
[2017-11-14] MEDS ORDERED: ACETAMINOPHEN 500 MG TAB PO STA (20:32)
[2017-11-14] MEDS ORDERED: CEPH-571 PO (22:04)
[2017-11-14] MEDS ORDERED: IBUPROFEN 600 MG TAB PO STA (22:06)
[2017-11-14 22:13] VITALS: BP 162/75; PULSE 83; TEMP 37.3; O2SAT 95
--- NOTE | 2017-11-15 00:46 | EMERGENCY ROOM VISIT NOTE ---
History Report prepared by Corey: Garth Draper Under the Supervision of: Gisel CarnseO. First contact with patient: 17:54 Chief Complaint: HAND PAIN/INJURY Stated Complaint: L HAND/WRIST/FINGER PAIN History of Present Illness The patient is a 77 year old female who presents to the Emergency Room with complaints of left arm and hand pain after a fall that occurred yesterday. She notes that the pain has worsened today so she took two oxycodone making her nauseous and causing her to vomit. She reports that she had rotator cuff surgery on November 05 of this year. She also has a history of two hip replacements making it hard for her to walk and stand. She denies any new cough or abdominal pain as well as a headache, change in vision, fevers, chest pain, shortness of breath, diarrhea, pain with urination, and melena. Patient does note that on her left hand she notes some redness which is worsening. She notes it is warm and tender to palpation. Source of History: patient Onset: Yesterday Position: hand (left) Timing: worsening Associated Symptoms: + nausea, + vomiting, No fevers, No cough, No chest pain, No SOB, No abdominal pain, No melena, No diarrhea, No urinary symptoms Review of Systems See HPI for pertinent positives & negatives. A total of 10 systems reviewed and were otherwise negative. Past Medical & Surgical Medical Problems: (1) Allergic rhinitis (2) Arthritis of right hip (3) CKD (chronic kidney disease), stage III (4) COPD (chronic obstructive pulmonary disease) (5) Displaced intertrochanteric fracture of femur (6) DM type 2 (diabetes mellitus, type 2) (7) HTN (hypertension) (8) Lumbar stenosis with neurogenic claudication (9) Neuropathy, diabetic (10) Stress incontinence Surgical Problems: (1) H/O: hysterectomy (2) History of appendectomy (3) History of arthroplasty of left knee (4) History of arthroplasty of right knee (5) History of left oophorectomy (6) History of lumbosacral spine surgery (7) Hx laparoscopic cholecystectomy (8) S/P section Family History Asthma BROTHER SISTER FH: CAD (coronary artery disease) FATHER BROTHER FH: cancer MOTHER Social History Smoking Status: Never Smoker Marital Status: Housing Status: lives with family Current/Historical Medications Scheduled Cephalexin (Keflex), 1 CAP PO TID Diltiazem Hcl Ext Rel (Tiazac), 120 MG PO QAM Ferrous Gluconate (Ferrous Gluconate), 324 MG PO TIDM Montelukast Sodium (Singulair), 10 MG PO QAM Pregabalin (Lyrica), 50 MG PO TID Sennosides-Docusate Sodium (Senokot S), 1 TAB PO HS Simvastatin (Zocor), 10 MG PO QPM Tolterodine Tartrate (Detrol LA), 1 CAP PO QAM Scheduled PRN Acetaminophen (Sb Non-Aspirin Extra Stre), 1,000 MG PO Q8H PRN for pain Oxycodone HCl (Oxycodone HCl), 1 TAB PO Q6H PRN for Pain Allergies Coded Allergies: Atropine (Verified Allergy, Intermediate, hives, 01/02/17) Barbiturates (Verified Allergy, Intermediate, hives, 01/02/17) Hyoscyamine (Verified Allergy, Intermediate, hives, 01/02/17) Iodine (Verified Allergy, Intermediate, BLISTERS WITH TOPICAL, 01/02/17) Nortriptyline (Verified Allergy, Intermediate, hives, 01/02/17) Phenobarbital (Verified Allergy, Intermediate, hives, 01/02/17) Phenytoin (Verified Allergy, Intermediate, HIVES, 01/02/17) Scopolamine (Verified Allergy, Intermediate, hives, 01/02/17) Sulfamethoxazole w/Trimethoprim (Verified Allergy, Intermediate, HIVES, ) Adhesives (Verified Allergy, Mild, HIVES, RASH, 01/02/17) Penicillins (Verified Allergy, Mild, UNKNOWN, 01/02/17) Brimonidine (Unverified Allergy, Unknown, UNKNOWN, 11/14/17) CI Pigment Blue 63 (Verified Adverse Reaction, Intermediate, loss of balance, 01/02/17) Duloxetine (Verified Adverse Reaction, Intermediate, loss of balance, 02/08) TAQUERIA Inhibitors (Verified Adverse Reaction, Mild, cough, 01/02/17) Losartan (Verified Adverse Reaction, Mild, GI UPSET, 01/02/17) Quinine Hydrochloride Dihydrate (Verified Adverse Reaction, Mild, GI UPSET , 01/02/17) Tramadol (Verified Adverse Reaction, Mild, N/V, 01/02/17) Physical Exam Vital Signs Date Time Temp Pulse Resp B/P (MAP) Pulse Ox O2 Delivery O2 Flow Rate FiO2 11/14/17 22:13 37.3 83 18 162/75 95 Room Air 11/14/17 21:42 39.2 11/14/17 21:01 38.4 88 18 186/87 98 Room Air 11/14/17 17:49 39.2 81 20 164/96 93 Room Air Physical Exam GENERAL: Sitting up in bed, left arm in sling well nourished, non-toxic EYE EXAM: normal conjunctiva. OROPHARYNX: no exudate, no erythema, lips, buccal mucosa, and tongue normal and mucous membranes are moist NECK: supple, no nuchal rigidity, no adenopathy, non-tender LUNGS: Clear to auscultation. Normal chest wall mechanics HEART: no murmurs, S1 normal and S2 normal ABDOMEN: abdomen soft, non-tender, normo-active bowel sounds, no masses, no rebound or guarding. BACK: Back is symmetrical on inspection and there is no deformity, no midline tenderness, no CVA tenderness. UPPER EXTREMITIES: Left upper extremity in sling. Radial pulse 2/4, grasp and abduction intact. 3 portals with [address] on left shoulder with no drainage. Erythema on the dorsal aspect of the left hand tracking to the proximal left forearm, Skin is warm tender and erythematous. LOWER EXTREMITIES: No pitting edema. NEURO EXAM: Normal sensorium, cranial nerves II-XII grossly intact, normal speech, no gross weakness of legs. Medical Decision & Procedures ER Provider Diagnostic Interpretation: Radiology results as stated below per my review and the radiologist's interpretation: L HUMERUS MIN 2 VIEWS ROUTINE CLINICAL HISTORY: Left upper arm pain status post trauma COMPARISON: None. DISCUSSION: No fractures or dislocations are visualized. IMPRESSION: No fractures or dislocations identified. Electronically signed by: Nicolas Gore M.D. 11/14/2017 7:25 PM Dictated Date/Time: 11/14/2017 7:25 PM L HAND MIN 3 VIEWS ROUTINE CLINICAL HISTORY: Left hand pain status post trauma COMPARISON: None. DISCUSSION: The bones are osteopenic. There are osteoarthritic changes present. No acute fractures are visualized. IMPRESSION: Osteoarthritic change. No acute fractures or dislocations identified. Electronically signed by: Nicolas Gore M.D. 11/14/2017 7:32 PM Dictated Date/Time: 11/14/2017 7:31 PM L FOREARM 2 VIEWS ROUTINE CLINICAL HISTORY: Left forearm pain status post trauma COMPARISON: None. DISCUSSION: The study is somewhat limited from a positioning standpoint. No fractures or dislocations are visualized. IMPRESSION: No fractures or dislocations identified. Electronically signed by: Nicolas Gore M.D. 11/14/2017 7:26 PM Dictated Date/Time: 11/14/2017 7:25 PM CHEST ONE VIEW PORTABLE CLINICAL HISTORY: fever TRAUMA COMPARISON STUDY: 01/11/2017 FINDINGS: The cardiac and mediastinal contours are normal. There is no evidence of focal pulmonary consolidation. There is no evidence of failure. No pleural effusions are visualized.[ There is no pneumothorax. Advanced arthritic changes are present within the right shoulder. IMPRESSION: No active disease in the chest. Electronically signed by: Nicolas Gore M.D. 11/14/2017 7:25 PM Dictated Date/Time: 11/14/2017 7:24 PM Laboratory Results 11/14/17 18:25 Red Blood Count 4.31, Mean Corpuscular Volume 89.1, Mean Corpuscular Hemoglobin 29.7, Mean Corpuscular Hemoglobin Concent 33.3, Mean Platelet Volume 10.1, Neutrophils (%) (Auto) 77.0, Lymphocytes (%) (Auto) 9.3, Monocytes (%) (Auto) 12.2, Eosinophils (%) (Auto) 1.0, Basophils (%) (Auto) 0.1, Neutrophils # (Auto ) 5.49, Lymphocytes # (Auto) 0.66, Monocytes # (Auto) 0.87, Eosinophils # (Auto ) 0.07, Basophils # (Auto) 0.01 11/14/17 18:25 Test 11/14/17 00:00 11/14/17 18:25 11/14/17 18:32 11/14/17 18:39 Urine Color YELLOW Urine Appearance CLEAR (CLEAR) Urine pH 7.0 (4.5-7.5) Urine Specific [place] 1.013 (1.000-1.030) Urine Protein NEG (NEG) Urine Glucose (UA) TRACE (NEG) Urine Ketones NEG (NEG) Urine Occult Blood 1+ (NEG) Urine Nitrite NEG (NEG) Urine Bilirubin NEG (NEG) Urine Urobilinogen NEG (NEG) Urine Leukocyte Esterase NEG (NEG) Urine WBC (Auto) 1-5 /hpf (0-5) Urine RBC (Auto) 5-10 /hpf (0-4) Urine Hyaline Casts (Auto) 0 /lpf (0-5) Urine Epithelial Cells (Auto) 0-5 /lpf (0-5) Urine Bacteria (Auto) NEG (NEG) White Blood Count 7.13 K/uL (4.8-10.8) Red Blood Count 4.31 M/uL (4.2-5.4) Hemoglobin 12.8 g/dL (12.0-16.0) Hematocrit 38.4 % (37-47) Mean Corpuscular Volume 89.1 fL (80-100) Mean Corpuscular Hemoglobin 29.7 pg (25-34) Mean Corpuscular Hemoglobin Concent 33.3 g/dl (32-36) Platelet Count 167 K/uL (130-400) Mean Platelet Volume 10.1 fL (7.4-10.4) Neutrophils (%) (Auto) 77.0 % Lymphocytes (%) (Auto) 9.3 % Monocytes (%) (Auto) 12.2 % Eosinophils (%) (Auto) 1.0 % Basophils (%) (Auto) 0.1 % Neutrophils # (Auto) 5.49 K/uL (1.4-6.5) Lymphocytes # (Auto) 0.66 K/uL (1.2-3.4) Monocytes # (Auto) 0.87 K/uL (0.11-0.59) Eosinophils # (Auto) 0.07 K/uL (0-0.5) Basophils # (Auto) 0.01 K/uL (0-0.2) RDW Standard Deviation 40.2 fL (36.4-46.3) RDW Coefficient of Variation 12.5 % (11.5-14.5) Immature Granulocyte % (Auto) 0.4 % Immature Granulocyte # (Auto) 0.03 K/uL (0.00-0.02) Prothrombin Time 9.9 SECONDS (9.0-12.0) Prothromb Time International Ratio 0.9 (0.9-1.1) Estimated GFR () 75.0 Estimated GFR (Non- 64.7 BUN/Creatinine Ratio 11.7 (10-20) Calcium Level 8.8 mg/dl (8.5-10.1) Magnesium Level 1.5 mg/dl (1.8-2.4) Total Bilirubin 0.5 mg/dl (0.2-1) Direct Bilirubin 0.2 mg/dl (0-0.2) Aspartate Amino Transf (AST/SGOT) 12 U/L (15-37) Alanine Aminotransferase (ALT/SGPT) 27 U/L (12-78) Alkaline Phosphatase 99 U/L (45-117) Total Creatine Kinase 64 U/L (26-192) Creatine Kinase MB < 1.0 ng/ml (0.5-3.6) Creatine Kinase MB Ratio (0-3.0) Troponin I < 0.015 ng/ml (0-0.045) Total Protein 7.2 gm/dl (6.4-8.2) Albumin 3.3 gm/dl (3.4-5.0) Bedside Hemoglobin 12.2 g/dl (12.0-16.0) Bedside Hematocrit 36 % (37-47) Bedside Sodium 137 mEq/L (135-144) Bedside Potassium 3.7 mEq/L (3.3-5.0) Bedside Chloride 97 mEq/L (101-112) Bedside Total CO2 26 mEq/l (24-31) Anion Gap 18.0 mmol/L (16-25) Bedside Blood Urea Nitrogen 10 mg/dl (7-18) Bedside Creatinine 0.7 mg/dl (0.6-1.3) Bedside Glucose (other) 150 mg/dl (70-99) Bedside Ionized Calcium (Rocky) 1.09 mmol/l (1.12-1.32) Bedside Lactic Acid Venous 1.51 mmol/L (0.90-1.70) Laboratory results per my review. Medications Administered Medications (Trade) Dose Ordered Sig/Charis Route Start Time Stop Time Status Last Admin Dose Admin Sodium Chloride 1,000 ml @ 999 mls/hr Q1H1M STAT IV 11/14/17 18:05 11/14/17 19:05 DC 11/14/17 18:46 999 MLS/HR Ceftriaxone Sodium (Rocephin Inj) 1 gm NOW STAT IV 11/14/17 19:04 11/14/17 19:05 DC 11/14/17 19:18 1 GM Acetaminophen (Tylenol Tab) 1,000 mg NOW STAT PO 11/14/17 20:32 11/14/17 20:33 DC 11/14/17 20:58 1,000 MG Ibuprofen (Motrin Tab) 600 mg NOW STAT PO 11/14/17 22:06 11/14/17 22:07 DC 11/14/17 22:17 600 MG ECG Per My Interpretation Indication: back/shoulder pain Rate (beats per minute): 76 Rhythm: normal sinus Findings: left axis deviation, other (No PVC) ED Course ED COURSE: Vital signs were reviewed and showed hypertension The patients medical record was reviewed The above diagnostic studies were performed and reviewed. ED treatments and interventions as stated above. 175: The patient was evaluated in room B8. A complete history and physical examination was performed. 1805: Sodium Chloride 1000 ml @ 999 mls/hr 1904: Rocephin 1gm IV 2031: Tylenol 1000mg PO 2199: Reevaluated the patient and updated her on the treatment plan. 2205: Motrin 600mg PO 2226: Upon reevaluation, the patient is B8. I discussed my findings with the patient and she understands and agrees with the treatment plan. Based on the patients age, coexisting illnesses, exam and lab findings the decision to treat as an outpatient was made. The patient remained stable while under my care. The patient appeared well at the time of discharge. Medical Decision Differential diagnosis: Etiologies such as cellulitis, abscess, MRSA infection, DVT, necrotizing fasciitis, dermatitis, drug eruption, as well as others were entertained. Patient is a 77-year-old female who presents the ER for left arm pain. She notes she recently had surgery on the for her rotator cuff. On exam she does have a cellulitis over the dorsal aspect of her left hand. She was also found to be febrile upon presentation. She has no other complaints at this time. Vitals are stable. CBC along with BMP, LFTs, bilirubin and troponin were negative. UA is negative. Lactic acid was normal. Blood cultures were obtained. Patient was given fluids and IV Rocephin. She is updated bedside. She was monitored for close to 3 hours. She was otherwise well-appearing. She was discharged with a cellulitis of her left upper extremity. We did x-ray her hands, forearm and humerus secondary to the fall and that was unremarkable. Discussed with Pt concerning signs and symptoms to watch out for. Pt was instructed to follow up with their PCP and discussed with the patient their option to return to the ED at anytime for persistent or worsening symptoms. The appropriate anticipatory guidance and out-patient management, including indications for return to the emergency department, were explained at length to the patient and understood. Medication Reconcilliation Current Medication List: was personally reviewed by me Blood Pressure Screening Patient's blood pressure: Elevated blood pressure Blood pressure disposition: Elevated BP felt to be situational Impression Primary Impression: Cellulitis Additional Impression: Arm pain, left Scribe Attestation The scribe's documentation has been prepared under my direction and personally reviewed by me in its entirety. I confirm that the note above accurately reflects all work, treatment, procedures, and medical decision making performed by me. Departure Information Dispostion Home / Self-Care Prescriptions Cephalexin (KEFLEX) 500 Mg Cap 1 CAP PO TID for 10 Days, #30 CAP Prov: Corwin Beverly, 11/14/17 Referrals Thais Chiu M.D. (PCP) Forms HOME CARE DOCUMENTATION FORM, IMPORTANT VISIT INFORMATION Patient Instructions My [facility] Additional Instructions Please follow up with your primary care doctor with in the next 24 hours. Any worsening of your symptoms, please return to the ED immediately. This includes any fevers greater than 100.4, worsening pain, chest pain, shortness breath, persistent nausea, vomiting, unable to eat or drink, or any other concerning signs or symptoms from your standpoint. Any worsening redness, streaking redness up the arm, swelling of your arm or any other concerning signs or symptoms stated above please return to ER. Please take antibiotics as prescribed. Problem Qualifiers Primary Impression: Cellulitis Site of cellulitis: unspecified site Qualified Codes: L03.90 - Cellulitis, unspecified
== END 2017-11-14 22:27 | disposition home or self-care (01) ==
LOC: C.EDB 17:48
DX: L03.90 Cellulitis, unspecified (principal); M79.602 Pain in left arm; W19.XXXA Unspecified fall, initial encounter; M19.90 Unspecified osteoarthritis, unspecified site; N18.3 Chronic kidney disease, stage 3 (moderate); J44.9 Chronic obstructive pulmonary disease, unspecified; E11.9 Type 2 diabetes mellitus without complications; I10 Essential (primary) hypertension; Z88.8 Allergy status to other drugs, medicaments and biological substances; Z91.041 Radiographic dye allergy status; Z88.0 Allergy status to penicillin; Z88.5 Allergy status to narcotic agent

== ENCOUNTER 2024-08-01 19:23 | Inpatient (IN) ==
--- OUTSIDE RECORDS SUMMARY | 2024-08-01 19:28 | External Medical Summary | Summary of Care ---
Author Name Unknown Organization [facility] Address [address] [facility] [address] Phone [phone] Care Team Providers Care Lamp Assembler Name Role Phone Thais Chiu MD Primary Care Provide r Reason for Visit * Reason Onset Date Comments Med Request 06/30/2024 amLODIPine Besyl ate 2.5 MG Oral Tablet (Norvasc) Encounter Details Date Type Department Care Team (Late st Contact Info) Description 06/30/2024 Telephone Family Medicine [address] [phone] Thais Chiu MD [address] [place] [id number] Med Request (amLODIPine Besylate 2.5 MG Or... Allergies Active Allergy Reactions Criticality Noted Date Comments Fantasma Inhibitors 09/27/1999 Prinivil--cough Adhesive Tape 09/27/1999 Bactrim Itching 04/15/2007 Barbiturates 09/27/1999 Cozaar Cough 12/16/2009 Duloxetine Hcl 09/23/2017 Vx-Zoqwob-Guwimkue-Scopola mine Hives 02/11/2015 Iodine 11/07/1982 Nortriptyline Hives Penicillins 09/27/1999 reaction as a child Phenytoin Sodium 09/27/1999 itching Povidone Iodine 09/27/1999 betadine Quinine Sulfate Dihydrate 12/23/2002 diarrhea Tramadol Hcl Nausea/vomiting 12/16/2009 documented as of this encounter (statuses as of 06/30/2024) Medications Blood Glucose Monitoring Suppl (FREESTYLE FREEDOM LITE) w/Device KIT Dx Code E11.9 1 Kit 06/28/19 18 Active Additional Information Patient taking differently: TID(AM/NOON/HS), Dx Code E11.9,Indications: Use to Test Blood Sugars 3 times a day. DX Code E11.9-Doispense 300 with 1 refill 07-11-17 via phone, Reported on 05/18/2024 Blood Pressure KITIndications: HTN, goal below 140/90 Use per physician instructions 1 Kit 04/03/19 19 Active FreeStyle Lancets MISC USE DIRECTED TO TEST BLOOD SUGAR 3 TIMES DAILY. E11.9 300 Each 3 11/07/19 20 Active Womens 50+ Multi Vitamin/Min Oral Tablet Take by mouth. Act roxana Magnesium 400 MG Oral Tablet Take 400 mg by mouth. Active Nystatin 308949 UNIT/GM External Powder (Nystop)Indicat ions:Cutaneous candidiasis Apply topically to affected area 3 times a day . 30 g 2 11/24/19 22 Active Clobetasol Propionate 0.05 % External Ointment (Temovate)Indic ations:Subacute vaginitis Apply topically to affected area 2 times a day. To affected area for up to two weeks. 15 g 1 10/27/19 23 Active Clotrimazole 1 % External Cream (Lotrimin)Indic ations:Vulvar candidiasis Apply topically to affected area 2 times a day. For 14 days to affected area. 28 g 01/02/20 23 Active Acetaminophen 500 MG Oral Tablet (Tylenol) Take 1 Tablet by mouth every 6 hours as needed (pain or fever). 100 Tablet 1 01/23/20 23 Active Iron (Ferrous Sulfate) 325 (65 Fe) MG Oral Tablet Take by mouth. Activ e Gabapentin 300 MG Oral Capsule (Neurontin) Take 1 Capsule by mouth in the morning and 1 Capsule before bedtime. 180 Capsule 3 07/16/19 24 Active Furosemide 20 MG Oral Tablet (Lasix)Indicati ons:Edema, unspecified type,HTN, goal below 140/90,CKD (chronic kidney disease) stage 3, GFR 30-59 ml/min ([facility]) TAKE 1 TABLET DAILY ON SATURDAY, SATURDAY AND SATURDAY ONLY 36 Tablet 3 08/29/19 24 Active FreeStyle Lite Test In Vitro Strip (Glucose Blood) Use as directed 2 times a day. 200 Strip 2 08/29/19 24 Active Montelukast Sodium 10 MG Oral Tablet (Singulair)Lizet cations:Allergi c rhinitis Take 1 Tablet by mouth in the morning. 90 Tablet 3 12/23/19 24 Active glipiZIDE ER 2.5 MG Oral Tablet Extended Release 24 Hour (glipiZIDE XL) Take 1 Tablet by mouth in the morning. 30 minutes before a meal.. 90 Tablet 1 02/07/20 24 Active Simvastatin 10 MG Oral Tablet (Zocor)Indicati ons:Dyslipidemi a, goal LDL below 100 Take 1 Tablet by mouth at bedtime. 90 Tablet 1 02/07/20 24 Active Gemtesa 75 MG Oral Tablet (Vibegron)Indic ations:Urge incontinence,OA B (overactive bladder) Take 1 Tablet by mouth in the morning. 90 Tablet 3 02/14/20 24 Active Acetaminophen ER 650 MG Oral Tablet Extended Release (Tylenol 8 Hour Arthritis Pain) Take 1 Tablet by mouth every 8 hours as needed. Active Famotidine 20 MG Oral Tablet (Pepcid) Take 1 Tablet by mouth in the morning and 1 Tablet before bedtime. 180 Tablet 1 03/06/20 24 Active metFORMIN HCl ER 500 MG Oral Tablet Extended Release 24 Hour (Glucophage XR)Indications: Type 2 diabetes mellitus with hemoglobin A1c goal of less than 8.0% ([facility]) Take 1 Tablet by mouth in the morning. 90 Tablet 1 05/18/19 25 Active amLODIPine Besylate 2.5 MG Oral Tablet (Norvasc) Take 1 Tablet by mouth in the morning and 1 Tablet before bedtime. 180 Tablet 1 07/01/19 25 Active amLODIPine Besylate 2.5 MG Oral Tablet (Norvasc) Take 1 Tablet by mouth in the morning and 1 Tablet before bedtime. 06/02/19 25 025 Discontin ued(Refil l) documented as of this encounter (statuses as of 06/30/2024) Active Problems Problem Noted Date Diagnosed Date Iron deficiency anemia 11/23/2021 Hypomagnesemia 11/23/2021 Type 2 diabetes mellitus wit h stage 3a chronic kidney disease 08/02/2020 Overview: Per CKD protocol Hypertensive kidney disease with stage 3a chronic kidney disease 02/01/2020 Overview: Per CKD protocol Senile osteoporosis 04/17/2018 History of compression fracture of spine 018 Status post right hip replacement 05/01/2017 Essential hypertension with goal blood pressure less than 140/90 09/02/2015 Diabetes mellitus with background retinopathy Overview (06/09/2015): ICD-10 update of inactive term Dyslipidemia, goal LDL below 100 02/17/2010 Type 2 diabetes mellitus wit h hemoglobin A1c goal of less than 8.0% 01/20/2009 Overview (07/19/2015): Per Diabetes Taxonomy. ICD-10 update of inactive term Knee joint replacement status 01/20/2008 Diabetic polyneuropathy 04/12/2003 DIVERTICULOSIS OF COLON 03/12/2003 FEM STRESS INCONTINENCE Other allergic rhinitis Overview (01/15/2017): ICD-10 update of inactive term Lumbar spinal stenosis documented as of this encounter (statuses as of 06/30/2024) Resolved Problems Problem Noted Date Diagnosed Date Resolved Date Chronic kidney disease, stage 3a 08/02/2020 10/26/2022 Overview: Per CKD protocol Hypertensive kidney disease with chronic kidney disease stage III 10/16/2018 02/04/2020 Overview: Per CKD protocol Diabetes mellitus with stage 3 chronic kidney disease 11/05/2017 08/04/2020 Overview: Per CKD protocol #1 - Chronic kidney disease due t o type 2 diabetes mellitus 12/18/2016 11/09/2017 Overview: Per CKD protocol #1 - Hyperkalemia 11/28/2016 11/23/2021 Overview (12/03/2016): K+ 6.0 Normocytic anemia 11/28/2016 10/26/2021 CKD (chronic kidney disease), stage III 06/17/2012 05/08/2018 Overview (06/18/2012): GFR 54.8 HTN, goal below 150/90 11/12/201112/03 Overview: Per HTN Protocol #27. COPD, moderate 01/04/2011 04/15/2015 L-spine stenosis w/o neurogenic claudication 06/14/2015 Asthma with severity to be determined 09/15/2009 04/15/2015 Overview (07/04/2015): Per Asthma Taxonomy ICD-10 update of inactive term HTN, GOAL BELOW 130/80 04/20/200911/14 Overview (04/20/2009): Modified per HTN Taxonomy. HTN, GOAL BELOW 140/90 01/28/200904/20 Overview (04/20/2009): Modified per HTN Taxonomy. DM TYPE 2 CAUSING NEURO DZ 01/20/2009 0 04/15/2018 Overview (01/20/2009): Per Diabetes Taxonomy. DM TYPE 2 CAUSING EYE DZ, NOT AT GOAL 01/20/2009 06/14/2015 Overview (01/20/2009): Per Diabetes Taxonomy. ADVANCE DIRECTIVE INFORMATION 08/14/2005 01/27/2024 Overview (08/14/2005): Yes, Patient instructed to provide copy of advance directive for provider to review and to be scanned into Electronic Medical Record Extrinsic asthma with exacerbation 08/25/2003 09/15/2009 Overview (07/05/2015): ICD-10 update of inactive term DM type 2 causing eye disease, not at goal 12/30/2001 01/20/2009 Overview (01/20/2009): Per Diabetes Taxonomy. LOC PRIM [id number] 12/30/200103/26 Edema 12/30/2001 04/15/2015 JOINT PAIN-SHLDER 04/24/2001 04/15/2015 CHR AIRWAY OBSTRUCT NEC 12/23 DIAB NEURO MANIF ADULT 01/20 Overview (01/20/2009): Per Diabetes Taxonomy. Need for prophylactic hormon e replacement therapy (postmenopausal) 04/15/2015 CA IN SITU CERVIX UTERI 03/26 BENIGN HYPERTENSION 01/29/20 09 Overview (01/28/2009): Modified per HTN Taxonomy. Type 2 diabetes mellitus wit h hemoglobin A1c goal of less than 7.0% 01/20/2009 Overview (07/19/2015): Per Diabetes Taxonomy. ICD-10 update of inactive term Traumatic compression fractu re of T12 thoracic vertebra, with routine healing, subsequent encounter 10/26/2021 documented as of this encounter (statuses as of 06/30/2024) Immunizations Name Administration Dates Next Due COVID-19 mRNA, LNP-s, No Pre serve, 2-Dose Series (Moderna) 07/12/2020,06/14/2020 HEP A - Hepatitis A (Adult > 18 yrs) 11/12/2019, 05/01/2019 Pneumococcal Conjugate Vacc, 13 Valent (Prevnar) 08/01/2015 Pneumococcal Polysaccharide PPV23 (Pneumovax) 09/18/2006 Season Influenza, Quad, PF, Adjuvanted, 65+ Yrs, IM (FLUAD) 01/25/2023 Seasonal Influenza Vac., MDV , IM, 0.5 mL (Fluzone) 01/01/2014,12/26/2012,12/28/2011,12/27,12/16/2009,12/13/2008,01/30/2008 ,01/28/2007 Seasonal Influenza, High Dos e, Trivalent, PF, IM (Fluzone HD) 01/02/2024 Seasonal Influenza, PF, 6 M & above, IM , (FluLaval or Fluzone) 12/30/2017 Seasonal Influenza, Quadriva lent Hd (Fluzone Hd) 11/23/2021 Seasonal Influenza, Quadriva lent Hd, 65+ Yrs 12/23/2019 Seasonal Influenza, Quadriva lent, No Preserve, IM 12/03/2016,03/16/2016,12/17/2014 Seasonal Influenza, Trivalen t, Adjuvanted, 65+ YRS, PF, (Fluad) 01/07/2021,12/31/2018 TD, Preservative Free 11/08/2007 TDAP (age 10 and older)(Boostrix) 10/16/2018 Varicella Zoster Vaccine Jaya lt (Zostavax) 02/06/2012 Zoster Vaccine Recombinant (Shingrix) 12/16/2019 ,10/15/2019 documented as of this encounter Social History Tobacco Use Types Packs/Day Years Used Date Smoking Tobacco: Never Smokeless Tobacco: Never Comments:2nd hand smoke from Alcohol Use Standard Drinks/Week Comments No 0 (1 standard drink = 0.6 oz pur e alcohol) PHQ-2 Answer Date Recorded PHQ Adult Total Score 0 05/18/2024 Hunger Vital Sign Answer Date Recorded Within the past 12 months, y ou worried that your food would run out before you got the money to buy more. Never true 10/13/19 22 Within the past 12 months, t he food you bought just didn't last and you didn't have money to get more. 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 The following information was provided: Medication Name: amLODIPine Besylate 2.5 MG Oral Tablet (Norvasc) Strength: 2.5mg Directions: Take 1 Tablet by mouth in the morning and 1 Tablet before bedtime Preferred Quantity: 180 Previous Prescriber: Yenifer Ly MD Preferred Pharmacy: [facility] Please review and approve if appropriate. Thank you, Monserrat Benitez [employer] [facility] 06/30/2024, 10:30 AM documented in this encounter Plan of Treatment Upcoming Encounters Date Type Department Care Team (Late st Contact Info) Description 07/23/2024 2:00 PM EDT Scheduled Telephone [facility] [address] [place] [phone] Teddy Nurse Phone Call Interventional Pain [facility] [address] [place] [address] 10/01/2024 2:00 PM EDT Office Visit Nephrology [address] [place] [phone] Tatyana Wall PA-C [address] [facility] [place] [address] 12/28/2024 5:40 PM EDT Office Visit Family Medicine [address] [place] [phone] Thais Chiu MD [address] [place] [address] [place] [address] 03/09/2025 10:40 AM EST Office Visit Rheumatology [facility] [address] [place] [phone] Logan Mireles MD [facility] [place] [address] 05/17/2025 5:40 PM EST Office Visit Family Medicine [address] [place] [phone] Thais Chiu MD [address] [place] [address] [place] [address] 07/01/2025 10:00 AM EDT Imaging Radiology [address] [place] [address] Health Maintenance Due Date Last Done Comments Adult Wellness Visit 10/12/2022 10/12/2021, 09/30/19 *BISPHONATE OR OTHER ACCEPTABLE MEDICATION NEEDED FOR OSTEOPOROSIS (REFER TO SMARTSET #1146) 03/24/2023 Diabetic Foot Exam 10/27/2023 10/26/2022, 0 10/12/2021, 09/29/2020, Additional history exists COVID-19 Vaccine ( season) 2023 07/12/2020, 06/14/2020 HbA1c 08/13/2024 02/14/2024, 10/24, 03/08/2023, Additional history exists GFR 09/30/2024 04/02/2024, 06/0 08/2023, 03/08/2023, Additional history exists B-12 11/20/2024 11/21/2023, 09/23, 10/26/2021, Additional history exists CKD HGB USE SMARTSET 06748 11/20/202411/20, 04/26/2022, 04/26/2022, Additional history exists CKD PHOS USE SMARTSET 31933 11/20/202410/24, 10/18/2022, 10/26/2021, Additional history exists Albumin/Creatinine Ratio 11/27/2024 024, 10/18/2022, 10/26/2021, Additional history exists Diabetic Eye Exam 01/22/2025 01/23/2024, , 01/10/2023, Additional history exists Depression Screening 05/18/2025 05/18/2024 DXA Scan 08/11/2025 08/12/2023, 07/24, 11/16/2020, Additional history exists DTap/Tdap Vaccines (2 - Td or Tdap) 10/16/2028 10/16/2018, 11/08/2007 Pneumococcal Vaccine: 50+ Years Completed 08/01/2015, 09/18/2006 Zoster Vaccines Completed 12/16/2019, 09/23, 02/06/2012 RETIRED - COLONOSCOPY-EVERY 5 YRS AGES 18-100 Discontinued 04/04/2021, 04/04/2021, 01/23/2016, Additional history exists Influenza Vaccine (FLU shot) Completed 01/02/2024, 01/25/2023, 11/23/2021, Additional history exists VITAMIN D LEVEL ONCE IN A LIFETIME-USE SMARTSET# 00487 Completed 04/02/2024, 03/08/2023, 03/01/2022, Additional history exists HPV (Gardasil) Vaccine Aged Out No lo nger eligible based on patient's age to complete this topic Hepatitis B Vaccine Aged Out No longe r eligible based on patient's age to complete this topic MENINGOCOCCAL (MENACTRA/MENVEO) Aged Out No longer eligible based on patient's age to complete this topic Meningitis B Vaccine (Bexsero/Trumemba) Aged Out No longer eligible based on patient's age to complete this topic documented as of this encounter Medical Devices Not on filedocumented as of this encounter Care Teams Lamp Assembler Relationship Specialty Start Date End Date Thais Chiu MD [address] [place] [address] [place] [phone] PCP - General Family Medicine 12/19/23 documented as of this encounter
--- OUTSIDE RECORDS SUMMARY | 2024-08-01 19:28 | External Medical Summary | Summary of Care ---
Author Name Unknown Organization [facility] Address [address] [place] [facility] [place] [address] Phone [phone] Care Team Providers Care Locomotive Crane Operator Helper Name Role Phone Thais Chiu MD Primary Care Provide r Reason for Visit * Reason Onset Date Comments Test Results 06/01/2024 Encounter Details Date Type Department Care Team (Late st Contact Info) Description 06/01/2024 Telephone Nephrology, [place] [address] [facility] [place] [address] Yenifer Ly MD [address] [facility] [place] [address] Test Results Allergies Active Allergy Reactions Criticality Noted Date Comments Fantasma Inhibitors 09/27/1999 Prinivil--cough Adhesive Tape 09/27/1999 Bactrim Itching 04/15/2007 Barbiturates 09/27/1999 Cozaar Cough 12/16/2009 Duloxetine Hcl 09/23/2017 Th-Kkpaoe-Dlqxotgl-Scopola mine Hives 02/11/2015 Iodine 11/07/1982 Nortriptyline Hives Penicillins 09/27/1999 reaction as a child Phenytoin Sodium 09/27/1999 itching Povidone Iodine 09/27/1999 betadine Quinine Sulfate Dihydrate 12/23/2002 diarrhea Tramadol Hcl Nausea/vomiting 12/16/2009 documented as of this encounter (statuses as of 06/01/2024) Medications Blood Glucose Monitoring Suppl (FREESTYLE FREEDOM LITE) w/Device KIT Dx Code E11.9 1 Kit 06/28/19 18 Active Additional Information Patient taking differently: TID(AM/NOON/HS), Dx Code E11.9,Indications: Use to Test Blood Sugars 3 times a day. DX Code E11.9-Doispense 300 with 1 refill 07-11-17 via phone, Reported on 05/18/2024 Blood Pressure KITIndications :HTN, goal below 140/90 Use per physician instructions 1 Kit 04/03/19 19 Active FreeStyle Lancets MISC USE DIRECTED TO TEST BLOOD SUGAR 3 TIMES DAILY. E11.9 300 Each 3 11/07/19 20 Active Womens 50+ Multi Vitamin/Min Oral Tablet Take by mouth. Act roxana Magnesium 400 MG Oral Tablet Take 400 mg by mouth. Active Nystatin 128927 UNIT/GM External Powder (Nystop)Indica tions:Cutaneou s candidiasis Apply topically to affected area 3 times a day . 30 g 2 11/24/19 22 Active Clobetasol Propionate 0.05 % External Ointment (Temovate)Lizet cations:Subacu te vaginitis Apply topically to affected area 2 times a day. To affected area for up to two weeks. 15 g 1 10/27/19 23 Active Clotrimazole 1 % External Cream (Lotrimin)Lizet cations:Vulvar candidiasis Apply topically to affected area 2 times a day. For 14 days to affected area. 28 g 01/02/20 23 Active Acetaminophen 500 MG Oral Tablet (Tylenol) Take 1 Tablet by mouth every 6 hours as needed (pain or fever). 100 Tablet 1 01/23/20 23 Active Iron (Ferrous Sulfate) 325 (65 Fe) MG Oral Tablet Take by mouth. Act roxana Gabapentin 300 MG Oral Capsule (Neurontin) Take 1 Capsule by mouth in the morning and 1 Capsule before bedtime. 180 Capsule 3 07/16/19 24 Active Furosemide 20 MG Oral Tablet (Lasix)Indicat ions:Edema, unspecified type,HTN, goal below 140/90,CKD (chronic kidney disease) stage 3, GFR 30-59 ml/min ([facility]) TAKE 1 TABLET DAILY ON SATURDAY, SATURDAY AND SATURDAY ONLY 36 Tablet 3 08/29/19 24 Active FreeStyle Lite Test In Vitro Strip (Glucose Blood) Use as directed 2 times a day. 200 Strip 2 08/29/19 24 Active Montelukast Sodium 10 MG Oral Tablet (Singulair)Ind ications:Aller gic rhinitis Take 1 Tablet by mouth in the morning. 90 Tablet 3 12/23/19 24 Active glipiZIDE ER 2.5 MG Oral Tablet Extended Release 24 Hour (glipiZIDE XL) Take 1 Tablet by mouth in the morning. 30 minutes before a meal.. 90 Tablet 1 02/07/20 24 Active Simvastatin 10 MG Oral Tablet (Zocor)Indicat ions:Dyslipide iqra, goal LDL below 100 Take 1 Tablet by mouth at bedtime. 90 Tablet 1 02/07/20 24 Active Gemtesa 75 MG Oral Tablet (Vibegron)Lizet cations:Urge incontinence,O AB (overactive bladder) Take 1 Tablet by mouth [...] Oral Tablet Extended Release 24 Hour (Glucophage XR)Indications :Type 2 diabetes mellitus with hemoglobin A1c goal of less than 8.0% ([facility]) Take 1 Tablet by mouth in the morning. 90 Tablet 1 05/18/19 25 Active amLODIPine Besylate 2.5 MG Oral Tablet (Norvasc) Take 1 Tablet by mouth in the morning and 1 Tablet before bedtime. 06/02/19 25 Active amLODIPine Besylate 2.5 MG Oral Tablet (Norvasc) Take 1 Tablet by mouth in the morning. 90 Tablet 1 02/07/20 24 025 Discontinued documented as of this encounter (statuses as of 06/01/2024) Active Problems Problem Noted Date Diagnosed Date [...] as of this encounter (statuses as of 06/01/2024) Resolved Problems Problem Noted Date Diagnosed Date [...] GFR 54.8 HTN, goal below 150/90 11/12/201112/03 /2017 Overview: Per HTN Protocol #27. COPD, moderate [...] Overview (01/20/2009): Per Diabetes Taxonomy. LOC PRIM [id number] 12/30/200103/26 Edema 12/30/2001 04/15/2015 JOINT PAIN-SHLDER 04/24/2001 04/15/2015 CHR AIRWAY OBSTRUCT NEC 12/23 DIAB NEURO MANIF ADULT 01/20 Overview (01/20/2009): Per Diabetes Taxonomy. Need for prophylactic hormon e replacement therapy (postmenopausal) 04/15/2015 CA IN SITU CERVIX UTERI 03/26 BENIGN HYPERTENSION 01/29/20 Overview (01/28/2009): Modified per HTN Taxonomy. Type 2 diabetes mellitus wit h hemoglobin A1c goal of less than 7.0% 01/20/2009 Overview (07/19/2015): Per Diabetes Taxonomy. 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 She is aware to increase Amlodipine to twice daily and to continue Lasix as ordered. Aware to continue other meds as ordered. Message sent via [employer]. * Telephone Encounter - Damari Wong RN - 06/01/2024 10:39 AM EDT ----- Message from Yenifer Ly MD sent at 05/29/2024 3:19 PM EST ----- See tel encounter 05/29/24 documented in this encounter Plan of Treatment Upcoming Encounters Date Type Department Care Team (Latest Contact Info) Description 06/05/2024 10:25 AM EDT Hospital Encounter OR [facility], Operating Room [facility] [address] [place] [phone] Pio Michaud, DO [address] [place] [phone] 06/05/2024 10:25 AM EDT - 06/05/2024 10:50 AM EDT Surgery OR [facility], Operating Room [facility] [address] [place] [phone] Pio Michaud, [address] [place] [phone] INJECT ANESTHETIC AND/OR STEROID SACROILIAC 06/18/2024 12:30 PM EDT Imaging Radiology [address] [place] [address] 10/01/2024 2:00 PM EDT Office Visit Nephrology [address] [place] [address] Tatyana Wall PA-C [address] [place] [address] 12/28/2024 5:40 PM EDT Office Visit Family Medicine [address] [place] [phone] Thais Chiu MD [address] [place] [address] [place] [address] 03/09/2025 10:40 AM EST Office Visit Rheumatology [facility] [place] [address] [place] [phone] Logan Mireles MD [facility] [place] [address] 05/17/2025 5:40 PM EST Office Visit Family Medicine [address] [place] [phone] Thais Chiu MD [address] [place] [address] [place] [address] Scheduled Procedures Name Priority Associated Diagnoses Date/Ti me INJECT ANESTHETIC AND/OR STEROID SACROILIAC Inflammation of sacroiliac joint (HCC) 06/05/2024 10:25 AM EDT Health Maintenance Due Date Last Done Comments Adult Wellness Visit 10/12/2022 10/12/2021, 09/30/19 21 *BISPHONATE OR OTHER ACCEPTABLE MEDICATION NEEDED FOR OSTEOPOROSIS (REFER TO SMARTSET #1146) 03/24/2023 Diabetic Foot Exam 10/27/2023 10/26/2022, 0 10/12/2021, 09/29/2020, Additional history exists COVID-19 Vaccine ( season) 2023 07/12/2020, 06/14/2020 HbA1c 08/13/2024 02/14/2024, 10/24, 03/08/2023, Additional history exists GFR 09/30/2024 04/02/2024, 06/0 08/2023, 03/08/2023, Additional history exists B-12 11/20/2024 11/21/2023, 09/23, 10/26/2021, Additional history exists CKD HGB USE SMARTSET 28378 11/20/202411/20, 04/26/2022, 04/26/2022, Additional history exists CKD PHOS USE SMARTSET 45510 11/20/202410/24, 10/18/2022, 10/26/2021, Additional history exists Albumin/Creatinine [...] D LEVEL ONCE IN A LIFETIME-USE SMARTSET# 21592 Completed 04/02/2024, 03/08/2023, 03/01/2022, Additional history exists [...] filedocumented as of this encounter Care Teams Locomotive Crane Operator Helper Relationship Specialty Start Date End Date Thais Chiu MD [address] [place] [address] [place] [phone] PCP - General Family Medicine 12/19/23 documented as of this encounter
--- OUTSIDE RECORDS SUMMARY | 2024-08-01 19:28 | External Medical Summary | Summary of Care ---
Author Name Unknown Organization [facility] Address [address] [place] [address] Phone [phone] Care Team Providers Care Can Patcher Name Role Phone Thais Chiu MD Primary Care Provide r Reason for Visit * Reason Onset Date Comments Nurse Telephone Follow Up 07/23/2024 Encounter Details Date Type Department Care Team (Late st Contact Info) Description 07/23/2024 2:00 PM EDT Scheduled Telephone Interventional Pain Center [facility] [address] [place] [phone] [facility] [address] [place] [phone] Arrived Allergies Active Allergy Reactions Criticality Noted Date Comments Fantasma Inhibitors 09/27/1999 Prinivil--cough Adhesive Tape 09/27/1999 Bactrim Itching 04/15/2007 Barbiturates 09/27/1999 Cozaar Cough 12/16/2009 Duloxetine Hcl 09/23/2017 Un-Mraavv-Fyrcezjt-[place] mine Hives 02/11/2015 Iodine 11/07/1982 Nortriptyline Hives Penicillins 09/27/1999 reaction as a child Phenytoin Sodium 09/27/1999 itching Povidone Iodine 09/27/1999 betadine Quinine Sulfate Dihydrate 12/23/2002 diarrhea Tramadol Hcl Nausea/vomiting 12/16/2009 documented as of this encounter (statuses as of 07/23/2024) Medications Blood Glucose Monitoring Suppl (FREESTYLE FREEDOM LITE) w/Device KIT Dx Code E11.9 1 Kit 8 Active Additional Information Patient taking differently: TID(AM/NOON/HS), Dx Code E11.9,Indications: Use to Test Blood Sugars 3 times a day. DX Code E11.9-Doispense 300 with 1 refill 07-11-17 via phone, Reported on 05/18/2024 Blood Pressure KITIndications: HTN, goal below 140/90 Use per physician instructions 1 Kit 9 Active FreeStyle Lancets MISC USE DIRECTED TO TEST BLOOD SUGAR 3 TIMES DAILY. E11.9 300 Each 3 0 Active Womens 50+ Multi Vitamin/Min Oral Tablet Take by mouth. Act roxana Magnesium 400 MG Oral Tablet Take 400 mg by mouth. Active Nystatin 124269 UNIT/GM External Powder (Nystop)Indicat ions:Cutaneous candidiasis Apply topically to affected area 3 times a day . 30 g 2 2 Active Clobetasol Propionate 0.05 % External Ointment (Temovate)Indic ations:Subacute vaginitis Apply topically to affected area 2 times a day. To affected area for up to two weeks. 15 g 1 3 Active Clotrimazole 1 % External Cream (Lotrimin)Indic ations:Vulvar candidiasis Apply topically to affected area 2 times a day. For 14 days to affected area. 28 g 3 Active Acetaminophen 500 MG Oral Tablet (Tylenol) Take 1 Tablet by mouth every 6 hours as needed (pain or fever). 100 Tablet 1 3 Active Iron (Ferrous Sulfate) 325 (65 Fe) MG Oral Tablet Take by mouth. Activ e Gabapentin 300 MG Oral Capsule (Neurontin) Take 1 Capsule by mouth in the morning and 1 Capsule before bedtime. 180 Capsule 3 4 Active Furosemide 20 MG Oral Tablet (Lasix)Indicati ons:Edema, unspecified type,HTN, goal below 140/90,CKD (chronic kidney disease) stage 3, GFR 30-59 ml/min ([facility]) TAKE 1 TABLET DAILY ON SATURDAY, SATURDAY AND SATURDAY ONLY 36 Tablet 3 4 Active FreeStyle Lite Test In Vitro Strip (Glucose Blood) Use as directed 2 times a day. 200 Strip 2 4 Active Montelukast Sodium 10 MG Oral Tablet (Singulair)Lizet cations:Allergi c rhinitis Take 1 Tablet by mouth in the morning. 90 Tablet 3 4 Active glipiZIDE ER 2.5 MG Oral Tablet Extended Release 24 Hour (glipiZIDE XL) Take 1 Tablet by mouth in the morning. 30 minutes before a meal.. 90 Tablet 1 4 Active Simvastatin 10 MG Oral Tablet (Zocor)Indicati ons:Dyslipidemi a, goal LDL below 100 Take 1 Tablet by mouth at bedtime. 90 Tablet 1 4 Active Gemtesa 75 MG Oral Tablet (Vibegron)Indic ations:Urge incontinence,OA B (overactive bladder) Take 1 Tablet by mouth in the morning. 90 Tablet 3 4 Active Acetaminophen ER 650 MG Oral Tablet Extended Release (Tylenol 8 Hour Arthritis Pain) Take 1 Tablet by mouth every 8 hours as needed. Active Famotidine 20 MG Oral Tablet (Pepcid) Take 1 Tablet by mouth in the morning and 1 Tablet before bedtime. 180 Tablet 1 4 Active metFORMIN HCl ER 500 MG Oral Tablet Extended Release 24 Hour (Glucophage XR)Indications: Type 2 diabetes mellitus with hemoglobin A1c goal of less than 8.0% ([facility]) Take 1 Tablet by mouth in the morning. 90 Tablet 1 5 Active amLODIPine Besylate 2.5 MG Oral Tablet (Norvasc) Take 1 Tablet by mouth in the morning and 1 Tablet before bedtime. 180 Tablet 1 5 Active documented as of this encounter (statuses as of 07/23/2024) Active Problems Problem Noted Date Diagnosed Date [...] as of this encounter (statuses as of 07/23/2024) Resolved Problems Problem Noted Date Diagnosed Date [...] Overview (01/20/2009): Per Diabetes Taxonomy. 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 Michaud on 06/05/24. Patient reports 80% of reduction in pain currently. Patient rates pain 0/10 on pain scale at this time. Patient pain is intermittent achy radiating down the left leg from hip to the knee. Patient is happy with injection and will return call to the office when pain returns. documented in this encounter Plan of Treatment Upcoming Encounters Date Type Department Care Team (Late st Contact Info) Description 10/01/2024 2:00 PM EDT Office Visit Nephrology [address] [place] [phone] Tatyana Wall PA-C [address] [place] [address] 12/28/2024 5:40 PM EDT Office Visit Family Medicine [address] [phone] Thais Chiu MD [address] [place] [address] [place] [phone] 03/09/2025 10:40 AM EST Office Visit Rheumatology [facility] [address] [place] [phone] Logan Mireles MD [address] [place] [phone] 05/17/2025 5:40 PM EST Office Visit Family Medicine [address] [place] [phone] Thais Chiu MD [address] [place] [address] [place] [phone] 07/01/2025 10:00 AM EDT Imaging Radiology [address] [place] [phone] Health Maintenance Due Date Last Done Comments [...] Additional history exists CKD HGB USE SMARTSET 17532 11/20/202411/20, 04/26/2022, 04/26/2022, Additional history exists CKD PHOS USE SMARTSET 64899 11/20/202410/24, 10/18/2022, 10/26/2021, Additional history exists Albumin/Creatinine [...] D LEVEL ONCE IN A LIFETIME-USE SMARTSET# [id number] Completed 04/02/2024, 03/08/2023, 03/01/2022, Additional history exists [...] filedocumented as of this encounter Care Teams Can Patcher Relationship Specialty Start Date End Date Thais Chiu MD [address] [place] [address] [place] [phone] PCP - General Family Medicine 12/19/23 documented as of this encounter
--- OUTSIDE RECORDS SUMMARY | 2024-08-01 19:28 | External Medical Summary | Summary of Care ---
Author Name Unknown Organization [facility] Address [address] [facility] [place] [address] Phone [phone] Care Team Providers Care Cart Pusher Name Role Phone Thais Chiu MD Primary Care Provide r Reason for Visit * Auth/Cert Specialty Diagnoses / Procedures Referred By Contac t Referred To Contact Diagnoses Inflammation of sacroiliac joint (HCC) Inflammation of sacroiliac joint (HCC) [M46.1] Procedures INJECT ANESTHETIC AND/OR STEROID; SACROILIAC JOINT, W/ IMAGE GUIDANCE INJECT ANESTHETIC AND/OR STEROID SACROILIAC Pio Michaud DO [address] [place] [address] Phone: tel: fax: OR [facility], Operating Room [facility] [address] [place] [address] Phone: tel: Referral ID Status Reason Start Date Expiration Date Visits Re quested Visits Authorized [id number] Encounter Details Date Type Department Care Team (Latest Contact Info) Description 06/05/2024 9:52 AM EDT - 06/05/2024 10:55 AM EDT Hospital Encounter OR [facility], Operating Room [facility] [address] [place] [address] Pio Michaud DO [address] [place] [address] Discharge Disposition: Home - Self Care Allergies Active Allergy Reactions Criticality Noted Date Comments Fantasma Inhibitors 09/27/1999 Prinivil--cough Adhesive Tape 09/27/1999 Bactrim Itching 04/15/2007 Barbiturates 09/27/1999 Cozaar Cough 12/16/2009 Duloxetine Hcl 09/23/2017 [place]-Aotbsy-Biowfmwk-[place] mine Hives 02/11/2015 Iodine 11/07/1982 Nortriptyline Hives Penicillins 09/27/1999 reaction as a child Phenytoin Sodium 09/27/1999 itching Povidone Iodine 09/27/1999 betadine Quinine Sulfate Dihydrate 12/23/2002 diarrhea Tramadol Hcl Nausea/vomiting 12/16/2009 documented as of this encounter (statuses as of 06/06/2024) Medications Blood Glucose Monitoring Suppl (FREESTYLE FREEDOM [...] Take 400 mg by mouth. Active Nystatin 027228 UNIT/GM External Powder (Nystop)Indicat ions:Cutaneous candidiasis Apply [...] kidney disease) stage 3, GFR 30-59 ml/min ([facility]) TAKE 1 TABLET DAILY ON SATURDAY, SATURDAY [...] hemoglobin A1c goal of less than 8.0% ([facility]) Take 1 Tablet by mouth in the morning. 90 Tablet 1 5 Active amLODIPine Besylate 2.5 MG Oral Tablet (Norvasc) Take 1 Tablet by mouth in the morning and 1 Tablet before bedtime. 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 file Not on file Not on file documented as of this encounter Last Filed Vital Signs Vital Sign Reading Time Taken Comments Blood Pressure 180/79 06/05/2024 10:53 AM EDT Pulse 67 06/05/2024 10:53 AM EDT Temperature 36.7 °C (98.1 °F) 06/05/2024 10:12 AM E DT Respiratory Rate 18 06/05/2024 10:53 AM EDT Oxygen Saturation 99% 06/05/2024 10:53 AM EDT Inhaled Oxygen Concentration - - Weight 72.1 kg (159 lb) 06/05/2024 10:12 AM EDT Height 160 cm (5' 3") 06/05/2024 10:12 AM EDT Body Mass Index 28.17 06/05/2024 10:12 AM EDT documented in this encounter Discharge Instructions * Discharge Instr - AVS* Pio Michaud DO - 06/05/2024 10:51 AM EDT [facility] [address] [place] [address] Discharge Date: 06/05/2024 You may call [facility] at [phone] during business hours. For after-hours emergencies call [phone]. Your attending physician at the time of your discharge was: [facility] [address] The information below provides you with the instructions and the list of medications you need to betaking following discharge from the hospital. If you have any questions, please ask before leaving.Please carry this letter with you when you see your doctor in the clinic. Diet: Resume your normal diet If you are diabetic, follow your blood sugars closely for next 2-3 days as they are likely to be elevated. If you are having difficulty controlling your blood sugars call your family doctor or the physician that treats your diabetes. Activity: Do not engage in strenuous activity today Resume your normal activities tomorrow Do not soak in water for 24 hours. No swimming, hot tub or bath but showering is allowed. Do not use heat on the injection site for 24 hours. If uncomfortable ice may be helpful. Some injections may make your arms or legs weak for a few hours. Be extremely careful when walking or changing positions that you do not fall. Have someone assist you for the next 6 hours. If weakness or numbness becomes progressive CALL IMMEDIATELY or GO TO THE NEAREST EMERGENCY ROOM Do not restart physical therapy or chiropractic manipulation until 48 hours after your injection Call : If weakness or numbness suddenly becomes worse or become progressive If the injection site becomes red, swollen, warm to the touch, begins to bleed or drain fluid, or is excessively painful. If you have any questions Medications: Resume all the medications you were taking prior to your injection. Resume your anticoagulants tomorrow unless otherwise instructed by your family physician, set up operator tool or the anticoagulation clinic. Additional Instructions: None Driving: You may resume driving in 12-24 hours if no weakness is noted . Date you may return to work or school: N/A Follow Up: Please make a follow-up telephone appointment with our nursing staff in 4-6 weeks. documented in this encounter Progress Notes * Pio Michaud DO - 06/05/2024 10:52 AM EDT [facility] [place] [address] [facility] [address] OUTPATIENT SURGERY DISCHARGE SUMMARY NOTE Name: Lisandra Tellez Location: OR [facility]/ID Date: 06/05/2024 Time: 10:52 AM Surgery Date: 06/05/2024 Procedure: INJECTION SACROILIAC JOINT Bilateral Surgeon: Pio Michaud DO Discharge Diagnosis: chronic bilateral SIJ pain After examination of this patient, I have determined she is ready for discharge to home when the patient meets criteria. Discharge instructions were given to the patient. Pio Michaud DO OR [facility], Operating Room [facility] [address] [facility] [address] documented in this encounter H&P Notes * Pio Michaud DO - 06/05/2024 10:23 AM EDT Interventional Pain H&P Subjective: History of Present Illness: Lisandra Tellez is a 83 year old year-old female with a past medical history significant for chronic bilateral Sij jpain who is presenting for bilateral Sij corticosteroid injections to improve her pain and function. her pain is essentially unchanged since our last office visit with her. ASA 3 AW nml Review of Systems: A focused 12-pt ROS were of reviewed with the patient including difficulty with sleep, snoring, aspiration history, dysphagia, stomach pain, nausea and vomiting, severe headaches, confusion, open skin lesions or wounds, chest pain, shortness of breath, excessive thirst, somnolence, dysuria, incomplete bladder emptying, easy bruising, recent clotting problems or bleeding, depression or rushed thoughts unless noted previously. Review of patient's allergies indicates: Allergen Reactions Fantasma Inhibitors Prinivil--cough Adhesive Tape Bactrim Itching Barbiturates Cozaar Cough Cymbalta [Duloxetine Hcl] [Jn-Msxcpe-Djvunaws-Scopolamine] Hives Iodine Nortriptyline Hives Penicillins reaction as a child Phenytoin Sodium itching Povidone Iodine betadine Quinine Sulfate Dihydrate diarrhea Ultram [Tramadol Hcl] Nausea/vomiting Medications, Past Medical History, Past Surgical History reviewed and documented in Epic. See detailed report if needed. Pertinent Labs/Test Results: No results found for: "INR" No results found for: "CREATININE" HEMOGLOBIN A1C (% TOTAL) Date Value 01/15/1996 5.6 Hemoglobin A1C (%) Date Value 02/14/2024 7.0 (H) 10/15/2019 7.1 (H) No results found for: "AMPHETAMINE", "BARBITURATES", "BENZODIAZEPINES", "BUPRENORPHINE", "METHADONE", "OPIATES", "OXYCODONE", "PHENCYCLIDINE", "CANNABINOIDS", "TOX SCREEN", "URINE", "TOX SCREEN-SERUM", "TOX SCREEN, URINE" XR HIP UNILAT 2-3 VIEWS INCLUDING AP PELVIS Narrative: EXAM XR HIP UNILAT 2-3 VIEWS INCLUDING AP PELVIS-01/09/2024 1:26 pm HISTORY left hip pain - ongoing and worsening TECHNIQUE Two views of the LT hip and frontal view of the pelvis. COMPARISON 07/09/2014. FINDINGS Pelvis: No displaced fracture. Instrumented and non instrumented posterior fusion of the lumbar spine. Hypertrophic changes of the sacroiliac joints and symphysis pubis. Frontal view of the right hipdemonstrates partially visualized total hip arthroplasty with long stem femoral component, cerclage. Heterotopic ossification cranial to the greater trochanter and lesser trochanter. LT hip: No acute fracture or dislocation. Hypertrophic changes and severe superolateral joint spacenarrowing. Impression: IMPRESSION Severe osteoarthritis of the left hip. Objective Physical Exam: Vital Signs: BP 188/74 | Pulse 79 | Temp 36.7 °C (98.1 °F) (Tympanic) | Resp 17 | Ht 1.6 m (5' 3") | Wt 72.1 kg (159 lb) | SpO2 97% | BMI 28.17 kg/m² | BSA 1.79 m² Body mass index is 28.17 kg/m². General: No apparent distress. Eyes: pupils equal and round, sclera white, pupils midsize. ENT: mucous membranes moist Resp: Non-labored breathing CV: Extremities warm and well-perfused. Psych: Oriented; affect warm, insight good. Skin: No rashes or lesions appreciated on exposed skin Neuromuscular Exam: TTP over B SIJ Assessment: Lisandra is a 83 year old year-old female with: Chronic bilateral SIJ pain Plan: The patient is undergoing bilateral SIJ corticosteroid injections today to alleviate her pain and improve her function. The risks, benefits and alternatives to the procedure were reviewed at length and the patient was provided the opportunity to ask questions which were answered to their voiced understanding. Following this comprehensive discussion, the patient opted to proceed. The patient was consented to the procedure following this comprehensive conversation. Pio Michaud DO OR [facility], Operating Room [address] [address] documented in this encounter Nursing Notes * Jacquelyn Severino RN - 06/05/2024 10:55 AM EDT Visited by Dr Michaud. Verbalized understanding of discharge directions. Ready for discharge to home. * Marlene Blackwood RN - 06/05/2024 10:47 AM EDT Band aid applied to area. Patient transferred to PACU 11 via wheelchair documented in this encounter OR Notes * OR Surgeon - Pio Michaud DO - 06/05/2024 10:50 AM EDT SI JOINT INJECTION DATE: 06/05/2024 PHYSICIAN: Pio Michaud DO PREOPERATIVE DIAGNOSIS: Bilateral Sacroiliac Joint Pain Bilateral degenerative sacroiliitis. POSTOPERATIVE DIAGNOSIS: Bilateral Sacroiliac Joint Pain Bilateral degenerative sacroiliitis. PROCEDURE PERFORMED: Bilateral sacroiliac joint injection with a corticosteroid and a local anesthetic. Fluoroscopy for precise needle placement. There was no assistant scientist, EBL or drains placed during this procedure. ANESTHESIA: Local infiltration with 1% lidocaine. MONITORS: Automatic blood pressure cuff, pulse oximetry readily available INDICATIONS: We had the pleasure of seeing Lisandra Tellez at the [facility] today. Lisandra Tellez ([id number]) is a 83 year old year-old female with a history of bilateral sacroiliac joint pain and bilateral degenerative sacroiliitis. The patient is here today for a sacroiliac joint injection. MEDICATIONS: Current Facility-Administered Medications Medication Dose Route Frequency Provider Last Rate Last Admin bupivacaine (Sensorcaine) 0.25 % inj 5 mg 2 mL Injection Once Pio Michaud DO gadobutrol (Gadavist) inj 1 mL 1 mL Intra-Articular Once Pio Michaud DO ALLERGIES: Review of patient's allergies indicates: Allergen Reactions Fantasma Inhibitors Prinivil--cough Adhesive Tape Bactrim Itching Barbiturates Cozaar Cough Cymbalta [Duloxetine Hcl] [Sc-Ixovsd-Tzxhqytj-Scopolamine] Hives Iodine Nortriptyline Hives Penicillins reaction as a child Phenytoin Sodium itching Povidone Iodine betadine Quinine Sulfate Dihydrate diarrhea Ultram [Tramadol Hcl] Nausea/vomiting REVIEW OF SYSTEMS: Negative for fever, chills, chest pain, SOB, bleeding abnormalities, nausea, vomiting, diarrhea, worsening edema, or new rashes. FOCUSED PHYSICAL EXAMINATION: The patient is awake, alert and oriented, and is in no acute distress. Vital signs are stable. The patient is afebrile. The rest of the PE is essentially unchanged from the patient's recent visit to our office. I explained the procedure to the patient including the risks, benefits and alternatives to the procedure. The risks discussed with the patient included but were not limited to: bleeding, infection, and damage to surrounding nerves, tissues, and organs, paralysis, increased pain, allergic reaction, blood pressure instability, seizures, heart block, headaches, increase in blood sugar, worsening of glaucoma, blindness, manic episodes, mood instability, and . Alternatives to the procedure werealso explained and include: do nothing, surgery, medications, and physical therapy. The patient verbalized understanding and was willing to proceed. PROCEDURE IN DETAIL: An informed consent was obtained. The patient was taken to the procedure room where the patient was positively identified by the staff and the attending physician. The patient was positioned prone on the bed. The patient's vital signs were monitored as above and remained stablethroughout the procedure. A fluoroscopic view of the right SI joint was obtained. The skin was prepped and draped in the standard sterile fashion. A surgical pause (time-out) was performed and was agreed upon by the members of the team. The skin and subcutaneous tissues were infiltrated with 1% lidocaine using a 25-gauge 1.5- inch needle. A 22-gauge, 3.5-inch spinal needle was advanced into the inferior portion of the right SI joint. The position of the needle was verified in AP and lateral views and by injecting radioopaque iohexol dye which demosntrated excellent intraarticular spread. Afternegative aspiration for the CSF or blood, 2.5 mL of a mixture containing 60 mg of triamcinolone mixed with 2mL of 1% lidocaine and 1.5mL of sterile PFNS was injected. The needle was withdrawn. The procedure was repeated in the same fashion on the contralateral side. The patient tolerated the procedure well. The patient was transferred in stable condition to the recovery room. COMPLICATIONS: None. DISPOSITION: 1. Return to clinic in 1-2 months for follow-up evaluation, sooner as needed. 2. Resume activity as tolerated. 3. Patient can drive after 12-24 hours if no weakness noted. Pio Michaud DO OR [facility], Operating Room [facility] [place] [address] documented in this encounter Plan of Treatment Upcoming Encounters Date Type Department Care Team (Late st Contact Info) Description 06/18/2024 12:30 PM EDT Imaging Radiology [address] [place] [phone] 07/23/2024 2:00 PM EDT Scheduled Tele[facility] [address] [place] [phone] Nurse Teddy Phone Call Interventional Pain [facility] [address] [place] [address] 10/01/2024 2:00 PM EDT Office Visit Nephrology [address] [place] [address] Tatyana Wall PA-C [address] [place] [address] 12/28/2024 5:40 PM EDT Office Visit Family Medicine [address] [place] [phone] Thais Chiu MD [address] [place] [address] [place] [address] 03/09/2025 10:40 AM EST [facility] [address] [place] [phone] Logan Mireles MD [facility] [place] [address] 05/17/2025 5:40 PM EST Office Visit Family Medicine [address] [place] [phone] Thais Chiu MD [address] [place] [address] [place] [phone] Health Maintenance Due Date Last Done Comments [...] Additional history exists CKD HGB USE SMARTSET 63260 11/20/202411/20, 04/26/2022, 04/26/2022, Additional history exists CKD PHOS USE SMARTSET 25340 11/20/202410/24, 10/18/2022, 10/26/2021, Additional history exists Albumin/Creatinine [...] D LEVEL ONCE IN A LIFETIME-USE SMARTSET# [id number] Completed 04/02/2024, 03/08/2023, 03/01/2022, Additional history exists [...] Not on filedocumented as of this encounter Procedures Procedure Name Priority Date/Time Associated Diagnosis Comments FLUORO INTERVENTIONAL PAIN PROCEDURE NONBILLABLE Routine 06/05/2024 10:55 AM EDT documented in this encounter Results * FLUORO INTERVENTIONAL PAIN PROCEDURE NONBILLABLE (06/05/2024 10:55 AM EDT) Narrative Scheduling, Silent - 06/05/2024 10:55 AM EDT This procedure will not be read by a Radiologist. Please see operative note. us Pio ZHANG FLUOROSCOPY Final Result documented in this encounter Administered Medications Inactive Administered Medications - up to 3 most recent administrations Medication Order MAR Action Action Date Dose Rate Site gadobutrol (Gadavist) inj 1 mL 1 mL, Intra-Articular, ONCE, On Sat06/05/24 at 1100, For 1 dose Iohexol (Omnipaque 240) inj 1 mL 1 mL, Injection, ONCE, On Sat06/05/24 at 1045, For 1 dose Given 06/05/2024 10:44 AM EDT 1 mL lidocaine 1 % inj 30 mg 30 mg (3 mL), Subcutaneous, ONCE, On Sat06/05/24 at 1045, For 1 dose Given 06/05/2024 10:43 AM EDT 5 mL Other-Specify Triamcinolone Acetonide (Kenalog) 40 MG/ML inj 60 mg 60 mg, Intra-Articular, ONCE, On Sat06/05/24 at 1045, For 1 dose Given 06/05/2024 10:44 AM EDT 60 mg documented in this encounter Active and Recently Administered Medications Times are shown in EDT. Scheduled Medication Order 06/03/2024 06/04/2024 06/05/2024 bupivacaine (Sensorcaine) 0.25 % inj 5 mg 5 mg (2 mL), Injection, ONCE, On Sat06/05/24 at 1045, For 1 dose 1045 (Not Given - Pr ovider: Marlene Blackwood RN - Reason: Order Clarified) gadobutrol (Gadavist) inj 1 mL 1 mL, Intra-Articular, ONCE, On Sat06/05/24 at 1100, For 1 dose 1100 (Not Given - Pr ovider: Marlene Blakcwood RN - Reason: Order Clarified) Iohexol (Omnipaque 240) inj 1 mL (COMPLETED) 1 mL, Injection, ONCE, On Sat06/05/24 at 1045, For 1 dose 1044 (Given - Provid er: Marlene Blackwood RN) lidocaine 1 % inj 30 mg (COMPLETED) 30 mg (3 mL), Subcutaneous, ONCE, On Sat06/05/24 at 1045, For 1 dose 1043 (Given - Provid er: Marlene Blackwood RN) Triamcinolone Acetonide (Kenalog) 40 MG/ML inj 60 mg (COMPLETED) 60 mg, Intra-Articular, ONCE, On Sat06/05/24 at 1045, For 1 dose 1044 (Given - Provid er: Marlene Blackwood RN) documented in this encounter Care Teams Cart Pusher Relationship Specialty Start Date End Date Thais Chiu MD [address] [place] [address] [place] [id number] PCP - General Family Medicine 12/19/23 documented as of this encounter
--- OUTSIDE RECORDS SUMMARY | 2024-08-01 19:29 | External Medical Summary | Summary of Care ---
Author Name Unknown Organization [facility] Address [address] [facility] [address] Phone [phone] Care Team Providers Care Pancake Professional Name Role Phone Thais Chiu MD Primary Care Provide r Reason for Visit * Reason Onset Date Comments Blood Pressure Check 05/28/2024 Encounter Details Date Type Department Care Team (Late st Contact Info) Description 05/28/2024 Telephone Nephrology, [place] [address] [facility] [place] [address] Yenifer Ly MD [address] [place] [address] Blood Pressure Check Allergies Active Allergy Reactions Criticality Noted Date Comments Fantasma Inhibitors 09/27/1999 Prinivil--cough Adhesive Tape 09/27/1999 Bactrim Itching 04/15/2007 Barbiturates 09/27/1999 Cozaar Cough 12/16/2009 Duloxetine Hcl 09/23/2017 Tt-Qhspka-Yvjmbewu-Scopola mine Hives 02/11/2015 Iodine 11/07/1982 Nortriptyline Hives Penicillins 09/27/1999 reaction as a child Phenytoin Sodium 09/27/1999 itching Povidone Iodine 09/27/1999 betadine Quinine Sulfate Dihydrate 12/23/2002 diarrhea Tramadol Hcl Nausea/vomiting 12/16/2009 documented as of this encounter (statuses as of 05/28/2024) Medications Blood Glucose Monitoring Suppl (FREESTYLE FREEDOM [...] Take 400 mg by mouth. Active Nystatin 466890 UNIT/GM External Powder (Nystop)Indicat ions:Cutaneous candidiasis Apply [...] disease) stage 3, GFR 30-59 ml/min ([facility]) TAKE 1 TABLET DAILY ON SATURDAY, SATURDAY AND SATURDAY ONLY 36 Tablet 3 4 Active FreeStyle Lite Test In Vitro Strip (Glucose Blood) Use as directed 2 times a day. 200 Strip 2 4 Active Montelukast Sodium 10 MG Oral Tablet (Singulair)Lizet cations:Allergi c rhinitis Take 1 Tablet by mouth in the morning. 90 Tablet 3 4 Active amLODIPine Besylate 2.5 MG Oral Tablet (Norvasc) Take 1 Tablet by mouth in the morning. 90 Tablet 1 4 Active glipiZIDE ER 2.5 MG Oral [...] hemoglobin A1c goal of less than 8.0% (HCC) Take 1 Tablet by mouth in the morning. 90 Tablet 1 5 Active documented as of this encounter (statuses as of 05/28/2024) Active Problems Problem Noted Date Diagnosed Date [...] as of this encounter (statuses as of 05/28/2024) Resolved Problems Problem Noted Date Diagnosed Date [...] Overview (01/20/2009): Per Diabetes Taxonomy. 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 BP checked while here- 151/75. Pt and daughter inquiring about 24 hour bp results. Please review. documented in this encounter Plan of Treatment Upcoming Encounters Date Type Department Care Team (Latest Contact Info) Description 06/05/2024 10:25 AM EDT Hospital Encounter OR [facility], Operating Room [facility] [address] [place] [phone] Pio Michaud DO [address] [place] [address] 06/05/2024 10:25 AM EDT - 06/05/2024 10:50 AM EDT Surgery OR [facility], Operating Room [facility] [address] [place] [phone] Pio Michaud DO [address] [address] INJECT ANESTHETIC AND/OR STEROID SACROILIAC 06/18/2024 12:30 PM EDT Imaging Radiology [address] [place] [address] 10/01/2024 2:00 PM EDT Office Visit Nephrology [address] [place] [address] ZeTatyana anderson PA-C [address] [place] [address] 12/28/2024 5:40 PM EDT Office Visit Family Medicine [address] [place] [phone] Thais Chiu MD [address] [place] [address] [place] [address] 03/09/2025 10:40 AM EST Office Visit Rheumatology [facility] [address] [place] [phone] Logan Mireles MD [facility] [place], [place] [address] 05/17/2025 5:40 PM EST Office Visit Family Medicine [address] [place] [phone] Thais Chiu MD [address] [place] [address] [place] [address] Scheduled Procedures Name Priority Associated Diagnoses Date/Ti [...] Additional history exists CKD HGB USE SMARTSET 59762 11/20/202411/20, 04/26/2022, 04/26/2022, Additional history exists CKD PHOS USE SMARTSET 88143 11/20/202410/24, 10/18/2022, 10/26/2021, Additional history exists Albumin/Creatinine [...] D LEVEL ONCE IN A LIFETIME-USE SMARTSET# 93369 Completed 04/02/2024, 03/08/2023, 03/01/2022, Additional history exists [...] filedocumented as of this encounter Care Teams Pancake Professional Relationship Specialty Start Date End Date Thais Chiu MD [address] [place] [address] [place] [address] PCP - General Family Medicine 12/19/23 documented as of this encounter
--- OUTSIDE RECORDS SUMMARY | 2024-08-01 19:29 | External Medical Summary | Summary of Care ---
Author Name Unknown Organization [facility] Address [address] [facility] [address] Phone [phone] Care Team Providers Care Health Insurance Sales Agent Name Role Phone Thais Chiu MD Primary Care Provide r Reason for Visit * Reason Onset Date Comments Blood Pressure Check 04/30/2024 Encounter Details Date Type Department Care Team (Late st Contact Info) Description 04/30/2024 Telephone Nephrology, [place] 200 [place] [address] Yenifer Ly MD [address] [place] [address] Blood Pressure Check Allergies Active Allergy Reactions Criticality Noted Date Comments Fantasma Inhibitors 09/27/1999 Prinivil--cough Adhesive Tape 09/27/1999 Bactrim Itching 04/15/2007 Barbiturates 09/27/1999 Cozaar Cough 12/16/2009 Duloxetine Hcl 09/23/2017 Wd-Rzcuir-Sgmyktkw-Scopola mine Hives 02/11/2015 Iodine 11/07/1982 Nortriptyline Hives Penicillins 09/27/1999 reaction as a child Phenytoin Sodium 09/27/1999 itching Povidone Iodine 09/27/1999 betadine Quinine Sulfate Dihydrate 12/23/2002 diarrhea Tramadol Hcl Nausea/vomiting 12/16/2009 documented as of this encounter (statuses as of 04/30/2024) Medications Blood Glucose Monitoring Suppl (FREESTYLE FREEDOM LITE) w/Device KIT Dx Code E11.9 1 Kit 8 Active Additional Information Patient taking differently: TID(AM/NOON/HS), Dx Code E11.9,Indications: Use to Test Blood Sugars 3 times a day. DX Code E11.9-Doispense 300 with 1 refill 07-11-17 via phone, Reported on 03/06/2024 Blood Pressure KITIndications: HTN, goal below 140/90 Use per physician instructions 1 Kit 9 Active FreeStyle Lancets MISC USE DIRECTED TO TEST BLOOD SUGAR 3 TIMES DAILY. E11.9 300 Each 3 0 Active Womens 50+ Multi Vitamin/Min Oral Tablet Take by mouth. Act roxana Magnesium 400 MG Oral Tablet Take 400 mg by mouth. Active Nystatin 292601 UNIT/GM External Powder (Nystop)Indicat ions:Cutaneous candidiasis Apply [...] kidney disease) stage 3, GFR 30-59 ml/min ([facility]) TAKE 1 TABLET DAILY ON SATURDAY, SATURDAY [...] A1c goal of less than 8.0% (HCC) TAKE 1 TABLET TWICE A DAY WITH MORNING AND EVENING MEALS 180 Tablet 1 5 Active documented as of this encounter (statuses as of 04/30/2024) Active Problems Problem Noted Date Diagnosed Date [...] as of this encounter (statuses as of 04/30/2024) Resolved Problems Problem Noted Date Diagnosed Date [...] Overview (01/20/2009): Per Diabetes Taxonomy. 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 Avg of 12 readings is 142/82. Currently has 24 hour monitor on. documented in this encounter Plan of Treatment Upcoming Encounters Date Type Department Care Team (Latest Contact Info) Description 05/18/2024 6:20 PM EST Office Visit Family Medicine [address] [place] [phone] Thais Chiu MD [address] [place] [address] [place] [address] 06/05/2024 10:05 AM EDT Hospital Encounter OR [facility], Operating Room [facility] [address] [place] [phone] Pio Michaud DO [address] [place] [address] 06/05/2024 10:05 AM EDT - 06/05/2024 10:30 AM EDT Surgery OR [facility], Operating Room [facility] [address] [place] [phone] Pio Michaud, DO [address] [place] [address] INJECT ANESTHETIC AND/OR STEROID SACROILIAC 06/18/2024 12:30 PM EDT Imaging Radiology [address] [place] [address] 10/01/2024 2:00 PM EDT Office Visit Nephrology [address] [place] [address] ZemaTatyana amos PA-C [address] [place] [address] 03/09/2025 10:40 AM EST Office Visit Rheumatology [facility] [address] [place] [phone] Logan Mireles MD [facility] [place] [address] Scheduled Procedures Name Priority Associated Diagnoses Date/Ti me INJECT ANESTHETIC AND/OR STEROID SACROILIAC Inflammation of sacroiliac joint (HCC) 06/05/2024 10:05 AM EDT Health Maintenance Due Date Last Done Comments Adult Wellness Visit 10/12/2022 10/12/2021, 09/30/19 Depression Screening 10/12/2022 10/12/2021 *BISPHONATE OR OTHER ACCEPTABLE MEDICATION NEEDED FOR OSTEOPOROSIS (REFER TO SMARTSET #1146) 03/24/2023 Diabetic Foot Exam 10/27/2023 10/26/2022, 0 10/12/2021, 09/29/2020, Additional history exists COVID-19 Vaccine ( season) 2023 07/12/2020, 06/14/2020 HbA1c 08/13/2024 02/14/2024, 10/24, 03/08/2023, Additional history exists GFR 09/30/2024 04/02/2024, 06/0 08/2023, 03/08/2023, Additional history exists B-12 11/20/2024 11/21/2023, 09/23, 10/26/2021, Additional history exists CKD HGB USE SMARTSET 79679 11/20/202411/20, 04/26/2022, 04/26/2022, Additional history exists CKD PHOS USE SMARTSET 89881 11/20/202410/24, 10/18/2022, 10/26/2021, Additional history exists Albumin/Creatinine Ratio 11/27/2024 024, 10/18/2022, 10/26/2021, Additional history exists Diabetic Eye Exam 01/22/2025 01/23/2024, , 01/10/2023, Additional history exists DXA Scan 08/11/2025 08/12/2023, 07/24, 11/16/2020, Additional [...] D LEVEL ONCE IN A LIFETIME-USE SMARTSET# 31903 Completed 04/02/2024, 03/08/2023, 03/01/2022, Additional history exists [...] filedocumented as of this encounter Care Teams Health Insurance Sales Agent Relationship Specialty Start Date End Date Thais Chiu MD [address] [place] [address] [place] [phone] PCP - General Family Medicine 12/19/23 documented as of this encounter
--- OUTSIDE RECORDS SUMMARY | 2024-08-01 19:29 | External Medical Summary | Summary of Care ---
Author Name Unknown Organization [facility] Address [address] [facility] [address] Phone [phone] Care Team Providers Care Stock Repairer Name Role Phone Thais Chiu MD Primary Care Provide r Reason for Visit * Reason Onset Date Comments Blood Pressure Check 05/28/2024 Encounter Details Date Type Department Care Team (Late st Contact Info) Description 05/28/2024 Telephone Nephrology, [place] [address] [facility] [place] [address] Yenifer Ly MD [address] [place] [address] Blood Pressure Check Allergies Active Allergy Reactions Criticality Noted Date Comments Fantasma Inhibitors 09/27/1999 Prinivil--cough Adhesive Tape 09/27/1999 Bactrim Itching 04/15/2007 Barbiturates 09/27/1999 Cozaar Cough 12/16/2009 Duloxetine Hcl 09/23/2017 Vb-Efoqpd-Hegttifj-Scopola mine Hives 02/11/2015 Iodine 11/07/1982 Nortriptyline Hives Penicillins 09/27/1999 reaction as a child Phenytoin Sodium 09/27/1999 itching Povidone Iodine 09/27/1999 betadine Quinine Sulfate Dihydrate 12/23/2002 diarrhea Tramadol Hcl Nausea/vomiting 12/16/2009 documented as of this encounter (statuses as of 05/29/2024) Medications Blood Glucose Monitoring Suppl (FREESTYLE FREEDOM [...] Take 400 mg by mouth. Active Nystatin 545817 UNIT/GM External Powder (Nystop)Indicat ions:Cutaneous candidiasis Apply [...] disease) stage 3, GFR 30-59 ml/min ([facility]) TAKE 1 TABLET DAILY ON SATURDAY, [...] as of this encounter (statuses as of 05/29/2024) Active Problems Problem Noted Date Diagnosed Date [...] as of this encounter (statuses as of 05/29/2024) Resolved Problems Problem Noted Date Diagnosed Date [...] Overview (01/20/2009): Per Diabetes Taxonomy. LOC PRIM [id number] 12/30/200103/26 Edema 12/30/2001 04/15/2015 JOINT PAIN-SHLDER 04/24/2001 04/15/2015 CHR AIRWAY OBSTRUCT NEC 12/23 DIAB NEURO MANIF ADULT 01/20 Overview (01/20/2009): Per Diabetes Taxonomy. Need for prophylactic hormon e replacement therapy (postmenopausal) 04/15/2015 CA IN SITU CERVIX UTERI 03/26 BENIGN HYPERTENSION 11/06/20 09 Overview (01/28/2009): Modified per HTN Taxonomy. Type 2 diabetes mellitus wit h hemoglobin A1c goal of less than 7.0% 01/20/2009 Overview (07/19/2015): Per Diabetes Taxonomy. ICD-10 update of inactive term Traumatic compression fractu re of T12 thoracic vertebra, with routine healing, subsequent encounter 10/26/2021 documented as of this encounter (statuses as of 05/29/2024) Immunizations Name Administration Dates Next Due COVID-19 mRNA, LNP-s, No Pre serve, 2-Dose Series (Moderna) 07/12/2020,06/14/2020 HEP A - Hepatitis A (Adult > 18 yrs) 11/12/2019, 05/01/2019 PPD 09/20/2000 Pneumococcal Conjugate Vacc, 13 Valent (Prevnar) 08/01/2015 Pneumococcal Polysaccharide PPV23 (Pneumovax) 09/18/2006 Season Influenza, Quad, PF, Adjuvanted, 65+ Yrs, IM (FLUAD) 01/25/2023 Seasonal Influenza Vac., MDV , IM, 0.5 mL (Fluzone) 01/01/2014,12/26/2012,12/28/2011,12/27,12/16/2009,12/13/2008,01/30/2008 ,01/28/2007,01/09/2005,03/12/2003 Seasonal Influenza, High Dos e, Trivalent, PF, IM (Fluzone HD) 01/02/2024 Seasonal Influenza, PF, 6 M & above, IM , (FluLaval or Fluzone) 12/30/2017 Seasonal Influenza, Quadriva lent Hd (Fluzone Hd) 11/23/2021 Seasonal Influenza, Quadriva lent Hd, 65+ Yrs 12/23/2019 Seasonal Influenza, Quadriva lent, No Preserve, IM 12/03/2016,03/16/2016,12/17/2014 Seasonal Influenza, Trivalen t, Adjuvanted, 65+ YRS, PF, (Fluad) 01/07/2021,12/31/2018 TB Joan Test 12/04/1994 TD, Preservative Free 11/08/2007 TDAP (age 10 [...] 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 Not on file Not on file documented as of this encounter Miscellaneous Notes * Telephone Encounter - Yenifer Ly MD - 05/29/2024 3:14 PM EST 24 hr BP study notable for -hypertension -white coat hypertension -nocturnal hypertension On the positive side, her BP does drop appropriately during sleep; patients who don't have this drop have higher risks of worse heart/kidney problems Pt with cough from fantasma/arb and frequent falls Suggest increase amlodipine to 2.5 mg bid from daily and continue lasix * Telephone Encounter - Damari Wong RN [...] Operating Room [facility] [address] [place] [phone] Pio Michaud, [address] [place] [phone] 06/05/2024 10:25 AM EDT - 06/05/2024 10:50 AM EDT Surgery OR [facility], Operating Room [facility] [address] [place] [phone] Pio Michaud DO [address] [place] [address] INJECT ANESTHETIC AND/OR STEROID SACROILIAC 06/18/2024 12:30 PM EDT Imaging Radiology [address] [place] [address] 10/01/2024 2:00 PM EDT Office Visit Nephrology [address] [place] [address] ZemaTatyana amos PA-C [address] [place] [address] 12/28/2024 5:40 PM EDT Office Visit Family Medicine [address] [place] [phone] Thais Chiu MD [address] [place] [address] [place] [address] 03/09/2025 10:40 AM EST Office Visit Rheumatology [facility] [address] [place] [phone] Logan Mireles MD [address] [place] [address] [place] [address] 05/17/2025 5:40 PM EST Office Visit Family [address] [place] [phone] Thais Chiu MD [address] [place] [address] [place] [address] Scheduled Procedures Name Priority Associated Diagnoses Date/Ti [...] Additional history exists CKD HGB USE SMARTSET 98400 11/20/202411/20, 04/26/2022, 04/26/2022, Additional history exists CKD PHOS USE SMARTSET 49493 11/20/202410/24, 10/18/2022, 10/26/2021, Additional history exists Albumin/Creatinine [...] D LEVEL ONCE IN A LIFETIME-USE SMARTSET# 15466 Completed 04/02/2024, 03/08/2023, 03/01/2022, Additional history exists [...] filedocumented as of this encounter Care Teams Stock Repairer Relationship Specialty Start Date End Date Thais Chiu MD [address] [place] [address] [place] [address] PCP - General Family Medicine 12/19/23 documented as of this encounter
--- OUTSIDE RECORDS SUMMARY | 2024-08-01 19:29 | External Medical Summary | Summary of Care ---
Author Name Unknown Organization [facility] Address [address] [facility] [place] [address] Phone [phone] Care Team Providers Care [place] Buncher Operator Name Role Phone Thais Chiu MD Primary Care Provide r Encounter Details Date Type Department Care Team (Late st Contact Info) Description 04/16/2024 Population Health External Data Unspecified Department Allergies Active Allergy Reactions Criticality Noted Date Comments Fantasma Inhibitors 09/27/1999 Prinivil--cough Adhesive Tape 09/27/1999 Bactrim Itching 04/15/2007 Barbiturates 09/27/1999 Cozaar Cough 12/16/2009 Duloxetine Hcl 09/23/2017 Jy-Xutyzt-Delgxrhg-Scopola mine Hives 02/11/2015 Iodine 11/07/1982 Nortriptyline Hives Penicillins 09/27/1999 reaction as a child Phenytoin Sodium 09/27/1999 itching Povidone Iodine 09/27/1999 betadine Quinine Sulfate Dihydrate 12/23/2002 diarrhea Tramadol Hcl Nausea/vomiting 12/16/2009 documented as of this encounter (statuses as of 04/16/2024) Medications Blood Glucose Monitoring Suppl (FREESTYLE FREEDOM [...] Take 400 mg by mouth. Active Nystatin 133552 UNIT/GM External Powder (Nystop)Indicat ions:Cutaneous candidiasis Apply [...] as of this encounter (statuses as of 04/16/2024) Active Problems Problem Noted Date Diagnosed Date [...] as of this encounter (statuses as of 04/16/2024) Resolved Problems Problem Noted Date Diagnosed Date [...] Overview (01/20/2009): Per Diabetes Taxonomy. 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 Not on file Not on file documented as of this encounter Plan of Treatment Upcoming Encounters Date Type Department Care Team (Late st Contact Info) Description 04/29/2024 4:00 PM EST Nurse Only Nephrology [address] [place] [address] [place], Nurse Nephrology [address] [place] [address] 05/18/2024 6:20 PM EST Office Visit Family Medicine [address] [place] [phone] Thais Chiu MD [address] [place] [address] [place] [address] 06/05/2024 10:05 AM EDT Hospital Encounter OR [facility], Operating Room [facility] [address] [place] [phone] Pio Michaud DO [address] [place] [phone] 06/05/2024 10:05 AM EDT - 06/05/2024 10:30 AM EDT Surgery OR [facility], Operating Room [facility] [address] [place] [phone] Pio Michaud DO [address] [place] [phone] INJECT ANESTHETIC AND/OR STEROID SACROILIAC 06/18/2024 12:30 PM EDT Imaging Radiology [address] [place] [address] 10/01/2024 2:00 PM EDT Office Visit Nephrology [address] [place] [address] Tatyana Wall PA-C [address] [place] [address] 03/09/2025 10:40 AM EST Office Visit Rheumatology [facility] [address] [place] [phone] Logan Mireles MD [facility] [place] [address] Scheduled Procedures Name Priority Associated Diagnoses Date/Ti [...] season) 2023 07/12/2020, 06/14/2020 HbA1c 08/13/2024 02/14/2024, 08/2 11/2023, 03/08/2023, Additional history exists GFR 09/30/2024 04/02/2024, 06/0 08/2023, 03/08/2023, Additional history exists B-12 11/20/2024 11/21/2023, 09/23, 10/26/2021, Additional history exists CKD HGB USE SMARTSET 77344 11/20/202411/20, 04/26/2022, 04/26/2022, Additional history exists CKD PHOS USE SMARTSET 37612 11/20/202410/24, 10/18/2022, 10/26/2021, Additional history exists Albumin/Creatinine [...] D LEVEL ONCE IN A LIFETIME-USE SMARTSET# 40801 Completed 04/02/2024, 03/08/2023, 03/01/2022, Additional history exists [...] filedocumented as of this encounter Care Teams [place] Buncher Operator Relationship Specialty Start Date End Date Thais Chiu MD [address] [place] [address] [place] [address] PCP - General Family Medicine 12/19/23 documented as of this encounter
--- OUTSIDE RECORDS SUMMARY | 2024-08-01 19:29 | External Medical Summary | Summary of Care ---
Author Name Unknown Organization [facility] Address [address] [address] Phone [phone] Care Team Providers Care Hide Tanner Name Role Phone Thais Chiu MD Primary Care Provide r Reason for Referral * Precert (Diagnostic Medical) (Within 10 days (routine)) - Authorized Specialty Diagnoses / Procedures Referred By Contac t Referred To Contact Cardiac Studies Diagnoses Palpitations CORONA (dyspnea on exertion) Procedures ECHO, COMPLETE (2D), TRANS-THORACIC Thais Chiu MD [address] [place] [address] [place] [address] Phone: tel: fax: Referral ID Status Reason Start Date Expiration Date V isits Requested Visits Authorized [id number] Authorized Precert 05/18/2024 999 999 Reason for Visit * Reason Comments Re-Check Encounter Details Date Type Department Care Team (Latest Contact Info) Description 05/18/2024 6:20 PM EST Office Visit Family Medicine [address] [place] [phone] Thais Chiu MD [address] [place] [address] [place] [phone] Type 2 diabetes mellitus with stage 3a chronic kidney disease, without long-term current use of insulin (HCC)*; Palpitations; CORONA (dyspnea on exertion); Intertrigo; Type 2 diabetes mellitus with hemoglobin A1c goal of less than 8.0% (HCC); Diabetic polyneuropathy associated with type 2 diabetes mellitus (HCC); Essential hypertension with goal blood pressure less than 140/90; Diarrhea, unspecified type; Dyslipidemia, goal LDL below 100 Allergies Active Allergy Reactions Criticality Noted Date Comments Fantasma Inhibitors 09/27/1999 Prinivil--cough Adhesive Tape 09/27/1999 Bactrim Itching 04/15/2007 Barbiturates 09/27/1999 Cozaar Cough 12/16/2009 Duloxetine Hcl 09/23/2017 Gs-Yyvqkw-Oaaesmlx-[place] mine Hives 02/11/2015 Iodine 11/07/1982 Nortriptyline Hives Penicillins 09/27/1999 reaction as a child Phenytoin Sodium 09/27/1999 itching Povidone Iodine 09/27/1999 betadine Quinine Sulfate Dihydrate 12/23/2002 diarrhea Tramadol Hcl Nausea/vomiting 12/16/2009 documented as of this encounter (statuses as of 05/19/2024) Medications Blood Glucose Monitoring Suppl (FREESTYLE FREEDOM [...] Take 400 mg by mouth. Active Nystatin 720937 UNIT/GM External Powder (Nystop)Indica tions:Cutaneou s candidiasis [...] disease) stage 3, GFR 30-59 ml/min ([facility]) TAKE 1 TABLET DAILY ON SATURDAY, SATURDAY AND SATURDAY ONLY 36 Tablet 3 08/29/19 24 Active FreeStyle Lite Test In Vitro Strip (Glucose Blood) Use as directed 2 times a day. 200 Strip 2 08/29/19 24 Active Montelukast Sodium 10 MG Oral Tablet (Singulair)Ind ications:Aller gic rhinitis Take 1 Tablet by mouth in the morning. 90 Tablet 3 12/23/19 24 Active amLODIPine Besylate 2.5 MG Oral Tablet (Norvasc) Take 1 Tablet by mouth in the morning. 90 Tablet 1 02/07/20 24 Active glipiZIDE ER 2.5 MG Oral [...] morning. 90 Tablet 1 05/18/19 25 Active metFORMIN HCl ER 500 MG Oral Tablet Extended Release 24 Hour (Glucophage XR)Indications :Type 2 diabetes mellitus with hemoglobin A1c goal of less than 8.0% (HCC) TAKE 1 TABLET TWICE A DAY WITH MORNING AND EVENING MEALS 180 Tablet 1 03/28/19 25 025 Discontinued documented as of this encounter (statuses as of 05/19/2024) Active Problems Problem Noted Date Diagnosed Date [...] as of this encounter (statuses as of 05/19/2024) Resolved Problems Problem Noted Date Diagnosed Date [...] Overview (01/20/2009): Per Diabetes Taxonomy. 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 Chief Complaint Patient presents with Re-Check HPI: Brief Clinical History Ms. Tellez is a 83 year old female last seen in Family Medicine [facility] on 01/09/2024 by Shanel Mcintyre She has a h/o the following chronic conditions indicated on the problem list: Chronic Conditions Diabetes mellitus with background retinopathy (HCC) Diabetic polyneuropathy (HCC) Type 2 diabetes mellitus with hemoglobin A1c goal of less than 8.0% (HCC) Type 2 diabetes mellitus with stage 3a chronic kidney disease (HCC) Here with her daughter. Got a sore rash under the left breast a couple weeks ago. Used clotrimazole cream twice and it stopped the itching. Still has a red romel. Has been using a baby powder as well. Has been getting short of breath if she has to walk briskly. Often happens when she has to move herbowels urgently and runs to the bathroom and then her heart beats fast for a few minutes and then stops. It takes a little bit to catch her breath. Has been having a lot of diarrhea. Has to run to the bathroom about 20 minutes after eating. Has urgency and has accidents and is all liquid. Is on metformin ER version. Has been taking Metamucil butdoes not help. The diarrhea just got worse over the last week. Doesn't matter what she eats and it happens. Daughter states the diarrhea has been going on for a long time. She has been on the metformin skilled nursing. She has been taking the second dose of metformin around midnight. She goes to bed quite late. She also eats a lot of junk food in the evening. Sugars are anywhere from 67 to 80 in the morning. She takes glipizide right before breakfast. Does not check her sugar other times of the day. Follows with nephrology. Recently had a home BP monitoring done and is waiting for the results. Wasdone to r/o white coat hypertension. Results for orders placed or performed in visit on 04/02/24 25-HYDROXY VITAMIN D Result Value Ref Range 25-Hydroxy Vitamin D 35 >19 ng/mL BASIC METABOLIC PANEL Result Value Ref Range BUN 16 6 - 20 mg/dL CREATININE 0.9 0.5 - 1.0 mg/dL EGFR 64 >=60 mL/min SODIUM 141 135 - 146 mmol/L POTASSIUM 4.5 3.5 - 5.1 mmol/L CHLORIDE 104 98 - 107 mmol/L CO2 26 22 - 32 mmol/L ANION GAP 11 7 - 15 mmol/L GLUCOSE 186 (H) 70 - 120 mg/dL CALCIUM 9.7 8.4 - 10.2 mg/dL *Note: Due to a large number of results and/or encounters for the requested time period, some results have not been displayed. A complete set of results can be found in Results Review. Hemoglobin AIC Results: Lab Results Component Value Date/Time HEMOGLOBIN A1C 5.6 01/15/1996 11:30 AM HEMOGLOBIN A1C - [facility] 7.0 (H) 02/14/2024 03:35 PM HEMOGLOBIN A1C - [facility] 8.0 (H) 11/21/2023 10:08 AM HEMOGLOBIN A1C - [facility] 6.5 (H) 03/08/2023 02:32 PM HEMOGLOBIN A1C - [facility] 7.1 (H) 10/15/2019 09:37 AM HEMOGLOBIN A1C - [facility] 8.0 (H) 05/01/2019 02:55 PM HEMOGLOBIN A1C - [facility] 7.4 (H) 10/16/2018 09:25 AM PHM: Patient Active Problem List Diagnosis FEM STRESS INCONTINENCE Other allergic rhinitis DIVERTICULOSIS OF COLON Diabetic polyneuropathy ([facility]) Knee joint replacement status Type 2 diabetes mellitus with hemoglobin A1c goal of less than 8.0% ([facility]) Diabetes mellitus with background retinopathy ([facility]) Dyslipidemia, goal LDL below 100 Lumbar spinal stenosis Essential hypertension with goal blood pressure less than 140/90 Status post right hip replacement History of compression fracture of spine Senile osteoporosis Hypertensive kidney disease with stage 3a chronic kidney disease Type 2 diabetes mellitus with stage 3a chronic kidney disease ([facility]) Iron deficiency anemia Hypomagnesemia Current Outpatient Medications Medication Sig Dispense Refill Blood Glucose Monitoring Suppl (Upmann'sYLE FREEDOM LITE) w/Device KIT Dx Code E11.9 (Patient taking differently: 3 times a day. Dx Code E11.9) 1 Kit 0 Blood Pressure KIT Use per physician instructions 1 Kit 0 FreeStyle Lancets [facility] USE DIRECTED TO TEST BLOOD SUGAR 3 TIMES DAILY. E11.9 300 Each 3 Womens 50+ Multi Vitamin/Min Oral Tablet Take by mouth. Magnesium 400 MG Oral Tablet Take 400 mg by mouth. Nystatin 225643 UNIT/GM External Powder (Nystop) Apply topically to affected area 3 times a day . 30 g 2 Clobetasol Propionate 0.05 % External Ointment (Temovate) Apply topically to affected area 2 times a day. To affected area for up to two weeks. 15 g 1 Clotrimazole 1 % External Cream (Lotrimin) Apply topically to affected area 2 times a day. For 14 days to affected area. 28 g 0 Acetaminophen 500 MG Oral Tablet (Tylenol) Take 1 Tablet by mouth every 6 hours as needed (pain or fever). 100 Tablet 1 Iron (Ferrous Sulfate) 325 (65 Fe) MG Oral Tablet Take by mouth. Gabapentin 300 MG Oral Capsule (Neurontin) Take 1 Capsule by mouth in the morning and 1 Capsule before bedtime. 180 Capsule 3 Furosemide 20 MG Oral Tablet (Lasix) TAKE 1 TABLET DAILY ON SATURDAY, SATURDAY AND SATURDAY ONLY 36 Tablet 3 FreeStyle Lite Test In Vitro Strip (Glucose Blood) Use as directed 2 times a day. 200 Strip 2 Montelukast Sodium 10 MG Oral Tablet (Singulair) Take 1 Tablet by mouth in the morning. 90 Tablet 3 amLODIPine Besylate 2.5 MG Oral Tablet (Norvasc) Take 1 Tablet by mouth in the morning. 90 Tablet 1 glipiZIDE ER 2.5 MG Oral Tablet Extended Release 24 Hour (glipiZIDE XL) Take 1 Tablet by mouth in the morning. 30 minutes before a meal.. 90 Tablet 1 Simvastatin 10 MG Oral Tablet (Zocor) Take 1 Tablet by mouth at bedtime. 90 Tablet 1 Gemtesa 75 MG Oral Tablet (Vibegron) Take 1 Tablet by mouth in the morning. 90 Tablet 3 Acetaminophen ER 650 MG Oral Tablet Extended Release (Tylenol 8 Hour Arthritis Pain) Take 1 Tablet by mouth every 8 hours as needed. Famotidine 20 MG Oral Tablet (Pepcid) Take 1 Tablet by mouth in the morning and 1 Tablet before bedtime. 180 Tablet 1 metFORMIN HCl ER 500 MG Oral Tablet Extended Release 24 Hour (Glucophage XR) TAKE 1 TABLET TWICE A DAY WITH MORNING AND EVENING MEALS 180 Tablet 1 No current facility-administered medications for this visit. Past Medical History: Diagnosis Date Allergic rhinitis due to other allergen Benign neoplasm of colon 11/01/10 internal hemorrhoids, one 5 mm polyp in sigmoid--adenomatous tissue repeat in 5 year CKD (chronic kidney disease), stage III (HCC) 06/17/12 GFR 54.8 COPD, severity to be determined ([facility]) 1992 second hand smoke DM type 2 causing eye disease, not at goal ([facility]) retinopathy right eye - neovascularization DM type 2 causing neurological disease (HCC) DM type 2, goal A1c below 7 Female stress incontinence Fracture of two ribs of left side left 6 and 7, new since 2011 HTN, goal below 140/90 Hyperkalemia 11/28/2016 K+ 6.0 Lumbar spinal stenosis Need for prophylactic hormone replacement therapy (postmenopausal) Normocytic anemia 11/28/2016 9.9 Postartificial menopausal syndrome hysterectomy 1977 T12 compression fracture (HCC) Traumatic compression fracture of T12 thoracic vertebra, with routine healing, subsequent encounter Past Surgical History: Procedure Laterality Date ARTHROCENT ASP &/OR INJ MAJOR JX/BURSA W/O US 10/27/2020 ARTHROCENTESIS OR INJECTION MAJOR JOINT performed by Campos Diaz, DO at OR [facility] ARTHROPLASTY KNEE TOTAL Left 10/20/2007 L knee -dr prudencio patel clfd ARTHROPLASTY KNEE TOTAL Right 2004 DELIVERY x 3 Delivery Only COLONOSCOPY W/ LESION REMOVAL, SNARE 11/01/2010 internal hemorrhoids, one 5 mm polyp in sigmoid--adenomatous tissue repeat in 5 years COLONOSCOPY, DIAGNOSTIC (RECTUM) 01/23/2016 normal, repeat 5 yrs/COLONOSCOPY FLEXIBLE PROXIMAL DIAGNOSTIC performed by Rosa Noguera DO at ENDOSCOPY [facility] COLONOSCOPY, DIAGNOSTIC (RECTUM) 04/04/2021 adenomatous polyp / COLONOSCOPY FLEXIBLE PROXIMAL DIAGNOSTIC performed by Rosa Noguera DO at ENDOSCOPY [facility] CONTIGEN SKIN TEST/NURSE ONLY 01/22/2002 negative skin test CYSTOSCOPY 01/22/2002 DECOMPRESS LUMBAR SPINAL CORD SEG 07/08/2015 Dr. Ba [facility], L3-4 L4-5 with fusion L4-5 DIGITAL RECTAL EXAM,ANNUAL 06/2000 EGD, FLEXIBLE, DIAGNOSTIC 04/04/2021 normal / ESOPHAGOGASTRODUODENOSCOPY (EGD), FLEXIBLE, TRANSORAL, DIAGNOSTIC performed by Rosa Noguera DO at ENDOSCOPY [facility] EGD, W/ENDOSCOPIC US 08/22/2011 UPPER GI ENDOSCOPY ENDOSCOPIC ULTRASOUND performed by JOSE FRANCISCO EMERSON at [facility] ENDOSCOPIC INJECT, IMPLANT MATERIAL 02/20/2002 Bladder neck collagen injection by Dr. Valdes INJECT DX/THER SUBSTANCE INTERLAMINAR LUMBAR/SACRAL W IMAGE GUIDE 10/07/2017 INJECTION SPINE LUMBAR OR SACRAL performed by Campos Diaz, DO at OR [facility] INJECT DX/THER SUBSTANCE INTERLAMINAR LUMBAR/SACRAL W IMAGE GUIDE 10/31/2017 INJECTION SPINE LUMBAR OR SACRAL performed by Campos Diaz, DO at OR [facility] INJECT DX/THER SUBSTANCE INTERLAMINAR LUMBAR/SACRAL W IMAGE GUIDE 04/17/2018 INJECTION SPINE LUMBAR OR SACRAL performed by Campos Diaz, DO at OR [facility] INJECT DX/THER SUBSTANCE INTERLAMINAR LUMBAR/SACRAL W IMAGE GUIDE 02/16/2019 INJECTION SPINE LUMBAR OR SACRAL performed by Campos Diaz, DO at OR [facility] INJECT DX/THER SUBSTANCE INTERLAMINAR LUMBAR/SACRAL W IMAGE GUIDE 06/01/2019 INJECTION SPINE LUMBAR OR SACRAL performed by Campos Diaz, DO at OR [facility] INJECT DX/THER SUBSTANCE INTERLAMINAR LUMBAR/SACRAL W IMAGE GUIDE 12/10/2019 INJECTION SPINE LUMBAR OR SACRAL performed by Campos Diaz, DO at [facility] INJECT DX/THER SUBSTANCE INTERLAMINAR LUMBAR/SACRAL W IMAGE GUIDE 12/12/2020 INJECTION SPINE LUMBAR OR SACRAL performed by Campos Diaz, DO at [facility] INJECT DX/THER SUBSTANCE INTERLAMINAR LUMBAR/SACRAL W IMAGE GUIDE 06/22/2021 INJECTION SPINE LUMBAR OR SACRAL performed by Campos Diaz, DO at [facility] INJECT DX/THER SUBSTANCE INTERLAMINAR LUMBAR/SACRAL W IMAGE GUIDE 11/28/2023 INJECTION SPINE LUMBAR OR SACRAL performed by Jonathan Mack MD at OR [facility] INJECTION LUMBAR/SACRAL 08/19/2014 INJECTION SPINE LUMBAR OR SACRAL performed by Campos Diaz, at OR [facility] INJECTION LUMBAR/SACRAL 09/02/2014 INJECTION SPINE LUMBAR OR SACRAL performed by Campos Diaz, DO at OR [facility] INJECTION LUMBAR/SACRAL 05/24/2015 INJECTION SPINE LUMBAR OR SACRAL performed by Campos Diaz, DO at [facility] L-/S-SPINE PARAVERTEBRAL FACET INJ,1 LEVEL 12/30/2017 L-/S-SPINE PARAVERTEBRAL FACET INJ, 1 LEVEL performed by Campos Diaz, at OR [facility] LAPAROSCOPY; CHOLECYSTECTOMY 08/22/2011 MAMMOGRAM SCREENING BILATERAL 08/28/2012 scattered fibroglandular densities, category 0 on left, further studies needed MAMMOGRAM SCREENING BILATERAL Bilateral 09/06/2016 scattered fibroglandular densities, category 1 normal POST VOID RESIDUAL BLADDER US (PHYSICIAN ONLY) 03/26/2002 64ml REMOVAL OF APPENDIX REMOVAL OF OVARY/OVIDUCT(S) 08/1977 left REVISION OF TOTAL HIP JOINT SURGERY Right 01/03/2017 suffered periprosthetic right femur fracture days after ELIJAH, had ORIF and revision of femoral stem SIGMOIDOSCOPY, DIAGNOSTIC 07/19/2000 normal TOTAL HIP REPLACEMENT & PROSTHESIS Right 12/28/2016 Dr. Hendricks TOTAL HYSTERECTOMY 1972 URETHRAL DILAT W/SUPP/INSTILL,FEMALE, /DO 01/22/2002 dilation up to 24 setswana in order to pass cystoscope US RENAL 12/05/2016 normal size, renal cortical medical disease suggested Social History Socioeconomic History Marital status: Spouse name: Not on file Number of children: Not on file Years of education: Not on file Highest education level: Not on file Occupational History Occupation: business development associate Comment: [employer] Tobacco Use Smoking status: Never Smokeless tobacco: Never Tobacco comments: 2nd hand smoke from Vaping Use Vaping status: Never Used Substance and Sexual Activity Alcohol use: No Drug use: No Sexual activity: Yes Partners: Male Other Topics Concern Not on file Social History Narrative in 05/2011 Blood Type AB positive. Social Needs Financial Resource Strain: Not on file Food Insecurity: No Food Insecurity (10/12/2021) Hunger Vital Sign Worried About Running Out of Food in the Last Year: Never true Ran Out of Food in the Last Year: Never true Transportation Needs: Not on file Social Connections: Not on file Housing Stability: Not on file Review of patient's allergies indicates: Allergen Reactions Fantasma Inhibitors Prinivil--cough Adhesive Tape Bactrim Itching Barbiturates Cozaar Cough Cymbalta [Duloxetine Hcl] [Mj-Cxplod-Sfiplqpr-Scopolamine] Hives Iodine Nortriptyline Hives Penicillins reaction as a child Phenytoin Sodium itching Povidone Iodine betadine Quinine Sulfate Dihydrate diarrhea Ultram [Tramadol Hcl] Nausea/vomiting Objective: BP 154/74 | Pulse 54 | Temp 98.1 °F (36.7 °C) (Tympanic) | Wt 159 lb (72.1 kg) | BMI 28.17 kg/m²| BSA 1.79 m² Physical Exam: General: alert, healthy, no distress, well nourished, and well developed Head: Normocephalic, No masses, lesions, tenderness or abnormalities Eye Exam: PERRLA, extraocular movements intact, conjunctiva are pink and non- injected, sclera clear Ears: External ears normal, Canals clear, TM's Normal Nose: no mucosal erythema, no mucosal edema, no purulent discharge Oropharynx: no exudate, no erythema, lips, buccal mucosa, and tongue normal, and mucous membranes are moist Neck: supple, no adenopathy, no bruits Heart: regular rate & rhythm, no murmur, and no gallops Lungs: chest symmetric with normal AP diameter, no chest deformities noted, no chest wall tenderness, lungs clear to auscultation Extremities: no edema, no clubbing, no cyanosis Neuro Exam: alert & oriented x 3 with fluent speech, no focal motor/sensory deficits, gait normal Skin: +erythematous rash under left breast Extensive ROS Constitutional (f/c/wt/vision/hearing): Negative Resp (cough/sob/corona): see above hpi CV (cp/palp/fluttering/diaphoresis/corona/pnd):see above hpi GI (n/v/d/hrtburn): see above hpi Endo (hair/cold or heat intol/ 3 p's): see above hpi Neuro (shaking/weak/fatigu/parasthesi/): Negative Skin (rash/easy bruis/xerosis): see above hpi Psy (si/hi/halluc/): Negative (nocturia/hesit/drib/sexual review): Negative Lymph (swollen glands/b sx's/: Negative ASSESSMENT: Type 2 diabetes mellitus with stage 3a chronic kidney disease, without long-term current use of insulin ([facility]) (Primary)--diabetes controlled. Sugars trending down and reports low sugars, although hadbeen taking metformin at midnight. Will reduce metformin to once daily due to diarrhea and patient did not seem willing to change the time of the second dose. Continue glipizide with breakfast. Follow s with nephrology. - HEMOGLOBIN A1C; Future; Expected date: 08/15/2024 Palpitations--EKG NSR. Check labs and echocardiogram. Appears to be only when [place] to [place]. - TSH WITH FREE T4 IF INDICATED; Future; Expected date: 08/15/2024 - CBC WITH WBC DIFFERENTIAL; Future; Expected date: 08/15/2024 - ECHO, COMPLETE (2D), TRANS-THORACIC; Future; Expected date: 05/18/2024 - EKG; Future; Expected date: 05/18/2024 CORONA (dyspnea on exertion)--check echo. - ECHO, COMPLETE (2D), TRANS-THORACIC; Future; Expected date: 05/18/2024 Intertrigo--recommend using Nystatin powder or clotrimazole regularly for 7-10 days until resolved. Type 2 diabetes mellitus with hemoglobin A1c goal of less than 8.0% ([facility])--as above. Controlled so will reduce metformin to once daily due to diarrhea. Continue glipizide. Repeat labs in 3 months. She will call if sugars become more elevated. Diabetic polyneuropathy associated with type 2 diabetes mellitus ([facility])--controlled with gabapentin 300 mg twice daily. Essential hypertension with goal blood pressure less than 140/90--borderline control. Had recent home BP measuring down and is mildly elevated during the day. Will continue current medicaions for nowand follow-up with nephrology. Diarrhea, unspecified type--reduce metformin as above. Dyslipidemia, goal LDL below 100--continue simvastatin 10 mg daily. Check labs in 3 months. - COMPREHENSIVE METABOLIC PANEL; Future; Expected date: 08/15/2024 - LIPID PANEL WITH DIRECT LDL IF TG IS HIGH; Future; Expected date: 08/15/2024 Follow Up: Return in about 6 months (around 11/15/2024) for Clinic Visit. | For: Clinic Visit PLAN: Continue present medication(s): Begin medication(s): Nystatin powder or clotrimazole cream for 10-14 days until rash under left breast is resolved Change doses of medications to: reduce metformin ER to 500 mg daily just with breakfast due to diarrhea and sugars in AM being 67-80. She had been taking metformin at midnight and discussed it shouldalways be taken with a meal. But will reduce to once daily to see if diarrhea improves. Study(ies) ordered: Echocardiogram. EKG done in office today NSR with left axis deviation, similar to priors. Schedule labs: A1C, CMP, lipid panel, CBC w/diff, and TSH in 3 months Patient education: Discussed when to take medications and treatment of rash. Discussed results of home BP monitoring and will follow-up with nephrology for further instructions. Follow up: in 6 month(s). Thais Chiu MD documented in this encounter Nursing Notes * Ofelia Barrera LPN - 05/18/2024 6:02 PM EST Return Sore area under left breast Had BP cuff for a month through Nephrology- Results? Gets SOB easily when walking at times documented in this encounter Plan of Treatment Upcoming Encounters Date Type Department Care Team (Latest Contact Info) Description 05/28/2024 2:45 PM EST Cardiac Studies Cardiac Studies [address] [place] [address] 06/05/2024 10:05 AM EDT Hospital Encounter [facility], Operating Room [facility] [address] [place] [phone] Jaswant, Max Rick, DO [address] [place] [address] 06/05/2024 10:05 AM EDT - 06/05/2024 10:30 AM EDT Surgery [facility], Operating Room [facility] [address] [place] [phone] Pio Michaud, DO [address] [place] [address] INJECT ANESTHETIC AND/OR STEROID SACROILIAC 06/18/2024 12:30 PM EDT Imaging Radiology [address] [place] [address] 10/01/2024 2:00 PM EDT Office Visit Nephrology [address] [place] [address] ZeTatyana anderson PA-C [address] [place] [address] 12/28/2024 5:40 PM EDT Office Visit Family Medicine [address] [place] [phone] Thais Chiu MD [address] [place] [address] [place] [address] 03/09/2025 10:40 AM EST Office Visit Rheumatology [facility] [address] [place] [phone] Logan Mireles MD [facility] [place] [address] 05/17/2025 5:40 PM EST Office Visit Family Medicine [address] [place] [phone] Thais Chiu MD [address] [place] [address] [place] [phone] Scheduled Orders Name Type Priority Associated Diagnoses Orde r Schedule HEMOGLOBIN A1C Lab Routine Type 2 diabetes mellitus with stage 3a chronic kidney disease, without long-term current use of insulin (HCC) Expected: 08/15/2024 (Approximate), Expires: 05/18/2025 COMPREHENSIVE METABOLIC PANEL Lab Routine Dyslipidemia, goal LDL below 100 Expected: 08/15/2024 (Approximate), Expires: 05/18/2025 LIPID PANEL WITH DIRECT LDL IF TG IS HIGH Lab Routine Dyslipidemia, goal LDL below 100 Expected: 08/15/2024 (Approximate), Expires: 05/18/2025 TSH WITH FREE T4 IF INDICATED Lab Routine Palpitations Expected: 08/15/2024 (Approximate), Expires: 05/18/2025 CBC WITH WBC DIFFERENTIAL Lab Routine Palpitations Expected: 08/15/2024 (Approximate), Expires: 05/18/2025 ECHO, COMPLETE (2D), TRANS-THORACIC Echocardiology Routine Palpitations CORONA (dyspnea on exertion) Expected: 05/18/2024 (Approximate), Expires: 05/18/2025 EKG EKG Routine Palpitations Expected: 05/18/2024 (Approximate), Expires: 06/15/2025 Scheduled Procedures Name Priority Associated Diagnoses Date/Ti [...] Additional history exists CKD HGB USE SMARTSET 58205 11/20/202411/20, 04/26/2022, 04/26/2022, Additional history exists CKD PHOS USE SMARTSET 08111 11/20/202410/24, 10/18/2022, 10/26/2021, Additional history exists Albumin/Creatinine [...] D LEVEL ONCE IN A LIFETIME-USE SMARTSET# [id number] Completed 04/02/2024, 03/08/2023, 03/01/2022, Additional history exists [...] Not on filedocumented as of this encounter Visit Diagnoses Diagnosis Type 2 diabetes mellitus with stage 3a chronic kidney disease, without long-term current use of insulin (HCC)- Primary Palpitations CORONA (dyspnea on exertion) Other dyspnea and respiratory abnormality Intertrigo Other specified erythematous condition Type 2 diabetes mellitus with hemoglobin A1c goal of less than 8.0% (HCC) Diabetic polyneuropathy associated with type 2 diabetes mellitus (HCC) Essential hypertension with goal blood pressure less than 140/90 Diarrhea, unspecified type Dyslipidemia, goal LDL below 100 Other and unspecified hyperlipidemia Inflammation of sacroiliac joint (HCC) Sacroiliitis, not elsewhere classified documented in this encounter Care Teams Hide Tanner Relationship Specialty Start Date End Date Thais Chiu MD [address] [place] [address] [place] [address] PCP - General Family Medicine 12/19/23 documented as of this encounter"
--- OUTSIDE RECORDS SUMMARY | 2024-08-01 19:29 | External Medical Summary | Summary of Care ---
Author Name Unknown Organization [facility] Address [address] [facility] [address] Phone [phone] Care Team Providers Care News Internship Name Role Phone Thais Chiu MD Primary Care Provide r Reason for Visit * Reason Onset Date Comments Encounter Created in Error 02/28/2024 Encounter Details Date Type Department Care Team (Late st Contact Info) Description 02/28/2024 Telephone Family Medicine [address] [phone] Thais Chiu MD [address] [place] [address] [place] [address] Encounter Created in Error Allergies Active Allergy Reactions Criticality Noted Date Comments Fantasma Inhibitors 09/27/1999 Prinivil--cough Adhesive Tape 09/27/1999 Bactrim Itching 04/15/2007 Barbiturates 09/27/1999 Cozaar Cough 12/16/2009 Duloxetine Hcl 09/23/2017 Mg-Mdeksk-Hahuppae-Scopola mine Hives 02/11/2015 Iodine 11/07/1982 Nortriptyline Hives Penicillins 09/27/1999 reaction as a child Phenytoin Sodium 09/27/1999 itching Povidone Iodine 09/27/1999 betadine Quinine Sulfate Dihydrate 12/23/2002 diarrhea Tramadol Hcl Nausea/vomiting 12/16/2009 documented as of this encounter (statuses as of 05/30/2024) Medications Blood Glucose Monitoring Suppl (FREESTYLE FREEDOM [...] Take 400 mg by mouth. Active Nystatin 387616 UNIT/GM External Powder (Nystop)Indicat ions:Cutaneous candidiasis Apply [...] stage 3, GFR 30-59 ml/min ([facility]) TAKE 1 TABLET DAILY ON SATURDAY, SATURDAY [...] mouth every 8 hours as needed. Active documented as of this encounter (statuses as of 05/30/2024) Active Problems Problem Noted Date Diagnosed Date [...] as of this encounter (statuses as of 05/30/2024) Resolved Problems Problem Noted Date Diagnosed Date [...] Overview (01/20/2009): Per Diabetes Taxonomy. 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 Not on file Not on file documented as of this encounter Plan of Treatment Upcoming Encounters Date Type Department Care Team (Latest Contact Info) Description 06/05/2024 10:25 AM EDT Hospital Encounter OR [facility], Operating Room [facility] [address] [place] [phone] Pio Michaud, [address] [place] [phone] 06/05/2024 10:25 AM EDT - 06/05/2024 10:50 AM EDT Surgery OR [facility], Operating Room [facility] [address] [place] [phone] Pio Michaud DO [address] [place] [phone] INJECT ANESTHETIC AND/OR STEROID SACROILIAC 06/18/2024 12:30 PM EDT Imaging Radiology [address] [place] [address] 10/01/2024 2:00 PM EDT Office Visit Nephrology [address] [place] [address] Tatyana Wall PA-C [address] [place] [address] 12/28/2024 5:40 PM EDT Office Visit Family [address] [place] [phone] Thais Chiu MD [address] [place] [address] [place] [address] 03/09/2025 10:40 AM EST Office Visit Rheumatology [facility] [address] [place] [phone] Logan Mireles MD [facility] [place] [address] 05/17/2025 5:40 PM EST Office Visit Family Medicine [address] [place] [phone] Thais Chiu MD [address] [place] [address] [place] [address] Scheduled Procedures Name Priority Associated Diagnoses Date/Ti [...] Additional history exists CKD HGB USE SMARTSET 12476 11/20/202411/20, 04/26/2022, 04/26/2022, Additional history exists CKD PHOS USE SMARTSET 25858 11/20/202410/24, 10/18/2022, 10/26/2021, Additional history exists Albumin/Creatinine [...] D LEVEL ONCE IN A LIFETIME-USE SMARTSET# 33345 Completed 04/02/2024, 03/08/2023, 03/01/2022, Additional history exists [...] filedocumented as of this encounter Care Teams News Internship Relationship Specialty Start Date End Date Thais Chiu MD [address] [place] [address] [place] [phone] PCP - General Family Medicine 12/19/23 documented as of this encounter
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
--- OUTSIDE RECORDS SUMMARY | 2024-08-01 19:29 | External Medical Summary | Summary of Care ---
Author Name Unknown Organization [facility] Address [address] [facility] [place] [address] Phone [phone] Care Team Providers Care Heavy Threader Name Role Phone Thais Chiu MD Primary Care Provide r Reason for Visit * Reason Comments Blood Pressure Check Encounter Details Date Type Department Care Team (Late st Contact Info) Description 04/29/2024 4:00 PM EST Nurse Only Nephrology [address] [place] [address] [place], Nurse Nephrology [address] [place] [address] Blood Pressure Check Allergies Active Allergy Reactions Criticality Noted Date Comments Fantasma Inhibitors 09/27/1999 Prinivil--cough Adhesive Tape 09/27/1999 Bactrim Itching 04/15/2007 Barbiturates 09/27/1999 Cozaar Cough 12/16/2009 Duloxetine Hcl 09/23/2017 Qa-Sjerkl-Anavsbok-[place] mine Hives 02/11/2015 Iodine 11/07/1982 Nortriptyline Hives Penicillins 09/27/1999 reaction as a child Phenytoin Sodium 09/27/1999 itching Povidone Iodine 09/27/1999 betadine Quinine Sulfate Dihydrate 12/23/2002 diarrhea Tramadol Hcl Nausea/vomiting 12/16/2009 documented as of this encounter (statuses as of 05/04/2024) Medications Blood Glucose Monitoring Suppl (FREESTYLE FREEDOM [...] Take 400 mg by mouth. Active Nystatin 807358 UNIT/GM External Powder (Nystop)Indicat ions:Cutaneous candidiasis Apply [...] kidney disease) stage 3, GFR 30-59 ml/min ([facility]) TAKE 1 TABLET DAILY ON SATURDAY, SATURDAY [...] as of this encounter (statuses as of 05/04/2024) Active Problems Problem Noted Date Diagnosed Date [...] as of this encounter (statuses as of 05/04/2024) Resolved Problems Problem Noted Date Diagnosed Date [...] Overview (01/20/2009): Per Diabetes Taxonomy. 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 BP monitor number [id number]. Log sheet, instructions on use and recording of activities explained to patient/caregiver with verbal understanding of same. documented in this encounter Plan of Treatment Upcoming Encounters Date Type Department Care Team (Latest Contact Info) Description 05/18/2024 6:20 PM EST Office Visit Family Medicine [address] [place] [phone] Thais Chiu MD [address] [place] [address] [place] [address] 06/05/2024 10:05 AM EDT Hospital Encounter OR [facility], Operating Room [facility] [address] [facility] [place] [address] Jaswant, Max Rick, DO [address] [place] [phone] 06/05/2024 10:05 AM EDT - 06/05/2024 10:30 AM EDT Surgery OR [facility], Operating Room [facility] [address] [place] [address] Pio Michaud, DO [address] [place] [address] INJECT ANESTHETIC AND/OR STEROID SACROILIAC 06/18/2024 12:30 PM EDT Imaging Radiology [address] [place] [address] 10/01/2024 2:00 PM EDT Office Visit Nephrology [address] [place] [address] ZemaTatyana amos PA-C [address] [place] [address] 03/09/2025 10:40 AM EST Office Visit Rheumatology [facility] [address] [place] [phone] Logan Mireles MD [facility] [place] [address] Scheduled Procedures Name Priority Associated Diagnoses Date/Ti [...] Additional history exists CKD HGB USE SMARTSET 34614 11/20/202411/20, 04/26/2022, 04/26/2022, Additional history exists CKD PHOS USE SMARTSET 77311 11/20/202410/24, 10/18/2022, 10/26/2021, Additional history exists Albumin/Creatinine [...] D LEVEL ONCE IN A LIFETIME-USE SMARTSET# 47707 Completed 04/02/2024, 03/08/2023, 03/01/2022, Additional history exists [...] filedocumented as of this encounter Care Teams Heavy Threader Relationship Specialty Start Date End Date Thais Chiu MD [address] [place] [address] [place] [phone] PCP - General Family Medicine 12/19/23 documented as of this encounter
--- OUTSIDE RECORDS SUMMARY | 2024-08-01 19:29 | External Medical Summary | Summary of Care ---
Author Name Unknown Organization [facility] [address] [facility] [address] Phone [phone] Care Team Providers Care Optical Fabricator Name Role Phone Thais Chiu MD Primary Care Provide r Reason for Visit * Reason Onset Date Comments Appointment 04/16/2024 Encounter Details Date Type Department Care Team (Late st Contact Info) Description 04/16/2024 Telephone Nephrology, [place] [address] [place] [address] Yenifer Ly MD [address] [place] [place] [address] Appointment Allergies Active Allergy Reactions Criticality Noted Date Comments Fantasma Inhibitors 09/27/1999 Prinivil--cough Adhesive Tape 09/27/1999 Bactrim Itching 04/15/2007 Barbiturates 09/27/1999 Cozaar Cough 12/16/2009 Duloxetine Hcl 09/23/2017 Hv-Cewzru-Ifuwuidf-[place]opola mine Hives 02/11/2015 Iodine 11/07/1982 Nortriptyline Hives [...] Take 400 mg by mouth. Active Nystatin 608055 UNIT/GM External Powder (Nystop)Indicat ions:Cutaneous candidiasis Apply [...] kidney disease) stage 3, GFR 30-59 ml/min ([facility]) TAKE 1 TABLET DAILY ON SATURDAY, SATURDAY [...] Overview (01/20/2009): Per Diabetes Taxonomy. 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 * Telephone Encounter - Damari Wong RN - 04/16/2024 10:25 AM EST ----- Message from Yenifer Ly MD sent at 04/15/2024 12:20 PM EST ----- Kidney labs stable and NORMAL; continue same meds. BP uncontrolled at OV and we planned home BP cuff validation/log; still no report of validation. Neph nurse -amb BP pls and validate home cuff same time documented in this encounter Plan of Treatment Upcoming Encounters Date Type Department Care Team (Late st Contact Info) Description 04/29/2024 4:00 PM EST Nurse Only Nephrology [address] [place] [address] [place], Nurse Nephrology [address] [place] [address] 05/18/2024 6:20 PM EST Office Visit Family Medicine [address] [place] [phone] Thais Chiu MD [address] [place] [address] [place] [address] 06/05/2024 10:05 AM EDT Hospital Encounter OR [facility], Operating Room [facility] [address] [place] [phone] Pio Michaud, [address] [place] [phone] 06/05/2024 10:05 AM EDT - 06/05/2024 10:30 AM EDT Surgery OR [facility], Operating Room [facility] [address] [place] [phone] Pio Michaud DO [address] [place] [phone] INJECT ANESTHETIC AND/OR STEROID SACROILIAC 06/18/2024 12:30 PM EDT Imaging Radiology [address] [place] [address] 10/01/2024 2:00 PM EDT Office Visit Nephrology [address] [place] [address] Tatyana Wall PA-C [facility] [place] [address] 03/09/2025 10:40 AM EST Office Visit Rheumatology [facility] [address] [place] [phone] Logan Mireles MD [address] [place] [address] Scheduled Procedures Name Priority Associated Diagnoses Date/Ti [...] Additional history exists CKD HGB USE SMARTSET 09732 11/20/202411/20, 04/26/2022, 04/26/2022, Additional history exists CKD PHOS USE SMARTSET 01076 11/20/202410/24, 10/18/2022, 10/26/2021, Additional history exists Albumin/Creatinine [...] D LEVEL ONCE IN A LIFETIME-USE SMARTSET# 16168 Completed 04/02/2024, 03/08/2023, 03/01/2022, Additional history exists [...] filedocumented as of this encounter Care Teams Optical Fabricator Relationship Specialty Start Date End Date Thais Chiu MD [address] [place] [address] [place] [address] PCP - General Family Medicine 12/19/23 documented as of this encounter
--- OUTSIDE RECORDS SUMMARY | 2024-08-01 19:29 | External Medical Summary | Summary of Care ---
Author Name Unknown Organization [facility] Address [address] [facility] [place] [address] Phone [phone] Care Team Providers Care Trapeze Artist Name Role Phone Thais Chiu MD Primary Care Provide r Reason for Visit * Reason Comments Blood Pressure Check Encounter Details Date Type Department Care Team (Late st Contact Info) Description 04/29/2024 4:00 PM EST Nurse Only Nephrology [address] [place] [address] [place], Nurse Nephrology [address] [place] [address] Blood Pressure Check Allergies Active Allergy Reactions Criticality Noted Date Comments Fantasma Inhibitors 09/27/1999 Prinivil--cough Adhesive Tape 09/27/1999 Bactrim Itching 04/15/2007 Barbiturates 09/27/1999 Cozaar Cough 12/16/2009 Duloxetine Hcl 09/23/2017 Uv-Pwfnig-Buxezbjz-[place] mine Hives 02/11/2015 Iodine 11/07/1982 Nortriptyline Hives Penicillins 09/27/1999 reaction as a child Phenytoin Sodium 09/27/1999 itching Povidone Iodine 09/27/1999 betadine Quinine Sulfate Dihydrate 12/23/2002 diarrhea Tramadol Hcl Nausea/vomiting 12/16/2009 documented as of this encounter (statuses as of 05/07/2024) Medications Blood Glucose Monitoring Suppl (FREESTYLE FREEDOM [...] Take 400 mg by mouth. Active Nystatin 216020 UNIT/GM External Powder (Nystop)Indicat ions:Cutaneous candidiasis Apply [...] kidney disease) stage 3, GFR 30-59 ml/min ([facility]) TAKE 1 TABLET DAILY ON SATURDAY, SATURDAY [...] as of this encounter (statuses as of 05/07/2024) Active Problems Problem Noted Date Diagnosed Date [...] as of this encounter (statuses as of 05/07/2024) Resolved Problems Problem Noted Date Diagnosed Date [...] Overview (01/20/2009): Per Diabetes Taxonomy. 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 The data was recorded and downloaded from the ABPM device, analyzed, and interpreted as below in this report. # of daytime BP readings 27 # of nighttime BP readings 8 Adequate # of readings? 35 adequate for interpretation (at least 14 daytime and 7 nighttime optimal) % successful readings? 90 (at least 80% optimal) Average 24-hour BP 136/72, HR 76 Average awake BP 141/74, HR 77 Average asleep BP 127/68, HR 73 Dipping (% decrease at nighttime vs. Daytime) Systolic 11.7 Diastolic 9.6 INTERPRETATION: BP Readings from Last 5 Encounters: 04/16/24 : 138/75 04/02/24 : 155/84 03/06/24 : 150/74 01/09/24 : 144/60 11/28/23 : 185/84 Blood pressure is un controlled during this 24 hour period according to 2017 ACC/AHA guidelines. Blood pressure targets should be individualized for each patient's unique clinical situation. Correlation of these 24 hour readings with available office readings; BP readings are lower than office readings.. This assumes that no lifestyle or medication changes have occurred in the interval between clinic readings and this 24 hour procedure. Further recommendations per referring health plan advisor Dr. yL A copy of the full report will be scanned into the chart. Tash Garnica MD. This note was generated using voice recognition software. Please excuse errors documented in this encounter Nursing Notes * Damari Wong RN - 04/29/2024 4:30 PM EST Ambulatory BP cuff size regular applied to left arm. BP monitor number [id number]. Log sheet, instructions on use and recording of activities explained to patient/caregiver with verbal understanding of same. documented in this encounter Plan of Treatment Upcoming Encounters Date Type Department Care Team (Latest Contact Info) Description 05/18/2024 6:20 PM EST Office Visit Family Medicine [address] [place] [phone] Thais Chiu MD [address] [place] [address] [place] [address] 06/05/2024 10:05 AM EDT Hospital Encounter OR [facility], Operating Room [facility] [address] [place] [phone] Pio Michaud, DO [address] [place] [address] 06/05/2024 10:05 AM EDT - 06/05/2024 10:30 AM EDT Surgery OR [facility], Operating Room [facility] [address] [place] [phone] Pio Michaud, DO [address] [place] [phone] INJECT ANESTHETIC AND/OR STEROID SACROILIAC 06/18/2024 12:30 PM EDT Imaging Radiology [address] [place] [address] 10/01/2024 2:00 PM EDT Office Visit Nephrology [address] [place] [address] ZemaTatyana amos PA-C [address] [place] [address] 03/09/2025 10:40 AM EST Office Visit Rheumatology [facility] [address] [place] [phone] Logan Mireles MD [address] [place] [address] [place] [address] Scheduled Procedures Name Priority Associated Diagnoses Date/Ti [...] Additional history exists CKD HGB USE SMARTSET 60349 11/20/202411/20, 04/26/2022, 04/26/2022, Additional history exists CKD PHOS USE SMARTSET 40688 11/20/202410/24, 10/18/2022, 10/26/2021, Additional history exists Albumin/Creatinine [...] D LEVEL ONCE IN A LIFETIME-USE SMARTSET# 12989 Completed 04/02/2024, 03/08/2023, 03/01/2022, Additional history exists [...] as of this encounter Visit Diagnoses Diagnosis HTN, goal below 140/90 [I10]- Primary Unspecified essential hypertension Inflammation of sacroiliac joint (HCC) Sacroiliitis, not elsewhere classified documented in this encounter Care Teams Trapeze Artist Relationship Specialty Start Date End Date Thais Chiu MD [address] [place] [address] [place] [address] PCP - General Family Medicine 12/19/23 documented as of this encounter
--- OUTSIDE RECORDS SUMMARY | 2024-08-01 19:29 | External Medical Summary | Summary of Care ---
Author Name Unknown Organization [facility] Address [address] [facility] [address] Phone [phone] Care Team Providers Care Director Food And Beverage Name Role Phone Thais Chiu MD Primary Care Provide r Reason for Visit * Reason Onset Date Comments Test Results 05/05/2024 Encounter Details Date Type Department Care Team (Late st Contact Info) Description 05/05/2024 Telephone Nephrology, [place] [address] [facility] [place] [address] Yenifer Ly MD [address] [facility] [place] [address] Test Results Allergies Active Allergy Reactions Criticality Noted Date Comments Fantasma Inhibitors 09/27/1999 Prinivil--cough Adhesive Tape 09/27/1999 Bactrim Itching 04/15/2007 Barbiturates 09/27/1999 Cozaar Cough 12/16/2009 Duloxetine Hcl 09/23/2017 Bf-Digtmp-Rsoyrrws-[place]opola mine Hives 02/11/2015 Iodine 11/07/1982 Nortriptyline Hives [...] Take 400 mg by mouth. Active Nystatin 738950 UNIT/GM External Powder (Nystop)Indicat ions:Cutaneous candidiasis Apply [...] stage 3, GFR 30-59 ml/min ([facility]) TAKE 1 TABLET DAILY ON [...] Overview (01/20/2009): Per Diabetes Taxonomy. 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 Please review and report results. documented in this encounter Plan of Treatment Upcoming Encounters Date Type Department Care Team (Latest Contact Info) Description 05/18/2024 6:20 PM EST Office Visit Family Medicine [address] [place] [phone] Thais Chiu MD [address] [place] [address] [place] [address] 06/05/2024 10:05 AM EDT Hospital Encounter OR [facility], Operating Room [facility] [address] [place] [phone] Pio Michaud DO [address] [place] [phone] 06/05/2024 10:05 AM EDT - 06/05/2024 10:30 AM EDT Surgery OR [facility], Operating Room [facility] [address] [place] [phone] Pio Michaud DO [address] [place] [phone] INJECT ANESTHETIC AND/OR STEROID SACROILIAC 06/18/2024 12:30 PM EDT Imaging Radiology [address] [place] [address] 10/01/2024 2:00 PM EDT Office Visit Nephrology [address] [place] [address] ZemaTatyana amos PA-C [address] [place] [address] 03/09/2025 10:40 AM EST Office Visit Rheumatology [facility] [address] [place] [phone] Logan Mireles MD [facility] [place] [address] Scheduled Procedures Name Priority Associated Diagnoses Date/Ti [...] Additional history exists CKD HGB USE SMARTSET 84953 11/20/202411/20, 04/26/2022, 04/26/2022, Additional history exists CKD PHOS USE SMARTSET 04189 11/20/202410/24, 10/18/2022, 10/26/2021, Additional history exists Albumin/Creatinine [...] D LEVEL ONCE IN A LIFETIME-USE SMARTSET# 00092 Completed 04/02/2024, 03/08/2023, 03/01/2022, Additional history exists [...] filedocumented as of this encounter Care Teams Director Food And Beverage Relationship Specialty Start Date End Date Thais Chiu MD [address] [place] [address] [place] [phone] PCP - General Family Medicine 12/19/23 documented as of this encounter
--- OUTSIDE RECORDS SUMMARY | 2024-08-01 19:30 | External Medical Summary | Summary of Care ---
Author Name Unknown Organization [facility] Address [address] [facility] [address] Phone [phone] Care Team Providers Care Monitoring Tech Name Role Phone Thais Wong MD Primary Care Provide r Reason for Visit * Reason Comments Chronic Kidney Disease (CKD) Encounter Details Date Type Department Care Team (Latest Contact Info) Description 04/02/2024 3:20 PM EST Office Visit Nephrology [address] [place] [address] Yenifer Ly MD [address] [place] [address] Uncontrolled hypertension*; Stage 3a chronic kidney disease (HCC); Essential hypertension with goal blood pressure less than 140/90; ACEI/ARB contraindicated Allergies Active Allergy Reactions Criticality Noted Date Comments Fantasma Inhibitors 09/27/1999 Prinivil--cough Adhesive Tape 09/27/1999 Bactrim Itching 04/15/2007 Barbiturates 09/27/1999 Cozaar Cough 12/16/2009 Duloxetine Hcl 09/23/2017 Wp-Vjwuzn-Vinqqqlt-Scopola mine Hives 02/11/2015 Iodine 11/07/1982 Nortriptyline Hives Penicillins 09/27/1999 reaction as a child Phenytoin Sodium 09/27/1999 itching Povidone Iodine 09/27/1999 betadine Quinine Sulfate Dihydrate 12/23/2002 diarrhea Tramadol Hcl Nausea/vomiting 12/16/2009 documented as of this encounter (statuses as of 04/15/2024) Medications Blood Glucose Monitoring Suppl (FREESTYLE FREEDOM [...] Take 400 mg by mouth. Active Nystatin 988850 UNIT/GM External Powder (Nystop)Indicat ions:Cutaneous candidiasis Apply [...] kidney disease) stage 3, GFR 30-59 ml/min ([facility]) TAKE 1 TABLET DAILY ON [...] hemoglobin A1c goal of less than 8.0% ([facility]) TAKE 1 TABLET TWICE A DAY WITH [...] as of this encounter (statuses as of 04/15/2024) Active Problems Problem Noted Date Diagnosed Date [...] as of this encounter (statuses as of 04/15/2024) Resolved Problems Problem Noted Date Diagnosed Date [...] Overview (01/20/2009): Per Diabetes Taxonomy. 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 E11.9 300 Each 3 Nystatin 353376 UNIT/GM External Powder (Nystop) Apply topically to [...] Itching Barbiturates Cozaar Cough Cymbalta [Duloxetine Hcl] [Ni-Gqsipb-Rxjndzop-Scopolamine] Hives Iodine Nortriptyline Hives Penicillins reaction as [...] 2X in PM and after you have [id number] readings, let us know results -may ask you to follow w/ MTDarcie, a chronic disease pharmacist -avoid medicines like aleve, advil, ibuprofen, aspirin more than 81 mg daily and other NSAIDS whichare not good for kidney patients. Take only tylenol (acetaminophen) up to 2000 mg daily as needed for pain or as directed by your primary care provider. -labs today Yenifer Ly MD Nephrology [address] [place] [address] CC: REF: SELF NO STRE[address] ADDRESS AVAILABLE PCP: THAIS WONG [address] [place] [address] [place] [address] [phone] This chart was completed in part utilizing [employer] Speech Voice Recognition Software. Randomword insertions, pronoun errors, and incomplete sentences are an occasional consequence of this system due to software limitations, and ambient noise. Any questions or concerns about the content, text, or information contained within the body of this dictation should be directly addressed to the provider for clarification. documented in this encounter Nursing Notes * Damari Wong RN - 04/02/2024 3:53 PM EST Follow up visit today. Daughter with pt today. Does not monitor bp at home. documented in this encounter Plan of Treatment Upcoming Encounters Date Type Department Care Team (Late st Contact Info) Description 04/16/2024 10:00 AM EST Nurse Only Nephrology [address] [place] [address] Cel[place], Nurse Nephrology [address] [place] [address] 05/18/2024 6:20 PM EST Office Visit Family Medicine [address] [place] [phone] Thais Wong MD [address] [place] [address] [place] [address] 06/05/2024 10:05 AM EDT Hospital Encounter OR [facility], Operating Room [facility] [address] [place] [phone] Pio Michaud, DO [address] [place] [phone] 06/05/2024 10:05 AM EDT - 06/05/2024 10:30 AM EDT Surgery OR [facility], Operating Room [facility] [address] [place] [phone] Pio Michaud, [address] [place] [phone] INJECT ANESTHETIC AND/OR STEROID SACROILIAC 06/18/2024 12:30 PM EDT Imaging Radiology [address] [place] [address] 10/01/2024 2:00 PM EDT Office Visit Nephrology [address] [place] [address] ZemaitisTatyana PA-C [address] [place] [address] 03/09/2025 10:40 AM EST Office Visit Rheumatology [facility] [address] [place] [phone] Logan Mireles MD [address] [place] [address] [place] [address] Scheduled Procedures Name Priority Associated Diagnoses Date/Ti [...] Additional history exists CKD HGB USE SMARTSET 28022 11/20/202411/20, 04/26/2022, 04/26/2022, Additional history exists CKD PHOS USE SMARTSET 77433 11/20/202410/24, 10/18/2022, 10/26/2021, Additional history exists Albumin/Creatinine [...] D LEVEL ONCE IN A LIFETIME-USE SMARTSET# 90277 Completed 04/02/2024, 03/08/2023, 03/01/2022, Additional history exists [...] LAB BLOOD ORDERABLES Sirena l Result [facility] [address] [facility] [place] [address] documented in this encounter Visit Diagnoses Diagnosis Uncontrolled hypertension- Primary Unspecified essential hypertension Stage 3a chronic kidney disease (HCC) Essential hypertension with goal blood pressure less than 140/90 ACEI/ARB contraindicated Inflammation of sacroiliac joint (HCC) Sacroiliitis, not elsewhere classified documented in this encounter Care Teams Monitoring Tech Relationship Specialty Start Date End Date Thais Wong MD [address] [place] [address] [place] [address] PCP - General Family Medicine 12/19/23 documented as of this encounter
--- OUTSIDE RECORDS SUMMARY | 2024-08-01 19:30 | External Medical Summary | Summary of Care ---
Author Name Unknown Organization [facility] Address [address] [facility] [address] Phone [phone] Care Team Providers Care Litharge Mill Operator Name Role Phone Kayden Chiu MD Primary Care Provide r Reason for Visit * Reason Onset Date Comments Medication Refill 03/05/2024 Encounter Details Date Type Department Care Team (Late st Contact Info) Description 03/05/2024 Refill Family Medicine [address] [phone] Kayden Chiu MD [address] [place], [place] [address] [address] Allergies Active Allergy Reactions Criticality Noted Date Comments Fantasma Inhibitors 09/27/1999 Prinivil--cough Adhesive Tape 09/27/1999 Bactrim Itching 04/15/2007 Barbiturates 09/27/1999 Cozaar Cough 12/16/2009 Duloxetine Hcl 09/23/2017 Du-Hwbdtc-Apkkheee-Scopola mine Hives 02/11/2015 Iodine 11/07/1982 Nortriptyline Hives Penicillins 09/27/1999 reaction as a child Phenytoin Sodium 09/27/1999 itching Povidone Iodine 09/27/1999 betadine Quinine Sulfate Dihydrate 12/23/2002 diarrhea Tramadol Hcl Nausea/vomiting 12/16/2009 documented as of this encounter (statuses as of 03/06/2024) Medications Blood Glucose Monitoring Suppl (FREESTYLE FREEDOM LITE) w/Device KIT Dx Code E11.9 1 Kit 06/28/19 18 Active Additional Information Patient taking differently: TID(AM/NOON/HS), Dx Code E11.9,Indications: Use to Test Blood Sugars 3 times a day. DX Code E11.9-Doispense 300 with 1 refill 07-11-17 via phone, Reported on 03/06/2024 Blood Pressure KITIndications:H TN, goal below 140/90 Use per physician instructions 1 Kit 04/03/19 19 Active Fexofenadine HCl 180 MG Oral Tablet Take 1 Tablet by mouth in the morning. Active FreeStyle Lancets MISC USE DIRECTED TO TEST BLOOD SUGAR 3 TIMES DAILY. E11.9 300 Each 3 11/07/19 20 Active Womens 50+ Multi Vitamin/Min Oral Tablet Take by mouth. Activ e Magnesium 400 MG Oral Tablet Take 400 mg by mouth. Active Nystatin 455131 UNIT/GM External Powder (Nystop)Indicati ons:Cutaneous candidiasis Apply topically to affected area 3 times a day . 30 g 2 11/24/19 22 Active Clobetasol Propionate 0.05 % External Ointment (Temovate)Indica tions:Subacute vaginitis Apply topically to affected area 2 times a day. To affected area for up to two weeks. 15 g 1 10/27/19 23 Active Clotrimazole 1 % External Cream (Lotrimin)Indica tions:Vulvar candidiasis Apply topically to affected area 2 [...] bedtime. 180 Capsule 3 07/16/19 24 Active metFORMIN HCl ER 500 MG Oral Tablet Extended Release 24 Hour (Glucophage XR)Indications:T ype 2 diabetes mellitus with hemoglobin A1c goal of less than 8.0% (HCC) Take 1 Tablet by mouth 2 times a day with morning and evening meals. 180 Tablet 1 08/29/19 24 Active Furosemide 20 MG Oral Tablet (Lasix)Indicatio ns:Edema, unspecified type,HTN, goal below 140/90,CKD (chronic kidney disease) stage 3, GFR 30-59 ml/min ([facility]) TAKE 1 TABLET DAILY ON SATURDAY, SATURDAY AND SATURDAY ONLY 36 Tablet 3 08/29/19 24 Active FreeStyle Lite Test In Vitro Strip (Glucose Blood) Use as directed 2 times a day. 200 Strip 2 08/29/19 24 Active oxyCODONE HCl 5 MG Oral Tablet (Oxy IR)Indications:H istory of compression fracture of spine,Spinal stenosis of lumbar region, unspecified whether neurogenic claudication present,Senile osteoporosis Take 1 Tablet by mouth every 6 hours as needed for Pain, Severe. 40 Tablet 09/02/19 24 Active Additional Information Patient not taking.Reported on 03/06/2024 Montelukast Sodium 10 MG Oral Tablet (Singulair)Indic ations:Allergic rhinitis Take 1 Tablet by mouth in [...] 24 Active Simvastatin 10 MG Oral Tablet (Zocor)Indicatio ns:Dyslipidemia, goal LDL below 100 Take 1 Tablet by mouth at bedtime. 90 Tablet 1 02/07/20 24 Active Gemtesa 75 MG Oral Tablet (Vibegron)Indica tions:Urge incontinence,OAB (overactive bladder) Take 1 Tablet by mouth [...] bedtime. 180 Tablet 1 03/06/20 24 Active Famotidine 20 MG Oral Tablet (Pepcid) Take 1 Tablet by mouth in the morning and 1 Tablet before bedtime. 60 Tablet 5 12/18/19 23 12/12/2 024 Discontin ued(Refil l) documented as of this encounter (statuses as of 03/06/2024) Active Problems Problem Noted Date Diagnosed Date [...] as of this encounter (statuses as of 03/06/2024) Resolved Problems Problem Noted Date Diagnosed Date [...] Overview (01/20/2009): Per Diabetes Taxonomy. 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 Authorizing Provider: KAYDEN CHIU Ordering User: CARLYLE LOU * Telephone Encounter - Merced Hernandez CPhT - 03/05/2024 1:35 PM EST Did you pend patient's preferred pharmacy and medication before forwarding? Pharmacy: [id number] [place] [address] Pending Prescriptions: Disp Refills Famotidine 20 MG Oral Tablet (Pepcid) 60 Tab*5 Sig: Take 1 Tablet by mouth in the morning and 1 Tablet before bedtime. Last Visit: 01/09/2024 (in office), Visit date not found (telemedicine) Next Visit: 05/18/2024 If no future appointments scheduled, and last appointment is greater than a year ago, please schedule patient for a follow-up appointment Last date the medication was ordered: 12/17/22 Is this request for a controlled substance?No Urine Drug Screen:No results found. However, due to the size of the patient record, not all encounters were searched. Please check Results Review for a complete set of results. Patient Phone Numbers Labs: Lab Results Component Value Date/Time CREAT 1.0 08/29/2023 08:41 AM CREAT 1.1 (H) 10/15/2019 09:37 AM POTASSIUM 4.4 08/29/2023 08:41 AM POTASSIUM 4.5 10/15/2019 09:37 AM TSH 1.97 12/30/2017 03:10 PM LDL 45 03/08/2023 02:32 PM LDL 68 10/15/2019 09:37 AM LDL NOT APPLICABLE 10/15/2019 09:37 AM ALT 24 10/18/2022 08:20 AM ALT 19 10/15/2019 09:37 AM HGBA1C 7.0 (H) 02/14/2024 03:35 PM HGBA1C 7.1 (H) 10/15/2019 09:37 AM HGBA1C 5.6 01/15/1996 11:30 AM * Telephone Encounter - Ayla Can OSA - 03/05/2024 1:32 PM EST Pt calling in asking to [id number] documented in this encounter Plan of Treatment Upcoming Encounters Date Type Department Care Team (Latest Contact Info) Description 04/02/2024 3:20 PM EST Office Visit Nephrology [address] [place] [address] Yenifer Ly MD [address] [place] [address] [place] [address] 05/18/2024 6:20 PM EST Office Visit Family Medicine [address] [place] [phone] Kayden Chiu MD [address] [place] [address] [place] [address] 06/05/2024 10:05 AM EDT Hospital Encounter OR [facility], Operating Room [facility] [address] [place] [phone] Pio Michaud, [address] [place] [phone] 06/05/2024 10:05 AM EDT - 06/05/2024 10:30 AM EDT Surgery OR [facility], Operating Room [facility] [address] [place] [phone] Pio Michaud, [address] [place] [phone] INJECT ANESTHETIC AND/OR STEROID SACROILIAC 06/18/2024 12:30 PM EDT Imaging Radiology [address] [place] [address] 03/09/2025 10:40 AM EST Office [address] [place] [address] Logan Mireles MD [address] [place] [address] [address] [place] [address] Scheduled Procedures Name Priority Associated Diagnoses Date/Ti [...] COVID-19 Vaccine ( season) 2023 07/12/2020, 06/14/2020 GFR 02/28/2024 08/29/2023, 02/22, 10/18/2022, Additional history exists HbA1c 08/13/2024 02/14/2024, 10/24, 03/08/2023, Additional history exists B-12 11/20/2024 11/21/2023, 09/23, 10/26/2021, Additional history exists CKD HGB USE SMARTSET 05521 11/20/202411/20, 04/26/2022, 04/26/2022, Additional history exists CKD PHOS USE SMARTSET 44265 11/20/202410/24, 10/18/2022, 10/26/2021, Additional history exists Albumin/Creatinine Ratio 11/27/2024 024, 10/18/2022, 10/26/2021, Additional history exists Diabetic Eye Exam 01/22/2025 01/23/2024, , 01/10/2023, Additional history exists DXA Scan 08/11/2025 08/12/2023, 07/24, 11/16/2020, Additional history exists DTap/Tdap Vaccines (2 - Td or Tdap) 10/16/2028 10/16/2018, 11/08/2007 Pneumococcal Vaccine: 65+ Years Completed 08/01/2015, 09/18/2006 Zoster Vaccines Completed 12/16/2019, 09/23, 02/06/2012 RETIRED - COLONOSCOPY-EVERY 5 YRS AGES 18-100 Discontinued 04/04/2021, 04/04/2021, 01/23/2016, Additional history exists VITAMIN D LEVEL ONCE IN A LIFETIME-USE SMARTSET# 95508 Completed 03/08/2023, 03/01/2022, 10/26/2021, Additional history exists Influenza Vaccine (FLU shot) Completed 01/02/2024, 01/25/2023, 11/23/2021, Additional history exists HPV (Gardasil) Vaccine Aged [...] filedocumented as of this encounter Care Teams Litharge Mill Operator Relationship Specialty Start Date End Date Kayden Chiu MD [address] [place] [address] [place] [address] PCP - General Family Medicine 12/19/23 documented as of this encounter
--- OUTSIDE RECORDS SUMMARY | 2024-08-01 19:30 | External Medical Summary | Summary of Care ---
Author Name Unknown Organization [facility] Address [address] [facility] [place] [address] Phone [phone] Care Team Providers Care Pick Up Man Name Role Phone Thais Chiu MD Primary Care Provide r Reason for Visit * Reason Comments Outpatient Testing Encounter Details Date Type Department Care Team (Late st Contact Info) Description 04/02/2024 4:30 PM EST Laboratory Laboratory [address] [place] [phone] [place] [address] Senile osteoporosis; Stage 3a chronic kidney disease (HCC) Allergies Active Allergy Reactions Criticality Noted Date Comments Fantasma Inhibitors 09/27/1999 Prinivil--cough Adhesive Tape 09/27/1999 Bactrim Itching 04/15/2007 Barbiturates 09/27/1999 Cozaar Cough 12/16/2009 Duloxetine Hcl 09/23/2017 Mo-Nzugwa-Ygnfqtjv-Scopola mine Hives 02/11/2015 Iodine 11/07/1982 Nortriptyline Hives Penicillins 09/27/1999 reaction as a child Phenytoin Sodium 09/27/1999 itching Povidone Iodine 09/27/1999 betadine Quinine Sulfate Dihydrate 12/23/2002 diarrhea Tramadol Hcl Nausea/vomiting 12/16/2009 documented as of this encounter (statuses as of 04/02/2024) Medications Blood Glucose Monitoring Suppl (FREESTYLE FREEDOM [...] Take 400 mg by mouth. Active Nystatin 181655 UNIT/GM External Powder (Nystop)Indicat ions:Cutaneous candidiasis Apply [...] kidney disease) stage 3, GFR 30-59 ml/min ([facility]) TAKE 1 TABLET DAILY ON SATURDAY, [...] as of this encounter (statuses as of 04/02/2024) Active Problems Problem Noted Date Diagnosed Date [...] as of this encounter (statuses as of 04/02/2024) Resolved Problems Problem Noted Date Diagnosed Date [...] Overview (01/20/2009): Per Diabetes Taxonomy. 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 on file Not on file documented as of this encounter Plan of Treatment Upcoming Encounters Date Type Department Care Team (Late st Contact Info) Description 04/16/2024 10:00 AM EST Nurse Only Nephrology [address] [place] [address] [place], Nurse Nephrology [address] [place] [address] 05/18/2024 6:20 PM EST Office Visit Family Medicine [address] [place] [phone] Thais Chiu MD [address] [place] [address] [place] [address] 06/05/2024 10:05 AM EDT Hospital Encounter [facility], Operating Room [facility] [address] [place] [phone] Pio Michaud DO [address] [place] [phone] 06/05/2024 10:05 AM EDT - 06/05/2024 10:30 AM EDT Surgery OR [facility], Operating Room [facility] [address] [place] [address] Pio Michaud, [address] [place] [address] INJECT ANESTHETIC AND/OR STEROID SACROILIAC 06/18/2024 12:30 PM EDT Imaging Radiology [address] [place] [address] 10/01/2024 2:00 PM EDT Office Visit Nephrology [address] [place] [address] ZemaTatyana amos PA-C [address] [place] [address] 03/09/2025 10:40 AM EST Office Visit Rheumatology [place] [address] [facility] [place] [address] Logan Mireles MD [facility] [address] [facility] [place] [address] Pending Results Name Type Priority Associated Diagnoses Date /Time 25-HYDROXY VITAMIN D Lab Routine Senile osteoporosis 04/02/2024 4:28 PM EST BASIC METABOLIC PANEL Lab Routine Stage 3a chronic kidney disease (HCC) 04/02/2024 4:28 PM EST Scheduled Procedures Name Priority Associated Diagnoses Date/Ti [...] Additional history exists CKD HGB USE SMARTSET 15960 11/20/202411/20, 04/26/2022, 04/26/2022, Additional history exists CKD PHOS USE SMARTSET 76200 11/20/202410/24, 10/18/2022, 10/26/2021, Additional history exists Albumin/Creatinine [...] D LEVEL ONCE IN A LIFETIME-USE SMARTSET# 11764 Completed 03/08/2023, 03/01/2022, 10/26/2021, Additional history exists [...] as of this encounter Visit Diagnoses Diagnosis Senile osteoporosis Stage 3a chronic kidney disease (HCC) Inflammation of sacroiliac joint (HCC) Sacroiliitis, not elsewhere classified documented in this encounter Care Teams Pick Up Man Relationship Specialty Start Date End Date Thais Chiu MD [address] [place] [address] [place] [address] PCP - General Family Medicine 12/19/23 documented as of this encounter
--- OUTSIDE RECORDS SUMMARY | 2024-08-01 19:30 | External Medical Summary | Summary of Care ---
Author Name Unknown Organization [facility] [address] [facility] [address] Phone [phone] Care Team Providers Care Ict Programmer Name Role Phone Kayden Chiu MD Primary Care Provide r Reason for Visit * Reason Onset Date Comments Medication Refill 03/05/2024 Encounter Details Date Type Department Care Team (Late st Contact Info) Description 03/05/2024 Refill Family Medicine [address] [phone] Kayden Chiu MD [address] [place], [place] [address] [address] Allergies Active Allergy Reactions Criticality Noted Date Comments Fantasma Inhibitors 09/27/1999 Prinivil--cough Adhesive Tape 09/27/1999 Bactrim Itching 04/15/2007 Barbiturates 09/27/1999 Cozaar Cough 12/16/2009 Duloxetine Hcl 09/23/2017 Nv-Cbmyek-Lnfpibtk-[place]ola mine Hives 02/11/2015 Iodine 11/07/1982 Nortriptyline Hives Penicillins 09/27/1999 reaction as a child Phenytoin Sodium 09/27/1999 itching Povidone Iodine 09/27/1999 betadine Quinine Sulfate Dihydrate 12/23/2002 diarrhea Tramadol Hcl Nausea/vomiting 12/16/2009 documented as of this encounter (statuses as of 03/09/2024) Medications Blood Glucose Monitoring Suppl (FREESTYLE FREEDOM [...] Take 400 mg by mouth. Active Nystatin 877539 UNIT/GM External Powder (Nystop)Indicati ons:Cutaneous candidiasis Apply [...] disease) stage 3, GFR 30-59 ml/min ([facility]) TAKE 1 TABLET DAILY ON [...] as of this encounter (statuses as of 03/09/2024) Active Problems Problem Noted Date Diagnosed Date [...] as of this encounter (statuses as of 03/09/2024) Resolved Problems Problem Noted Date Diagnosed Date [...] Overview (01/20/2009): Per Diabetes Taxonomy. 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 Authorizing Provider: KAYDEN CHIU Ordering User: CARLYLE LOU * Telephone Encounter - Merced Hernandez CPhT - 03/05/2024 1:35 PM EST Did you pend patient's preferred pharmacy and medication before forwarding? Pharmacy: [id number] [facility] Pending Prescriptions: Disp Refills Famotidine 20 MG [...] [id number] documented in this encounter Plan of Treatment Upcoming Encounters Date Type Department Care Team (Latest Contact Info) Description 04/02/2024 3:20 PM EST Office Visit Nephrology [address] [place] [address] Yenifer Ly MD [address] [place] [address] [place] [address] 05/18/2024 6:20 PM EST Office Visit Family Medicine [address] [place] [phone] Kayden Chiu MD [address] [place] [address] [place] [address] 06/05/2024 10:05 AM EDT Hospital Encounter OR OSS, Operating Room [facility] [address] [place] [phone] Pio Michaud, [address] [place] [phone] 06/05/2024 10:05 AM EDT - 06/05/2024 10:30 AM EDT Surgery OR [facility], Operating Room [facility] [address] [place] [phone] Pio Michaud, [address] [place] [phone] INJECT ANESTHETIC AND/OR STEROID SACROILIAC 06/18/2024 12:30 PM EDT Imaging Radiology [address] [place] [address] 03/09/2025 10:40 AM EST Office [facility] [address]umat[facility] [address] [place] [address] Logan Mireles MD [address] [place] [address] [employer] [place] [address] Scheduled Procedures Name Priority Associated Diagnoses Date/Ti [...] Additional history exists CKD HGB USE SMARTSET 54161 11/20/202411/20, 04/26/2022, 04/26/2022, Additional history exists CKD PHOS USE SMARTSET 09527 11/20/202410/24, 10/18/2022, 10/26/2021, Additional history exists Albumin/Creatinine [...] D LEVEL ONCE IN A LIFETIME-USE SMARTSET# 18370 Completed 03/08/2023, 03/01/2022, 10/26/2021, Additional history exists [...] filedocumented as of this encounter Care Teams Ict Programmer Relationship Specialty Start Date End Date Kayden Chiu MD [address] [place] [address] [place] [address] PCP - General Family Medicine 12/19/23 documented as of this encounter
--- OUTSIDE RECORDS SUMMARY | 2024-08-01 19:30 | External Medical Summary | Summary of Care ---
Author Name Unknown Organization [facility] Address [address] [facility] [address] Phone [phone] Care Team Providers Care Appraiser [employer] Name Role Phone Thais Chiu MD Primary Care Provide r Reason for Visit * Reason Onset Date Comments Test Results 04/15/2024 Encounter Details Date Type Department Care Team (Late st Contact Info) Description 04/15/2024 Telephone Nephrology, [place] [address] [facility] [place] [address] Yenifer Ly MD [address] [facility] [place] [address] Test Results Allergies Active Allergy Reactions Criticality Noted Date Comments Fantasma Inhibitors 09/27/1999 Prinivil--cough Adhesive Tape 09/27/1999 Bactrim Itching 04/15/2007 Barbiturates 09/27/1999 Cozaar Cough 12/16/2009 Duloxetine Hcl 09/23/2017 Aw-Ydvpzw-Ztljegxf-[place] mine Hives 02/11/2015 Iodine 11/07/1982 Nortriptyline Hives [...] Take 400 mg by mouth. Active Nystatin 345081 UNIT/GM External Powder (Nystop)Indicat ions:Cutaneous candidiasis Apply [...] kidney disease) stage 3, GFR 30-59 ml/min ([facility]) TAKE 1 TABLET DAILY ON [...] Overview (01/20/2009): Per Diabetes Taxonomy. 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 Will discuss ABP at nurse visit tomorrow . Not able to set up 24 hour monitor for tomorrow but will discuss other dates at that time. * Telephone Encounter - Damari Wong RN - 04/15/2024 12:41 PM EST ----- Message from Yenifer Ly MD [...] 04/16/2024 10:00 AM EST Nurse Only Nephrology [address] [place] [address] [place], Nurse Nephrology [address] [place] [address] 05/18/2024 6:20 PM EST Office Visit Family Medicine [address] [place] [phone] Thais Chiu MD [address] [place] [address] [place] [address] 06/05/2024 10:05 AM EDT Hospital Encounter OR [facility], Operating Room [facility] [address] [place] [phone] Pio Michaud, [address] [place] [phone] 06/05/2024 10:05 AM EDT - 06/05/2024 10:30 AM EDT Surgery OR [facility], Operating Room [facility] [address] [place] [phone] Pio Michaud, [address] [place] [phone] INJECT ANESTHETIC AND/OR STEROID SACROILIAC 06/18/2024 12:30 PM EDT Imaging Radiology [address] [place] [address] 10/01/2024 2:00 PM EDT Office Visit Nephrology [address] [place] [address] ZeTatyana anderson PA-C [address] [place] [address] 03/09/2025 10:40 AM EST Office Visit Rheumatology [facility] [address] [place] [phone] Logan Mireles MD [address] [facility] [place] [address] Scheduled Procedures Name Priority Associated Diagnoses Date/Ti [...] Additional history exists CKD HGB USE SMARTSET 87272 11/20/202411/20, 04/26/2022, 04/26/2022, Additional history exists CKD PHOS USE SMARTSET 93098 11/20/2024 082 11/2023, 10/18/2022, 10/26/2021, Additional history exists Albumin/Creatinine Ratio [...] D LEVEL ONCE IN A LIFETIME-USE SMARTSET# 07171 Completed 04/02/2024, 03/08/2023, 03/01/2022, Additional history exists [...] filedocumented as of this encounter Care Teams Appraiser [employer] Relationship Specialty Start Date End Date Thais Chiu MD [address] [place] [address] [place] [address] PCP - General Family Medicine 12/19/23 documented as of this encounter
--- OUTSIDE RECORDS SUMMARY | 2024-08-01 19:30 | External Medical Summary | Summary of Care ---
Author Name Unknown Organization [facility] Address [address] [facility] [address] Phone [phone] Care Team Providers Care [employer] Executive Director Name Role Phone Thais Chiu MD Primary Care Provide r Reason for Visit * Reason Comments Rheum Follow Up Pre-Reclast recheck Encounter Details Date Type Department Care Team (Late st Contact Info) Description 03/06/2024 9:40 AM EST Office Visit Rheumatology [place] [address] [employer] [place] [address] Logan Mireles MD [facility] [employer] [place] [address] Senile osteoporosis* Allergies Active Allergy Reactions Criticality Noted Date Comments Fantasma Inhibitors 09/27/1999 Prinivil--cough Adhesive Tape 09/27/1999 Bactrim Itching 04/15/2007 Barbiturates 09/27/1999 Cozaar Cough 12/16/2009 Duloxetine Hcl 09/23/2017 Ur-Frvlmb-Uhgcsgtd-[place] mine Hives 02/11/2015 Iodine 11/07/1982 Nortriptyline Hives [...] per physician instructions 1 Kit 9 Active Fexofenadine HCl 180 MG Oral Tablet Take 1 Tablet by mouth in the morning. Active FreeStyle Lancets MISC USE DIRECTED TO TEST BLOOD SUGAR 3 TIMES DAILY. E11.9 300 Each 3 0 Active Womens 50+ Multi Vitamin/Min Oral Tablet Take by mouth. Activ e Magnesium 400 MG Oral Tablet Take 400 mg by mouth. Active Nystatin 386389 UNIT/GM External Powder (Nystop)Indicati ons:Cutaneous candidiasis Apply topically to affected area 3 times a day . 30 g 2 2 Active Clobetasol Propionate 0.05 % External Ointment (Temovate)Indica tions:Subacute vaginitis Apply topically to affected area 2 times a day. To affected area for up to two weeks. 15 g 1 3 Active Famotidine 20 MG Oral Tablet (Pepcid) Take 1 Tablet by mouth in the morning and 1 Tablet before bedtime. 60 Tablet 5 3 Active Clotrimazole 1 % External Cream (Lotrimin)Indica [...] before bedtime. 180 Capsule 3 4 Active metFORMIN HCl ER 500 MG Oral Tablet Extended Release 24 Hour (Glucophage XR)Indications:T ype 2 diabetes mellitus with hemoglobin A1c goal of less than 8.0% ([facility]) Take 1 Tablet by mouth 2 times a day with morning and evening meals. 180 Tablet 1 4 Active Furosemide 20 MG Oral Tablet (Lasix)Indicatio ns:Edema, unspecified type,HTN, goal below 140/90,CKD (chronic kidney disease) stage 3, GFR 30-59 ml/min ([facility]) TAKE 1 TABLET DAILY ON SATURDAY, SATURDAY AND SATURDAY ONLY 36 Tablet 3 4 Active FreeStyle Lite Test In Vitro Strip (Glucose Blood) Use as directed 2 times a day. 200 Strip 2 4 Active oxyCODONE HCl 5 MG Oral Tablet (Oxy IR)Indications:H istory of compression fracture of spine,Spinal stenosis of lumbar region, unspecified whether neurogenic claudication present,Senile osteoporosis Take 1 Tablet by mouth every 6 hours as needed for Pain, Severe. 40 Tablet 4 Active Additional Information Patient not taking.Reported on [...] 4 Active Simvastatin 10 MG Oral Tablet (Zocor)Indicatio ns:Dyslipidemia, goal LDL below 100 Take 1 Tablet by mouth at bedtime. 90 Tablet 1 4 Active Gemtesa 75 MG Oral Tablet (Vibegron)Indica [...] Overview (01/20/2009): Per Diabetes Taxonomy. 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 Reason for visit: Patient seen today for further follow-up/evaluation of osteoporosis. Has had 3 doses of reclast. Last one in 2021. DEXA in July 2023 reviewed. She has walker and cane she uses it allthe time. She does deal with back pain. She is here with daughter, she is mainly dealing with low back disease. Can not get surgery. Tried an epidural injection that did not help. Bone Health Summary: Risks: Falls since last [facility] visit: no Personal History of Fx since last [facility] Visit: no Prevention: Gait: unsteady with walking, Yes, use of cane/walker, Yes, cane and walker Calcium and Vitamin D supplements in adequate doses: No ROS: . Constitutional: normal . Ears, nose, throat, mouth: normal . Cardiovascular: normal . Respiratory: normal . Gastrointestinal: normal . Musculoskeletal: back pain . Genitourinary: normal Medications: Current Outpatient Medications Medication Sig Dispense Refill Blood Glucose Monitoring Suppl (FREESTYLE FREEDOM LITE) w/Device KIT Dx Code E11.9 (Patient taking differently: 3 times a day. Dx Code E11.9) 1 Kit 0 Blood Pressure KIT Use per physician instructions 1 Kit 0 Fexofenadine HCl 180 MG Oral Tablet Take 1 Tablet by mouth in the morning. FreeStyle Lancets MISC USE DIRECTED TO TEST BLOOD SUGAR 3 TIMES DAILY. E11.9 300 Each 3 Womens 50+ Multi Vitamin/Min Oral Tablet Take by mouth. Magnesium 400 MG Oral Tablet Take 400 mg by mouth. Nystatin 944875 UNIT/GM External Powder (Nystop) Apply topically to affected area 3 times a day . 30 g 2 Clobetasol Propionate 0.05 % External Ointment (Temovate) Apply topically to affected area 2 times a day. To affected area for up to two weeks. 15 g 1 Famotidine 20 MG Oral Tablet (Pepcid) Take 1 Tablet by mouth in the morning and 1 Tablet before bedtime. 60 Tablet 5 Clotrimazole 1 % External Cream (Lotrimin) Apply [...] 1 Capsule before bedtime. 180 Capsule 3 metFORMIN HCl ER 500 MG Oral Tablet Extended Release 24 Hour (Glucophage XR) Take 1 Tablet by mouth2 times a day with morning and evening meals. 180 Tablet 1 Furosemide 20 MG Oral Tablet (Lasix) TAKE 1 TABLET DAILY ON SATURDAY, SATURDAY AND SATURDAY ONLY 36 Tablet 3 FreeStyle Lite Test In Vitro Strip (Glucose Blood) Use as directed 2 times a day. 200 Strip 2 oxyCODONE HCl 5 MG Oral Tablet (Oxy IR) Take 1 Tablet by mouth every 6 hours as needed for Pain, Severe. 40 Tablet 0 Montelukast Sodium 10 MG Oral Tablet (Singulair) [...] by mouth every 8 hours as needed. No current facility-administered medications for this visit. Social History: Social History Tobacco Use Smoking status: Never Smokeless tobacco: Never Tobacco comments: 2nd hand smoke from Vaping Use Vaping status: Never Used Substance Use Topics Alcohol use: No Drug use: No Physical Exam: BP 150/74 | Temp 36.6 °C (97.8 °F) (Infrared ) | Wt 69.9 kg (154 lb) | BMI 27.28 kg/m² | BSA 1.76 m² General: alert, no distress, and well nourished HENT: normocephalic, external ears normal, no mucosal erythema, no mucosal edema, moist mucosa, no oral ulcers, edentulous with upper dentures Heart: regular rate & rhythm and no gallops Lungs: clear to auscultation , no rales, wheezes or rhonchi Abdomen: abdomen soft, non-tender, and normal bowel sounds Musculoskeletal Exam: Thoracic kyphosis noted Hip flexor strength 5-/5 Deltoid strength 5/5 Assessment: (M81.0) Senile osteoporosis (primary encounter diagnosis) 83 year old female with osteoporosis who has had 3 doses Reclast was stable BMD on DEXA. Will update labs today and then in June with plan to give Reclast in July 2024. She will be due for DEXA in July of 2025 Plan: The following items are ordered or are in progress: 1. Education: Osteoporosis education was provided by the [facility] team (topics included disease process, DXA, calcium/vitamin D, osteoporosis medications - including administration instructions and risks/benefits, weight bearing exercise, fall prevention/safety). 2. Prevention: . Fall Prevention/Safety Education recommended and discussed . Continue calcium rich foods (goal of 3 servings daily) 3. Osteoporosis Medications : Plan for reclast in July 2024 4. Bone Density Testing: due 2 year(s) from previous 5. Laboratory: 25-OH Vitamin D calcium creatinine 6. Followup: Return to [facility] clinic in 1 year Logan Mireles MD [facility] Team documented in this encounter Nursing Notes * Cristela Hermosillo LPN - 03/06/2024 9:48 AM EST Chief Complaint Patient presents with Rheum Follow Up Pre-Reclast recheck documented in this encounter Plan of Treatment Upcoming Encounters Date Type Department Care Team (Latest Contact Info) Description 04/02/2024 3:20 PM EST Office Visit Nephrology [address] [place] [address] Yenifer Ly MD [address] [facility] [place] [address] 05/18/2024 6:20 PM EST Office Visit Family Medicine [address] [place] [phone] Thais Chiu MD [address] [place] [address] [place] [address] 06/05/2024 10:05 AM EDT Hospital Encounter OR [facility], Operating Room [facility] [address] [place] [phone] Pio Michaud DO [address] [place] [phone] 06/05/2024 10:05 AM EDT - 06/05/2024 10:30 AM EDT Surgery OR [facility], Operating Room [facility] [address] [place] [phone] Pio Michaud DO [address] [place] [phone] INJECT ANESTHETIC AND/OR STEROID SACROILIAC 06/18/2024 12:30 PM EDT Imaging Radiology [address] [place] [address] 03/09/2025 10:40 AM EST Office Visit Rheumatology [address] [place] [address] Logan Mireles MD [address] [employer] [place] [address] Scheduled Orders Name Type Priority Associated Diagnoses Orde r Schedule CREATININE Lab Routine Senile osteoporosis Expected: 03/06/2024, Expires: 03/06/2025 CALCIUM Lab Routine Senile osteoporosis Expected: 03/06/2024, Expires: 03/06/2025 25-HYDROXY VITAMIN D Lab Routine Senile osteoporosis Expected: 03/06/2024, Expires: 03/06/2025 Scheduled Procedures Name Priority Associated Diagnoses Date/Ti [...] Additional history exists CKD HGB USE SMARTSET 79683 11/20/202411/20, 04/26/2022, 04/26/2022, Additional history exists CKD PHOS USE SMARTSET 81627 11/20/202410/24, 10/18/2022, 10/26/2021, Additional history exists Albumin/Creatinine [...] D LEVEL ONCE IN A LIFETIME-USE SMARTSET# 02316 Completed 03/08/2023, 03/01/2022, 10/26/2021, Additional history exists [...] of this encounter Visit Diagnoses Diagnosis Senile osteoporosis- Primary Inflammation of sacroiliac joint (HCC) Sacroiliitis, not elsewhere classified documented in this encounter Care Teams [employer] Executive Director Relationship Specialty Start Date End Date Thais Chiu MD [address] [place] [address] [place] [phone] PCP - General Family Medicine 12/19/23 documented as of this encounter"
--- OUTSIDE RECORDS SUMMARY | 2024-08-01 19:30 | External Medical Summary ---
Author Name Unknown Address Unknown Organization K01:LABORATORY [facility] - [address] [place] [address] Laboratory Report Ordering Provider Test Date Status DONNIE DURAN 04/02/2024 16:28:46 Final Deficient: <20 ng/mL
Ins ufficient: 20-29 ng/mL
Recommended/Optimum:30-50 ng/mL

Vitamin D intoxication is rare. If suspicious of Vitamin D toxicity, evaluation of serum Calcium and PTH is recommended. Observation Date Value Abnormality Reference (Units ) Status 25-OH Vitamin D total 04/02/2024 16:28:46 35 >19 (ng/mL) Final Performing Location LABORATORY C - [address] [place] [address]
--- OUTSIDE RECORDS SUMMARY | 2024-08-01 19:30 | External Medical Summary | Summary of Care ---
Author Name Unknown Organization [facility] Address [address] [place] [place] [address] Phone [phone] Care Team Providers Care Electrical Wiring Lineman Name Role Phone Thais Chiu MD Primary Care Provide r Reason for Visit * Reason Comments eRx-Medication Refill Encounter Details Date Type Department Care Team (Late st Contact Info) Description 03/26/2024 Refill Family Medicine [address] [phone] Thais Chiu MD [address] [place] [address] [place] [address] Type 2 diabetes mellitus with hemoglobin A1c goal of less than 8.0% ([facility]) Allergies Active Allergy Reactions Criticality Noted Date Comments Fantasma Inhibitors 09/27/1999 Prinivil--cough Adhesive Tape 09/27/1999 Bactrim Itching 04/15/2007 Barbiturates 09/27/1999 Cozaar Cough 12/16/2009 Duloxetine Hcl 09/23/2017 Gr-Whuegp-Dnsxocuz-[place] mine Hives 02/11/2015 Iodine 11/07/1982 Nortriptyline Hives Penicillins 09/27/1999 reaction as a child Phenytoin Sodium 09/27/1999 itching Povidone Iodine 09/27/1999 betadine Quinine Sulfate Dihydrate 12/23/2002 diarrhea Tramadol Hcl Nausea/vomiting 12/16/2009 documented as of this encounter (statuses as of 03/28/2024) Medications Blood Glucose Monitoring Suppl (FREESTYLE FREEDOM [...] Take 400 mg by mouth. Active Nystatin 428711 UNIT/GM External Powder (Nystop)Indicat ions:Cutaneous candidiasis Apply [...] stage 3, GFR 30-59 ml/min ([facility]) TAKE 1 TABLET DAILY ON SATURDAY, SATURDAY [...] 03/06/2024 Montelukast Sodium 10 MG Oral Tablet (Singulair)Lizet [...] hemoglobin A1c goal of less than 8.0% ([facility]) TAKE 1 TABLET TWICE A DAY WITH MORNING AND EVENING MEALS 180 Tablet 1 03/28/19 25 Active metFORMIN HCl ER 500 MG Oral Tablet Extended Release 24 Hour (Glucophage XR)Indications: Type 2 diabetes mellitus with hemoglobin A1c goal of less than 8.0% ([facility]) Take 1 Tablet by mouth 2 times a day with morning and evening meals. 180 Tablet 1 08/29/19 24 2024 Discontinued documented as of this encounter (statuses as of 03/28/2024) Active Problems Problem Noted Date Diagnosed Date [...] as of this encounter (statuses as of 03/28/2024) Resolved Problems Problem Noted Date Diagnosed Date [...] Overview (01/20/2009): Per Diabetes Taxonomy. 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 Not on file Not on file documented as of this encounter Miscellaneous Notes * Telephone Encounter - Clemencia Hall, [facility] - 03/28/2024 2:24 PM ESTSigned Prescriptions: Disp Refills metFORMIN HCl ER 500 MG Oral Tablet Extend*180 Ta*1 Sig: TAKE 1 TABLET TWICE A DAY WITH MORNING AND EVENING MEALSAuthorizing Provider: THAIS CHIUOrdermaurisio User: CLEMENCIA HALL documented in this encounter Plan of Treatment Upcoming Encounters Date Type Department Care Team (Latest Contact Info) Description 04/02/2024 3:20 PM EST Office Visit Nephrology [address] [place] [address] LyYenifer diop MD [address] [place] [address], [place] [address] 05/18/2024 6:20 PM EST Office Visit Family Medicine [address] [place] [address] Thais Chiu MD [address] [place] [address] [place] [address] 06/05/2024 10:05 AM EDT Hospital Encounter OR [facility], Operating Room [facility] [address] [place] [phone] Pio Michaud DO [address] [place] [phone] 06/05/2024 10:05 AM EDT - 06/05/2024 10:30 AM EDT Surgery OR [facility], Operating Room [facility] [address] [place] [phone] Pio Michaud DO [address] [place] [address] INJECT ANESTHETIC AND/OR STEROID SACROILIAC 06/18/2024 12:30 PM EDT Imaging Radiology [address] [place] [address] 03/09/2025 10:40 AM EST Office Visit Rheumatology [address] [place] [address] Logan Mireles MD [address] [facility] [place] [address] Scheduled Procedures Name Priority Associated Diagnoses Date/Ti [...] Additional history exists CKD HGB USE SMARTSET 63771 11/20/202411/20, 04/26/2022, 04/26/2022, Additional history exists CKD PHOS USE SMARTSET 35479 11/20/202410/24, 10/18/2022, 10/26/2021, Additional history exists Albumin/Creatinine [...] D LEVEL ONCE IN A LIFETIME-USE SMARTSET# 43915 Completed 03/08/2023, 03/01/2022, 10/26/2021, Additional history exists [...] Diagnoses Diagnosis Type 2 diabetes mellitus with hemoglobin A1c goal of less than 8.0% (HCC) Inflammation of sacroiliac joint (HCC) Sacroiliitis, not elsewhere classified documented in this encounter Care Teams Electrical Wiring Lineman Relationship Specialty Start Date End Date Thais Chiu MD [address] [place] [address] [place] [phone] PCP - General Family Medicine 12/19/23 documented as of this encounter
--- OUTSIDE RECORDS SUMMARY | 2024-08-01 19:30 | External Medical Summary ---
Author Name Unknown Address Unknown Organization K01:[facility] [place] [address] [place] [address] Laboratory Report Ordering Provider Test Date Status DENI SLATER 04/02/2024 16:28:46 Final Observation Date Value Abnormality Reference (Units ) Status BUN 04/02/2024 16:28:46 16 6-20 (mg/dL) Final Creatinine 04/02/2024 16:28:46 0.9 0.5-1.0 (mg/dL) Final Glomerular filtration rate/1.73 sq M.predicted [Volume Rate/Area] in Serum, Plasma or Blood by Creatinine-based formula (CKD-EPI) 04/02/2024 16:28:46 64 >=60 (mL/min) Final eGFR is calculated based on the CKD-EPI 2020 equation. Sodium 04/02/2024 16:28:46 141 135-146 (m mol/L) Final Potassium 04/02/2024 16:28:46 4.5 3.5-5.1 (m mol/L) Final Cl 04/02/2024 16:28:46 104 98-107 (mm ol/L) Final CO2 04/02/2024 16:28:46 26 22-32 (mmo l/L) Final Anion gap 04/02/2024 16:28:46 11 7-15 (mmol /L) Final Glucose 04/02/2024 16:28:46 186 Above high normal 70 -120 (mg/dL) Final Calcium 04/02/2024 16:28:46 9.7 8.4-10.2 ( mg/dL) Final Performing Location [facility] [place] [address] [place] [address]
--- OUTSIDE RECORDS SUMMARY | 2024-08-01 19:30 | External Medical Summary | Summary of Care ---
Author Name Unknown Organization [facility] Address [address] [facility] [place] [address] Phone [phone] Care Team Providers Care Wool Buyer Name Role Phone Thais Chiu MD Primary Care Provide r Reason for Visit * Reason Comments Blood Pressure Check Encounter Details Date Type Department Care Team (Late st Contact Info) Description 04/16/2024 10:00 AM EST Nurse Only Nephrology [address] [place] [address] [place], Nurse Nephrology [address] [place] [address] Blood Pressure Check Allergies Active Allergy Reactions Criticality Noted Date Comments Fantasma Inhibitors 09/27/1999 Prinivil--cough Adhesive Tape 09/27/1999 Bactrim Itching 04/15/2007 Barbiturates 09/27/1999 Cozaar Cough 12/16/2009 Duloxetine Hcl 09/23/2017 Ss-Fjgjix-Xrdentom-[place] mine Hives 02/11/2015 Iodine 11/07/1982 Nortriptyline Hives [...] Take 400 mg by mouth. Active Nystatin 535693 UNIT/GM External Powder (Nystop)Indicat ions:Cutaneous candidiasis Apply [...] stage 3, GFR 30-59 ml/min ([facility]) TAKE 1 TABLET DAILY ON SATURDAY, [...] Overview (01/20/2009): Per Diabetes Taxonomy. 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 3 day blood pressure log given and explained. Will return these results when she comes for ABP application on 04/29/24. documented in this encounter Plan of Treatment Upcoming Encounters Date Type Department Care Team (Late st Contact Info) Description 04/29/2024 4:00 PM EST Nurse Only Nephrology Stalin Edwards [address] [place] [address] Jerry, Nurse Nephrology [address] [place] [address] 05/18/2024 6:20 PM EST Office Visit Family Medicine [address] [place] [phone] Thais Chiu MD [address] [place] [address] [place] [address] 06/05/2024 10:05 AM EDT Hospital Encounter OR [facility], Operating Room [facility] [address] [place] [address] Pio Michaud, [address] [place] [phone] 06/05/2024 10:05 AM EDT - 06/05/2024 10:30 AM EDT Surgery OR [facility], Operating Room [facility] [address] [place] [phone] Pio Michaud, [address] [place] [address] INJECT ANESTHETIC AND/OR STEROID SACROILIAC 06/18/2024 12:30 PM EDT Imaging Radiology [address] [place] [address] 10/01/2024 2:00 PM EDT Office Visit Nephrology [address] [place] [address] ZeTatyana anderson PA-C [address] [place] [address] 03/09/2025 10:40 AM EST Office Visit Rheumatology [facility] [place] [address] [place] [address] Logan Mireles MD [facility] [place] [address] Scheduled Procedures Name Priority Associated Diagnoses Date/Ti [...] Additional history exists CKD HGB USE SMARTSET 70421 11/20/202411/20, 04/26/2022, 04/26/2022, Additional history exists CKD PHOS USE SMARTSET 87109 11/20/202410/24, 10/18/2022, 10/26/2021, Additional history exists Albumin/Creatinine [...] D LEVEL ONCE IN A LIFETIME-USE SMARTSET# 49079 Completed 04/02/2024, 03/08/2023, 03/01/2022, Additional history exists [...] filedocumented as of this encounter Care Teams Wool Buyer Relationship Specialty Start Date End Date Thais Chiu MD [address] [place] [address] [place] [address] PCP - General Family Medicine 12/19/23 documented as of this encounter
--- OUTSIDE RECORDS SUMMARY | 2024-08-01 19:30 | External Medical Summary | Summary of Care ---
Author Name Unknown Organization [facility] [address] [facility] [address] Phone [phone] Care Team Providers Care Window Assembler Name Role Phone Thais Chiu MD Primary Care Provide r Reason for Visit * Reason Onset Date Comments Medication Refill 03/05/2024 Encounter Details Date Type Department Care Team (Late st Contact Info) Description 03/05/2024 Refill Family Medicine [address] [phone] Thais Chiu MD [address] [place], [place] [address] [address] Allergies Active Allergy Reactions Criticality Noted Date Comments Fantasma Inhibitors 09/27/1999 Prinivil--cough Adhesive Tape 09/27/1999 Bactrim Itching 04/15/2007 Barbiturates 09/27/1999 Cozaar Cough 12/16/2009 Duloxetine Hcl 09/23/2017 Xd-Sytpim-Tjcoccaq-[place]op[place] mine Hives 02/11/2015 Iodine 11/07/1982 Nortriptyline Hives [...] Take 400 mg by mouth. Active Nystatin 393845 UNIT/GM External Powder (Nystop)Indicati ons:Cutaneous candidiasis Apply [...] kidney disease) stage 3, GFR 30-59 ml/min ([facility]) TAKE 1 TABLET DAILY ON [...] Overview (01/20/2009): Per Diabetes Taxonomy. LOC PRIM [id number] 12/30/200103/26 Edema 12/30/2001 04/15/2015 JOINT PAIN-SHLDER 04/24/2001 [...] encounter Miscellaneous Notes * Telephone Encounter - Madelin Ortega RN - 03/09/2024 4:00 PM EST sent to Dr Chiu in error * Telephone Encounter - Carlyle Lou [facility] - 03/06/2024 12:26 PM EST Signed Prescriptions: Disp Refills Famotidine 20 MG Oral Tablet (Pepcid) 180 Ta*1 Sig: Take 1 Tablet by mouth in the morning and 1 Tablet before bedtime. Authorizing Provider: THAIS CHIU Ordering User: CARLYLE LOU * Telephone Encounter - Merced Hernandez CPhT - 03/05/2024 1:35 PM EST Did you pend patient's preferred pharmacy and medication before forwarding? Pharmacy: [id number] Pending Prescriptions: Disp Refills Famotidine 20 MG [...] refill [facility] [id number] documented in this encounter Plan of Treatment Upcoming Encounters Date Type Department Care Team (Latest Contact Info) Description 04/02/2024 3:20 PM EST Office Visit Nephrology [address] [place] [address] Yenifer Ly MD [address] [place], [place] [address] [address] 05/18/2024 6:20 PM EST Office Visit Family Medicine [address] [place] [address] Thais Chiu MD [address] [place] [address] [place] [address] 06/05/2024 10:05 AM EDT Hospital Encounter OR [facility], Operating Room [facility] [address] [place] [phone] Pio Michaud DO [address] [place] [address] 06/05/2024 10:05 AM EDT - 06/05/2024 10:30 AM EDT Surgery OR [facility], Operating Room [facility] [address] [place] [phone] Pio Michaud DO [address] [place] [phone] INJECT ANESTHETIC AND/OR STEROID SACROILIAC 06/18/2024 12:30 PM EDT Imaging Radiology [address] [place] [address] 03/09/2025 10:40 AM EST Office Visit Rheumatology [address] [place] [address] Logan Mireles MD [facility] [employer] [place] [address] Scheduled Procedures Name Priority Associated Diagnoses Date/Ti me INJECT ANESTHETIC AND/OR STEROID SACROILIAC Inflammation of sacroiliac joint (HCC) 06/05/2024 10:05 AM EDT Health Maintenance Due Date Last Done Comments Adult Wellness Visit 10/12/2022 10/12/2021, 09/30/19 21 Depression Screening 10/12/2022 10/12/2021 *BISPHONATE OR OTHER ACCEPTABLE MEDICATION NEEDED FOR OSTEOPOROSIS (REFER TO SMARTSET #1146) 03/24/2023 Diabetic Foot Exam 10/27/2023 10/26/2022, 0 10/12/2021, 09/29/2020, Additional history exists COVID-19 Vaccine ( season) 2023 07/12/2020, 06/14/2020 GFR 02/28/2024 08/29/2023, 02/22, 10/18/2022, Additional history exists HbA1c 08/13/2024 02/14/2024, 10/24, 03/08/2023, Additional history exists B-12 11/20/2024 11/21/2023, 09/23, 10/26/2021, Additional history exists CKD HGB USE SMARTSET 90237 11/20/202411/20, 04/26/2022, 04/26/2022, Additional history exists CKD PHOS USE SMARTSET 73690 11/20/2024 0811/2023, 10/18/2022, 10/26/2021, Additional history exists Albumin/Creatinine Ratio [...] D LEVEL ONCE IN A LIFETIME-USE SMARTSET# 27395 Completed 03/08/2023, 03/01/2022, 10/26/2021, Additional history exists [...] filedocumented as of this encounter Care Teams Window Assembler Relationship Specialty Start Date End Date Thais Chiu MD [address] [place] [address] [place] [phone] PCP - General Family Medicine 12/19/23 documented as of this encounter
--- OUTSIDE RECORDS SUMMARY | 2024-08-01 19:31 | External Medical Summary | Summary of Care ---
Author Name Unknown Organization [facility] Address [address] [facility] [address] Phone [phone] Care Team Providers Care Relief Salesperson Name Role Phone Thais Chiu MD Primary Care Provide r Reason for Visit * Reason Comments Outpatient Testing Encounter Details Date Type Department Care Team (Late st Contact Info) Description 02/14/2024 3:40 PM EST Laboratory Laboratory, [facility] [address] [place] [phone] [facility] [address] [place] [address] Arrived Allergies Active Allergy Reactions Criticality Noted Date Comments Fantasma Inhibitors 09/27/1999 Prinivil--cough Adhesive Tape 09/27/1999 Bactrim Itching 04/15/2007 Barbiturates 09/27/1999 Cozaar Cough 12/16/2009 Duloxetine Hcl 09/23/2017 Iz-Jwfjgc-Xaaklktw-[place]op[place] mine Hives 02/11/2015 Iodine 11/07/1982 Nortriptyline Hives Penicillins 09/27/1999 reaction as a child Phenytoin Sodium 09/27/1999 itching Povidone Iodine 09/27/1999 betadine Quinine Sulfate Dihydrate 12/23/2002 diarrhea Tramadol Hcl Nausea/vomiting 12/16/2009 documented as of this encounter (statuses as of 02/14/2024) Medications Blood Glucose Monitoring Suppl (FREESTYLE FREEDOM LITE) w/Device KIT Dx Code E11.9 1 Kit 8 Active Additional Information Patient taking differently: TID(AM/NOON/HS), Dx Code E11.9,Indications: Use to Test Blood Sugars 3 times a day. DX Code E11.9-Doispense 300 with 1 refill 07-11-17 via phone, Reported on 02/14/2024 Blood Pressure KITIndications:H TN, goal below 140/90 [...] Take 400 mg by mouth. Active Nystatin 558017 UNIT/GM External Powder (Nystop)Indicati ons:Cutaneous candidiasis Apply [...] hemoglobin A1c goal of less than 8.0% ([facility]) Take 1 Tablet by mouth 2 times a day with morning and evening meals. 180 Tablet 1 4 Active Furosemide 20 MG Oral Tablet (Lasix)Indicatio ns:Edema, unspecified type,HTN, goal below 140/90,CKD (chronic kidney disease) stage 3, GFR 30-59 ml/min ([facility]) TAKE 1 TABLET DAILY ON [...] for Pain, Severe. 40 Tablet 4 Active Montelukast Sodium 10 MG Oral Tablet (Singulair)Indic [...] the morning. 90 Tablet 3 4 Active documented as of this encounter (statuses as of 02/14/2024) Active Problems Problem Noted Date Diagnosed Date [...] as of this encounter (statuses as of 02/14/2024) Resolved Problems Problem Noted Date Diagnosed Date [...] Overview (01/20/2009): Per Diabetes Taxonomy. 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 on file Not on file Not on file documented as of this encounter Plan of Treatment Upcoming Encounters Date Type Department Care Team (Late st Contact Info) Description 02/17/2024 11:30 AM EST Telemedicine Pharmacy, [address] [place] [address] [place] [address] 02/19/2024 3:00 PM EST Office Visit Orthopaedics [facility] [address] [place] [address] Sis Miller MD [address] [place] [address] 02/26/2024 12:30 PM EST Office Visit Interventional Pain Center, [facility] [address] [place] [address] Marlen Navarro PA-C [address] [place] [address] 03/06/2024 9:40 AM EST Office Visit Rheumatology [place] [phone] [facility] [place] [address] Logan Mireles MD [address] [place] [address] [place] [address] 04/02/2024 3:20 PM EST Office Visit Nephrology [address] [place] [address] Yenifer Ly MD [address] [place] [address] 05/18/2024 6:20 PM EST Office Visit Family Medicine [address] [place] [phone] Thais Chiu MD [address] [place] [address] [place] [address] 06/18/2024 12:30 PM EDT Imaging Radiology [address] [place] [address] Health Maintenance Due Date Last Done Comments Adult Wellness Visit 10/12/2022 10/12/2021, 09/30/19 Depression Screening 10/12/2022 10/12/2021 *BISPHONATE OR OTHER ACCEPTABLE MEDICATION NEEDED FOR OSTEOPOROSIS (REFER TO SMARTSET #1146) 03/24/2023 Diabetic Foot Exam 10/27/2023 10/26/2022, 0 10/12/2021, 09/29/2020, Additional history exists COVID-19 Vaccine ( season) 2023 07/12/2020, 06/14/2020 GFR 02/28/2024 08/29/2023, 02/22, 10/18/2022, Additional history exists HbA1c 05/22/2024 11/21/2023, 02/22, 10/18/2022, Additional history exists B-12 11/20/2024 11/21/2023, 09/23, 10/26/2021, Additional history exists CKD HGB USE SMARTSET 25992 11/20/202411/20, 04/26/2022, 04/26/2022, Additional history exists CKD PHOS USE SMARTSET 52867 11/20/202410/24, 10/18/2022, 10/26/2021, Additional history exists Albumin/Creatinine [...] D LEVEL ONCE IN A LIFETIME-USE SMARTSET# 24378 Completed 03/08/2023, 03/01/2022, 10/26/2021, Additional history exists [...] filedocumented as of this encounter Care Teams Relief Salesperson Relationship Specialty Start Date End Date Thais Chiu MD [address] [place] [address] [place] [address] PCP - General Family Medicine 12/19/23 documented as of this encounter
--- OUTSIDE RECORDS SUMMARY | 2024-08-01 19:31 | External Medical Summary | Summary of Care ---
Author Name Unknown Organization [facility] Address [address] [facility] [place] [address] Phone [phone] Care Team Providers Care Statue Carver Name Role Phone Thais Chiu MD Primary Care Provide r Reason for Visit * Reason Comments Back Pain Encounter Details Date Type Department Care Team (Late st Contact Info) Description 02/26/2024 12:30 PM EST Office Visit Interventional Pain Center, [facility] [address] [place] [address] Marlen Navarro PA-C [address] [place] [address] Sacroiliitis (HCC)*; History of lumbar fusion Allergies Active Allergy Reactions Criticality Noted Date Comments Fantasma Inhibitors 09/27/1999 Prinivil--cough Adhesive Tape 09/27/1999 Bactrim Itching 04/15/2007 Barbiturates 09/27/1999 Cozaar Cough 12/16/2009 Duloxetine Hcl 09/23/2017 Gy-Lunbsu-Rlelmfad-Scopola mine Hives 02/11/2015 Iodine 11/07/1982 Nortriptyline Hives Penicillins 09/27/1999 reaction as a child Phenytoin Sodium 09/27/1999 itching Povidone Iodine 09/27/1999 betadine Quinine Sulfate Dihydrate 12/23/2002 diarrhea Tramadol Hcl Nausea/vomiting 12/16/2009 documented as of this encounter (statuses as of 02/26/2024) Medications Blood Glucose Monitoring Suppl (FREESTYLE FREEDOM [...] Take 400 mg by mouth. Active Nystatin 418766 UNIT/GM External Powder (Nystop)Indicati ons:Cutaneous candidiasis Apply [...] ([facility]) Take 1 Tablet by mouth 2 [...] as of this encounter (statuses as of 02/26/2024) Active Problems Problem Noted Date Diagnosed Date [...] as of this encounter (statuses as of 02/26/2024) Resolved Problems Problem Noted Date Diagnosed Date [...] Overview (01/20/2009): Per Diabetes Taxonomy. 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 Admits pain reduction in LE, no significant change in low backor buttock. Pain returned to baseline without injury. Of note, recent intra-articular hip injectionwith ortho which has significantly reduced groin and proximal anterior thigh pain. Locates pain bilateral low back, buttock. Rates pain 6/10 and is constant in nature. Associated weakness B LE, using walker. Kacy consistent LE radicular pain. Denies progressive LE paresthesia. Denies bowel/bladder dysfunction. Aggravated by prolonged sitting, trunk rotation. No lasting relief with wedge pillow. Using tylenol arthritis, gabapentin for pain relief. Prescribed oxycodone althoughdoes not use this - can cause some confusion and GI upset. Pain continues to affect ADL. + DM, most recent HbA1 7.Jan Presents with daughter, Ally. 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 ([facility]) DM type 2, goal A1c below 7 [...] OR INJECTION MAJOR JOINT performed by Campos iDaz DO at OR [facility] ARTHROPLASTY KNEE TOTAL Left 10/20/2007 L knee -dr prudencio patel clfd ARTHROPLASTY KNEE TOTAL Right 2004 DELIVERY x 3 Delivery Only COLONOSCOPY W/ LESION REMOVAL, SNARE 11/01/2010 internal hemorrhoids, one 5 mm polyp in sigmoid--adenomatous tissue repeat in 5 years COLONOSCOPY, DIAGNOSTIC (RECTUM) 01/23/2016 normal, repeat 5 yrs/COLONOSCOPY FLEXIBLE PROXIMAL DIAGNOSTIC performed by Rosa Noguera DO at ENDOSCOPY [facility] COLONOSCOPY, DIAGNOSTIC (RECTUM) 04/04/2021 adenomatous polyp / COLONOSCOPY FLEXIBLE PROXIMAL DIAGNOSTIC performed by Rosa Noguera DO at ENDOSCOPY [facility] CONTIGEN SKIN TEST/NURSE ONLY 01/22/2002 negative skin test CYSTOSCOPY 01/22/2002 DECOMPRESS LUMBAR SPINAL CORD SEG 07/08/2015 Dr. Ba [facility], L3-4 L4-5 with fusion L4-5 DIGITAL RECTAL EXAM,ANNUAL 06/2000 EGD, FLEXIBLE, DIAGNOSTIC 04/04/2021 normal / ESOPHAGOGASTRODUODENOSCOPY (EGD), FLEXIBLE, TRANSORAL, DIAGNOSTIC performed by Rosa Noguera DO at ENDOSCOPY [facility] EGD, W/ENDOSCOPIC US 08/22/2011 UPPER GI ENDOSCOPY ENDOSCOPIC ULTRASOUND performed by JOSE FRANCISCO EMERSON at OR [facility] ENDOSCOPIC INJECT, IMPLANT MATERIAL 02/20/2002 Bladder neck [...] SPINE LUMBAR OR SACRAL performed by Campos Maximo Cousintyler, DO at OR [facility] INJECTION LUMBAR/SACRAL 09/02/2014 INJECTION SPINE LUMBAR OR SACRAL performed by Campos Diaz, DO at OR [facility] INJECTION LUMBAR/SACRAL 05/24/2015 INJECTION SPINE LUMBAR OR SACRAL performed by Campos Maximo Cousins, DO at OR [facility] L-/S-SPINE PARAVERTEBRAL FACET [...] Dr. Hendricks TOTAL HYSTERECTOMY 1972 URETHRAL DILAT W/SUPP/INSTILL,MD MAX/DO 01/22/2002 dilation up to 24 kiswahili in order to pass cystoscope US RENAL 12/05/2016 normal size, renal cortical medical disease suggested Current Outpatient Medications Medication Sig Dispense Refill Fexofenadine HCl 180 MG Oral Tablet Take 1 Tablet by mouth in the morning. Womens 50+ Multi Vitamin/Min Oral Tablet Take by mouth. Magnesium 400 MG Oral Tablet Take 400 mg by mouth. Famotidine 20 MG Oral Tablet (Pepcid) Take 1 Tablet by mouth in the morning and 1 Tablet before bedtime. 60 Tablet 5 Acetaminophen 500 MG Oral Tablet (Tylenol) Take [...] SATURDAY AND SATURDAY ONLY 36 Tablet 3 oxyCODONE HCl 5 MG Oral Tablet (Oxy [...] by mouth every 8 hours as needed. Blood Glucose Monitoring Suppl (FREESTYLE FREEDOM LITE) w/Device KIT Dx Code E11.9 (Patient taking differently: 3 times a day. Dx Code E11.9) 1 Kit 0 Blood Pressure KIT Use per physician instructions 1 Kit 0 FreeStyle Lancets [facility] USE DIRECTED TO TEST BLOOD SUGAR 3 TIMES DAILY. E11.9 300 Each 3 Nystatin 725080 UNIT/GM External Powder (Nystop) Apply topically to [...] days to affected area. 28 g 0 FreeStyle Lite Test In Vitro Strip (Glucose Blood) Use as directed 2 times a day. 200 Strip 2 No current facility-administered medications for this visit. Review of patient's allergies indicates: Allergen Reactions Fantasma Inhibitors Prinivil--cough Adhesive Tape Bactrim Itching Barbiturates Cozaar Cough Cymbalta [Duloxetine Hcl] [Ma-Lvapxe-Qfwisvpl-Scopolamine] Hives Iodine Nortriptyline Hives Penicillins reaction as a child Phenytoin Sodium itching Povidone Iodine betadine Quinine Sulfate Dihydrate diarrhea Ultram [Tramadol Hcl] Nausea/vomiting ROS: CONSTITUTIONAL: Denies anorexia, weight loss, fever, night sweats. RESPIRATORY: Denies shortness of breath, wheezing, productive cough. CARDIOVASCULAR: Denies chest pains, irregular heartbeat. HEME: Denies easy bruising and anticoagulation use. ROS EXAM: Remainder of ROS negative as discussed above in the HPI. PHYSICAL EXAM: There were no vitals taken for this visit. GENERAL: WD/WN female who is awake and alert. Does not appear to be in acute distress. MENTAL STATUS: Oriented x 3. Pleasant and cooperative with normal affect. LUMBAR SPINE: No gross abnormalities. Skin is intact with well healed midline surgical scar. No lesions visualized. Midline and B paravertebral musculature nontender. + B sacroiliac joint tenderness.Limited active ROM with flexion and extension of the lumbar spine. Lumbar facet loading: positive bilaterally. Straight leg raise: negative bilaterally. Sacroiliac Joint Provocative Testing: Iliac compression: positive CHARLIE test: positive bilaterally Thigh thrust: positive bilaterally Distraction test: positive bilaterally B HIP: No gross abnormality. Nontender. Significantly limited passive ROM. STRENGTH: 5/5 in all major motor groups lower extremities bilaterally. SENSATION: Not formally tested. No gross sensory deficits lower extremities bilaterally. GAIT/COORDINATION: Gait is intact. Ambulates with assistance. ASSESSMENT: Sacroiliac joint pain S/P lumbar decompression and fusion RECOMMENDATION: MONISHA has reduced portions of LE radicular pain, limited by lumbosacral pain. Can reproduce pain withSI joint palpation and provocative testing. Discussed SI joint injection for diagnostic and therapeutic response using fluoroscopy. Risks including, but not limited to infection, worsening pain, failure to alleviate pain and possible steroid side effects were reviewed. Pre-procedure instructions reviewed - needs emergency detail driver, no prescription medication holds. Due to severity and duration of symptoms, will schedule B SI joint injection. Continue follow up with ortho, intra-articular hip injection has provided reduction of L groin and proximal anterior thigh pain. I spent a total of 30-39 minutes (exact time 31 mins) on the date of service in preparation, delivery, and documentation of the care provided to Lisandra Tellez excluding any time spent in the performance of separately billed services or time spent by another provider/QHP. Marlen Navarro PA-C 02/26/2024 documented in this encounter Nursing Notes * Rita Bee LPN - 02/26/2024 12:38 PM EST Patient reports no improvement after injection-caudal monisha on 11/28/23 Low back, left lower leg documented in this encounter Plan of Treatment Upcoming Encounters Date Type Department Care Team (Latest Contact Info) Description 03/06/2024 9:40 AM EST Office Visit Rheumatology [address] [place] [address] Logan Mireles MD [address] [place] [address] [place] [address] 04/02/2024 3:20 PM EST Office Visit Nephrology [address] [place] [address] Yenifer Ly MD [address] [facility] [place] [address] 05/18/2024 6:20 PM EST Office Visit Family Medicine [address] [place] [phone] Thais Chiu MD [address] [place] [address] [place] [address] 06/05/2024 10:05 AM EDT Hospital Encounter [facility], Operating Room [facility] [address] [place] [address] Pio Michaud DO [address] [place] [address] 06/05/2024 10:05 AM EDT - 06/05/2024 10:30 AM EDT Surgery OR [facility], Operating Room [facility] [address] [place] [phone] Pio Michaud Rick, [address] [place] [address] INJECT ANESTHETIC AND/OR STEROID SACROILIAC 06/18/2024 12:30 PM EDT Imaging Radiology [address] [place] [address] Scheduled Orders Name Type Priority Associated Diagnoses Orde r Schedule INJECT ANESTHETIC AND/OR STEROID; SACROILIAC JOINT, W/ IMAGE GUIDANCE Procedures Routine Sacroiliitis (HCC) Expected: 03/28/2024, Expires: 03/28/2025 Scheduled Procedures Name Priority Associated Diagnoses Date/Ti [...] Additional history exists CKD HGB USE SMARTSET 05285 11/20/202411/20, 04/26/2022, 04/26/2022, Additional history exists CKD PHOS USE SMARTSET 05005 11/20/202410/24, 10/18/2022, 10/26/2021, Additional history exists Albumin/Creatinine [...] D LEVEL ONCE IN A LIFETIME-USE SMARTSET# 05993 Completed 03/08/2023, 03/01/2022, 10/26/2021, Additional history exists [...] as of this encounter Visit Diagnoses Diagnosis Sacroiliitis (HCC)- Primary Sacroiliitis, not elsewhere classified History of lumbar fusion Inflammation of sacroiliac joint (HCC) Sacroiliitis, not elsewhere classified documented in this encounter Care Teams Statue Carver Relationship Specialty Start Date End Date Thais Chiu MD [address] [place] [address] [place] [phone] PCP - General Family Medicine 12/19/23 documented as of this encounter
--- OUTSIDE RECORDS SUMMARY | 2024-08-01 19:31 | External Medical Summary | Summary of Care ---
Author Name Unknown Organization [facility] Address [address] [facility] [place] [address] Phone [phone] Care Team Providers Care Insulation Board Calender Operator Name Role Phone Thais Chiu MD Primary Care Provide r Reason for Visit * Reason Comments Follow Up L hip Encounter Details Date Type Department Care Team (Latest Contact Info) Description 02/19/2024 3:00 PM EST Office Visit Orthopaedics [facility] [address] [place] [address] Sis Miller MD [address] [place] [address] Pain of left lower extremity*; Primary osteoarthritis of one hip, left; Greater 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 Allergies Active Allergy Reactions Criticality Noted Date Comments Fantasma Inhibitors 09/27/1999 Prinivil--cough Adhesive Tape 09/27/1999 Bactrim Itching 04/15/2007 Barbiturates 09/27/1999 Cozaar Cough 12/16/2009 Duloxetine Hcl 09/23/2017 Er-Bwhsqd-Qjxmqbga-Scopola mine Hives 02/11/2015 Iodine 11/07/1982 Nortriptyline Hives Penicillins 09/27/1999 reaction as a child Phenytoin Sodium 09/27/1999 itching Povidone Iodine 09/27/1999 betadine Quinine Sulfate Dihydrate 12/23/2002 diarrhea Tramadol Hcl Nausea/vomiting 12/16/2009 documented as of this encounter (statuses as of 02/19/2024) Medications Blood Glucose Monitoring Suppl (SportStreamSTYLE FREEDOM LITE) w/Device KIT Dx Code E11.9 [...] Take 400 mg by mouth. Active Nystatin 500493 UNIT/GM External Powder (Nystop)Indicati ons:Cutaneous candidiasis Apply [...] goal of less than 8.0% ([facility]) Take 1 Tablet by mouth [...] the morning. 90 Tablet 3 4 Active Hospital, Clinic, or Other Facility Administered Medication Ordered Dose Route Frequency Start Date End Date Status lidocaine 1% 1 mL - triamcinolone acetonide 40 mg/mL 1 mL inj 2 mLIndications:Primary osteoarthritis of one hip, left 2 mL IJ ONCE 02/19/2024 02/19/2024 Ended documented as of this encounter (statuses as of 02/19/2024) Active Problems Problem Noted Date Diagnosed Date [...] as of this encounter (statuses as of 02/19/2024) Resolved Problems Problem Noted Date Diagnosed Date [...] Overview (01/20/2009): Per Diabetes Taxonomy. 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 Purpose of this injection is diagnostic and potentially therapeutic. See procedure note below. Left hip with no overlying skin changes. ICD-10-CM 1. Pain of left lower extremity M79.605 2. Primary osteoarthritis of one hip, left M16.12 3. Greater 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 M25.552 We reviewed indications risks benefits alternatives anticipated outcomes from this injection. We reviewed the diagnostic and potentially therapeutic purpose of the injection. See procedure note below. Follow up portal message in 2 weeks Sis Miller MD 02/19/2024 PROCEDURE NOTE: HIP JOINT INJECTION Laterality: Left Time out: Prior to injection, a time out was called to confirm the administration of appropriate medicine, patient name, procedure and confirm to the best of our ability and knowledge the presence of any necessary risks and benefits. Patient verbalized understanding. Ultrasound utilized to guide injection. During the procedure, the needle was visualized in plane and was advanced with continuous ultrasound guidance to the appropriate anatomical landmark as described in the procedure. Ultrasound required due to high risk for complications without ultrasound guidance (risk for neurovascular damage) Sterile technique applied using gloves, chlorhexadine, and alcohol swabs. Ethyl chloride spray for local anesthetic. Hip joint at femoral capsule injected using 3.5 inch, 22 gauge needle. Injected with 1 mL Lidocaine1% - 1 mL Triamcinolone Acetonide 40 mg/mL >> inject 2 mL. Patient tolerated procedure with no significant bleeding or adverse reaction. Patient instructed to call or return to clinic for fever, warmth, unusual redness at injection sitefor potential infection. Patient also advised regarding post-procedural pain. Sis Miller MD Sports Medicine Primary Care Orthopaedics [address] [address] documented in this encounter Nursing Notes * Teresa Pete CMA - 02/19/2024 2:50 PM EST Chief Complaint Patient presents with Follow Up L hip Injection documented in this encounter Plan of Treatment Upcoming Encounters Date Type Department Care Team (Late st Contact Info) Description 02/26/2024 12:30 PM EST Office Visit Interventional Pain Center, [facility] [address] [place] [address] Marlen Navarro PA-C [address] [place] [address] 03/06/2024 9:40 AM EST Office Visit Rheumatology [place] [phone] [employer] [place] [address] Logan Mireles MD [address] [place] [address] [place] [address] 04/02/2024 3:20 PM EST Office Visit Nephrology [address] [place] [address] Yenifer Ly MD [address] [facility] [place] [place] [address] 05/18/2024 6:20 PM EST Office Visit Family Medicine [address] [place] [phone] Thais Chiu MD [address] [place] [address] [place] [address] 06/18/2024 12:30 PM EDT Imaging Radiology [address] [place] [address] Health Maintenance Due Date Last Done Comments [...] Additional history exists CKD HGB USE SMARTSET 34478 11/20/202411/20, 04/26/2022, 04/26/2022, Additional history exists CKD PHOS USE SMARTSET 74353 11/20/202410/24, 10/18/2022, 10/26/2021, Additional history exists Albumin/Creatinine [...] D LEVEL ONCE IN A LIFETIME-USE SMARTSET# 75184 Completed 03/08/2023, 03/01/2022, 10/26/2021, Additional history exists [...] as of this encounter Visit Diagnoses Diagnosis Pain of left lower extremity- Primary Primary osteoarthritis of one hip, 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 documented in this encounter Administered Medications Inactive Administered Medications - up to 3 most recent administrations Medication Order MAR Action Action Date Dose Rate Site lidocaine 1% 1 mL - triamcinolone acetonide 40 mg/mL 1 mL inj 2 mL 2 mL, Injection, ONCE, On Sat02/19/24 at 1545, For 1 dose, Lidocaine 1% 1mL Triamcinolone Acetonide 40 mg/mL 1 mL (Final concentration = 20 mg/mL) REFRIGERATE and SHAKE WELLIndications:Primary osteoarthritis of one hip, left Given 02/19/2024 3:25 PM EST 2 mL Hip Left documented in this encounter Care Teams Insulation Board Calender Operator Relationship Specialty Start Date End Date Thais Chiu MD [address] [place] [address] [place] [address] PCP - General Family Medicine 12/19/23 documented as of this encounter
--- OUTSIDE RECORDS SUMMARY | 2024-08-01 19:31 | External Medical Summary | Summary of Care ---
Author Name Unknown Organization [facility] Address [address] [facility] [place] [address] Phone [phone] Care Team Providers Care Nutrition Aide Name Role Phone Thais Chiu MD Primary Care Provide r Reason for Visit * Reason Comments Follow Up L hip Encounter Details Date Type Department Care Team (Latest Contact Info) Description 02/19/2024 3:00 PM EST Office Visit Orthopaedics [facility] [address] [place] [address] Sis Miller MD [address] [place] [address] Pain of left lower extremity*; Primary osteoarthritis of one hip, left; Greater 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 Allergies Active Allergy Reactions Criticality Noted Date Comments Fantasma Inhibitors 09/27/1999 Prinivil--cough Adhesive Tape 09/27/1999 Bactrim Itching 04/15/2007 Barbiturates 09/27/1999 Cozaar Cough 12/16/2009 Duloxetine Hcl 09/23/2017 Fj-Uaaick-Mekpvhvq-Scopola mine Hives 02/11/2015 Iodine 11/07/1982 Nortriptyline Hives Penicillins 09/27/1999 reaction as a child Phenytoin Sodium 09/27/1999 itching Povidone Iodine 09/27/1999 betadine Quinine Sulfate Dihydrate 12/23/2002 diarrhea Tramadol Hcl Nausea/vomiting 12/16/2009 documented as of this encounter (statuses as of 02/19/2024) Medications Blood Glucose Monitoring Suppl (Bon'AppSTYLE FREEDOM LITE) w/Device KIT Dx Code E11.9 [...] Take 400 mg by mouth. Active Nystatin 478763 UNIT/GM External Powder (Nystop)Indicati ons:Cutaneous candidiasis Apply [...] A1c goal of less than 8.0% ([facility]) Take 1 Tablet by mouth 2 times a day with morning and evening meals. 180 Tablet 1 4 Active Furosemide 20 MG Oral Tablet (Lasix)Indicatio ns:Edema, unspecified type,HTN, goal below 140/90,CKD (chronic kidney disease) stage 3, GFR 30-59 ml/min ([facility]) TAKE 1 TABLET DAILY ON SATURDAY, SATURDAY [...] Overview (01/20/2009): Per Diabetes Taxonomy. 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 on file [...] Miller MD Sports Medicine Primary Care Orthopaedics [address] [address] documented in this encounter Nursing Notes * Teresa Pete CMA - 02/19/2024 2:50 PM EST Chief Complaint Patient presents with Follow Up L hip Injection documented in this encounter Plan of Treatment Upcoming Encounters Date Type Department Care Team (Late st Contact Info) Description 02/26/2024 12:30 PM EST Office Visit Interventional Pain Center, [facility] [address] [place] [address] Marlen Navarro PA-C [address] [place] [address] 03/06/2024 9:40 AM EST Office Visit Rheumatology [place] [address] [employer] [place] [address] Logan Mireles MD [address] [place] [address] [place] [address] 04/02/2024 3:20 PM EST Office Visit Nephrology [address] [place] [address] Yenifer Ly MD [address] [facility] [place] [address] 05/18/2024 6:20 PM EST Office Visit Family Medicine [address] [place] [phone] Thais Chiu MD [address] [place] [address] [place] [address] 06/18/2024 12:30 PM EDT Imaging Radiology [address] [place] [address] Health Maintenance Due Date Last Done Comments [...] Additional history exists CKD HGB USE SMARTSET 25579 11/20/202411/20, 04/26/2022, 04/26/2022, Additional history exists CKD PHOS USE SMARTSET 59359 11/20/202410/24, 10/18/2022, 10/26/2021, Additional history exists Albumin/Creatinine [...] D LEVEL ONCE IN A LIFETIME-USE SMARTSET# 86363 Completed 03/08/2023, 03/01/2022, 10/26/2021, Additional history exists [...] Left documented in this encounter Care Teams Nutrition Aide Relationship Specialty Start Date End Date Thais Chiu MD [address] [place] [address] [place] [address] PCP - General Family Medicine 12/19/23 documented as of this encounter
--- OUTSIDE RECORDS SUMMARY | 2024-08-01 19:31 | External Medical Summary | Summary of Care ---
Author Name Unknown Organization [facility] Address [address] [facility] [place] [address] Phone [phone] Care Team Providers Care Structural Steel Fitter Name Role Phone Thais Chiu MD Primary Care Provide r Reason for Visit * Reason Comments Follow Up L hip Encounter Details Date Type Department Care Team (Latest Contact Info) Description 02/19/2024 3:00 PM EST Office Visit Orthopaedics [facility] [address] [place] [address] Sis Miller MD [address] [place] [address] Pain of left lower extremity*; Primary osteoarthritis of one hip, left; Greater 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 Allergies Active Allergy Reactions Criticality Noted Date Comments Fantasma Inhibitors 09/27/1999 Prinivil--cough Adhesive Tape 09/27/1999 Bactrim Itching 04/15/2007 Barbiturates 09/27/1999 Cozaar Cough 12/16/2009 Duloxetine Hcl 09/23/2017 Pd-Hpwbjh-Yitacqnr-Scopola mine Hives 02/11/2015 Iodine 11/07/1982 Nortriptyline Hives Penicillins 09/27/1999 reaction as a child Phenytoin Sodium 09/27/1999 itching Povidone Iodine 09/27/1999 betadine Quinine Sulfate Dihydrate 12/23/2002 diarrhea Tramadol Hcl Nausea/vomiting 12/16/2009 documented as of this encounter (statuses as of 02/19/2024) Medications Blood Glucose Monitoring Suppl ([employer] FREEDOM LITE) w/Device KIT Dx Code E11.9 [...] Take 400 mg by mouth. Active Nystatin 263734 UNIT/GM External Powder (Nystop)Indicati ons:Cutaneous candidiasis Apply [...] hemoglobin A1c goal of less than 8.0% ([facility]) Take 1 Tablet by mouth 2 times a day with morning and evening meals. 180 Tablet 1 4 Active Furosemide 20 MG Oral Tablet (Lasix)Indicatio ns:Edema, unspecified type,HTN, goal below 140/90,CKD (chronic kidney disease) stage 3, GFR 30-59 ml/min ([facility]) TAKE 1 TABLET DAILY ON [...] Overview (01/20/2009): Per Diabetes Taxonomy. 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 [address] [place] [address] Marlen Navarro PA-C [address] [place] [address] 03/06/2024 9:40 AM EST Office Visit Rheumatology [place] [id number] [employer] [place] [address] Logan Mireles MD [address] [place] [address] [place] [address] 04/02/2024 3:20 PM EST Office Visit Nephrology [address] [place] [address] Yenifer Ly MD [address] [facility] [place] [address] 05/18/2024 6:20 PM EST Office Visit Family Medicine [address] [place] [phone] Thais Chiu MD [address] [place] [address] [place] [address] 06/18/2024 12:30 PM EDT Imaging Radiology [address] [place] [address] Health Maintenance Due Date Last Done Comments [...] Additional history exists CKD HGB USE SMARTSET 18438 11/20/202411/20, 04/26/2022, 04/26/2022, Additional history exists CKD PHOS USE SMARTSET 82569 11/20/202410/24, 10/18/2022, 10/26/2021, Additional history exists Albumin/Creatinine [...] D LEVEL ONCE IN A LIFETIME-USE SMARTSET# [id number] Completed 03/08/2023, 03/01/2022, 10/26/2021, Additional history exists [...] Left documented in this encounter Care Teams Structural Steel Fitter Relationship Specialty Start Date End Date Thais Chiu MD [address] [place] [address] [place] [address] PCP - General Family Medicine 12/19/23 documented as of this encounter
--- OUTSIDE RECORDS SUMMARY | 2024-08-01 19:31 | External Medical Summary | Summary of Care ---
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 [facility] Comments Documentation of Lcjm-fq-Epta Encounter Addendum Patient Name: Lisandra Tellez I certify that this patient is under my care and that I, or a nurse practitioner or physician's ophthalmic assistant working with me, had a ydbw-iz-koor encounter that meets the physician jqsh-pd-momq encounter requirements with this patient on: 02/11/24 The encounter with the patient was in whole, or in part, for the following medical condition, which is the primary reason for home health care (List medical condition): Gait dysfunction I certify that, based on my findings, the following services are medically necessary home health services: Physical Therapy To provide the following care/treatments: (All hospitalists not following the patient after discharge should complete this section): PT Primary Care Physician to follow home care plan of care after discharge: yes My clinical findings support the need for the above services because: homebound, losing ability to ADL due to pain. Work on balance and stregnth Further, I certify that my clinical findings support that this patient is homebound (i.e. Absences from home require considerable and taxing effort and are for medical reasons or jainism services or infrequently or of short duration when for other reason) because: Does not drive due to neuropathy Physician Signature: Date of Signature: Physician Printed Name: Sis Miller MD * Evaluate & Treat - Unlimited Visits (Within 10 days (routine)) - Authorized Specialty Diagnoses / Procedures Referred By Tc miller Referred To Contact Physical Therapy / Physical Medicine And Rehab Diagnoses Pain of left lower extremity Primary osteoarthritis of one hip, 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 Sis Miller MD [address] [place] [address] Phone: tel: fax: Referral ID Status Reason Start Date Expiration Date Visits Requested Visits Authorized [id number] Authorized Specialty Services Required [phone] Question Answer Referral Priority Within 10 days (routine) Where should this appointment be scheduled? [facility] Reason for Visit * Reason Comments NEW PATIENT Left hip * Evaluate & Treat - Unlimited Visits (Within 30 days (routine)) - Authorized Specialty Diagnoses / Procedures Referred By Tc miller Referred To Contact Orthopaedic Surgery / Orthopedics Diagnoses Hip pain, left Koptchak, Shnael L, PA-C [address] [place] [address] [place] [address] Phone: tel: fax: Referral ID Status Reason Start Date Expiration Date Visits Requested Visits Authorized [id number] Authorized Specialty Services Required [phone] Encounter Details Date Type Department Care Team (Latest Contact Info) Description 02/11/2024 3:00 PM EST Office Visit Orthopaedics [facility] [address] [place] [address] Sis Miller MD [address] [place] [address] Pain of left lower extremity*; Primary osteoarthritis of one hip, left; Greater 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 Allergies Active Allergy Reactions Criticality Noted Date Comments Fantasma Inhibitors 09/27/1999 Prinivil--cough Adhesive Tape 09/27/1999 Bactrim Itching 04/15/2007 Barbiturates 09/27/1999 Cozaar Cough 12/16/2009 Duloxetine Hcl 09/23/2017 Uy-Ntttfr-Kuowoone-Scopola mine Hives 02/11/2015 Iodine 11/07/1982 Nortriptyline Hives Penicillins 09/27/1999 reaction as a child Phenytoin Sodium 09/27/1999 itching Povidone Iodine 09/27/1999 betadine Quinine Sulfate Dihydrate 12/23/2002 diarrhea Tramadol Hcl Nausea/vomiting 12/16/2009 documented as of this encounter (statuses as of 02/11/2024) Medications Blood Glucose Monitoring Suppl ([employer] FREEDOM LITE) w/Device KIT Dx Code E11.9 1 Kit 8 Active Additional Information Patient taking differently: TID(AM/NOON/HS), Dx Code E11.9,Indications: Use to Test Blood Sugars 3 times a day. DX Code E11.9-Doispense 300 with 1 refill 4-19-18 via phone, Reported on 03/01/2022 Blood Pressure KITIndications:H TN, goal below 140/90 [...] Take 400 mg by mouth. Active Nystatin 656314 UNIT/GM External Powder (Nystop)Indicati ons:Cutaneous candidiasis Apply [...] before bedtime. 180 Capsule 3 4 Active Gemtesa 75 MG Oral Tablet (Vibegron)Indica tions:Urge incontinence,OAB (overactive bladder) Take 1 Tablet by mouth in the morning. 90 Tablet 3 4 Active metFORMIN HCl ER 500 [...] kidney disease) stage 3, GFR 30-59 ml/min (HCC) TAKE 1 TABLET DAILY ON SATURDAY, SATURDAY [...] at bedtime. 90 Tablet 1 4 Active documented as of this encounter (statuses as of 02/11/2024) Active Problems Problem Noted Date Diagnosed Date [...] as of this encounter (statuses as of 02/11/2024) Resolved Problems Problem Noted Date Diagnosed Date [...] Overview (01/20/2009): Per Diabetes Taxonomy. 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 Consult requested by Shanel Mcintyre PA-C. Lisandra Tellez is here with his/her daughter History: Chief Complaint Patient presents with NEW PATIENT Left hip Nursing Notes: Gwendolyn Ashford, MED ASSIST 02/11/24 1451 Signed Patient presents today for left hip pain that radiates down to her knee. Unsure of any injuries that caused the pain. Patient reports she had an injection in November in her back, and she has had pain in her hip since that injection. Patient reports pain has been ongoing for years but has been getting worse over the past several weeks. She was pain in the groin, lateral hip, buttock, low back and it radiates down her leg to just below her knee. She does not have any pain that radiates past her knee but also notes that she has neuropathy up to the proximal tibia from her diabetes. Pain is worse with all activity and so she wasbecome rather sedentary. She specifically has issues planting and twisting on the leg. She follows with pain management for her back. Previously saw Dr. Diaz, most recent injection was in November by Dr. Mack. She reports these injections are no longer has been official to her. No bowel or bladder changes, fever chills or weight loss. Review of systems: All others negative except those noted above in HPI. Review of patient's allergies indicates: Allergen Reactions Fantasma Inhibitors Prinivil--cough Adhesive Tape Bactrim Itching Barbiturates Cozaar Cough Cymbalta [Duloxetine Hcl] [At-Ctuuui-Aqbpbiwy-Scopolamine] Hives Iodine Nortriptyline Hives Penicillins reaction as a child Phenytoin Sodium itching Povidone Iodine betadine Quinine Sulfate Dihydrate diarrhea Ultram [Tramadol Hcl] Nausea/vomiting Current Outpatient Medications Medication Sig Dispense Refill Blood Glucose Monitoring Suppl ([employer] LITE) w/Device KIT Dx Code E11.9 (Patient taking differently: 3 times a day. Dx Code E11.9) 1 Kit 0 Blood Pressure KIT Use per physician instructions 1 Kit 0 Fexofenadine HCl 180 MG Oral Tablet Take 1 Tablet by mouth in the morning. FreeStyle Lancets [facility] USE DIRECTED TO TEST BLOOD SUGAR 3 TIMES DAILY. E11.9 300 Each 3 Womens 50+ Multi Vitamin/Min Oral Tablet Take by mouth. Magnesium 400 MG Oral Tablet Take 400 mg by mouth. Nystatin 948445 UNIT/GM External Powder (Nystop) Apply topically to [...] 1 Capsule before bedtime. 180 Capsule 3 Gemtesa 75 MG Oral Tablet (Vibegron) Take 1 Tablet by mouth in the morning. 90 Tablet 3 metFORMIN HCl ER 500 MG Oral [...] by mouth at bedtime. 90 Tablet 1 No current facility-administered medications for this visit. Past Medical History: Diagnosis Date Allergic rhinitis due to other allergen Benign neoplasm of colon 11/01/10 internal hemorrhoids, one 5 mm polyp in sigmoid--adenomatous tissue repeat in 5 year CKD (chronic kidney disease), stage III ([facility]) 06/17/12 GFR 54.8 COPD, severity to be determined ([facility]) 1992 second hand smoke DM type 2 causing eye disease, not at goal ([facility]) retinopathy right eye - neovascularization DM type 2 causing neurological disease ([facility]) DM type 2, goal A1c below [...] thoracic vertebra, with routine healing, subsequent encounter Patient Active Problem List Diagnosis FEM STRESS INCONTINENCE Other allergic rhinitis DIVERTICULOSIS OF COLON Diabetic polyneuropathy (HCC) Knee joint replacement status Type 2 diabetes mellitus with hemoglobin A1c goal of less than 8.0% (HCC) Diabetes mellitus with background retinopathy (HCC) Dyslipidemia, goal LDL below 100 Lumbar spinal stenosis Essential hypertension with goal blood pressure less than 140/90 Status post right hip replacement History of compression fracture of spine Senile osteoporosis Hypertensive kidney disease with stage 3a chronic kidney disease Type 2 diabetes mellitus with stage 3a chronic kidney disease (HCC) Iron deficiency anemia Hypomagnesemia Past Surgical History: Procedure Laterality Date ARTHROCENT ASP &/OR INJ MAJOR JX/BURSA W/O US 10/27/2020 ARTHROCENTESIS OR INJECTION MAJOR JOINT performed by Campos Diaz DO at OR [facility] ARTHROPLASTY KNEE TOTAL Left 10/20/2007 L knee -dr prudencio patel clfd ARTHROPLASTY KNEE TOTAL Right 2004 DELIVERY x 3 Delivery Only COLONOSCOPY W/ LESION REMOVAL, SNARE 11/01/2010 internal hemorrhoids, one 5 mm polyp in sigmoid--adenomatous tissue repeat in 5 years COLONOSCOPY, DIAGNOSTIC (RECTUM) 01/23/2016 normal, repeat 5 yrs/COLONOSCOPY FLEXIBLE PROXIMAL DIAGNOSTIC performed by Rosa Noguera DO at ENDOSCOPY [facility] COLONOSCOPY, DIAGNOSTIC (RECTUM) 04/04/2021 adenomatous polyp / COLONOSCOPY FLEXIBLE PROXIMAL DIAGNOSTIC performed by Rosa Noguera DO at ENDOSCOPY [facility] CONTIGEN SKIN TEST/NURSE ONLY 01/22/2002 negative skin test CYSTOSCOPY 01/22/2002 DECOMPRESS LUMBAR SPINAL CORD SEG 07/08/2015 Dr. Ba [facility], L3-4 L4-5 with fusion L4-5 DIGITAL RECTAL EXAM,ANNUAL 06/2000 EGD, FLEXIBLE, DIAGNOSTIC 04/04/2021 normal / ESOPHAGOGASTRODUODENOSCOPY (EGD), FLEXIBLE, TRANSORAL, DIAGNOSTIC performed by Rosa Noguera DO at ENDOSCOPY [facility] EGD, W/ENDOSCOPIC US 08/22/2011 UPPER GI ENDOSCOPY ENDOSCOPIC ULTRASOUND performed by JOSE FRANCISCO EMERSON at OR [facility] ENDOSCOPIC INJECT, IMPLANT MATERIAL 02/20/2002 Bladder neck collagen injection by Dr. Valdes INJECT DX/THER SUBSTANCE INTERLAMINAR LUMBAR/SACRAL W IMAGE GUIDE 10/07/2017 INJECTION SPINE LUMBAR OR SACRAL performed by Campos Diaz DO at OR [facility] INJECT DX/THER SUBSTANCE INTERLAMINAR LUMBAR/SACRAL W IMAGE GUIDE 10/31/2017 INJECTION SPINE LUMBAR OR SACRAL performed by Campos B Cousins, DO at OR [facility] INJECT DX/THER SUBSTANCE [...] Diaz, DO at OR [facility] INJECTION LUMBAR/SACRAL 09/02/2014 INJECTION SPINE LUMBAR OR SACRAL performed by Campos Diaz, DO at OR [facility] INJECTION LUMBAR/SACRAL 05/24/2015 INJECTION SPINE LUMBAR OR SACRAL performed by Campos Diaz, DO at OR [facility] L-/S-SPINE PARAVERTEBRAL FACET INJ,1 LEVEL 12/30/2017 L-/S-SPINE PARAVERTEBRAL FACET INJ, 1 LEVEL performed by Campos Diaz, DO at OR [facility] LAPAROSCOPY; CHOLECYSTECTOMY 08/22/2011 MAMMOGRAM [...] Hendricks TOTAL HYSTERECTOMY 1972 URETHRAL DILAT W/SUPP/INSTILL,FEMALE, MD/DO 01/22/2002 dilation up to 24 s[place]ank[place] in order to pass cystoscope US RENAL 12/05/2016 normal size, renal cortical medical disease suggested Social History Socioeconomic History Marital status: Spouse name: Not on file Number of children: Not on file Years of education: Not on file Highest education level: Not on file Occupational History Occupation: manager of business Comment: [employer] Tobacco Use Smoking status: Never Smokeless tobacco: [...] on file Housing Stability: Not on file Family History Problem Relation Name Age of Onset Cancer Mother lung at age 82 was a smoker Cancer Aunt (Unspecified) lung at age 82 was not a smoker Asthma Brother Asthma Sister Breast Cancer Sister No Past Hx Daughter Ally Evans Family History; none relevant to today's HPI Objective: Physical Exam There were no vitals filed for this visit. Estimated body mass index is 28.02 kg/m² as calculated from the following: Height as of 11/28/23: 1.6 m (5' 3"). Weight as of 01/09/24: 71.8 kg (158 lb 3 oz). General: generally well-nourished and in no acute distress HEENT: normocephalic, atraumatic, sclera anicteric. Psych: mood and affect normal , cooperative Card: Peripheral pulses: normal in affected extremity (s) Resp: equal chest rise, non-tachypneic, non-labored breathing Skin: no rash, normal Neuro: Sensation: normal on affected extremity (s) MSK: Gait/station/stance: normal reciprocal gait, non antalgic without an assistive device on smooth flat indoor surface. Hip Exam Inspection: No obvious deformity, no redness, swelling, warmth, bruising, abrasion. Alignment normal Palpation: tenderness to palpation left greater troch SI joint low back ROM: Significantly limited and unable to fully evaluate due to her pain level Strength: At least 4/5 strength to quads and hamstrings, at least 3/5 strength to hip flexors but unable to fully at due to level of pain Special Tests: With passive internal and external rotation in a seated position she does have groin pain Radiology (I have personally reviewed the following films): X-rays performed 01/09/2024 personally reviewed. Reveals postoperative changes of the lumbar spine and right hip. Left hip with severe osteoarthritis. Agree with Radiology interpretation. Assessment and Plan: ICD-10-CM 1. Pain of left lower extremity M79.605 2. Primary osteoarthritis of one hip, left M16.12 3. 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 Suspect that her pain is multifactorial as she was findings of lumbar spine pathology, greater trochanter pathology, and intra-articular pathology with moderate to severe arthritis on x-ray. Discussed these findings with the patient and her daughter at length. Unfortunately, her physical exam is rather ferris positive and it is difficult to fully tease out what is the primary etiology of her pain on exam. Based on these findings I recommend diagnostic and potentially therapeutic injection. Given the difficulty with planting and twisting on the leg in the pain in the groin is fairly constant recommend intra-articular injection. I will have her return next week for this. Hopefully, this will also help with differentiating hip pain versus back pain in anticipation of her upcoming visit with Dr. Michaud next month. The above assessment and plan were discussed at length. All questions were answered, and the patient expressed understanding. Sis Miller MD Primary Care Sports Medicine [facility] [address] [address] documented in this encounter Nursing Notes * Gwendolyn Ashford MED ASSIST - 02/11/2024 2:48 PM EST Patient presents today for left hip pain that radiates down to her knee. Unsure of any injuries that caused the pain. Patient reports she had an injection in November in her back, and she has had pain in her hip since that injection. documented in this encounter Plan of Treatment Upcoming Encounters Date Type Department Care Team (Late st Contact Info) Description 02/14/2024 2:35 PM EST Office Visit Urogynecology [address] [place] [address] Sri Koenig PA-C [address] [place] [address] Nurse Fidel Espinal [address] [place] [address] 02/14/2024 3:10 PM EST [facility] [address] [place] [phone] Martha Espinal [address] [place] [address] 02/17/2024 11:30 AM EST Telemedicine Pharmacy, [address] [place] [address] [place] [address] 02/19/2024 3:00 PM EST [facility] [address] [place] [address] Sis Miller MD [address] [place] [address] 02/26/2024 12:30 PM EST Office Visit Interventional Pain Center, [facility] [address] [place] [address] Marlen Navarro PA-C [address] [place] [address] 03/06/2024 9:40 AM EST Office Visit Rheumatology [place] [phone] [facility] [place] [address] Logan Mireles MD [address] [place] [address] [place] [address] 04/02/2024 3:20 PM EST Office Visit Nephrology [address] [place] [address] Yenifer Ly MD [facility] [place] [address] 05/18/2024 6:20 PM EST Office Visit Family Medicine [address] [place] [phone] Thais Chiu MD [address] [place] [address] [place] [address] 06/18/2024 12:30 PM EDT Imaging Radiology [address] [place] [address] Scheduled Referrals Name Type Priority Associated Diagnoses Orde r Schedule PHYSICAL THERAPY REFERRAL OP Referral Within 10 days (routine) Pain of left lower extremity Primary osteoarthritis of one hip, 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 Ordered: 02/11/2024 HOME HEALTH REFERRAL OP Referral Within 10 days (routine) Pain of left lower extremity Primary osteoarthritis of one hip, 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 Ordered: 02/11/2024 Health Maintenance Due Date Last Done Comments [...] Additional history exists CKD HGB USE SMARTSET 89914 11/20/202411/20, 04/26/2022, 04/26/2022, Additional history exists CKD PHOS USE SMARTSET 54341 11/20/2024 082 11/2023, 10/18/2022, 10/26/2021, Additional history [...] D LEVEL ONCE IN A LIFETIME-USE SMARTSET# 25554 Completed 03/08/2023, 03/01/2022, 10/26/2021, Additional history exists [...] left lower extremity documented in this encounter Care Teams Pipe Fitter Supervisor Maintenance Relationship Specialty Start Date End Date Thais Chiu MD [address] [place] [address] [place] [address] PCP - General Family Medicine 12/19/23 documented as of this encounter
--- OUTSIDE RECORDS SUMMARY | 2024-08-01 19:31 | External Medical Summary | Summary of Care ---
Author Name Unknown Organization [facility] Address [address] [facility] [place] [address] Phone [phone] Care Team Providers Care Bone Char Puller Name Role Phone Thais Chiu MD Primary Care Provide r Reason for Visit * Reason Comments Outpatient Testing Encounter Details Date Type Department Care Team (Late st Contact Info) Description 02/14/2024 3:10 PM EST Laboratory Laboratory, [facility] [address] [place] [phone] [facility] 132 [place] [address] Type 2 diabetes mellitus with hemoglobin A1c goal of less than 8.0% ([facility]) Allergies Active Allergy Reactions Criticality Noted Date Comments Fantasma Inhibitors 09/27/1999 Prinivil--cough Adhesive Tape 09/27/1999 Bactrim Itching 04/15/2007 Barbiturates 09/27/1999 Cozaar Cough 12/16/2009 Duloxetine Hcl 09/23/2017 Sy-Foewjs-Ivsyniha-Scopola mine Hives 02/11/2015 Iodine 11/07/1982 Nortriptyline Hives [...] Take 400 mg by mouth. Active Nystatin 961677 UNIT/GM External Powder (Nystop)Indicati ons:Cutaneous candidiasis Apply [...] goal of less than 8.0% ([facility]) Take 1 Tablet by mouth 2 times a day with morning and evening meals. 180 Tablet 1 4 Active Furosemide 20 MG Oral Tablet (Lasix)Indicatio ns:Edema, unspecified type,HTN, goal below 140/90,CKD (chronic kidney disease) stage 3, GFR 30-59 ml/min ([facility]) TAKE 1 TABLET DAILY ON SATURDAY, [...] Overview (01/20/2009): Per Diabetes Taxonomy. 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 Not on file Not on file Not on file documented as of this encounter Plan of Treatment Upcoming Encounters Date Type Department Care Team (Late st Contact Info) Description 02/17/2024 11:30 AM EST Telemedicine Pharmacy, [address] [place] [address] [place] [address] 02/19/2024 3:00 PM EST Office Visit Orthopaedics [facility] [address] [place] [address] Sis Miller MD 132 [place] [address] 02/26/2024 12:30 PM EST Office Visit Interventional Pain Center, [facility] [address] [place] [address] Marlen Navarro PA-C [address] [place] [address] 03/06/2024 9:40 AM EST Office Visit Rheumatology [address] [place] [address] Logan Mireles MD [address] [place] [address] [place] [address] 04/02/2024 3:20 PM EST Office Visit Nephrology [address] [place] [address] Yenifer Ly MD [address] [place] [address] 05/18/2024 6:20 PM EST Office Visit Family Medicine [address] [place] [phone] Thais Chiu MD [address] [place] [address] [place] [address] 06/18/2024 12:30 PM EDT Imaging Radiology [address] [place] [address] Pending Results Name Type Priority Associated Diagnoses Date /Time HEMOGLOBIN A1C Lab Routine Type 2 diabetes mellitus with hemoglobin A1c goal of less than 8.0% ([facility]) 02/14/2024 3:35 PM EST Health Maintenance Due Date Last Done Comments [...] Additional history exists CKD HGB USE SMARTSET 70090 11/20/202411/20, 04/26/2022, 04/26/2022, Additional history exists CKD PHOS USE SMARTSET 68865 11/20/202410/24, 10/18/2022, 10/26/2021, Additional history exists Albumin/Creatinine [...] D LEVEL ONCE IN A LIFETIME-USE SMARTSET# [id number] Completed 03/08/2023, 03/01/2022, 10/26/2021, Additional history exists [...] goal of less than 8.0% ([facility]) documented in this encounter Care Teams Bone Char Puller Relationship Specialty Start Date End Date Thais Chiu MD [address] [place] [address] [place] [phone] PCP - General Family Medicine 12/19/23 documented as of this encounter
--- OUTSIDE RECORDS SUMMARY | 2024-08-01 19:31 | External Medical Summary | Summary of Care ---
Author Name Unknown Organization [facility] Address [address] [facility] [place] [address] Phone [phone] Care Team Providers Care Mechanics Supervisor Name Role Phone Thais Chiu MD Primary Care Provide r Reason for Visit * Reason Comments Follow Up L hip Encounter Details Date Type Department Care Team (Latest Contact Info) Description 02/19/2024 3:00 PM EST Office Visit Orthopaedics [facility] [address] [place] [address] Sis Miller MD [address] [place] [address] Pain of left lower extremity*; Primary osteoarthritis of one hip, left; Greater 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 Allergies Active Allergy Reactions Criticality Noted Date Comments Fantasma Inhibitors 09/27/1999 Prinivil--cough Adhesive Tape 09/27/1999 Bactrim Itching 04/15/2007 Barbiturates 09/27/1999 Cozaar Cough 12/16/2009 Duloxetine Hcl 09/23/2017 Lv-Jqwbsw-Fgmctfyq-Scopola mine Hives 02/11/2015 Iodine 11/07/1982 Nortriptyline Hives Penicillins 09/27/1999 reaction as a child Phenytoin Sodium 09/27/1999 itching Povidone Iodine 09/27/1999 betadine Quinine Sulfate Dihydrate 12/23/2002 diarrhea Tramadol Hcl Nausea/vomiting 12/16/2009 documented as of this encounter (statuses as of 02/19/2024) Medications Blood Glucose Monitoring Suppl (VeriWaveSTYLE FREEDOM LITE) w/Device KIT Dx Code E11.9 [...] Take 400 mg by mouth. Active Nystatin 983765 UNIT/GM External Powder (Nystop)Indicati ons:Cutaneous candidiasis Apply [...] hemoglobin A1c goal of less than 8.0% ([facility]) Take 1 Tablet by mouth 2 [...] Overview (01/20/2009): Per Diabetes Taxonomy. 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 on file Not on file [...] Miller MD Sports Medicine Primary Care Orthopaedics [address] [address] documented in this encounter Nursing Notes * Teresa Pete CMA - 02/19/2024 2:50 PM EST Chief Complaint Patient presents with Follow Up L hip Injection documented in this encounter Plan of Treatment Upcoming Encounters Date Type Department Care Team (Late st Contact Info) Description 02/26/2024 12:30 PM EST Office Visit Interventional Pain Center, [facility] [address] [place] [address] Marlen Navarro PA-C [address] [place] [address] 03/06/2024 9:40 AM EST Office Visit Rheumatology [place] [phone] [employer] [place] [address] Logan Mireles MD [address] [place] [address] [place] [address] 04/02/2024 3:20 PM EST Office Visit Nephrology [address] [place] [address] Yenifer Ly MD [address] [facility] [place] [address] 05/18/2024 6:20 PM EST Office Visit Family Medicine [address] [place] [phone] Thais Chiu MD [address] [place] [address] [place] [address] 06/18/2024 12:30 PM EDT Imaging Radiology [address] [place] [address] Health Maintenance Due Date Last Done Comments [...] Additional history exists CKD HGB USE SMARTSET 96768 11/20/202411/20, 04/26/2022, 04/26/2022, Additional history exists CKD PHOS USE SMARTSET 64109 11/20/202410/24, 10/18/2022, 10/26/2021, Additional history exists Albumin/Creatinine [...] D LEVEL ONCE IN A LIFETIME-USE SMARTSET# 42041 Completed 03/08/2023, 03/01/2022, 10/26/2021, Additional history exists [...] Left documented in this encounter Care Teams Mechanics Supervisor Relationship Specialty Start Date End Date Thais Chiu MD [address] [place] [address] [place] [address] PCP - General Family Medicine 12/19/23 documented as of this encounter
--- OUTSIDE RECORDS SUMMARY | 2024-08-01 19:31 | External Medical Summary ---
Author Name Unknown Address Unknown Organization K01:[facility] [place] [address] [facility] [address] Laboratory Report Ordering Provider Test Date Status WAYNE CARRANZA 02/14/2024 15:35:20 Final Observation Date Value Abnormality Reference (Units ) Status HbA1C 02/14/2024 15:35:20 7.0 Above high normal 4. 0-5.6 (%) Final The use of HbA1c to monitor glycemic status is based on normal hemoglobin and HbA composition. This test should not be used in patients with abnormal hemoglobin that affects the half life of the red blood cell or the in vivo glycation rates. Glucose, estimated average 02/14/2024 15:35:20 154 Above high normal <126 (mg/dL) Bora bhandari Performing Location [facility] [place] [address] [facility] [address] [facility] [address]
--- OUTSIDE RECORDS SUMMARY | 2024-08-01 19:31 | External Medical Summary | Summary of Care ---
Author Name Unknown Organization [facility] Address [address] [facility] [place] [address] Phone [phone] Care Team Providers Care Drill Press Set Up Operator Radial Name Role Phone Thais Chiu MD Primary Care Provide r Reason for Visit * Reason Comments Dosage Adjustment Via Phone (anticoag Cl inic) Diabetes Follow-Up Encounter Details Date Type Department Care Team (Late st Contact Info) Description 02/17/2024 11:30 AM EST Telemedicine Pharmacy, [address] [place] [address] [place] [address] Type 2 diabetes mellitus with hemoglobin A1c goal of less than 8.0% ([facility])* Allergies Active Allergy Reactions Criticality Noted Date Comments Fantasma Inhibitors 09/27/1999 Prinivil--cough Adhesive Tape 09/27/1999 Bactrim Itching 04/15/2007 Barbiturates 09/27/1999 Cozaar Cough 12/16/2009 Duloxetine Hcl 09/23/2017 Fe-Bkhswn-Avajmlug-Scopola mine Hives 02/11/2015 Iodine 11/07/1982 Nortriptyline Hives Penicillins 09/27/1999 reaction as a child Phenytoin Sodium 09/27/1999 itching Povidone Iodine 09/27/1999 betadine Quinine Sulfate Dihydrate 12/23/2002 diarrhea Tramadol Hcl Nausea/vomiting 12/16/2009 documented as of this encounter (statuses as of 02/17/2024) Medications Blood Glucose Monitoring Suppl (FREESTYLE FREEDOM [...] Take 400 mg by mouth. Active Nystatin 458867 UNIT/GM External Powder (Nystop)Indicati ons:Cutaneous candidiasis Apply [...] hemoglobin A1c goal of less than 8.0% ([facility]) Take 1 Tablet by mouth 2 times a day with morning and evening meals. 180 Tablet 1 4 Active Furosemide 20 MG Oral Tablet (Lasix)Indicatio ns:Edema, unspecified type,HTN, goal below 140/90,CKD (chronic kidney disease) stage 3, GFR 30-59 ml/min ([facility]) TAKE 1 TABLET DAILY ON [...] as of this encounter (statuses as of 02/17/2024) Active Problems Problem Noted Date Diagnosed Date [...] as of this encounter (statuses as of 02/17/2024) Resolved Problems Problem Noted Date Diagnosed Date [...] Overview (01/20/2009): Per Diabetes Taxonomy. 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 on file Not on file Not on file documented as of this encounter Progress Notes * Deepika Madrid, [facility] - 02/17/2024 11:32 AM EST Diabetes Telephone Follow - Up 02/17/2024 Patient Phone Numbers - Reason for contacting patient: A1c review/discharge - Current Diabetic Medications: Metformin ER 500mg 1 tablet BID Glipizide ER 2.5mg daily in the AM eGFR 59 as of 08/29/23 - Glucose review/ SMBG: Hemoglobin AIC Results: Lab Results Component Value [...] - [facility] 7.4 (H) 10/16/2018 09:25 AM Therapy Management Assessment/Plan: 1) Diabetes: Called and spoke to patient's daughter, Ally. Reviewed A1c improvement. Denies any questions or concerns. Will plan to discharge from [facility] clinic at this time. Instructed to contact clinic with any questions or concerns. Medication Changes: n/a This patient has met their goal HgA1C and has been graduated from the [facility] Diabetes Management Program effective today Yes. Diabetic Medications: Metformin ER 500mg 1 tablet BID Glipizide ER 2.5mg daily in the AM eGFR 59 as of 08/29/23 Deepika Madrid [facility], Pharm D Clinical Pharmacist Medication Therapy Management Clinic 02/17/2024, 11:32 AM documented in this encounter Plan of Treatment Upcoming Encounters Date Type Department Care Team (Late st Contact Info) Description 02/19/2024 3:00 PM EST Office Visit Orthopaedics [facility] [address] [place] [address] Sis Miller MD [address] [place] [address] 02/26/2024 12:30 PM EST Office Visit Interventional Pain Center, [facility] [address] [place] [address] Marlen Navarro PA-C [address] [place] [address] 03/06/2024 9:40 AM EST Office Visit Rheumatology [facility] [address] [facility] [place] [address] Logan Mireles MD [address] [facility] [place] [address] 04/02/2024 3:20 PM EST Office Visit Nephrology [address] [place] [address] Yenifer Ly MD [address] [place] [address] 05/18/2024 6:20 PM EST Office Visit Family Medicine [address] [place] [phone] Thais Chiu MD [address] [place] [address] [place] [address] 06/18/2024 12:30 PM EDT Imaging Radiology [address] [place] [address] Health Maintenance Due Date Last Done Comments [...] Additional history exists CKD HGB USE SMARTSET 50826 11/20/202411/20, 04/26/2022, 04/26/2022, Additional history exists CKD PHOS USE SMARTSET 63306 11/20/202410/24, 10/18/2022, 10/26/2021, Additional history exists Albumin/Creatinine [...] D LEVEL ONCE IN A LIFETIME-USE SMARTSET# 72936 Completed 03/08/2023, 03/01/2022, 10/26/2021, Additional history exists [...] hemoglobin A1c goal of less than 8.0% (HCC)- Primary documented in this encounter Care Teams Drill Press Set Up Operator Radial Relationship Specialty Start Date End Date Thais Chiu MD [address] [place] [address] [place] [address] PCP - General Family Medicine 12/19/23 documented as of this encounter
--- OUTSIDE RECORDS SUMMARY | 2024-08-01 19:31 | External Medical Summary | Summary of Care ---
Author Name Unknown Organization [facility] Address [address] [facility] [place] [address] Phone [phone] Care Team Providers Care Class A Lineman Name Role Phone Thais Chiu MD Primary Care Provide r Reason for Visit * Reason Comments Return Visit Encounter Details Date Type Department Care Team (Late st Contact Info) Description 02/14/2024 2:35 PM EST Office Visit Urogynecology Alice Espinal [address] [facility] [place] [address] Sri Koenig PA-C [address] [place] [address] Nurse Fidel Espinal [address] [place] [address] Urge incontinence*; OAB (overactive bladder); Atrophic vaginitis Allergies Active Allergy Reactions Criticality Noted Date Comments Fantasma Inhibitors 09/27/1999 Prinivil--cough Adhesive Tape 09/27/1999 Bactrim Itching 04/15/2007 Barbiturates 09/27/1999 Cozaar Cough 12/16/2009 Duloxetine Hcl 09/23/2017 Bc-Iyffmn-Rkehwtwg-Scopola mine Hives 02/11/2015 Iodine 11/07/1982 Nortriptyline Hives Penicillins 09/27/1999 reaction as a child Phenytoin Sodium 09/27/1999 itching Povidone Iodine 09/27/1999 betadine Quinine Sulfate Dihydrate 12/23/2002 diarrhea Tramadol Hcl Nausea/vomiting 12/16/2009 documented as of this encounter (statuses as of 02/17/2024) Medications Blood Glucose Monitoring Suppl (nChannelSTYLE FREEDOM LITE) w/Device KIT Dx Code E11.9 [...] Take 400 mg by mouth. Active Nystatin 135798 UNIT/GM External Powder (Nystop)Indicati ons:Cutaneous candidiasis Apply topically to affected area 3 times a day . 30 g 2 11/24/19 22 Active Clobetasol Propionate 0.05 % External Ointment (Temovate)Indica tions:Subacute vaginitis Apply topically to affected area 2 times a day. To affected area for up to two weeks. 15 g 1 10/27/19 23 Active Famotidine 20 MG Oral Tablet (Pepcid) Take 1 Tablet by mouth in the morning and 1 Tablet before bedtime. 60 Tablet 5 12/18/19 23 Active Clotrimazole 1 % External Cream [...] hemoglobin A1c goal of less than 8.0% ([facility]) Take 1 Tablet by mouth [...] Pain, Severe. 40 Tablet 09/02/19 24 Active Montelukast Sodium 10 MG Oral [...] morning. 90 Tablet 3 02/14/20 24 Active Gemtesa 75 MG Oral Tablet (Vibegron)Indica tions:Urge incontinence,OAB (overactive bladder) Take 1 Tablet by mouth in the morning. 90 Tablet 3 07/16/19 24 024 Discontin ued(Refil l) documented as of [...] Overview (01/20/2009): Per Diabetes Taxonomy. 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 She was previously seen for N39.41 Urge incontinence N32.81 OAB (overactive bladder) Since last seen, she has continued taking Gemtesa 75mg and is very pleased with her bladder control. Daytime frequency every hours. Urgency well controlled. Rare urge incontinence with urgency. Denies SHANNAN. Denies nocturia. Denies sense of incomplete bladder emptying. Struggling with diarrhea over the last year, worsening in the last few months. Takes imodium which helps. Overall is pleased with current treatment plan and would like to continue current treatment. No complaints or concerns at this time. Review of patient's allergies indicates: Allergen Reactions Fantasma Inhibitors Prinivil--cough Adhesive Tape Bactrim Itching Barbiturates Cozaar Cough Cymbalta [Duloxetine Hcl] [Jw-Rvjyuq-Kdsywmux-Scopolamine] Hives Iodine Nortriptyline Hives Penicillins reaction as a child Phenytoin Sodium itching Povidone Iodine betadine Quinine Sulfate Dihydrate diarrhea Ultram [Tramadol Hcl] Nausea/vomiting Current Outpatient Medications Medication Sig Dispense Refill Blood Glucose Monitoring Suppl (LiquidM FREEDOM LITE) w/Device KIT Dx Code E11.9 [...] Tablet Take 400 mg by mouth. Nystatin 841648 UNIT/GM External Powder (Nystop) Apply topically to [...] No current facility-administered medications for this visit. ROS: Per HPI Impression: This is a 82 year old with N39.41 Urge incontinence N32.81 OAB (overactive bladder) Plan: Continue Gemtesa 75mg daily. Discussed daily fiber supplementation for bowel regulation. RTC in 1 year or sooner as needed. I spent a total of 20-29 minutes (exact time 20 mins) on the date of service in preparation, delivery, and documentation of the care provided to Lisandra Tellez excluding any time spent in the performance of separately billed services. Sri Koenig PA-C 02/14/2024 3:00PM Sri Koenig PA-C Urogynecology [address] [place] [address] documented in this encounter Nursing Notes * Shital Badillo CMA - 02/14/2024 3:07 PM EST Patient present today for med check. Gemtesa 75mg. Liquid bowel movements. Frequency and urgency have improved. Rarely leaks when not able to make it. Denies any pain or bleeding. documented in this encounter Plan of Treatment Upcoming Encounters Date Type Department Care Team (Late st Contact Info) Description 02/17/2024 11:30 AM EST Telemedicine Pharmacy, [address] [place] [address] [place] [address] 02/19/2024 3:00 PM EST Office Visit Orthopaedics [facility] [address] [place] [address] Sis Miller MD [address] [place] [address] 02/26/2024 12:30 PM EST Office Visit Interventional Pain Center, [facility] [address] [place] [address] Marlen Navarro PA-C [address] [place] [address] 03/06/2024 9:40 AM EST Office Visit Rheumatology [place] [phone] [facility] [place] [address] Logan Mireles MD [address] [place] [address] [place] [address] 04/02/2024 3:20 PM EST Office Visit Nephrology [address] [place] [address] Yenifer Ly MD [address] [facility] [place] [address] 05/18/2024 6:20 PM EST Office Visit Family Medicine [address] [place] [phone] Thais Chiu MD [address] [place] [address] [place] [address] 06/18/2024 12:30 PM EDT Imaging Radiology [address] [place] [address] Health Maintenance Due Date Last Done Comments [...] Additional history exists CKD HGB USE SMARTSET 43163 11/20/202411/20, 04/26/2022, 04/26/2022, Additional history exists CKD PHOS USE SMARTSET 44252 11/20/202410/24, 10/18/2022, 10/26/2021, Additional history exists Albumin/Creatinine [...] D LEVEL ONCE IN A LIFETIME-USE SMARTSET# 89401 Completed 03/08/2023, 03/01/2022, 10/26/2021, Additional history exists [...] as of this encounter Visit Diagnoses Diagnosis Urge incontinence- Primary OAB (overactive bladder) Hypertonicity of bladder Atrophic vaginitis Postmenopausal atrophic vaginitis documented in this encounter Care Teams Class A Lineman Relationship Specialty Start Date End Date Thais Chiu MD [address] [place] [address] [place] [phone] PCP - General Family Medicine 12/19/23 documented as of this encounter
--- OUTSIDE RECORDS SUMMARY | 2024-08-01 19:32 | External Medical Summary | Summary of Care ---
Author Name Unknown Organization [facility] Address [address] [facility] [place] [address] Phone [phone] Care Team Providers Care Operations Specialist Name Role Phone Thais Chiu MD Primary Care Provide r Reason for Visit * Reason Onset Date Comments Medication Refill 02/06/2024 Encounter Details Date Type Department Care Team (Late st Contact Info) Description 02/06/2024 Refill Family Medicine [address] [phone] Thais Chiu MD [address] [place] [address] [place] [address] Dyslipidemia, goal LDL below 100 Allergies Active Allergy Reactions Criticality Noted Date Comments Fantasma Inhibitors 09/27/1999 Prinivil--cough Adhesive Tape 09/27/1999 Bactrim Itching 04/15/2007 Barbiturates 09/27/1999 Cozaar Cough 12/16/2009 Duloxetine Hcl 09/23/2017 Ou-Iboeil-Jkpyaqvn-Scopola mine Hives 02/11/2015 Iodine 11/07/1982 Nortriptyline Hives Penicillins 09/27/1999 reaction as a child Phenytoin Sodium 09/27/1999 itching Povidone Iodine 09/27/1999 betadine Quinine Sulfate Dihydrate 12/23/2002 diarrhea Tramadol Hcl Nausea/vomiting 12/16/2009 documented as of this encounter (statuses as of 02/07/2024) Medications Blood Glucose Monitoring Suppl (FREESTYLE FREEDOM LITE) w/Device KIT Dx Code E11.9 1 Kit 06/28/19 18 Active Additional Information Patient taking differently: TID(AM/NOON/HS), Dx Code E11.9,Indications: Use to Test Blood Sugars 3 times a day. DX Code E11.9-Doispense 300 with 1 refill 07-11-17 via phone, Reported on 03/01/2022 Blood Pressure [...] Take 400 mg by mouth. Active Nystatin 064282 UNIT/GM External Powder (Nystop)Indicati ons:Cutaneous candidiasis Apply [...] bedtime. 180 Capsule 3 07/16/19 24 Active Gemtesa 75 MG Oral Tablet (Vibegron)Indica tions:Urge incontinence,OAB (overactive bladder) Take 1 Tablet by mouth in the morning. 90 Tablet 3 07/16/19 24 Active metFORMIN HCl ER 500 MG Oral Tablet Extended Release 24 Hour (Glucophage XR)Indications:T ype 2 diabetes mellitus with hemoglobin A1c goal of less than 8.0% ([facility]) Take 1 Tablet by mouth 2 times a day with morning and evening meals. 180 Tablet 1 08/29/19 24 Active Furosemide 20 MG Oral Tablet (Lasix)Indicatio ns:Edema, unspecified type,HTN, goal below 140/90,CKD (chronic kidney disease) stage 3, GFR 30-59 ml/min ([facility]) TAKE 1 TABLET DAILY ON SATURDAY, [...] bedtime. 90 Tablet 1 02/07/20 24 Active amLODIPine Besylate 2.5 MG Oral Tablet (Norvasc) Take 1 Tablet by mouth in the morning. 90 Tablet 1 07/17/19 24 024 Discontin ued(Refil l) glipiZIDE ER 2.5 MG Oral Tablet Extended Release 24 Hour (glipiZIDE XL) Take 1 Tablet by mouth in the morning. 30 minutes before a meal.. 90 Tablet 1 07/17/19 24 024 Discontin ued(Refil l) Simvastatin 10 MG Oral Tablet (Zocor)Indicatio ns:Dyslipidemia, goal LDL below 100 Take 1 Tablet by mouth at bedtime. 90 Tablet 1 07/17/19 24 024 Discontin ued(Refil l) documented as of this encounter (statuses as of 02/07/2024) Active Problems Problem Noted Date Diagnosed Date [...] as of this encounter (statuses as of 02/07/2024) Resolved Problems Problem Noted Date Diagnosed Date [...] Overview (01/20/2009): Per Diabetes Taxonomy. LOC PRIM [id number] 12/30/200103/26 Edema 12/30/2001 04/15/2015 JOINT PAIN-SHLDER 04/24/2001 [...] as of this encounter (statuses as of 02/07/2024) Immunizations Name Administration Dates Next Due COVID-19 [...] encounter Miscellaneous Notes * Telephone Encounter - Damaris Daly RPh - 02/07/2024 4:10 PM ESTSigned Prescriptions: Disp Refills amLODIPine Besylate 2.5 MG Oral Tablet (No*90 Tab*1 Sig: Take 1 Tablet by mouth in the morning.Authorizing Provider: THAIS CHIU User: TAJSARI DAMARIS glipiZIDE ER 2.5 MG Oral Tablet Extended R*90 Tab*1 Sig: Take 1 Tablet by mouth in the morning. 30 minutes before a meal..Authorizing Provider: THAIS CHIU User: DAMARIS DALY Simvastatin 10 MG Oral Tablet (Zocor) 90 Tab*1 Sig: Take 1 Tablet by mouth at bedtime.Authorizing Provider: THAIS CHIU User: DAMARIS DALY * Telephone Encounter - Pieter Ch, panel coverer - 02/06/2024 10:14 AM EST Did you pend patient's preferred pharmacy and medication before forwarding?yes Pharmacy: [facility] Pending Prescriptions: Disp Refills amLODIPine Besylate 2.5 MG Oral Tablet (N*90 Tab*1 Sig: Take 1 Tablet by mouth in the morning. glipiZIDE ER 2.5 MG Oral Tablet Extended *90 Tab*1 Sig: Take 1 Tablet by mouth in the morning. 30 minutes before a meal.. Simvastatin 10 MG Oral Tablet (Zocor) 90 Tab*1 Sig: Take 1 Tablet by mouth at bedtime. Last Visit: 01/09/2024 (in office), Visit date not found (telemedicine) Next Visit: 05/18/2024 If no future appointments scheduled, and last appointment is greater than a year ago, please schedule patient for a follow-up appointment Last date the medication was ordered: 07/17/2023 Is this request for a controlled substance?No [...] AM ALT 19 10/15/2019 09:37 AM HGBA1C 8.0 (H) 11/21/2023 10:08 AM HGBA1C 7.1 (H) 10/15/2019 09:37 AM HGBA1C 5.6 01/15/1996 11:30 AM documented in this encounter Plan of Treatment Upcoming Encounters Date Type Department Care Team (Late st Contact Info) Description 02/11/2024 3:00 PM EST [facility] [address] [place] [address] Sis Miller MD [address] [place] [address] 02/14/2024 2:35 PM EST Office Visit Urogynecology [facility] [address] [place] [address] [address] Sri Koenig PA-C [address] [place] [address] Nurse Fidel Espinal [address] [place] [address] 02/14/2024 3:10 PM EST Laboratory Laboratory, [facility] [place] [phone] EspinalMartha scott Rust [address] [place] [address] 02/17/2024 11:30 AM EST Telemedicine Pharmacy, [address] [place] [address] [place] [address] 02/26/2024 12:30 PM EST Office Visit Interventional Pain Center, [facility] [address] [place] [address] Marlen Navarro PA-C [address] [facility] [place] [address] 03/06/2024 9:40 AM EST Office Visit Rheumatology [address] [place] [address] Logan Mireles MD [address] [place] [address] [place], [place] [address] 04/02/2024 3:20 PM EST Office Visit Nephrology [address] [place] [address] Yenifer Ly MD [address] [place] [address] 05/18/2024 6:20 PM EST Office Visit Family Medicine [address] [place] [phone] Thais Chiu MD [address] [place] [address] [place] [address] 06/18/2024 12:30 PM EDT Imaging Radiology [address] [place], [place] [address] Health Maintenance Due Date Last Done Comments [...] Additional history exists CKD HGB USE SMARTSET 43820 11/20/202411/20, 04/26/2022, 04/26/2022, Additional history exists CKD PHOS USE SMARTSET 98610 11/20/202410/24, 10/18/2022, 10/26/2021, Additional history exists Albumin/Creatinine [...] D LEVEL ONCE IN A LIFETIME-USE SMARTSET# [id number] Completed 03/08/2023, 03/01/2022, 10/26/2021, Additional history exists [...] as of this encounter Visit Diagnoses Diagnosis Dyslipidemia, goal LDL below 100 Other and unspecified hyperlipidemia documented in this encounter Care Teams Operations Specialist Relationship Specialty Start Date End Date Thais Chiu MD [address] [place] [address] [place] [address] PCP - General Family Medicine 12/19/23 documented as of this encounter
[2024-08-01 19:50] LABS: Basophils # (auto) 0.02 K/uL (0.00-0.20); Basophils % (auto) 0.4 %; Immature Granulocytes # (auto) 0.03 K/uL (0.01-0.20); Immature Granulocytes % (auto) 0.5 %; Lymphocytes # (auto) 0.27 K/uL (1.20-3.40); Lymphocytes % (auto) 4.9 %; Mean Corpuscular Hemoglobin 29.9 pg (25.0-34.0); Mean Corpuscular Hgb Conc 34.9 g/dL (32.0-36.0); Mean Corpuscular Volume 85.7 fL (80.0-100.0); Mean Platelet Volume 9.9 fL (9.4-12.4); Neutrophils # (auto) 4.74 K/uL (1.40-6.50); Neutrophils % (auto) 85.2 %; Platelet Count 181 K/uL (130-400); RDW Coefficient of Variation 11.9 % (11.5-14.5); RDW Standard Deviation 36.9 fL (36.4-46.3); Red Blood Count 5.02 M/uL (4.20-5.40); White Blood Count 5.56 K/ul (4.8-10.8)
--- NOTE | 2024-08-01 19:52 | Emergency Department Note ---
Impression & Plan Fever, Abdominal pain, Diarrhea ED Provider Note NAME: CHERRI WILKINSON AGE: 84 SEX: F : 1940 ARRIVES VIA: Ambulance INFORMANT: Patient ED PROVIDER(S): Corwin Beverly DO CHIEF COMPLAINT: Abdominal pain HPI: Patient is an 84-year-old female with a past medical history of COPD, hypertension, diabetes and CKD who presents to the ER for diarrhea which present since this past Saturday. She has been going about 3-4 times a day. She feels very lightheaded and weak. She started vomiting today. She denies any chest pain or shortness of breath. No cough or congestion. She admits to feeling very weak. She started vomiting today. No recent antibiotics. No history of previous C. difficile. ADDITIONAL HISTORY OBTAINED: Daughter is present at bedside and provides additional history and notes that patient has been super weak since Saturday and has been unable to get up and move around. Chronic Medical/Social Conditions Affecting Care: Per HPI PAST MEDICAL HISTORY:See Below PAST SURGICAL HISTORY:See Below FAMILY HISTORY:See Below SOCIAL HISTORY:See Below HOME MEDICATIONS:See Below ALLERGIES:See Below VITALS:See Below PHYSICAL EXAMINATION: GENERAL: Sitting up in bed, alert, well appearing, well nourished, no distress, non-toxic EYE EXAM: normal conjunctiva. OROPHARYNX: Dry mucous membranes NECK: supple, no nuchal rigidity, no adenopathy, non-tender LUNGS: Clear to auscultation. Normal chest wall mechanics HEART: no murmurs, S1 normal and S2 normal ABDOMEN: abdomen soft, non-tender, normo-active bowel sounds, no masses, no rebound or guarding. UPPER EXTREMITIES: upper extremities are grossly normal. LOWER EXTREMITIES: No pitting edema. NEURO EXAM: Normal sensorium, cranial nerves II-XII grossly intact, normal speech, no gross weakness of arms, no gross weakness of legs. MEDICAL DECISION MAKING: Patient is an 84-year-old female who presents ER for diarrhea abdominal pain. Upon presentation she found to be febrile. IV was established and blood work was obtained. Labs show no significant leukocytosis or anemia. BMP was fairly unremarkable. Lactate was normal. LFTs and bilirubin were unremarkable. Lipase was normal. Pro-Mike normal. UA was clean. CT abdomen pelvis showed no acute pathology. Patient was given IV fluids, Zofran, oral Tylenol and IV Rocephin as she initially presented febrile with abdominal pain. Case was discussed with the hospitalist for further evaluation management treatment as she is very weak cannot get up and walk as febrile with abdominal pain of unknown etiology. Will need stool cultures and will defer to the hospitalist for additional workup. Consults/Care Managements Discussions: Per MDM Triage Nursing notes reviewed. Limited review of prior medical records performed Vital Signs: reviewed and remarkable for febrile, tachycardic Differential diagnosis: Differential diagnosis includes etiologies such as sepsis, UTI, pneumonia, metabolic, electrolyte abnormalities, cardiac sources, intracerebral event, toxicologic, neurological, as well as others were entertained. ER treatment provided: See below Diagnostics interpreted by me include EKG and cardiac monitoring as listed below: -Cardiac Monitoring: An order was placed for continuous cardiac monitoring. The monitor shows a rate of 101 with sinus rhythm. -ECG: Sinus tachycardia at rate of 101 Left axis No PVCs QTc 401 -Laboratory studies:Interpreted by me as stated above in MDM and shown below. Imaging studies: Xrays: As interpreted by me:none CTs show: CT abdomen pelvis per my pleurae interpretation showed no obvious bowel obstruction CT abdomen pelvis per radiologist described above Procedures:none Critical Care: None Past Med/Surg History Problem List (Updated 08/02/24 @ 00:28 by Corwin Beverly DO) Diarrhea (Acute) Abdominal pain (Acute) Fever (Acute) Lumbar stenosis with neurogenic claudication Arthritis of right hip CKD (chronic kidney disease), stage III (Chronic) DM type 2 (diabetes mellitus, type 2) (Chronic) HTN (hypertension) (Chronic) COPD (chronic obstructive pulmonary disease) (Chronic) Neuropathy, diabetic (Chronic) Allergic rhinitis (Chronic) Stress incontinence (Chronic) History of arthroplasty of left knee (Chronic) History of arthroplasty of right knee (Chronic) S/P section (Chronic) History of lumbosacral spine surgery (Chronic) Hx laparoscopic cholecystectomy (Chronic) History of appendectomy (Chronic) History of left oophorectomy (Chronic) H/O: hysterectomy (Chronic) Arm pain, left (Acute) Cellulitis (Acute) Displaced intertrochanteric fracture of femur Social History Smoking Status: Never smoker Feels Safe at Home: Yes Allergies Allergies Allergy/AdvReac Type Severity Reaction Status Date / Time atropine Allergy Intermediate hives Verified 08/01/24 21:16 Barbiturates Allergy Intermediate hives Verified 08/01/24 21:16 hyoscyamine Allergy Intermediate hives Verified 08/01/24 21:18 iodine Allergy Intermediate BLISTERS Verified 08/01/24 21:16 WITH TOPICAL nortriptyline Allergy Intermediate hives Verified 08/01/24 21:16 phenobarbital Allergy Intermediate Itching Verified 08/01/24 21:16 phenytoin Allergy Intermediate Itching Verified 08/01/24 21:16 povidone-iodine Allergy Intermediate SKIN Verified 08/01/24 21:16 BLISTERS scopolamine Allergy Intermediate hives Verified 08/01/24 21:16 sulfamethoxazole [Bactrim] Allergy Intermediate HIVES Verified 08/01/24 21:16 trimethoprim [Bactrim] Allergy Intermediate HIVES Verified 08/01/24 21:16 adhesive Allergy Mild HIVES, RASH Verified 08/01/24 21:16 brimonidine Allergy Unknown UNKNOWN Verified 08/01/24 21:18 Penicillins Allergy Unknown HAPPENED Verified 08/01/24 21:16 A CHILD TAQUERIA Inhibitors AdvReac Intermediate Cough Verified 08/01/24 21:16 blue dye AdvReac Intermediate loss of Verified 08/01/24 21:18 balance duloxetine AdvReac Intermediate loss of Verified 08/01/24 21:16 balance losartan AdvReac Intermediate Cough Verified 08/01/24 21:16 quinine AdvReac Intermediate Diarrhea Verified 08/01/24 21:16 tramadol AdvReac Intermediate NAUSEA/VOMI Verified 08/01/24 21:16 TING Home Meds Home Medications Medication Instructions Recorded Confirmed acetaminophen 500 mg tablet 500 mg PO Q6H PRN PAIN/FEVER 08/01/24 08/01/24 (Tylenol Extra Strength) acetaminophen 650 mg 650 mg PO Q8H PRN Pain 08/01/24 08/01/24 tablet,extended release amlodipine 2.5 mg tablet 2.5 mg PO DAILY 08/01/24 08/01/24 clobetasol 0.05 % topical ointment 1 applic topical BID PRN Skin 08/01/24 08/01/24 Irritation clotrimazole 1 % topical cream 1 applic topical BID PRN Skin 08/01/24 08/01/24 Irritation famotidine 20 mg tablet 20 mg PO BID 08/01/24 08/01/24 ferrous sulfate 325 mg (65 mg 325 mg PO DAILY 08/01/24 08/01/24 iron) tablet (iron) furosemide 20 mg tablet 20 mg PO 3XWK 08/01/24 08/01/24 gabapentin 300 mg capsule 300 mg PO BID 08/01/24 08/01/24 glipizide 2.5 mg tablet, extended 2.5 mg PO DAILYBB 08/01/24 08/01/24 release 24 hr magnesium oxide 400 mg PO DAILY 08/01/24 08/01/24 metformin 500 mg tablet,extended 500 mg PO QAM 08/01/24 08/01/24 release 24 hr montelukast 10 mg tablet 10 mg PO DAILY 08/01/24 08/01/24 [id number] ac 400 1 tab PO DAILY 08/01/24 08/01/24 mcg-calcium carb 500 mg-vit K1 20 mcg tablet (Women's 50 Plus Multivitamin) nystatin 100,000 unit/gram topical 1 applic topical TID PRN Skin 08/01/24 08/01/24 powder Irritation simvastatin 10 mg tablet 10 mg PO HS 08/01/24 08/01/24 vibegron 75 mg tablet (Gemtesa) 75 mg PO QAM 08/01/24 08/01/24 Results & Data (ED) Vital Signs Vital Signs - 24 hr 08/01/24 19:29 08/01/24 19:30 08/01/24 19:30 Temperature 38.5 C H Temperature Source Oral Pulse Rate 108 H Pulse Rate from SpO2 Sensor Pulse Rhythm Regular Respiratory Rate 12 Respiratory Effort / Characteristics Non-Labored Respiratory Depth Normal Blood Pressure 186/102 H 167/101 H 167/101 H Blood Pressure Mean 130 129 129 Pulse Oximetry 95 Oxygen Delivery Method Room Air Sepsis Recent Fever Within 48 Hours No Sepsis New/Unexplained Change in Mental Status No Sepsis Action Taken by Nursing No Action Required 08/01/24 19:32 08/01/24 19:48 08/01/24 19:51 Temperature Temperature Source Pulse Rate 102 H 105 H 101 H Pulse Rate from SpO2 Sensor Pulse Rhythm Respiratory Rate 22 Respiratory Effort / Characteristics Respiratory Depth Blood Pressure Blood Pressure Mean Pulse Oximetry Oxygen Delivery Method Sepsis Recent Fever Within 48 Hours Sepsis New/Unexplained Change in Mental Status Sepsis Action Taken by Nursing 08/01/24 20:00 08/01/24 20:12 08/01/24 20:21 Temperature Temperature Source Pulse Rate 104 H 98 H Pulse Rate from SpO2 Sensor Pulse Rhythm Respiratory Rate 23 17 Respiratory Effort / Characteristics Respiratory Depth Blood Pressure Blood Pressure Mean Pulse Oximetry 96 96 Oxygen Delivery Method Room Air Sepsis Recent Fever Within 48 Hours Sepsis New/Unexplained Change in Mental Status Sepsis Action Taken by Nursing 08/01/24 20:30 08/01/24 20:33 08/01/24 20:54 Temperature 36.5 C Temperature Source Pulse Rate 91 H Pulse Rate from SpO2 Sensor 92 H Pulse Rhythm Respiratory Rate 24 Respiratory Effort / Characteristics Respiratory Depth Blood Pressure 142/87 H Blood Pressure Mean 125 Pulse Oximetry 94 Oxygen Delivery Method Sepsis Recent Fever Within 48 Hours Sepsis New/Unexplained Change in Mental Status Sepsis Action Taken by Nursing 08/01/24 23:18 Temperature Temperature Source Pulse Rate Pulse Rate from SpO2 Sensor 81 Pulse Rhythm Respiratory Rate Respiratory Effort / Characteristics Respiratory Depth Blood Pressure 125/72 Blood Pressure Mean 89 Pulse Oximetry 96 Oxygen Delivery Method Room Air Sepsis Recent Fever Within 48 Hours Sepsis New/Unexplained Change in Mental Status Sepsis Action Taken by Nursing Laboratory Data 08/01/24 19:34 08/01/24 Unknown Lab Results 08/01/24 08/01/24 08/01/24 Range/Units 19:34 20:04 20:35 WBC 5.56 (4.8-10.8) K/ul RBC 5.02 (4.20-5.40) M/uL Hgb 15.0 (12.0-16.0) g/dl POC Hgb 11.2 L (12.0-16.0) g/dl Hct 43.0 (37.0-47.0) % POC Hct 33 L (37-47) % MCV 85.7 (80.0-100.0) fL MCH 29.9 (25.0-34.0) pg MCHC 34.9 (32.0-36.0) g/dL RDW Std Deviation 36.9 (36.4-46.3) fL RDW Coeff of Jasmin 11.9 (11.5-14.5) % Plt Count 181 (130-400) K/uL MPV 9.9 (9.4-12.4) fL Immature Gran % (Auto) 0.5 % Neut % (Auto) 85.2 % Lymph % (Auto) 4.9 % Sumter % (Auto) 9.0 % Eos % (Auto) 0.0 % Baso % (Auto) 0.4 % Neut # (Auto) 4.74 (1.40-6.50) K/uL Lymph # (Auto) 0.27 L (1.20-3.40) K/uL Sumter # (Auto) 0.50 (0.11-0.59) K/uL Eos # (Auto) 0.00 (0.00-0.50) K/uL Baso # (Auto) 0.02 (0.00-0.20) K/uL Immature Gran # (Auto) 0.03 (0.01-0.20) K/uL POC Sodium 139 (135-144) mmol/L Sodium Cancelled POC Potassium 2.9 L (3.3-5.0) mmol/L Potassium Cancelled POC Chloride 103 (101-112) mmol/L Chloride Cancelled Carbon Dioxide Cancelled POC Total CO2 21 L (24-31) mmol/L Anion Gap Cancelled POC Anion Gap 19.0 (16-25) mmol/L POC BUN 16 (7-18) mg/dl BUN Cancelled Creatinine Cancelled POC Creatinine 0.9 (0.6-1.3) mg/dl Est Cr Clr Drug Dosing Cancelled eGFR Cancelled BUN/Creatinine Ratio Cancelled Glucose Cancelled POC Glucose (other) 129 H (70-99) mg/dl Lactate 1.5 (0.4-2.0) mmol/L Calcium Cancelled POC Ioniz Calcium Rocky 0.96 L (1.12-1.32) mmol/l Total Bilirubin Cancelled AST Cancelled ALT Cancelled Alkaline Phosphatase Cancelled Total Protein Cancelled Albumin Cancelled Globulin Cancelled Albumin/Globulin Ratio Cancelled Lipase Cancelled Procalcitonin 0.44 (0-0.5) ng/ml Urine Color Urine Appearance (Clear) Urine pH (4.5-7.5) Ur Specific Fisher (1.000-1.030) Urine Protein (Negative) Urine Glucose (UA) (Negative) Urine Ketones (Negative) Urine Blood (Negative) Urine Nitrite (Negative) Urine Bilirubin (Negative) Urine Urobilinogen (Negative) Ur Leukocyte Esterase (Negative) Urine RBC (0-2) /hpf Urine WBC (0-5) /hpf Ur Epithelial Cells (0-2) /hpf Urine Bacteria (None Seen) 08/01/24 08/01/24 Range/Units 22:52 Unknown WBC (4.8-10.8) K/ul RBC (4.20-5.40) M/uL Hgb (12.0-16.0) g/dl POC Hgb (12.0-16.0) g/dl Hct (37.0-47.0) % POC Hct (37-47) % MCV (80.0-100.0) fL MCH (25.0-34.0) pg MCHC (32.0-36.0) g/dL RDW Std Deviation (36.4-46.3) fL RDW Coeff of Jasmin (11.5-14.5) % Plt Count (130-400) K/uL MPV (9.4-12.4) fL Immature Gran % (Auto) % Neut % (Auto) % Lymph % (Auto) % Sumter % (Auto) % Eos % (Auto) % Baso % (Auto) % Neut # (Auto) (1.40-6.50) K/uL Lymph # (Auto) (1.20-3.40) K/uL Sumter # (Auto) (0.11-0.59) K/uL Eos # (Auto) (0.00-0.50) K/uL Baso # (Auto) (0.00-0.20) K/uL Immature Gran # (Auto) (0.01-0.20) K/uL POC Sodium (135-144) mmol/L Sodium 138 POC Potassium (3.3-5.0) mmol/L Potassium 3.6 POC Chloride (101-112) mmol/L Chloride 101 Carbon Dioxide 26 POC Total CO2 (24-31) mmol/L Anion Gap 11 POC Anion Gap (16-25) mmol/L POC BUN (7-18) mg/dl BUN 20 Creatinine 0.93 POC Creatinine (0.6-1.3) mg/dl Est Cr Clr Drug Dosing 43.5 eGFR 60.98 BUN/Creatinine Ratio 21.5 H Glucose 140 H POC Glucose (other) (70-99) mg/dl Lactate (0.4-2.0) mmol/L Calcium 7.6 L POC Ioniz Calcium Rocky (1.12-1.32) mmol/l Total Bilirubin 0.4 AST 29 ALT 22 Alkaline Phosphatase 45 Total Protein 5.5 L Albumin 3.1 L Globulin 2.4 L Albumin/Globulin Ratio 1.3 Lipase 25 Procalcitonin (0-0.5) ng/ml Urine Color Yellow Urine Appearance Clear (Clear) Urine pH 5.5 (4.5-7.5) Ur Specific Fisher 1.025 (1.000-1.030) Urine Protein 3+ H (Negative) Urine Glucose (UA) Negative (Negative) Urine Ketones 1+ H (Negative) Urine Blood Trace-intact H (Negative) Urine Nitrite Negative (Negative) Urine Bilirubin 1+ H (Negative) Urine Urobilinogen Negative (Negative) Ur Leukocyte Esterase Negative (Negative) Urine RBC 0-2 (0-2) /hpf Urine WBC 0-5 (0-5) /hpf Ur Epithelial Cells 0-2 (0-2) /hpf Urine Bacteria 1+ H (None Seen) Administered Medications Discontinued Medications Acetaminophen (Acetaminophen 325 Mg Tab) 650 mg PO NOW STA Stop: 08/01/24 19:48 Last Admin: 08/01/24 20:02 Dose: 650 mg Documented By: KIM Sodium Chloride (Nss) 1,000 mls @ 999 mls/hr IV .Q1H1M ONE Stop: 08/01/24 20:45 Last Infusion: 08/01/24 21:27 Dose: Infused Documented By: Admin: 08/01/24 20:03 Dose: 999 mls/hr Documented By: KIM Ceftriaxone Sodium (Rocephin) 2,000 mg in 50 mls @ 100 mls/hr IV NOW STA Stop: 08/01/24 20:14 Last Infusion: 08/01/24 21:02 Dose: Infused Documented By: Admin: 08/01/24 20:02 Dose: 100 mls/hr Documented By: KIM Ioversol (Optiray 320 100ml) 93 ml IV ONCE ONE Stop: 08/01/24 20:47 Last Admin: 08/01/24 20:47 Dose: 93 ml Documented By: DOLLY Ondansetron HCl (Ondansetron Inj 2 Mg/Ml 2 Ml Vial) 4 mg IV NOW STA Stop: 08/01/24 19:46 Last Admin: 08/01/24 20:01 Dose: 4 mg Documented By: KIM Imaging Data Radiologist's Impression: Abdomen/Pelvis CT 08/01/24 19:45 Exam(s): CT ABDOMEN + PELVIS With Contrast IV Amt: 93 ml opti 320 EXAM: CT Abdomen and Pelvis With Intravenous Contrast CLINICAL HISTORY: Reason for exam: sepsis abd pain. TECHNIQUE: Axial computed tomography images of the abdomen and pelvis with intravenous contrast. CTDI is 22 mGy and DLP is 1058 mGy-cm. Automated exposure control was utilized for the study. A dose lowering technique was utilized adhering to the principles of ALARA. CONTRAST: Patient received 93 ml opti 320 of IV contrast COMPARISON: No relevant prior studies available. FINDINGS: Lung bases: There is a trace left pleural effusion with atelectasis and/or consolidation at the left lung base. ABDOMEN: Liver: The liver is enlarged and of diffuse decreased attenuation. Gallbladder and bile ducts: The patient is status post cholecystectomy.. No ductal dilation. Pancreas: No mass. No ductal dilation. Spleen: No splenomegaly. Adrenals: No mass. Kidneys and ureters: No hydronephrosis. There are rounded lucencies noted in the kidneys. Stomach and bowel: There is air and fluid within the stomach. The colon is relatively decompressed. There are diverticula present on the colon. No significant inflammatory changes are seen.. PELVIS: Appendix: The appendix is not visualized.. Bladder: No calculi are noted within the bladder.. Reproductive: The patient appears to be status post hysterectomy.. ABDOMEN and PELVIS: Intraperitoneal space: No free air. No significant fluid collection. Bones/joints: The patient is status post right total hip replacement. There are degenerative and postoperative changes involving the spine. There is a compression fracture of the inferior endplate of T12.. Soft tissues: Unremarkable. Vasculature: There are atherosclerotic changes. No abdominal aortic aneurysm. Lymph nodes: No enlarged lymph nodes. IMPRESSION: Diverticulosis Liver is enlarged and of diffuse decreased attenuation which may be due to fatty infiltration. There are possible bilateral renal cysts. There is a trace left pleural effusion with atelectasis and/or consolidation at the left lung base. There is a compression fracture of the inferior endplate of T12 of undetermined age. Electronically signed by: Aamir Somers MD 08/01/24 23:28 PM Discharge Plan Visit Data Chief Complaint: GI Assessment Stated Complaint: N/V/D, DIZZY ED Provider: Corwin Beverly Discharge Problem: Fever, Abdominal pain, Diarrhea Condition: Fair Forms Stand Alone Forms: My [facility] [employer] Prescriptions Prescriptions: No Action simvastatin 10 mg tablet 10 mg PO HS amlodipine 2.5 mg tablet 2.5 mg PO DAILY acetaminophen [Tylenol Extra Strength] 500 mg Tablet 500 mg PO Q6H PRN (Reason: PAIN/FEVER) acetaminophen [Tylenol Extended Release] 650 mg Tablet Extended Release 650 mg PO Q8H PRN (Reason: Pain) famotidine 20 mg tablet 20 mg PO BID glipizide 2.5 mg tablet extended release 24hr 2.5 mg PO DAILYBB ferrous sulfate [iron] 325 mg (65 mg iron) Tablet 325 mg PO DAILY gabapentin 300 mg capsule 300 mg PO BID montelukast 10 mg tablet 10 mg PO DAILY furosemide 20 mg tablet 20 mg PO [id number] Rx Instructions: MON, WED, & FRI clobetasol 0.05 % Ointment 1 applic TOPICAL BID PRN (Reason: Skin Irritation) nystatin 100,000 unit/gram Powder 1 applic TOPICAL TID PRN (Reason: Skin Irritation) metformin 500 mg tablet extended release 24 hr 500 mg PO QAM clotrimazole 1 % Cream 1 applic TOPICAL BID PRN (Reason: Skin Irritation) Women's 50 Plus Multivitamin 400 mcg-500 mg calcium-20 mcg Tablet 1 tab PO DAILY magnesium oxide 400 mg magnesium Tablet 400 mg PO DAILY Gemtesa 75 mg tablet 75 mg PO QAM Referrals Referrals: Thais Chiu MD [Primary Care Provider] - Discharge Problem: Fever Qualifiers: Fever type: unspecified Qualified Code(s): R50.9 - Fever, unspecified Abdominal pain Qualifiers: Abdominal location: unspecified location Qualified Code(s): R10.9 - Unspecified abdominal pain Diarrhea Qualifiers: Diarrhea type: unspecified type Qualified Code(s): R19.7 - Diarrhea, unspecified
[2024-08-01] MEDS: ONDANSETRON INJ 2 MG/ML 2 ML VIAL IV STA (20:01)
[2024-08-01] MEDS: ACETAMINOPHEN 325 MG TAB PO STA (20:02)
[2024-08-01] MEDS: cefTRIAXone SODIUM 2,000 MG/50 ML BAG IV STA (20:02)
[2024-08-01] MEDS: SODIUM CHLORIDE 0.9% 1,000 ML IV ONE (20:03)
[2024-08-01] MEDS: OPTIRAY 320 100ml IV ONE (20:47)
[2024-08-01 20:48] LABS: iSTAT Creatinine 0.9 mg/dl (0.6-1.3); iSTAT Hemoglobin 11.2 g/dl (12.0-16.0); iSTAT Ionized Calcium 0.96 mmol/l (1.12-1.32); iSTAT Potassium 2.9 mmol/L (3.3-5.0)
[2024-08-01 20:59] LABS: Albumin Level 3.1 gm/dl (3.4-5.0); Bilirubin,Total 0.4 mg/dl (0.2-1.0); Calcium 7.6 mg/dl (8.6-10.3); Potassium 3.6 mmol/L (3.5-5.1)
[2024-08-01 21:05] LABS: Albumin Globulin Ratio 1.3 (0.9-2); BUN Creatinine Ratio 21.5 (10-20); Creatinine Clr Calc Pharmacy 43.5 ml/min; Globulin 2.4 gm/dl (2.5-4.0); Total Protein 5.5 gm/dl (6.0-8.3)
[2024-08-01 23:06] LABS: Appearance Urine Clear (Clear); Bilirubin Urine 1+ (Negative); Blood Urine Trace-intact (Negative); Color Urine Yellow; Glucose Urine UA Negative (Negative); Ketones Urine 1+ (Negative); Leukocyte Esterase Urine Negative (Negative); Nitrite Urine Negative (Negative); Protein Urine 3+ (Negative); Specific Gravity Urine 1.025 (1.000-1.030); Urobilinogen Urine Negative (Negative); pH Urine 5.5 (4.5-7.5)
[2024-08-01 23:10] LABS: Bacteria Urine 1+ (None Seen); Epithelial Cell Urine 0-2 /hpf (0-2); RBC Urine 0-2 /hpf (0-2); WBC Urine 0-5 /hpf (0-5)
--- NOTE | 2024-08-01 23:29 | CT Scan Report ---
Exam(s): CT ABDOMEN + PELVIS With Contrast IV Amt: 93 ml opti 320 EXAM: CT Abdomen and Pelvis With Intravenous Contrast CLINICAL HISTORY: Reason for exam: sepsis abd pain. TECHNIQUE: Axial computed tomography images of the abdomen and pelvis with intravenous contrast. CTDI is 22 mGy and DLP is 1058 mGy-cm. Automated exposure control was utilized for the study. A dose lowering technique was utilized adhering to the principles of ALARA. CONTRAST: Patient received 93 ml opti 320 of IV contrast COMPARISON: No relevant prior studies available. FINDINGS: Lung bases: There is a trace left pleural effusion with atelectasis and/or consolidation at the left lung base. ABDOMEN: Liver: The liver is enlarged and of diffuse decreased attenuation. Gallbladder and bile ducts: The patient is status post cholecystectomy.. No ductal dilation. Pancreas: No mass. No ductal dilation. Spleen: No splenomegaly. Adrenals: No mass. Kidneys and ureters: No hydronephrosis. There are rounded lucencies noted in the kidneys. Stomach and bowel: There is air and fluid within the stomach. The colon is relatively decompressed. There are diverticula present on the colon. No significant inflammatory changes are seen.. PELVIS: Appendix: The appendix is not visualized.. Bladder: No calculi are noted within the bladder.. Reproductive: The patient appears to be status post hysterectomy.. ABDOMEN and PELVIS: Intraperitoneal space: No free air. No significant fluid collection. Bones/joints: The patient is status post right total hip replacement. There are degenerative and postoperative changes involving the spine. There is a compression fracture of the inferior endplate of T12.. Soft tissues: Unremarkable. Vasculature: There are atherosclerotic changes. No abdominal aortic aneurysm. Lymph nodes: No enlarged lymph nodes. IMPRESSION: Diverticulosis Liver is enlarged and of diffuse decreased attenuation which may be due to fatty infiltration. There are possible bilateral renal cysts. There is a trace left pleural effusion with atelectasis and/or consolidation at the left lung base. There is a compression fracture of the inferior endplate of T12 of undetermined age. Electronically signed by: Aamir Somers MD 08/01/24 23:28 PM
--- NOTE | 2024-08-02 02:18 | History & Physical Report ---
Date of Service August 02, 2024 Assessment & Plan (1) Fever: Plan: 84-year-old female with past medical history significant for type 2 diabetes, diabetic polyneuropathy, diabetic retinopathy, CKD stage III, hyperlipidemia, hypomagnesia, hypertension, female stress incontinence, history of compression fracture of spine, osteoporosis, iron deficiency anemia, lumbar spinal stenosis, lives with her daughter and ambulates with a walker comes because of not feeling well since last Saturday. Since last Saturday patient has abdominal discomfort. Diarrhea. Feeling hot and cold. Feeling weak. Poor appetite. Today she had episode of vomiting. Not ambulating much. Denies any headache. No neck pain. Vision is okay. No runny nose or sore throat. No cough. No chest pain. No shortness of breath. Has some abdominal discomfort. Had temp spike in the ER.Micturating okay. Hemodynamics are okay. Fever Nausea and vomiting and abdominal pain and diarrhea and weakness Possible viral syndrome Will follow stool studies CT abdomen pelvis seems no acute findings Gentle fluids Liquid diet for now PT OT when stable Possible UTI Will follow the cultures empiric Rocephin Diabetes Hold home p.o. medications Sliding scale Will monitor Fall HbA1c levels CKD stage III Creatinine 0.9 We will follow labs Hypocalcemia Will replace Will check vitamin D levels Hypertension On amlodipine Hyperlipidemia On statin GERD On famotidine DVT prophylaxis Lovenox Disposition Med/telemetry Full code. History of Present Illness Chief Complaint: Illness Primary Care Provider: Thais Chiu MD 84-year-old female with past medical history significant for type 2 diabetes, diabetic polyneuropathy, diabetic retinopathy, CKD stage III, hyperlipidemia, hypomagnesia, hypertension, female stress incontinence, history of compression fracture of spine, osteoporosis, iron deficiency anemia, lumbar spinal stenosis, lives with her daughter and ambulates with a walker comes because of not feeling well since last Saturday. Since last Saturday patient has abdominal discomfort. Diarrhea. Feeling hot and cold. Feeling weak. Poor appetite. Today she had episode of vomiting. Not ambulating much. Denies any headache. No neck pain. Vision is okay. No runny nose or sore throat. No cough. No chest pain. No shortness of breath. Has some abdominal discomfort. Had temp spike in the ER.Micturating okay. Hemodynamics are okay. Past medical history. As mentioned above Past surgical history. Arthrocentesis. Bilateral knee arthroplasty. C- section. Colonoscopy. Cystoscopy. Lumbar spinal decompression. EGD. EGD with endoscopic ultrasound. Bladder neck collagen injection. Injection of lumbosacral spine. Laparoscopic cholecystectomy. Appendectomy. Left removal of ovary. Right revision of total hip joint. Sigmoidoscopy. Right total hip replacement. Total hysterectomy. Urethral dilatation. Social history. . No smoking. No alcohol use. No drug use. Family history. Brother had asthma. Sister had asthma. Sister had breast cancer. Mother had lung cancer. Aunt had lung cancer. Allergies Allergy/AdvReac Type Severity Reaction Status Date / Time atropine Allergy Intermediate hives Verified 08/01/24 21:16 Barbiturates Allergy Intermediate hives Verified 08/01/24 21:16 hyoscyamine Allergy Intermediate hives Verified 08/01/24 21:18 iodine Allergy Intermediate BLISTERS Verified 08/01/24 21:16 WITH TOPICAL nortriptyline Allergy Intermediate hives Verified 08/01/24 21:16 phenobarbital Allergy Intermediate Itching Verified 08/01/24 21:16 phenytoin Allergy Intermediate Itching Verified 08/01/24 21:16 povidone-iodine Allergy Intermediate SKIN Verified 08/01/24 21:16 BLISTERS scopolamine Allergy Intermediate hives Verified 08/01/24 21:16 sulfamethoxazole [Bactrim] Allergy Intermediate HIVES Verified 08/01/24 21:16 trimethoprim [Bactrim] Allergy Intermediate HIVES Verified 08/01/24 21:16 adhesive Allergy Mild HIVES, RASH Verified 08/01/24 21:16 brimonidine Allergy Unknown UNKNOWN Verified 08/01/24 21:18 Penicillins Allergy Unknown HAPPENED Verified 08/01/24 21:16 A CHILD TAQUERIA Inhibitors AdvReac Intermediate Cough Verified 08/01/24 21:16 blue dye AdvReac Intermediate loss of Verified 08/01/24 21:18 balance duloxetine AdvReac Intermediate loss of Verified 08/01/24 21:16 balance losartan AdvReac Intermediate Cough Verified 08/01/24 21:16 quinine AdvReac Intermediate Diarrhea Verified 08/01/24 21:16 tramadol AdvReac Intermediate NAUSEA/VOMI Verified 08/01/24 21:16 TING Home Medications Medication Instructions Recorded Confirmed Type acetaminophen 500 mg tablet 500 mg PO Q6H PRN PAIN/FEVER 08/01/24 08/01/24 History (Tylenol Extra Strength) acetaminophen 650 mg 650 mg PO Q8H PRN Pain 08/01/24 08/01/24 History tablet,extended release amlodipine 2.5 mg tablet 2.5 mg PO DAILY 08/01/24 08/01/24 History clobetasol 0.05 % topical ointment 1 applic topical BID PRN Skin 08/01/24 08/01/24 History Irritation clotrimazole 1 % topical cream 1 applic topical BID PRN Skin 08/01/24 08/01/24 History Irritation famotidine 20 mg tablet 20 mg PO BID 08/01/24 08/01/24 History ferrous sulfate 325 mg (65 mg 325 mg PO DAILY 08/01/24 08/01/24 History iron) tablet (iron) furosemide 20 mg tablet 20 mg PO 3XWK 08/01/24 08/01/24 History gabapentin 300 mg capsule 300 mg PO BID 08/01/24 08/01/24 History glipizide 2.5 mg tablet, extended 2.5 mg PO DAILYBB 08/01/24 08/01/24 History release 24 hr magnesium oxide 400 mg PO DAILY 08/01/24 08/01/24 History metformin 500 mg tablet,extended 500 mg PO QAM 08/01/24 08/01/24 History release 24 hr montelukast 10 mg tablet 10 mg PO DAILY 08/01/24 08/01/24 History rwzlfsbm-rdv-fdzkp ac 400 1 tab PO DAILY 08/01/24 08/01/24 History mcg-calcium carb 500 mg-vit K1 20 mcg tablet (Women's 50 Plus Multivitamin) nystatin 100,000 unit/gram topical 1 applic topical TID PRN Skin 08/01/24 08/01/24 History powder Irritation simvastatin 10 mg tablet 10 mg PO HS 08/01/24 08/01/24 History vibegron 75 mg tablet (Gemtesa) 75 mg PO QAM 08/01/24 08/01/24 History Past Med/Surg History Problem List (Updated 08/02/24 @ 00:28 by Corwin Beverly DO) Diarrhea (Acute) Abdominal pain (Acute) Fever (Acute) Lumbar stenosis with neurogenic claudication Arthritis of right hip CKD (chronic kidney disease), stage III (Chronic) DM type 2 (diabetes mellitus, type 2) (Chronic) HTN (hypertension) (Chronic) COPD (chronic obstructive pulmonary disease) (Chronic) Neuropathy, diabetic (Chronic) Allergic rhinitis (Chronic) Stress incontinence (Chronic) History of arthroplasty of left knee (Chronic) History of arthroplasty of right knee (Chronic) S/P section (Chronic) History of lumbosacral spine surgery (Chronic) Hx laparoscopic cholecystectomy (Chronic) History of appendectomy (Chronic) History of left oophorectomy (Chronic) H/O: hysterectomy (Chronic) Arm pain, left (Acute) Cellulitis (Acute) Displaced intertrochanteric fracture of femur Social History Smoking Status: Never smoker Second Hand Exposure: Yes; Hx Alcohol Use: No Hx Substance Use: No Preferred Language: [employer] Required: No Beliefs That Will Affect Care: None Current Living Situation: Family Current Living Situation Comment: Lives in house with daughter Other Information That Helps Us Care for You: No Feels Safe at Home: Yes Assistive Devices: Glasses and Walker Review of Systems Review of Systems: All systems reviewed & are unremarkable except as noted in HPI & below Physical Exam Physical Exam: General-Not in distress Head- atraumatic Eyes- PERRL. ENT- oropharynx clear Neck- supple, no JVD. Lungs- clear to auscultation no wheezing or crackles Heart- regular rate and rhythm; no murmur, no gallop. Abdomen- normal bowel sounds, soft, nontender, no distension Extremities- no pretibial edema, no erythema seen Neuro- alert, oriented PERRL, no facial palsy; no dysarthria; moves extremities Results & Data Results & Data Vital Signs (Past 12 Hours) Vital Signs Temp Pulse Resp BP Pulse Ox O2 Del Method 08/02/24 00:30 73 19 137/78 96 Room Air 08/02/24 00:00 134/77 95 Room Air 08/01/24 23:30 127/77 95 Room Air 08/01/24 23:18 125/72 96 Room Air 08/01/24 20:54 36.5 C 08/01/24 20:33 91 H 24 94 08/01/24 20:30 142/87 H 08/01/24 20:21 96 Room Air 08/01/24 20:12 98 H 17 08/01/24 20:00 104 H 23 96 08/01/24 19:51 101 H 22 08/01/24 19:48 105 H 08/01/24 19:32 102 H 08/01/24 19:30 167/101 H 08/01/24 19:30 167/101 H 08/01/24 19:29 38.5 C H 108 H 12 186/102 H 95 Room Air Diagnostic Findings Laboratory Results WBC 5.56 K/ul (4.8-10.8) 08/01/24 19:34 RBC 5.02 M/uL (4.20-5.40) 08/01/24 19:34 Hgb 15.0 g/dl (12.0-16.0) 08/01/24 19:34 POC Hgb 11.2 g/dl (12.0-16.0) L 08/01/24 20:35 Hct 43.0 % (37.0-47.0) 08/01/24 19:34 POC Hct 33 % (37-47) L 08/01/24 20:35 MCV 85.7 fL (80.0-100.0) 08/01/24 19:34 MCH 29.9 pg (25.0-34.0) 08/01/24 19:34 MCHC 34.9 g/dL (32.0-36.0) 08/01/24 19:34 RDW Std Deviation 36.9 fL (36.4-46.3) 08/01/24 19:34 RDW Coeff of Jasmin 11.9 % (11.5-14.5) 08/01/24 19:34 Plt Count 181 K/uL (130-400) 08/01/24 19:34 MPV 9.9 fL (9.4-12.4) 08/01/24 19:34 Immature Gran % (Auto) 0.5 % 08/01/24 19:34 Neut % (Auto) 85.2 % 08/01/24 19:34 Lymph % (Auto) 4.9 % 08/01/24 19:34 Grand % (Auto) 9.0 % 08/01/24 19:34 Eos % (Auto) 0.0 % 08/01/24 19:34 Baso % (Auto) 0.4 % 08/01/24 19:34 Neut # (Auto) 4.74 K/uL (1.40-6.50) 08/01/24 19:34 Lymph # (Auto) 0.27 K/uL (1.20-3.40) L 08/01/24 19:34 Grand # (Auto) 0.50 K/uL (0.11-0.59) 08/01/24 19:34 Eos # (Auto) 0.00 K/uL (0.00-0.50) 08/01/24 19:34 Baso # (Auto) 0.02 K/uL (0.00-0.20) 08/01/24 19:34 Immature Gran # (Auto) 0.03 K/uL (0.01-0.20) 08/01/24 19:34 POC Sodium 139 mmol/L (135-144) 08/01/24 20:35 Sodium 138 mmol/L (136-145) 08/01/24 Unknown POC Potassium 2.9 mmol/L (3.3-5.0) L 08/01/24 20:35 Potassium 3.6 mmol/L (3.5-5.1) 08/01/24 Unknown POC Chloride 103 mmol/L (101-112) 08/01/24 20:35 Chloride 101 mmol/L (98-107) 08/01/24 Unknown Carbon Dioxide 26 mmol/L (21-32) 08/01/24 Unknown POC Total CO2 21 mmol/L (24-31) L 08/01/24 20:35 Anion Gap 11 (3-11) 08/01/24 Unknown POC Anion Gap 19.0 mmol/L (16-25) 08/01/24 20:35 POC BUN 16 mg/dl (7-18) 08/01/24 20:35 BUN 20 mg/dl (6-23) 08/01/24 Unknown Creatinine 0.93 mg/dl (0.6-1.2) 08/01/24 Unknown POC Creatinine 0.9 mg/dl (0.6-1.3) 08/01/24 20:35 Est Cr Clr Drug Dosing 43.5 ml/min 08/01/24 Unknown eGFR 60.98 08/01/24 Unknown BUN/Creatinine Ratio 21.5 (10-20) H 08/01/24 Unknown Glucose 140 mg/dl (70-99(Fasting)) H 08/01/24 Unknown POC Glucose (other) 129 mg/dl (70-99) H 08/01/24 20:35 Lactate 1.5 mmol/L (0.4-2.0) 08/01/24 20:04 Calcium 7.6 mg/dl (8.6-10.3) L 08/01/24 Unknown POC Ioniz Calcium Rocky 0.96 mmol/l (1.12-1.32) L 08/01/24 20:35 Total Bilirubin 0.4 mg/dl (0.2-1.0) 08/01/24 Unknown AST 29 U/L (13-39) 08/01/24 Unknown ALT 22 U/L (7-52) 08/01/24 Unknown Alkaline Phosphatase 45 U/L (34-104) 08/01/24 Unknown Total Protein 5.5 gm/dl (6.0-8.3) L 08/01/24 Unknown Albumin 3.1 gm/dl (3.4-5.0) L 08/01/24 Unknown Globulin 2.4 gm/dl (2.5-4.0) L 08/01/24 Unknown Albumin/Globulin Ratio 1.3 (0.9-2) 08/01/24 Unknown Lipase 25 U/L (11-82) 08/01/24 Unknown Procalcitonin 0.44 ng/ml (0-0.5) 08/01/24 20:04 Urine Color Yellow 08/01/24 22:52 Urine Appearance Clear (Clear) 08/01/24 22:52 Urine pH 5.5 (4.5-7.5) 08/01/24 22:52 Ur Specific Blair 1.025 (1.000-1.030) 08/01/24 22:52 Urine Protein 3+ (Negative) H 08/01/24 22:52 Urine Glucose (UA) Negative (Negative) 08/01/24 22:52 Urine Ketones 1+ (Negative) H 08/01/24 22:52 Urine Blood Trace-intact (Negative) H 08/01/24 22:52 Urine Nitrite Negative (Negative) 08/01/24 22:52 Urine Bilirubin 1+ (Negative) H 08/01/24 22:52 Urine Urobilinogen Negative (Negative) 08/01/24 22:52 Ur Leukocyte Esterase Negative (Negative) 08/01/24 22:52 Urine RBC 0-2 /hpf (0-2) 08/01/24 22:52 Urine WBC 0-5 /hpf (0-5) 08/01/24 22:52 Ur Epithelial Cells 0-2 /hpf (0-2) 08/01/24 22:52 Urine Bacteria 1+ (None Seen) H 08/01/24 22:52 Impressions Abdomen/Pelvis CT 08/01/24 19:45 Exam(s): CT ABDOMEN + PELVIS With Contrast IV Amt: 93 ml opti 320 EXAM: CT Abdomen and Pelvis With Intravenous Contrast CLINICAL HISTORY: Reason for exam: sepsis abd pain. TECHNIQUE: Axial computed tomography images of the abdomen and pelvis with intravenous contrast. CTDI is 22 mGy and DLP is 1058 mGy-cm. Automated exposure control was utilized for the study. A dose lowering technique was utilized adhering to the principles of ALARA. CONTRAST: Patient received 93 ml opti 320 of IV contrast COMPARISON: No relevant prior studies available. FINDINGS: Lung bases: There is a trace left pleural effusion with atelectasis and/or consolidation at the left lung base. ABDOMEN: Liver: The liver is enlarged and of diffuse decreased attenuation. Gallbladder and bile ducts: The patient is status post cholecystectomy.. No ductal dilation. Pancreas: No mass. No ductal dilation. Spleen: No splenomegaly. Adrenals: No mass. Kidneys and ureters: No hydronephrosis. There are rounded lucencies noted in the kidneys. Stomach and bowel: There is air and fluid within the stomach. The colon is relatively decompressed. There are diverticula present on the colon. No significant inflammatory changes are seen.. PELVIS: Appendix: The appendix is not visualized.. Bladder: No calculi are noted within the bladder.. Reproductive: The patient appears to be status post hysterectomy.. ABDOMEN and PELVIS: Intraperitoneal space: No free air. No significant fluid collection. Bones/joints: The patient is status post right total hip replacement. There are degenerative and postoperative changes involving the spine. There is a compression fracture of the inferior endplate of T12.. Soft tissues: Unremarkable. Vasculature: There are atherosclerotic changes. No abdominal aortic aneurysm. Lymph nodes: No enlarged lymph nodes. IMPRESSION: Diverticulosis Liver is enlarged and of diffuse decreased attenuation which may be due to fatty infiltration. There are possible bilateral renal cysts. There is a trace left pleural effusion with atelectasis and/or consolidation at the left lung base. There is a compression fracture of the inferior endplate of T12 of undetermined age. Electronically signed by: Aamir Somers MD 08/01/24 23:28 PM ECG Additional Comments: ECG. Sinus tachycardia rate of 101. Left axis deviation. Nonspecific ST and T wave abnormalities Code Status & VTE Plan VTE Prophylaxis Plan VTE Prophylaxis will be ordered: Yes (1) Fever Fever type: unspecified Qualified Code(s): R50.9 - Fever, unspecified
[2024-08-02] MEDS ORDERED: ONDANSETRON INJ 2 MG/ML 2 ML VIAL IV PRN (03:07)
[2024-08-02] MEDS ORDERED: NITROGLYCERIN SL 0.4 MG/TAB TAB SL PRN (03:07)
[2024-08-02] MEDS: SODIUM CHLORIDE 0.9% 1,000 ML IV SCH (03:56)
[2024-08-02] MEDS: CALCIUM GLUCONATE 1,000 MG/60 ML BAG IV STA (03:57)
[2024-08-02] MEDS: POTASSIUM CHLORIDE CRTAB 20 MEQ TABCR PO STA (08:00)
[2024-08-02 08:01] LABS: Basophils # (auto) 0.01 K/uL (0.00-0.20); Basophils % (auto) 0.2 %; Eosinophils # (auto) 0.04 K/uL (0.00-0.50); Eosinophils % (auto) 0.9 %; Hematocrit (blood only) 39.5 % (37.0-47.0); Hemoglobin 13.5 g/dl (12.0-16.0); Immature Granulocytes # (auto) 0.02 K/uL (0.01-0.20); Immature Granulocytes % (auto) 0.4 %; Lymphocytes # (auto) 0.45 K/uL (1.20-3.40); Lymphocytes % (auto) 10.1 %; Mean Corpuscular Hemoglobin 29.5 pg (25.0-34.0); Mean Corpuscular Hgb Conc 34.2 g/dL (32.0-36.0); Mean Corpuscular Volume 86.4 fL (80.0-100.0); Mean Platelet Volume 9.8 fL (9.4-12.4); Monocytes # (auto) 0.47 K/uL (0.11-0.59); Monocytes % (auto) 10.5 %; Neutrophils # (auto) 3.48 K/uL (1.40-6.50); Neutrophils % (auto) 77.9 %; Platelet Count 164 K/uL (130-400); RDW Coefficient of Variation 11.9 % (11.5-14.5); RDW Standard Deviation 37.8 fL (36.4-46.3); Red Blood Count 4.57 M/uL (4.20-5.40); White Blood Count 4.47 K/ul (4.8-10.8)
[2024-08-02] MEDS: ENOXAPARIN INJ 40 MG/0.4 ML SYR SQ SCH (08:01)
[2024-08-02] MEDS: MAGNESIUM OXIDE 400 MG TAB PO SCH (08:02)
[2024-08-02] MEDS: amLODIPine BESYLATE 5 MG TAB PO SCH (08:02)
[2024-08-02] MEDS: CEROVITE ADV FORMULA TAB PO SCH (08:03)
[2024-08-02] MEDS: VIBEGRON 75 MG TAB PO SCH (08:03)
[2024-08-02] MEDS: CALCIUM 600MG + VIT D 400 IU TAB PO SCH (08:03)
[2024-08-02] MEDS: MONTELUKAST SODIUM 10 MG TABLET PO SCH (08:04)
[2024-08-02] MEDS: GABAPENTIN 300 MG CAP PO SCH (08:04)
[2024-08-02] MEDS: FAMOTIDINE 20 MG TAB PO SCH (08:09)
[2024-08-02 08:18] LABS: BUN Creatinine Ratio 19.5 (10-20); Calcium 8.6 mg/dl (8.6-10.3); Creatinine Clr Calc Pharmacy 49.5 ml/min; Magnesium 1.7 mg/dl (1.7-2.4); Potassium 3.2 mmol/L (3.5-5.1)
[2024-08-02 08:33] LABS: Estimated Average Glucose 177 mg/dl; Hemoglobin A1C 7.8 % (4.5-5.6)
[2024-08-02] MEDS ORDERED: FERROUS SULFATE 325 MG TAB PO SCH (09:00)
[2024-08-02 11:02] LABS: Adenovirus PCR Not Detected (NotDetected); Bordetella parapertussis PCR Not Detected (NotDetected); Bordetella pertussis PCR Not Detected (NotDetected); Chlamydia pneumoniae PCR Not Detected (NotDetected); Coronavirus 229E PCR Not Detected (NotDetected); Coronavirus CoV-2 (COVID19)PCR Not Detected (NotDetected); Coronavirus HKU1 PCR Not Detected (NotDetected); Coronavirus NL63 PCR Not Detected (NotDetected); Coronavirus OC43PCR Not Detected (NotDetected); Human Metapneumovirus PCR Not Detected (NotDetected); Influenza A PCR Not Detected (NotDetected); Influenza B PCR Not Detected (NotDetected); Mycoplasma pneumoniae PCR Not Detected (NotDetected); Parainfluenza Virus 1 PCR Not Detected (NotDetected); Parainfluenza Virus 2 PCR Not Detected (NotDetected); Parainfluenza Virus 3 PCR Not Detected (NotDetected); Parainfluenza Virus 4 PCR Not Detected (NotDetected); Respiratory Syncytial VirusPCR Not Detected (NotDetected); Rhinovirus/Enterovirus PCR Not Detected (NotDetected)
--- NOTE | 2024-08-02 11:53 | Communication Note ---
Patient seen and examined at bedside. Patient feels better today still having some abdominal discomfort. On exam, slight tenderness to palpation in epigastric region. Continue supportive care with fluids, PT/OT evaluation, check biofire, start protonix. Date of Service: August 02, 2024
[2024-08-02 12:11] LABS: Adenovirus F 40/41 PCR Not Detected (NotDetected); Astrovirus PCR Not Detected (NotDetected); Campylobacter PCR Not Detected (NotDetected); Cryptosporidium PCR Not Detected (NotDetected); Cyclospora cayetanensis PCR Not Detected (NotDetected); Entamoeba histolytica PCR Not Detected (NotDetected); Enteroaggregative E.coli(EAEC) Not Detected (NotDetected); Enteropathogenic E.coli (EPEC) Not Detected (NotDetected); Enterotoxigenic E.coli (ETEC) Not Detected (NotDetected); Giardia lamblia PCR Not Detected (NotDetected); Norovirus GI/GII PCR Not Detected (NotDetected); Plesiomonas shigelloides PCR Not Detected (NotDetected); Rotavirus A PCR Not Detected (NotDetected); Salmonella PCR Not Detected (NotDetected); Sapovirus PCR Not Detected (NotDetected); Shiga-like Toxin E.coli (STEC) Not Detected (NotDetected); Shigella/Enteroinvasive E.coli Not Detected (NotDetected); Vibrio cholerae PCR Not Detected (NotDetected); Vibrio species PCR Not Detected (NotDetected); Yersinia enterocolitica PCR Not Detected (NotDetected)
[2024-08-02] MEDS: PANTOprazole 40 MG TAB PO SCH (12:27)
[2024-08-02] MEDS: AZITHROMYCIN 250 MG TAB PO SCH (17:14)
[2024-08-02] MEDS: cefTRIAXone SODIUM 2,000 MG/50 ML BAG IV SCH (19:26)
[2024-08-02] MEDS ORDERED: cefTRIAXone SODIUM 2,000 MG/50 ML BAG IV SCH (20:00)
[2024-08-02] MEDS: SIMVASTATIN 10 MG TAB PO SCH (20:06)
[2024-08-02] MEDS: ACETAMINOPHEN 325 MG TAB PO PRN (21:26)
[2024-08-02] MEDS: METOPROLOL TARTRATE 1 MG/ML VIAL IV STA (21:29)
[2024-08-02] MEDS: HEPARIN 25000 UNIT/500 ML D5W 25,000 UNITS/500 ML BAG IV SCH (23:19)
[2024-08-03] MEDS: METOPROLOL TARTRATE 1 MG/ML VIAL IV PRN (02:33)
[2024-08-03] MEDS: METOPROLOL TARTRATE 25 MG TAB PO STA (03:13)
[2024-08-03] MEDS: dilTIAZem HCl 5 MG/ML 5 ML VIAL IV STA (05:22)
[2024-08-03 06:04] LABS: Hematocrit (blood only) 36.9 % (37.0-47.0); Hemoglobin 12.7 g/dl (12.0-16.0); Mean Corpuscular Hemoglobin 29.8 pg (25.0-34.0); Mean Corpuscular Hgb Conc 34.4 g/dL (32.0-36.0); Mean Corpuscular Volume 86.6 fL (80.0-100.0); Mean Platelet Volume 9.9 fL (9.4-12.4); Platelet Count 185 K/uL (130-400); RDW Standard Deviation 38.3 fL (36.4-46.3); Red Blood Count 4.26 M/uL (4.20-5.40)
[2024-08-03 06:25] LABS: BUN Creatinine Ratio 11.7 (10-20); Calcium 8.3 mg/dl (8.6-10.3); Creatinine Clr Calc Pharmacy 52.7 ml/min; Magnesium 1.5 mg/dl (1.7-2.4); Phosphorus 2.2 mg/dl (2.5-4.9); Potassium 3.7 mmol/L (3.5-5.1)
[2024-08-03 06:31] LABS: ANTI-Xa, UFH(UnfractionatedHep 0.24 IU/ml (0.3-0.7)
[2024-08-03 06:32] LABS: Troponin I High Sensitivity 25.7 pg/ml (0-14)
[2024-08-03] MEDS: Heparin IV Adult Wt-Based Low-Dose *NO* INITIAL Bolus Protocol IV SCH (07:21)
[2024-08-03] MEDS: MAGNESIUM SULFATE / D5W 1 GM/100 ML BAG IV SCH (08:11)
[2024-08-03 08:12] LABS: Thyroid Stimulating Hormone 2.194 uIu/ml (0.300-4.500)
--- NOTE | 2024-08-03 09:42 | Cardiology Consultation ---
Date of Consultation August 03, 2024 Assessment & Plan (1) Paroxysmal atrial fibrillation: (2) Hypomagnesemia: (3) DM type 2 (diabetes mellitus, type 2): (4) HTN (hypertension): (5) Diarrhea: Plan 84-year-old female admitted secondary to gastroenteritis with diarrhea x 7 days. Significant hypomagnesemia noted. Patient labs and atrial fibrillation with rapid ventricular response last evening although denies any palpitations during the episode.Echocardiogram demonstrates preserved LV systolic function, with normal left atrial diameter, and no significant valvular pathology. Her [id number] or is elevated due to age, history of hypertension, and diabetes, however, current episode noted in setting of diarrheal illness and significant hypomagnesemia. Recommendations: * Supplement magnesium as indicated maintain level greater than 2.0 * Add metoprolol tartrate 25 mg twice daily * Continue IV heparin, however, if there is no recurrence of dysrhythmia during hospitalization, (after supplementation of electrolytes and resolution of diarrheal illness), patient will not require long-term anticoagulation due to presence of reversible causes. * Continue telemetry monitoring. * Outpatient ZIO monitor for further evaluation post discharge. Cory Lacey DO, [facility] History of Present Illness Reason for Consultation: Rapid atrial fibrillation Requesting Physician: Dr. Yang Attending Physician: Angel Nj MD History of Present Illness 84-year-old female presents to the emergency department with fever, nausea vomiting abdominal pain, diarrhea and weakness. Admitted with possible urinary tract infection. History of type 2 diabetes with diabetic retinopathy and chronic kidney disease, dyslipidemia, hypertension, and anemia. Develops loose stools and watery diarrhea approximately 7 days ago. Denies any melena or hematochezia. No nausea, vomiting, or hematemesis. Diarrhea has slowed down since admission. Abdominal distention and discomfort improving. Last evening she left into atrial fibrillation with rapid ventricular response. Denies any palpitations during episode. No chest pain, shortness of breath, lightheadedness, or dizziness. She is spontaneously converted to sinus rhythm this a.m. IV heparin was initiated. Serum magnesium remains low this a.m. She is currently receiving IV magnesium infusion. Allergies Allergy/AdvReac Type Severity Reaction Status Date / Time atropine Allergy Intermediate hives Verified 08/01/24 21:16 Barbiturates Allergy Intermediate hives Verified 08/01/24 21:16 hyoscyamine Allergy Intermediate hives Verified 08/01/24 21:18 iodine Allergy Intermediate BLISTERS Verified 08/01/24 21:16 WITH TOPICAL nortriptyline Allergy Intermediate hives Verified 08/01/24 21:16 phenobarbital Allergy Intermediate Itching Verified 08/01/24 21:16 phenytoin Allergy Intermediate Itching Verified 08/01/24 21:16 povidone-iodine Allergy Intermediate SKIN Verified 08/01/24 21:16 BLISTERS scopolamine Allergy Intermediate hives Verified 08/01/24 21:16 sulfamethoxazole [Bactrim] Allergy Intermediate HIVES Verified 08/01/24 21:16 trimethoprim [Bactrim] Allergy Intermediate HIVES Verified 08/01/24 21:16 adhesive Allergy Mild HIVES, RASH Verified 08/01/24 21:16 brimonidine Allergy Unknown UNKNOWN Verified 08/01/24 21:18 Penicillins Allergy Unknown HAPPENED Verified 08/01/24 21:16 A CHILD TAQUERIA Inhibitors AdvReac Intermediate Cough Verified 08/01/24 21:16 blue dye AdvReac Intermediate loss of Verified 08/01/24 21:18 balance duloxetine AdvReac Intermediate loss of Verified 08/01/24 21:16 balance losartan AdvReac Intermediate Cough Verified 08/01/24 21:16 quinine AdvReac Intermediate Diarrhea Verified 08/01/24 21:16 tramadol AdvReac Intermediate NAUSEA/VOMI Verified 08/01/24 21:16 TING Home Medications Medication Instructions Recorded Confirmed Type acetaminophen 500 mg tablet 500 mg PO Q6H PRN PAIN/FEVER 08/01/24 08/01/24 History (Tylenol Extra Strength) acetaminophen 650 mg 650 mg PO Q8H PRN Pain 08/01/24 08/01/24 History tablet,extended release amlodipine 2.5 mg tablet 2.5 mg PO DAILY 08/01/24 08/01/24 History clobetasol 0.05 % topical ointment 1 applic topical BID PRN Skin 08/01/24 08/01/24 History Irritation clotrimazole 1 % topical cream 1 applic topical BID PRN Skin 08/01/24 08/01/24 History Irritation famotidine 20 mg tablet 20 mg PO BID 08/01/24 08/01/24 History ferrous sulfate 325 mg (65 mg 325 mg PO DAILY 08/01/24 08/01/24 History iron) tablet (iron) furosemide 20 mg tablet 20 mg PO 3XWK 08/01/24 08/01/24 History gabapentin 300 mg capsule 300 mg PO BID 08/01/24 08/01/24 History glipizide 2.5 mg tablet, extended 2.5 mg PO DAILYBB 08/01/24 08/01/24 History release 24 hr magnesium oxide 400 mg PO DAILY 08/01/24 08/01/24 History metformin 500 mg tablet,extended 500 mg PO QAM 08/01/24 08/01/24 History release 24 hr montelukast 10 mg tablet 10 mg PO DAILY 08/01/24 08/01/24 History zqhkjtor-nua-ntphm ac 400 1 tab PO DAILY 08/01/24 08/01/24 History mcg-calcium carb 500 mg-vit K1 20 mcg tablet (Women's 50 Plus Multivitamin) nystatin 100,000 unit/gram topical 1 applic topical TID PRN Skin 08/01/24 08/01/24 History powder Irritation simvastatin 10 mg tablet 10 mg PO HS 08/01/24 08/01/24 History vibegron 75 mg tablet (Gemtesa) 75 mg PO QAM 08/01/24 08/01/24 History Patient History Social History Smoking Status: Never smoker Second Hand Exposure: Yes; Hx Alcohol Use: No Hx Substance Use: No Preferred Language: Spanish [employer] Required: No Beliefs That Will Affect Care: None Current Living Situation: Family Current Living Situation Comment: Lives in house with daughter Other Information That Helps Us Care for You: No Feels Safe at Home: Yes Assistive Devices: Glasses and Walker Review of Systems Review of Systems: All systems reviewed & are unremarkable except as noted in Subjective Physical Exam Constitutional: well nourished; no acute distress Respiratory: no respiratory distress, no labored breathing and no retractions Auscultation: no crackles, no rales, no rhonchi and no wheezes Cardiovascular: Rate/Rhythm: regular rate and regular rhythm Heart Sounds: normal S1 and normal S2; no murmur Vessels: no JVD Extremities: no edema Gastrointestinal (Abdomen): Inspection/Auscultation: + abdomen distended and normal bowel sounds Percussion/Palpation: abdomen soft; abdomen nontender, no guarding and abdomen not rigid Neurologic: CN's II-XI intact bilaterally and moves all extremities; no focal motor deficits Results & Data Vital Signs (Past 12 Hours) Vital Signs Temp Pulse Pulse Resp BP BP Pulse Ox 08/03/24 07:50 36.9 C 70 18 122/74 95 08/03/24 06:07 37.2 C 08/03/24 03:56 37.8 C H 128 H 18 140/94 93 08/03/24 02:48 118 H 126/97 08/03/24 02:46 118 H 126/97 08/03/24 02:33 140 H 170/111 H 08/03/24 02:32 140 H 170/111 H 08/02/24 23:00 37.2 C 122 H 16 115/81 93 08/02/24 21:46 118 H 121/71 O2 Del Method 08/03/24 07:50 Room Air 08/03/24 06:07 08/03/24 03:56 Room Air 08/03/24 02:48 08/03/24 02:46 08/03/24 02:33 08/03/24 02:32 08/02/24 23:00 Room Air 08/02/24 21:46 Laboratory Results Cardiac Enzymes 08/02/24 08/03/24 Range/Units 21:29 05:38 Troponin I High Sens 37.7 H 25.7 H D (0-14) pg/ml CBC 08/03/24 Range/Units 05:38 WBC 4.10 L (4.8-10.8) K/ul RBC 4.26 (4.20-5.40) M/uL Hgb 12.7 (12.0-16.0) g/dl Hct 36.9 L (37.0-47.0) % Plt Count 185 (130-400) K/uL Comprehensive Metabolic Panel 08/03/24 Range/Units 05:38 Sodium 138 (136-145) mmol/L Potassium 3.7 (3.5-5.1) mmol/L Chloride 106 (98-107) mmol/L Carbon Dioxide 27 (21-32) mmol/L BUN 9 (6-23) mg/dl Creatinine 0.77 (0.6-1.2) mg/dl Glucose 154 H (70-99(Fasting)) mg/dl Calcium 8.3 L (8.6-10.3) mg/dl Intake and Output 08/02/24 08/03/2408/03/25 22:59 06:59 14:59 Intake Total 1050 / 1815.467 105.467 / 7028.936 5569.5 / 1062.5 Balance 1050 / 1815.467 105.467 / 1394.357 8141.5 / 1062.5 Intake: IV 1050 / 1155.467 105.467 / 8255.450 0166.5 / 1062.5 Heparin 96709 Unit/500 ml D5w 105.467 / 105.467 25,000 units In 500 ml @ 700 UNITS/HR 14 mls/hr IV .Q24H [facility] Rx#:[id number] Magnesium Sulfate / D5w 1 gm In 62.5 / 62.5 100 ml @ 50 mls/hr IV Q2H [facility] Rx#:[id number] Sodium Chloride 0.9% 1,000 ml @ 1000 / 1000 1000 / 1000 80 mls/hr IV .[id number] [facility] Rx#: [id number] SODIUM 2,000 mg In 50 / 50 50 ml @ 100 mls/hr IV Q24H [facility] Rx#:[id number] Other: # Unmeasured Voids 5 Weight 71.9 kg Weight Measurement Method Built in [facility] Diagnostic Findings 2D echocardiogram report: LVEF 60-65% Nml LA size No significant valvular pathology (4) HTN (hypertension) Hypertension type: primary hypertension Qualified Code(s): I10 - Essential (primary) hypertension (5) Diarrhea Diarrhea type: unspecified type Qualified Code(s): R19.7 - Diarrhea, unspecified
--- NOTE | 2024-08-03 10:50 | Hospitalist Progress Note ---
Date of Service August 03, 2024 Assessment & Plan (1) Fever: Plan: 84-year-old female with past medical history significant for type 2 diabetes, diabetic polyneuropathy, diabetic retinopathy, CKD stage III, hyperlipidemia, hypomagnesia, hypertension, female stress incontinence, history of compression fracture of spine, osteoporosis, iron deficiency anemia, lumbar spinal stenosis, lives with her daughter and ambulates with a walker comes because of not feeling well since last Saturday. Since last Saturday patient has abdominal discomfort. Diarrhea. Feeling hot and cold. Feeling weak. Poor appetite. Today she had episode of vomiting. Not ambulating much. Denies any headache. No neck pain. Vision is okay. No runny nose or sore throat. No cough. No chest pain. No shortness of breath. Has some abdominal discomfort. Had temp spike in the ER.Micturating okay. Hemodynamics are okay. Fever Nausea and vomiting and abdominal pain and diarrhea and weakness CAP -patient fever curve has improved with abx -viral panel negative -CT abdomen/pelvis concerning for lung consolidation Plan: -Gentle fluids -advanced to full diet -PT/OT ordered Atrial Fibrillation w/ RVR -resolved overnight with metoprolol and dilt pushes -NSR this morning Plan: -cardiology consulted, appreciate recs -echo ordered, revealed preserved EF with diastolic dysfunction -continue heparin, observe for further atrial fibrillation UTI Will follow the cultures empiric Rocephin Diabetes Hold home p.o. medications Sliding scale CKD stage III Creatinine 0.9 We will follow labs Hypocalcemia -resolved Hypertension -On amlodipine Hyperlipidemia -On statin GERD -On famotidine I spent a total of 55 minutes in direct patient care, including [id number] time with the patient and/or family, reviewing medical records, ordering and reviewing diagnostic tests, and coordinating care with other healthcare providers. This time includes: history taking, physical examination, medical decision making, counseling, ECG interpretation, imaging interpretation, lab interpretation, orders, and education, excluding time spent in the performance of separately billed services. Admission and Anticipated Discharge Date Admission Date: August 02, 2024 Subjective Patient seen and examined at bedside. Patient doing well today. Overnight, had episodes of afib with RVR, given metoprolol boluses and dilt push with improvement to NSR. Feels well this morning looking forward to eating. Review of Systems Review of Systems: CONSTITUTIONAL: generalized weakness EYES: Patient denies any visual symptoms. EARS, NOSE, AND THROAT: No difficulties with hearing. No symptoms of rhinitis or sore throat. CARDIOVASCULAR: Patient denies chest pains, palpitations, orthopnea and paroxysmal nocturnal dyspnea. RESPIRATORY: No dyspnea on exertion, no wheezing or cough. GI: No nausea, vomiting, diarrhea, constipation, abdominal pain, hematochezia or melena. : No urinary hesitancy or dribbling. No nocturia or urinary frequency. No abnormal urethral discharge. MUSCULOSKELETAL: No myalgias or arthralgias. NEUROLOGIC: No chronic headaches, no seizures. Patient denies numbness, tingling or weakness. PSYCHIATRIC: Patient denies problems with mood disturbance. No problems with anxiety. ENDOCRINE: No excessive urination or excessive thirst. DERMATOLOGIC: Patient denies any rashes or skin changes. Physical Exam Physical Exam: Gen: A&O 3 NAD HEENT: NCAT, EOMI, not icteric. External ears normal. No rhinorrhea. Moist mucous membranes. Neck: Supple, full range of motion, no observable masses, No meningeal sign. Lungs: No Respiratory distress. CV: RRR, no edema. Abdomen: Soft, nondistended, No rebound tenderness. MSK: No joint swelling, no redness. Skin: No rashes, petechiae, lesions. Normal color per patient. Neuro: Normal Gait, Grossly intact. Psych: Appropriate for situation. Results & Data Results & Data Vital Signs (Past 12 Hours) Vital Signs Temp Pulse Pulse Resp BP BP Pulse Ox 08/03/24 10:47 37.0 C 73 19 130/63 96 08/03/24 07:50 36.9 C 70 18 122/74 95 08/03/24 06:07 37.2 C 08/03/24 03:56 37.8 C H 128 H 18 140/94 93 08/03/24 02:48 118 H 126/97 08/03/24 02:46 118 H 126/97 08/03/24 02:33 140 H 170/111 H 08/03/24 02:32 140 H 170/111 H 08/02/24 23:00 37.2 C 122 H 16 115/81 93 O2 Del Method 08/03/24 10:47 Room Air 08/03/24 07:50 Room Air 08/03/24 06:07 08/03/24 03:56 Room Air 08/03/24 02:48 08/03/24 02:46 08/03/24 02:33 08/03/24 02:32 08/02/24 23:00 Room Air Laboratory Results -personally reviewed, no leukocytosis, low Mg of 1.5 was replenished, low phos of 2.2 which was replenished, TSH unremarkable, biofires negative Medications Administered Acetaminophen (Acetaminophen 325 Mg Tab) 650 mg PO Q4H PRN PRN Reason: Pain or Fever Stop: 09/01/24 03:06 Last Admin: 08/03/24 05:10 Dose: 650 mg Documented By: Admin: 08/02/24 21:26 Dose: 650 mg Documented By: HEMALATHA Amlodipine Besylate (Amlodipine Besylate 5 Mg Tab) 2.5 mg PO DAILY [facility] Stop: 09/01/24 08:59 Last Admin: 08/03/24 09:25 Dose: 2.5 mg Documented By: Admin: 08/02/24 08:02 Dose: 2.5 mg Documented By: VALERIE Azithromycin (Azithromycin 250 Mg Tab) 500 mg PO QAM [facility] Stop: 08/07/24 16:59 Last Admin: 08/03/24 10:13 Dose: 500 mg Documented By: Admin: 08/02/24 17:14 Dose: 500 mg Documented By: VALERIE Calcium/Vitamin D (Calcium 600mg + Vit D 400 Iu Tab) 1 tab PO BID [facility] Stop: 09/01/24 08:59 Last Admin: 08/03/24 09:25 Dose: 1 tab Documented By: Admin: 08/02/24 20:05 Dose: 1 tab Documented By: Admin: 08/02/24 08:03 Dose: 1 tab Documented By: VALERIE Famotidine (Famotidine 20 Mg Tab) 20 mg PO BID [facility] Stop: 09/01/24 08:59 Last Admin: 08/03/24 09:23 Dose: 20 mg Documented By: Admin: 08/02/24 20:05 Dose: 20 mg Documented By: Admin: 08/02/24 08:09 Dose: 20 mg Documented By: VALERIE Gabapentin (Gabapentin 300 Mg Cap) 300 mg PO BID [facility] Stop: 09/01/24 08:59 Last Admin: 08/03/24 09:24 Dose: 300 mg Documented By: Admin: 08/02/24 20:06 Dose: 300 mg Documented By: Admin: 08/02/24 08:04 Dose: 300 mg Documented By: VALERIE Ceftriaxone Sodium (Rocephin) 2,000 mg in 50 mls @ 100 mls/hr IV Q24H [facility] Stop: 08/07/24 19:59 Last Infusion: 08/02/24 20:01 Dose: Infused Documented By: Admin: 08/02/24 19:26 Dose: 100 mls/hr Documented By: HEMALATHA Heparin Sodium/Dextrose (Heparin 33434 Unit/500 Ml D5w) 25,000 units in 500 mls @ 15 mls/hr IV .Q24H [facility]; Protocol Stop: 09/01/24 21:44 Last Titration: 08/03/24 06:51 Dose: 750 units/hr, 15 mls/hr Documented By: NAVEED Co-signed By: YVON Admin: 08/02/24 23:19 Dose: 700 units/hr, 14 mls/hr Documented By: NAVEED Co-signed By: [facility] Magnesium Sulfate/Dextrose (Magnesium Sulfate / D5w) 1 gm in 100 mls @ 50 mls/hr IV Q2H [facility] Stop: 08/03/24 13:29 Last Admin: 08/03/24 09:26 Dose: 50 mls/hr Documented By: Infusion: 08/03/24 09:26 Dose: Infused Documented By: Admin: 08/03/24 08:11 Dose: 50 mls/hr Documented By: YVON Magnesium Oxide (Magnesium Oxide 400 Mg Tab) 400 mg PO DAILY [facility] Stop: 09/01/24 08:59 Last Admin: 08/03/24 09:24 Dose: 400 mg Documented By: Admin: 08/02/24 08:02 Dose: 400 mg Documented By: VALERIE Metoprolol Tartrate (Metoprolol Tartrate 1 Mg/Ml Vial) 5 mg IV Q6 PRN PRN Reason: Tachycardia Stop: 09/02/24 00:00 Last Admin: 08/03/24 02:33 Dose: 5 mg Documented By: NAVEED Montelukast Sodium (Montelukast Sodium 10 Mg Tablet) 10 mg PO DAILY [facility] Stop: 09/01/24 08:59 Last Admin: 08/03/24 09:24 Dose: 10 mg Documented By: Admin: 08/02/24 08:04 Dose: 10 mg Documented By: VALERIE Multivitamins/Minerals (Cerovite Adv Formula Tab) 1 tab PO DAILY [facility] Stop: 09/01/24 08:59 Last Admin: 08/03/24 09:24 Dose: 1 tab Documented By: Admin: 08/02/24 08:03 Dose: 1 tab Documented By: VALERIE Pantoprazole Sodium (Pantoprazole 40 Mg Tab) 40 mg PO [facility] Stop: 09/01/24 10:59 Last Admin: 08/03/24 09:24 Dose: 40 mg Documented By: Admin: 08/02/24 12:27 Dose: 40 mg Documented By: VALERIE Simvastatin (Simvastatin 10 Mg Tab) 10 mg PO [facility] Stop: 09/01/24 20:59 Last Admin: 08/02/24 20:06 Dose: 10 mg Documented By: HEMALATHA Vibegron (Vibegron 75 Mg Tab) [facility] [place] Stop: 09/01/24 08:59 Last Admin: 08/03/24 09:25 Dose: 75 mg Documented By: Admin: 08/02/24 08:03 Dose: 75 mg Documented By: VALERIE (1) Fever Fever type: unspecified Qualified Code(s): R50.9 - Fever, unspecified
[2024-08-03] MEDS: METOPROLOL TARTRATE 25 MG TAB PO SCH (11:43)
[2024-08-03] MEDS: SODIUM PHOSPHATE 12 MMOL in SODIUM CHLORIDE 0.9% 250 ML IV ONE (11:45)
[2024-08-03] MEDS: SODIUM PHOSPHATE 3 MMOL/1 ML INFUSION IV STA (11:55)
--- NOTE | 2024-08-03 12:46 | Electrocardiogram Report ---
Test Reason : Blood Pressure : */* mmHG Vent. Rate : 107 BPM Atrial Rate : 102 BPM P-R Int : * ms QRS Dur : 70 ms QT Int : 326 ms P-R-T Axes : * -38 6 degrees QTcB Int : 435 ms Atrial fibrillation with rapid ventricular response Left axis deviation Nonspecific ST abnormality Abnormal ECG When compared with ECG of 01-Aug-2024 19:33, (unconfirmed) Atrial fibrillation has replaced Sinus rhythm Nonspecific T wave abnormality now evident in Inferior leads Confirmed by Yan Disla ([id number]) on 08/03/2024 12:46:06 PM Referred By: REFERRED SELF Confirmed By: Yan Disla
[2024-08-03 13:33] LABS: ANTI-Xa, UFH(UnfractionatedHep 0.26 IU/ml (0.3-0.7)
--- NOTE | 2024-08-03 18:37 | Electrocardiogram Report ---
Test Reason : Blood Pressure : */* mmHG Vent. Rate : 75 BPM Atrial Rate : 75 BPM P-R Int : 142 ms QRS Dur : 72 ms QT Int : 390 ms P-R-T Axes : 11 -62 45 degrees QTcB Int : 435 ms Normal sinus rhythm Left axis deviation Abnormal ECG When compared with ECG of 02-Aug-2024 21:03, (unconfirmed) Sinus rhythm has replaced Atrial fibrillation Nonspecific T wave abnormality no longer evident in Inferior leads Confirmed by Jose Armando Elizondo ([id number]) on 08/03/2024 6:37:10 PM Referred By: REFERRED SELF Confirmed By: Jose Armando Elizondo
[2024-08-04 00:44] LABS: ANTI-Xa, UFH(UnfractionatedHep 0.29 IU/ml (0.3-0.7)
[2024-08-04 08:12] LABS: Hematocrit (blood only) 35.3 % (37.0-47.0); Mean Corpuscular Hemoglobin 29.5 pg (25.0-34.0); Mean Corpuscular Volume 86.7 fL (80.0-100.0); Mean Platelet Volume 9.4 fL (9.4-12.4); Platelet Count 190 K/uL (130-400); RDW Coefficient of Variation 11.9 % (11.5-14.5); RDW Standard Deviation 38.1 fL (36.4-46.3); Red Blood Count 4.07 M/uL (4.20-5.40); White Blood Count 3.08 K/ul (4.8-10.8)
[2024-08-04 08:38] LABS: ANTI-Xa, UFH(UnfractionatedHep 0.39 IU/ml (0.3-0.7)
[2024-08-04 08:42] LABS: BUN Creatinine Ratio 9.3 (10-20); Calcium 8.3 mg/dl (8.6-10.3); Creatinine Clr Calc Pharmacy 47.5 ml/min; Potassium 3.4 mmol/L (3.5-5.1)
--- NOTE | 2024-08-04 08:50 | XRay Report ---
EXAM: XR chest 1V portable CLINICAL HISTORY: fever of unknown etiology TECHNIQUE: A portable X-ray image of the chest was obtained in frontal projection. COMPARISON: Prior X-ray study dated November 14, 2017 FINDINGS: Pulmonary Parenchyma: Exaggerated bilateral hilar and parahilar bronchovascular markings with operibronchial cuffing (increased). Otherwise, the lungs are clear bilaterally. No evidence of consolidation, collapse, or focal opacities. No sizable pulmonary nodules. Blunted left costophrenic angle with left pleural cap thickening (newly noted). No evidence of right pleural effusion. Heart and Mediastinum: Heart size and shape are normal. No mediastinal widening or masses. Prominent aortic knuckle (increased). Bony Thorax: Degenerative changes of both shoulder joints, more on the right side (stable). Soft Tissues: ECG leads are currently noted on the chest wall. IMPRESSION: - Suspected newly developed mild left pleural effusion. - Increased prominence of bilateral hilar and parahilar bronchovascular markings could be due to bronchial inflammatory process (bronchitis). - Stable course of the rest of the study. Electronically signed by Anthony Davidson 08-04-2024 08:50 AM
--- NOTE | 2024-08-04 10:14 | Cardiology Progress Note ---
Date of Service August 04, 2024 Assessment & Plan (1) Paroxysmal atrial fibrillation: (2) Hypomagnesemia: (3) DM type 2 (diabetes mellitus, type 2): (4) HTN (hypertension): (5) Diarrhea: Plan 84-year-old female admitted secondary to gastroenteritis with diarrhea x 7 days. Significant hypomagnesemia on admission. Atrial fibrillation with rapid ventricular response in the evening 08/02/2024. No recurrence over the last 24 hours. Echocardiogram demonstrates preserved LV systolic function, with normal left atrial diameter, and no significant valvular pathology. [id number] elevated due to age, history of hypertension, and diabetes, however, isolated episode of atrial fibrillation occurred in setting potentially reversible causes including diarrheal illness, volume depletion, and significant hypomagnesemia. Recommendations: * Supplement magnesium as indicated maintain level greater than 2.0 * Continue metoprolol tartrate 25 mg twice daily * Continue IV heparin for an additional 24 hours. Discontinue if no recurrence of atrial fibrillation. * Continue telemetry monitoring. * Outpatient ZIO monitor for further evaluation post discharge. Cory Lacey DO, [facility] Admission and Anticipated Discharge Date Admission Date: August 02, 2024 Subjective 84-year-old female seen and examined at bedside. Feeling well today. Diarrhea less frequent over the past 24 hours. No recurrent atrial fibrillation on telemetry. Denies chest pain, palpitations, or shortness of breath. No orthopnea, PND, or lower extremity edema. Review of Systems Review of Systems: All systems reviewed & are unremarkable except as noted in Subjective Physical Exam Constitutional: well nourished; no acute distress Respiratory: no respiratory distress, no labored breathing and no retractions Auscultation: no crackles, no rales, no rhonchi and no wheezes Cardiovascular: Rate/Rhythm: regular rate and regular rhythm Heart Sounds: normal S1 and normal S2; no murmur Vessels: no JVD Extremities: no edema Gastrointestinal (Abdomen): Inspection/Auscultation: + abdomen distended and normal bowel sounds Percussion/Palpation: abdomen soft; abdomen nontender, no guarding and abdomen not rigid Neurologic: CN's II-XI intact bilaterally and moves all extremities; no focal motor deficits Results & Data Vital Signs (Past 12 Hours) Vital Signs Temp Pulse Pulse Resp BP Pulse Ox O2 Del Method 08/04/24 07:57 37.2 C 71 20 159/75 H 91 Room Air 08/04/24 07:00 69 08/04/24 03:19 37.9 C H 73 16 123/72 94 Room Air 08/03/24 22:46 37.4 C 76 16 128/88 93 Room Air 08/03/24 22:34 71 Laboratory Results CBC 08/04/24 Range/Units 07:51 WBC 3.08 L (4.8-10.8) K/ul RBC 4.07 L (4.20-5.40) M/uL Hgb 12.0 (12.0-16.0) g/dl Hct 35.3 L (37.0-47.0) % Plt Count 190 (130-400) K/uL Comprehensive Metabolic Panel 08/04/24 Range/Units 07:51 Sodium 138 (136-145) mmol/L Potassium 3.4 L (3.5-5.1) mmol/L Chloride 103 (98-107) mmol/L Carbon Dioxide 30 (21-32) mmol/L BUN 8 (6-23) mg/dl Creatinine 0.86 (0.6-1.2) mg/dl Glucose 124 H (70-99(Fasting)) mg/dl Calcium 8.3 L (8.6-10.3) mg/dl Intake and Output 08/03/24 08/04/24 08/04/24 22:59 06:59 14:59 Intake Total 1035.083 / 2401.033 203.450 / 2401.033 69.70 / 69.70 Balance 1035.083 / 2401.033 203.450 / 2401.033 69.70 / 69.70 Intake: IV 595.083 / 1961.033 203.450 / 1961.033 69.70 / 69.70 Heparin 92534 Unit/500 ml D5w 191.083 / 394.533 203.450 / 394.533 69.70 / 69.70 25,000 units In 500 ml @ 850 UNITS/HR 17 mls/hr IV .Q24H [facility] Rx#:[id number] Magnesium Sulfate / D5w 1 gm In 100 / 262.5 100 ml @ 50 mls/hr IV Q2H [facility] Rx#:[id number] Sodium Phosphate 12 mmol In 254 / 254 Sodium Chloride 0.9% 250 ml @ 88 mls/hr IV ONE ONE Rx#: [id number] cefTRIAXone SODIUM 2,000 mg In 50 / 50 50 ml @ 100 mls/hr IV Q24H [facility] Rx#:[id number] Oral 440 / 440 Other: # Unmeasured Voids 1 1 Weight 73.3 kg Weight Measurement Method Built in [facility] (4) HTN (hypertension) Hypertension type: primary hypertension Qualified Code(s): I10 - Essential (primary) hypertension (5) Diarrhea Diarrhea type: unspecified type Qualified Code(s): R19.7 - Diarrhea, unspecified
[2024-08-04 10:15] LABS: Appearance Urine Clear (Clear); Bacteria Urine Automated None Seen (None Seen); Bilirubin Urine Negative (Negative); Blood Urine Negative (Negative); Cast Urine Automated 0-2 /lpf (0-2); Color Urine Yellow; Epithelial Cell Urine Auto 0-2 /hpf (0-2); Glucose Urine UA Negative (Negative); Ketones Urine Negative (Negative); Leukocyte Esterase Urine Trace (Negative); Nitrite Urine Negative (Negative); Protein Urine Negative (Negative); RBC Urine Automated 0-2 /hpf (0-2); Specific Gravity Urine 1.007 (1.000-1.030); Urobilinogen Urine Negative (Negative); WBC Urine Automated 0-5 /hpf (0-5)
--- NOTE | 2024-08-04 10:33 | Hospitalist Progress Note ---
Date of Service August 04, 2024 Assessment & Plan (1) Fever: Plan: 84-year-old female with past medical history significant for type 2 diabetes, diabetic polyneuropathy, diabetic retinopathy, CKD stage III, hyperlipidemia, hypomagnesia, hypertension, female stress incontinence, history of compression fracture of spine, osteoporosis, iron deficiency anemia, lumbar spinal stenosis, lives with her daughter and ambulates with a walker comes because of not feeling well since last Saturday. Since last Saturday patient has abdominal discomfort. Diarrhea. Feeling hot and cold. Feeling weak. Poor appetite. Today she had episode of vomiting. Not ambulating much. Denies any headache. No neck pain. Vision is okay. No runny nose or sore throat. No cough. No chest pain. No shortness of breath. Has some abdominal discomfort. Had temp spike in the ER.Micturating okay. Hemodynamics are okay. Fever CAP Bronchitis -patient fever curve has improved with abx -viral panel negative -CT abdomen/pelvis concerning for lung consolidation Plan: -continue abx x5 days (day 3/5) -start prednisone 40 mg daily for bronchitis, mild expiratory wheezing -start incentive spirometer -PT/OT ordered, likely SNF placement, medically stable for discharge to SNF pending PT/OT recs Atrial Fibrillation w/ RVR -resolved overnight with metoprolol and dilt pushes -NSR this morning Plan: -cardiology consulted, appreciate recs -echo ordered, revealed preserved EF with diastolic dysfunction -continue heparin for 24 more hours, stop tomorrow, per cardiology no need for anticoagulation due to induced afib Diabetes -Hold home p.o. medications -Sliding scale CKD stage III -Creatinine 0.9 Hypocalcemia -resolved Hypertension -On amlodipine Hyperlipidemia -On statin GERD -On famotidine I spent a total of 50 minutes in direct patient care, including [id number] time with the patient and/or family, reviewing medical records, ordering and reviewing diagnostic tests, and coordinating care with other healthcare providers. This time includes: history taking, physical examination, medical decision making, counseling, ECG interpretation, imaging interpretation, lab interpretation, orders, and education, excluding time spent in the performance of separately billed services. Admission and Anticipated Discharge Date Admission Date: August 02, 2024 Subjective Patient seen and examined at bedside. Patient feeling ok today, looking foward to working with PT/OT today. Review of Systems Review of Systems: CONSTITUTIONAL: generalized weakness EYES: Patient denies any visual symptoms. EARS, NOSE, AND THROAT: No difficulties with hearing. No symptoms of rhinitis or sore throat. CARDIOVASCULAR: Patient denies chest pains, palpitations, orthopnea and paroxysmal nocturnal dyspnea. RESPIRATORY: No dyspnea on exertion, no wheezing or cough. GI: No nausea, vomiting, diarrhea, constipation, abdominal pain, hematochezia or melena. : No urinary hesitancy or dribbling. No nocturia or urinary frequency. No abnormal urethral discharge. MUSCULOSKELETAL: No myalgias or arthralgias. NEUROLOGIC: No chronic headaches, no seizures. Patient denies numbness, tingling or weakness. PSYCHIATRIC: Patient denies problems with mood disturbance. No problems with anxiety. ENDOCRINE: No excessive urination or excessive thirst. DERMATOLOGIC: Patient denies any rashes or skin changes. Physical Exam Physical Exam: Gen: A&O 3 NAD HEENT: NCAT, EOMI, not icteric. External ears normal. No rhinorrhea. Moist mucous membranes. Neck: Supple, full range of motion, no observable masses, No meningeal sign. Lungs: No Respiratory distress. some expiratory wheezing on exam CV: RRR, no edema. Abdomen: Soft, nondistended, No rebound tenderness. MSK: No joint swelling, no redness. Skin: No rashes, petechiae, lesions. Normal color per patient. Neuro: Normal Gait, Grossly intact. Psych: Appropriate for situation. Results & Data Results & Data Vital Signs (Past 12 Hours) Vital Signs Temp Pulse Pulse Resp BP Pulse Ox O2 Del Method 08/04/24 07:57 37.2 C 71 20 159/75 H 91 Room Air 08/04/24 07:00 69 08/04/24 03:19 37.9 C H 73 16 123/72 94 Room Air 08/03/24 22:46 37.4 C 76 16 128/88 93 Room Air 08/03/24 22:34 71 Laboratory Results -personally reviewed, K of 3.4 repleted, stable creatinine Diagnostic Findings Chest X-Ray 08/04/24 07:27 EXAM: XR chest 1V portable CLINICAL HISTORY: fever of unknown etiology TECHNIQUE: A portable X-ray image of the chest was obtained in frontal projection. COMPARISON: Prior X-ray study dated November 14, 2017 FINDINGS: Pulmonary Parenchyma: Exaggerated bilateral hilar and parahilar bronchovascular markings with operibronchial cuffing (increased). Otherwise, the lungs are clear bilaterally. No evidence of consolidation, collapse, or focal opacities. No sizable pulmonary nodules. Blunted left costophrenic angle with left pleural cap thickening (newly noted). No evidence of right pleural effusion. Heart and Mediastinum: Heart size and shape are normal. No mediastinal widening or masses. Prominent aortic knuckle (increased). Bony Thorax: Degenerative changes of both shoulder joints, more on the right side (stable). Soft Tissues: ECG leads are currently noted on the chest wall. IMPRESSION: - Suspected newly developed mild left pleural effusion. - Increased prominence of bilateral hilar and parahilar bronchovascular markings could be due to bronchial inflammatory process (bronchitis). - Stable course of the rest of the study. Electronically signed by Anthony Davidson 08-04-2024 08:50 AM -chest xray personally reviewed, noted bronchitis, mild left pleural effusion (1) Fever Fever type: unspecified Qualified Code(s): R50.9 - Fever, unspecified
[2024-08-04] MEDS: predniSONE 20 MG TAB PO SCH (12:03)
[2024-08-04] MEDS: POTASSIUM CHLORIDE CRTAB 20 MEQ TABCR PO STA (12:03)
[2024-08-05 06:41] LABS: BUN Creatinine Ratio 18.9 (10-20); Calcium 8.6 mg/dl (8.6-10.3); Creatinine Clr Calc Pharmacy 55.2 ml/min; Potassium 4.5 mmol/L (3.5-5.1)
[2024-08-05 06:43] LABS: ANTI-Xa, UFH(UnfractionatedHep 0.47 IU/ml (0.3-0.7)
[2024-08-05] MEDS ORDERED: CARBOHYDRATES FOR HYPOGLYCEMIA PO PRN (08:29)
[2024-08-05] MEDS ORDERED: GLUCAGON FOR INJ 1 MG VIAL SQ PRN (08:29)
[2024-08-05] MEDS ORDERED: GLUCOSE 10 TAB/TUBE PO PRN (08:29)
[2024-08-05] MEDS ORDERED: DEXTROSE 50% 50 ML SYRINGE IV PRN (08:29)
[2024-08-05] MEDS ORDERED: GLUCOSE 40% GEL 15 GM TUBE PO PRN (08:29)
[2024-08-05] MEDS: INSULIN ASPART PER UNIT CHARGE SC STA (08:36)
[2024-08-05] MEDS: predniSONE 20 MG TAB PO SCH (08:39)
[2024-08-05] MEDS: LANTUS PER UNIT CHARGE SQ SCH ×2 (08:40→21:20)
[2024-08-05] MEDS: ADVANCED PROBIOTIC 625 MG CAPSULE PO SCH (12:33)
[2024-08-05] MEDS: INSULIN ASPART PER UNIT CHARGE SC SCH (12:33)
--- NOTE | 2024-08-05 12:52 | Cardiology Progress Note ---
Date of Service August 05, 2024 Assessment & Plan (1) Paroxysmal atrial fibrillation: (2) Hypomagnesemia: (3) DM type 2 (diabetes mellitus, type 2): (4) HTN (hypertension): (5) Diarrhea: Plan 84-year-old female admitted secondary to gastroenteritis with diarrhea x 7 days. Significant hypomagnesemia on admission. Atrial fibrillation with rapid ventricular response in the evening 08/02/2024. No recurrence over the last 48 hours. Echocardiogram demonstrates preserved LV systolic function, with normal left atrial diameter, and no significant valvular pathology. [id number] elevated due to age, history of hypertension, and diabetes, however, isolated episode of atrial fibrillation occurred in setting potentially reversible causes including diarrheal illness, volume depletion, and significant hypomagnesemia. Recommendations: * Discontinue IV heparin * Supplement magnesium as indicated maintain level greater than 2.0 * Continue metoprolol tartrate 25 mg twice daily * Continue telemetry monitoring. * Outpatient ZIO monitor for further evaluation post discharge. * Cardiology will sign off. * Please call with additional concerns/questions. Cory Lacey DO, [facility] Admission and Anticipated Discharge Date Admission Date: August 02, 2024 Subjective 84-year-old female seen examined at the bedside. No recurrent atrial fibrillation over the past 48 hours. Denies chest pain or palpitations. Diarrhea improved. Review of Systems Review of Systems: All systems reviewed & are unremarkable except as noted in Subjective Physical Exam Constitutional: well nourished; no acute distress Respiratory: no respiratory distress, no labored breathing and no retractions Auscultation: no crackles, no rales, no rhonchi and no wheezes Cardiovascular: Rate/Rhythm: regular rate and regular rhythm Heart Sounds: normal S1 and normal S2; no murmur Vessels: no JVD Extremities: no edema Gastrointestinal (Abdomen): Inspection/Auscultation: + abdomen distended and normal bowel sounds Percussion/Palpation: abdomen soft; abdomen nontender, no guarding and abdomen not rigid Neurologic: CN's II-XI intact bilaterally and moves all extremities; no focal motor deficits Results & Data Vital Signs (Past 12 Hours) Vital Signs Temp Pulse Pulse Resp BP Pulse Ox O2 Del Method 08/05/24 11:37 36.6 C 62 16 120/70 95 Room Air 08/05/24 08:26 36.7 C 61 16 154/67 H 96 Room Air 08/05/24 08:00 57 L 08/05/24 08:00 Room Air 08/05/24 03:17 36.5 C 80 18 149/89 H 95 Room Air Laboratory Results Comprehensive Metabolic Panel 08/05/24 Range/Units 05:53 Sodium 137 (136-145) mmol/L Potassium 4.5 D (3.5-5.1) mmol/L Chloride 104 (98-107) mmol/L Carbon Dioxide 30 (21-32) mmol/L BUN 14 (6-23) mg/dl Creatinine 0.74 (0.6-1.2) mg/dl Glucose 329 H* (70-99(Fasting)) mg/dl Calcium 8.6 (8.6-10.3) mg/dl Intake and Output 08/04/24 08/05/24 08/05/24 22:59 06:59 14:59 Intake Total 250 / 469.70 150 / 469.70 402.616 / 402.616 Output Total 200 / 201 Balance 249 / 268.70 -50 / 268.70 402.616 / 402.616 Intake: IV 50 / 119.70 402.616 / 402.616 Heparin 19871 Unit/500 ml D5w 402.616 / 402.616 25,000 units In 500 ml @ 850 UNITS/HR 17 mls/hr IV .Q24H [facility] Rx#:[id number] [id number] SODIUM 2,000 mg In 50 / 50 50 ml @ 100 mls/hr IV Q24H [facility] Rx#:[id number] Oral 200 / 350 150 / 350 Output: Urine 200 / 200 # Bowel Movements Other: # Unmeasured Voids 2 1 Weight 73.2 kg Weight Measurement Method Built in [facility] (4) HTN (hypertension) Hypertension type: primary hypertension Qualified Code(s): I10 - Essential (primary) hypertension (5) Diarrhea Diarrhea type: unspecified type Qualified Code(s): R19.7 - Diarrhea, unspecified
--- NOTE | 2024-08-05 13:14 | Hospitalist Progress Note ---
Date of Service August 05, 2024 Assessment & Plan (1) Fever: Plan: 84-year-old female with past medical history significant for type 2 diabetes, diabetic polyneuropathy, diabetic retinopathy, CKD stage III, hyperlipidemia, hypomagnesia, hypertension, female stress incontinence, history of compression fracture of spine, osteoporosis, iron deficiency anemia, lumbar spinal stenosis, lives with her daughter and ambulates with a walker comes because of not feeling well since last Saturday. Since last Saturday patient has abdominal discomfort. Diarrhea. Feeling hot and cold. Feeling weak. Poor appetite. Today she had episode of vomiting. Not ambulating much. Denies any headache. No neck pain. Vision is okay. No runny nose or sore throat. No cough. No chest pain. No shortness of breath. Has some abdominal discomfort. Had temp spike in the ER.Micturating okay. Hemodynamics are okay. Community-acquired pneumonia Acute bronchitis --CXR:Increased prominence of bilateral hilar and parahilar bronchovascular markings could be due to bronchial inflammatory process (bronchitis). --Viral panel negative -- CT suggestive left lung consolidation -- Continue Rocephin, azithromycin --Wean off of prednisone as able Plan to discharge to SNF likely next 24 to 48 hours Atrial Fibrillation w/ RVR -ECHO showed no significant valvular pathology Spontaneously converted to sinus Continue metoprolol tartrate 25 mg twice a day IV heparin discontinued Needs outpatient ZIO monitor Appreciate cardiology input Hypokalemia Hypomagnesemia Hypophosphatemia Replete electrolytes as needed Monitor DM II HbA1c 7.8 Elevated blood glucose levels likely secondary to steroid use Continue insulin while hospitalized Monitor blood glucose levels CKD stage III Creatinine at baseline Monitor renal function Avoid nephrotoxic agents as able Hypocalcemia Resolved Monitor Hypertension Continue amlodipine, metoprolol Monitor blood pressure Hyperlipidemia On statin GERD On famotidine DVT Px: Heparin SQ CODE STATUS Full code Disposition SNF as able Admission and Anticipated Discharge Date Admission Date: August 02, 2024 Subjective Patient is seen and examined at bedside States having none expectorant cough No other complaints today IV heparin discontinued Denies any chest pain, dyspnea, nausea, vomiting, abdominal pain Review of Systems Review of Systems: All systems reviewed & are unremarkable except as noted in Subjective Physical Exam Physical Exam: Physical Exam: Vitals signs as noted above General Appearance:Moderately built and nourished, no apparent distress Head: normocephalic, Atraumatic Eyes: normal inspection, EOMI Neck: supple, Trachea midline Respiratory/Chest: Normal breath sounds, basal crackles, No accessory muscle use Cardiovascular: S1, S2, No murmur Abdomen/GI:Soft, Non tender, Bowel sounds present Extremities/Musculoskeletal:normal inspection, Trace edema Neurologic/Psych:AAOX3, grossly no focal neurological deficits Skin: normal color, warm Results & Data Results & Data Vital Signs (Past 12 Hours) Vital Signs Temp Pulse Pulse Resp BP Pulse Ox O2 Del Method 08/05/24 11:37 36.6 C 62 16 120/70 95 Room Air 08/05/24 08:26 36.7 C 61 16 154/67 H 96 Room Air 08/05/24 08:00 57 L 08/05/24 08:00 Room Air 08/05/24 03:17 36.5 C 80 18 149/89 H 95 Room Air Laboratory Results [facility] 08/05/24 05:53 Sodium 137 Potassium 4.5 D Chloride 104 Carbon Dioxide 30 BUN 14 Creatinine 0.74 Glucose 329 H* Calcium 8.6 (1) Fever Fever type: unspecified Qualified Code(s): R50.9 - Fever, unspecified
[2024-08-05] MEDS ORDERED: BENZONATATE 100 MG CAPSULE PO PRN (13:24)
[2024-08-05 15:51] VITALS: RESP 18
--- NOTE | 2024-08-05 15:59 | Electrocardiogram Report ---
Test Reason : Blood Pressure : */* mmHG Vent. Rate : 101 BPM Atrial Rate : 101 BPM P-R Int : 152 ms QRS Dur : 58 ms QT Int : 310 ms P-R-T Axes : 51 -72 50 degrees QTcB Int : 401 ms Sinus tachycardia Left axis deviation Nonspecific ST and T wave abnormality Abnormal ECG When compared with ECG of 14-Nov-2017 18:18, T wave inversion now evident in Lateral leads Confirmed by Jose Armando Elizondo ([id number]) on 08/05/2024 3:58:59 PM Referred By: REFERRED SELF Confirmed By: Jose Armando Elizondo
[2024-08-05] MEDS: HEPARIN SOD 5,000 UNIT/0.5 ML VIAL SQ SCH (21:20)
[2024-08-06 07:07] LABS: Mean Corpuscular Hemoglobin 29.5 pg (25.0-34.0); Mean Corpuscular Hgb Conc 34.4 g/dL (32.0-36.0); Mean Corpuscular Volume 85.8 fL (80.0-100.0); Mean Platelet Volume 9.6 fL (9.4-12.4); Platelet Count 268 K/uL (130-400); RDW Coefficient of Variation 11.7 % (11.5-14.5); RDW Standard Deviation 36.6 fL (36.4-46.3); Red Blood Count 3.73 M/uL (4.20-5.40); White Blood Count 4.05 K/ul (4.8-10.8)
[2024-08-06 07:20] LABS: Calcium 8.8 mg/dl (8.6-10.3); Magnesium 1.8 mg/dl (1.7-2.4)
[2024-08-06 07:26] LABS: BUN Creatinine Ratio 20.7 (10-20); Creatinine Clr Calc Pharmacy 49.3 ml/min
[2024-08-06] MEDS ORDERED: predniSONE 10 MG TABLET PO SCH (09:00)
[2024-08-06 11:14] VITALS: PULSE 65; TEMP 97.7; O2SAT 96
--- NOTE | 2024-08-06 11:58 | Hospitalist Progress Note ---
Date of Service August 06, 2024 Assessment & Plan (1) Fever: Plan: 84-year-old female with past medical history significant for type 2 diabetes, diabetic polyneuropathy, diabetic retinopathy, CKD stage III, hyperlipidemia, hypomagnesia, hypertension, female stress incontinence, history of compression fracture of spine, osteoporosis, iron deficiency anemia, lumbar spinal stenosis, lives with her daughter and ambulates with a walker comes because of not feeling well since last Saturday. Since last Saturday patient has abdominal discomfort. Diarrhea. Feeling hot and cold. Feeling weak. Poor appetite. Today she had episode of vomiting. Not ambulating much. Denies any headache. No neck pain. Vision is okay. No runny nose or sore throat. No cough. No chest pain. No shortness of breath. Has some abdominal discomfort. Had temp spike in the ER.Micturating okay. Hemodynamics are okay. Community-acquired pneumonia Acute bronchitis --CXR:Increased prominence of bilateral hilar and parahilar bronchovascular markings could be due to bronchial inflammatory process (bronchitis). --Viral panel negative -- CT suggestive left lung consolidation -- Continue Rocephin, azithromycin --completed 5-day course Transition to oral antibiotics on discharge --Weaned off of prednisone Discharge to rehab today Atrial Fibrillation w/ RVR -ECHO showed no significant valvular pathology Spontaneously converted to sinus Continue metoprolol tartrate 25 mg twice a day IV heparin discontinued Needs outpatient ZIO monitor Appreciate cardiology input Hypokalemia Hypomagnesemia Hypophosphatemia Replete electrolytes as needed Monitor DM II HbA1c 7.8 Elevated blood glucose levels likely secondary to steroid use Continue insulin while hospitalized Monitor blood glucose levels CKD stage III Creatinine at baseline Monitor renal function Avoid nephrotoxic agents as able Hypocalcemia Resolved Monitor Hypertension Continue amlodipine, metoprolol Monitor blood pressure Hyperlipidemia On statin GERD On famotidine DVT Px: Heparin SQ CODE STATUS Full code Disposition Acute rehab Admission and Anticipated Discharge Date Admission Date: August 02, 2024 Subjective Patient is seen and examined at bedside Reports dry eyes which is chronic per patient No other complaints today Denies any chest pain, dyspnea, nausea, vomiting, abdominal pain Plan to be discharged to rehab facility today Review of Systems Review of Systems: All systems reviewed & are unremarkable except as noted in Subjective Physical Exam Physical Exam: Physical Exam: Vitals signs as noted above General Appearance:Moderately built and nourished, no apparent distress Head: normocephalic, Atraumatic Eyes: normal inspection, EOMI Neck: supple, Trachea midline Respiratory/Chest: Normal breath sounds, basal crackles, No accessory muscle use Cardiovascular: S1, S2, No murmur Abdomen/GI:Soft, Non tender, Bowel sounds present Extremities/Musculoskeletal:normal inspection, Trace edema Neurologic/Psych:AAOX3, grossly no focal neurological deficits Skin: normal color, warm Results & Data Results & Data Vital Signs (Past 12 Hours) Vital Signs Temp Pulse Pulse Resp BP BP Pulse Ox 08/06/24 11:13 36.5 C 65 18 173/75 H 96 08/06/24 08:00 53 L 08/06/24 07:58 36.3 C L 59 L 18 168/73 H 93 08/06/24 04:16 36.7 C 62 18 140/68 96 08/06/24 00:23 64 08/06/24 00:19 141/75 H O2 Del Method 08/06/24 11:13 Room Air 08/06/24 08:00 08/06/24 07:58 Room Air 08/06/24 04:16 Room Air 08/06/24 00:23 08/06/24 00:19 Laboratory Results Short CBC 08/06/24 Range/Units 06:47 WBC 4.05 L (4.8-10.8) K/ul Hgb 11.0 L (12.0-16.0) g/dl Hct 32.0 L (37.0-47.0) % Plt Count 268 (130-400) K/uL BMP 08/06/24 06:47 Sodium 140 Potassium 4.0 Chloride 107 Carbon Dioxide 27 BUN 17 Creatinine 0.82 Glucose 149 H Calcium 8.8 (1) Fever Fever type: unspecified Qualified Code(s): R50.9 - Fever, unspecified
--- NOTE | 2024-08-06 12:06 | Discharge Summary ---
Date of Service August 06, 2024 Admission HPI Per Admitting Provider 84-year-old female with past medical history significant for type 2 diabetes, diabetic polyneuropathy, diabetic retinopathy, CKD stage III, hyperlipidemia, hypomagnesia, hypertension, female stress incontinence, history of compression fracture of spine, osteoporosis, iron deficiency anemia, lumbar spinal stenosis, lives with her daughter and ambulates with a walker comes because of not feeling well since last Saturday. Since last Saturday patient has abdominal discomfort. Diarrhea. Feeling hot and cold. Feeling weak. Poor appetite. Today she had episode of vomiting. Not ambulating much. Denies any headache. No neck pain. Vision is okay. No runny nose or sore throat. No cough. No chest pain. No shortness of breath. Has some abdominal discomfort. Had temp spike in the ER.Micturating okay. Hemodynamics are okay. Past medical history. As mentioned above Past surgical history. Arthrocentesis. Bilateral knee arthroplasty. C- section. Colonoscopy. Cystoscopy. Lumbar spinal decompression. EGD. EGD with endoscopic ultrasound. Bladder neck collagen injection. Injection of lumbosacral spine. Laparoscopic cholecystectomy. Appendectomy. Left removal of ovary. Right revision of total hip joint. Sigmoidoscopy. Right total hip replacement. Total hysterectomy. Urethral dilatation. Social history. . No smoking. No alcohol use. No drug use. Family history. Brother had asthma. Sister had asthma. Sister had breast cancer. Mother had lung cancer. Aunt had lung cancer. Admission Exam Per Admitting Provider General-Not in distress Head- atraumatic Eyes- PERRL. ENT- oropharynx clear Neck- supple, no JVD. Lungs- clear to auscultation no wheezing or crackles Heart- regular rate and rhythm; no murmur, no gallop. Abdomen- normal bowel sounds, soft, nontender, no distension Extremities- no pretibial edema, no erythema seen Neuro- alert, oriented PERRL, no facial palsy; no dysarthria; moves extremities Principal Diagnosis Community-acquired pneumonia Atrial Fibrillation with rapid ventricular response Hypokalemia Hypomagnesemia Hypophosphatemia Discharge Data Allergies Allergy/AdvReac Type Severity Reaction Status Date / Time atropine Allergy Intermediate hives Verified 08/01/24 21:16 Barbiturates Allergy Intermediate hives Verified 08/01/24 21:16 hyoscyamine Allergy Intermediate hives Verified 08/01/24 21:18 iodine Allergy Intermediate BLISTERS Verified 08/01/24 21:16 WITH TOPICAL nortriptyline Allergy Intermediate hives Verified 08/01/24 21:16 phenobarbital Allergy Intermediate Itching Verified 08/01/24 21:16 phenytoin Allergy Intermediate Itching Verified 08/01/24 21:16 povidone-iodine Allergy Intermediate SKIN Verified 08/01/24 21:16 BLISTERS scopolamine Allergy Intermediate hives Verified 08/01/24 21:16 sulfamethoxazole [Bactrim] Allergy Intermediate HIVES Verified 08/01/24 21:16 trimethoprim [Bactrim] Allergy Intermediate HIVES Verified 08/01/24 21:16 adhesive Allergy Mild HIVES, RASH Verified 08/01/24 21:16 brimonidine Allergy Unknown UNKNOWN Verified 08/01/24 21:18 Penicillins Allergy Unknown HAPPENED Verified 08/01/24 21:16 A CHILD TAQUERIA Inhibitors AdvReac Intermediate Cough Verified 08/01/24 21:16 blue dye AdvReac Intermediate loss of Verified 08/01/24 21:18 balance duloxetine AdvReac Intermediate loss of Verified 08/01/24 21:16 balance losartan AdvReac Intermediate Cough Verified 08/01/24 21:16 quinine AdvReac Intermediate Diarrhea Verified 08/01/24 21:16 tramadol AdvReac Intermediate NAUSEA/VOMI Verified 08/01/24 21:16 TING Consultations 08/01/24 23:33 ED Decision to Admit Stat 08/02/24 22:22 Consult Cardiology Routine Procedures Performed Laboratory Results WBC 4.05 K/ul (4.8-10.8) L 08/06/24 06:47 RBC 3.73 M/uL (4.20-5.40) L 08/06/24 06:47 Hgb 11.0 g/dl (12.0-16.0) L 08/06/24 06:47 POC Hgb 11.2 g/dl (12.0-16.0) L 08/01/24 20:35 Hct 32.0 % (37.0-47.0) L 08/06/24 06:47 POC Hct 33 % (37-47) L 08/01/24 20:35 MCV 85.8 fL (80.0-100.0) 08/06/24 06:47 MCH 29.5 pg (25.0-34.0) 08/06/24 06:47 MCHC 34.4 g/dL (32.0-36.0) 08/06/24 06:47 RDW Std Deviation 36.6 fL (36.4-46.3) 08/06/24 06:47 RDW Coeff of Jasmni 11.7 % (11.5-14.5) 08/06/24 06:47 Plt Count 268 K/uL (130-400) 08/06/24 06:47 MPV 9.6 fL (9.4-12.4) 08/06/24 06:47 Immature Gran % (Auto) 0.4 % 08/02/24 07:16 Neut % (Auto) 77.9 % 08/02/24 07:16 Lymph % (Auto) 10.1 % 08/02/24 07:16 Mcnairy % (Auto) 10.5 % 08/02/24 07:16 Eos % (Auto) 0.9 % 08/02/24 07:16 Baso % (Auto) 0.2 % 08/02/24 07:16 Neut # (Auto) 3.48 K/uL (1.40-6.50) 08/02/24 07:16 Lymph # (Auto) 0.45 K/uL (1.20-3.40) L 08/02/24 07:16 Mcnairy # (Auto) 0.47 K/uL (0.11-0.59) 08/02/24 07:16 Eos # (Auto) 0.04 K/uL (0.00-0.50) 08/02/24 07:16 Baso # (Auto) 0.01 K/uL (0.00-0.20) 08/02/24 07:16 Immature Gran # (Auto) 0.02 K/uL (0.01-0.20) 08/02/24 07:16 Heparin Anti-Xa, Unfract 0.47 IU/ml (0.3-0.7) 08/05/24 05:53 POC Sodium 139 mmol/L (135-144) 08/01/24 20:35 Sodium 140 mmol/L (136-145) 08/06/24 06:47 POC Potassium 2.9 mmol/L (3.3-5.0) L 08/01/24 20:35 Potassium 4.0 mmol/L (3.5-5.1) 08/06/24 06:47 POC Chloride 103 mmol/L (101-112) 08/01/24 20:35 Chloride 107 mmol/L (98-107) 08/06/24 06:47 Carbon Dioxide 27 mmol/L (21-32) 08/06/24 06:47 POC Total CO2 21 mmol/L (24-31) L 08/01/24 20:35 Anion Gap 6 (3-11) 08/06/24 06:47 POC Anion Gap 19.0 mmol/L (16-25) 08/01/24 20:35 POC BUN 16 mg/dl (7-18) 08/01/24 20:35 BUN 17 mg/dl (6-23) 08/06/24 06:47 Creatinine 0.82 mg/dl (0.6-1.2) 08/06/24 06:47 POC Creatinine 0.9 mg/dl (0.6-1.3) 08/01/24 20:35 Est Cr Clr Drug Dosing 49.3 ml/min 08/06/24 06:47 eGFR 70.93 08/06/24 06:47 BUN/Creatinine Ratio 20.7 (10-20) H 08/06/24 06:47 Glucose 149 mg/dl (70-99(Fasting)) H 08/06/24 06:47 POC Glucose 165 mg/dl (70-99) H 08/06/24 11:12 POC Glucose (other) 129 mg/dl (70-99) H 08/01/24 20:35 Estimat Average Glucose 177 mg/dl 08/02/24 07:16 Hemoglobin A1c 7.8 % (4.5-5.6) H 08/02/24 07:16 Lactate 1.5 mmol/L (0.4-2.0) 08/01/24 20:04 Calcium 8.8 mg/dl (8.6-10.3) 08/06/24 06:47 POC Ioniz Calcium Rocky 0.96 mmol/l (1.12-1.32) L 08/01/24 20:35 Phosphorus 3.0 mg/dl (2.5-4.9) 08/04/24 07:51 Magnesium 1.8 mg/dl (1.7-2.4) 08/06/24 06:47 Total Bilirubin 0.4 mg/dl (0.2-1.0) 08/01/24 Unknown AST 29 U/L (13-39) 08/01/24 Unknown ALT 22 U/L (7-52) 08/01/24 Unknown Alkaline Phosphatase 45 U/L (34-104) 08/01/24 Unknown Troponin I High Sens 25.7 pg/ml (0-14) H D 08/03/24 05:38 Total Protein 5.5 gm/dl (6.0-8.3) L 08/01/24 Unknown Albumin 3.1 gm/dl (3.4-5.0) L 08/01/24 Unknown Globulin 2.4 gm/dl (2.5-4.0) L 08/01/24 Unknown Albumin/Globulin Ratio 1.3 (0.9-2) 08/01/24 Unknown Lipase 25 U/L (11-82) 08/01/24 Unknown 25-OH Vitamin D Total 33.2 ng/ml (30-100) 08/02/24 07:16 Procalcitonin 0.18 ng/ml (0-0.5) 08/04/24 07:51 TSH 2.194 uIu/ml (0.300-4.500) 08/03/24 05:38 Urine Color Yellow 08/04/24 Unknown Urine Appearance Clear (Clear) 08/04/24 Unknown Urine pH 6.0 (4.5-7.5) 08/04/24 Unknown Ur Specific [place] 1.007 (1.000-1.030) 08/04/24 Unknown Urine Protein Negative (Negative) 08/04/24 Unknown Urine Glucose (UA) Negative (Negative) 08/04/24 Unknown Urine Ketones Negative (Negative) 08/04/24 Unknown Urine Blood Negative (Negative) 08/04/24 Unknown Urine Nitrite Negative (Negative) 08/04/24 Unknown Urine Bilirubin Negative (Negative) 08/04/24 Unknown Urine Urobilinogen Negative (Negative) 08/04/24 Unknown Ur Leukocyte Esterase Trace (Negative) H 08/04/24 Unknown Urine WBC (Auto) 0-5 /hpf (0-5) 08/04/24 Unknown Urine RBC (Auto) 0-2 /hpf (0-2) 08/04/24 Unknown U Hyaline Cast (Auto) 0-2 /lpf (0-2) 08/04/24 Unknown U Epithel Cells (Auto) 0-2 /hpf (0-2) 08/04/24 Unknown Urine Bacteria (Auto) None Seen (None Seen) 08/04/24 Unknown Urine RBC 0-2 /hpf (0-2) 08/01/24 22:52 Urine WBC 0-5 /hpf (0-5) 08/01/24 22:52 Ur Epithelial Cells 0-2 /hpf (0-2) 08/01/24 22:52 Urine Bacteria 1+ (None Seen) H 08/01/24 22:52 Stl C. cayetanensis PCR Not Detected (NotDetected) 08/02/24 10:44 Stool Rotavirus A PCR Not Detected (NotDetected) 08/02/24 10:44 Stl Adenov F 40/41 PCR Not Detected (NotDetected) 08/02/24 10:44 Stool Astrovirus (PCR) Not Detected (NotDetected) 08/02/24 10:44 Stool Campylobacter PCR Not Detected (NotDetected) 08/02/24 10:44 Stl C. diff Tox B Gene Negative Cdiff Gene (Neg) 08/02/24 10:44 Stool Cryptosporidium PCR Not Detected (NotDetected) 08/02/24 10:44 Stl E.coli Shiga Tox PCR Not Detected (NotDetected) 08/02/24 10:44 Stl Enterotoxigenic E PCR Not Detected (NotDetected) 08/02/24 10:44 Stool EPEC (PCR) Not Detected (NotDetected) 08/02/24 10:44 Stool EAEC (PCR) Not Detected (NotDetected) 08/02/24 10:44 Stl E. histolytica PCR Not Detected (NotDetected) 08/02/24 10:44 Stool Giardia Lamblia PCR Not Detected (NotDetected) 08/02/24 10:44 Stool Salmonella PCR Not Detected (NotDetected) 08/02/24 10:44 Stool Sapovirus (PCR) Not Detected (NotDetected) 08/02/24 10:44 Stl P. shigelloides PCR Not Detected (NotDetected) 08/02/24 10:44 Stl Shigella/EIEC PCR Not Detected (NotDetected) 08/02/24 10:44 St Y.enterocolitica PCR Not Detected (NotDetected) 08/02/24 10:44 Stool Vibrio (PCR) Not Detected (NotDetected) 08/02/24 10:44 Stl Vibrio cholerae PCR Not Detected (NotDetected) 08/02/24 10:44 Stl Norovirus GI/GII PCR Not Detected (NotDetected) 08/02/24 10:44 Adenovirus (PCR) Not Detected (NotDetected) 08/02/24 Unknown B. pertussis DNA (PCR) Not Detected (NotDetected) 08/02/24 Unknown B.parapertussis DNA PCR Not Detected (NotDetected) 08/02/24 Unknown C. pneumoniae DNA (PCR) Not Detected (NotDetected) 08/02/24 Unknown Coronavirus OC43 (PCR) Not Detected (NotDetected) 08/02/24 Unknown Coronavirus HKU1 (PCR) Not Detected (NotDetected) 08/02/24 Unknown Coronavirus 229E (PCR) Not Detected (NotDetected) 08/02/24 Unknown SARS-CoV-2 (PCR) Not Detected (NotDetected) 08/02/24 Unknown Coronavirus NL63 (PCR) Not Detected (NotDetected) 08/02/24 Unknown Human Metapneumovir PCR Not Detected (NotDetected) 08/02/24 Unknown Influenza Type A (PCR) Not Detected (NotDetected) 08/02/24 Unknown Influenza Type B (PCR) Not Detected (NotDetected) 08/02/24 Unknown M. pneumoniae (PCR) Not Detected (NotDetected) 08/02/24 Unknown Parainfluenza 1 (PCR) Not Detected (NotDetected) 08/02/24 Unknown Parainfluenza 2 (PCR) Not Detected (NotDetected) 08/02/24 Unknown Parainfluenza 3 (PCR) Not Detected (NotDetected) 08/02/24 Unknown Parainfluenza 4 (PCR) Not Detected (NotDetected) 08/02/24 Unknown RSV (PCR) Not Detected (NotDetected) 08/02/24 Unknown Entero/Rhino (PCR) Not Detected (NotDetected) 08/02/24 Unknown Impressions Abdomen/Pelvis CT 08/01/24 19:45 Exam(s): CT ABDOMEN + PELVIS With Contrast IV Amt: 93 ml opti 320 EXAM: CT Abdomen and Pelvis With Intravenous Contrast CLINICAL HISTORY: Reason for exam: sepsis abd pain. TECHNIQUE: Axial computed tomography images of the abdomen and pelvis with intravenous contrast. CTDI is 22 mGy and DLP is 1058 mGy-cm. Automated exposure control was utilized for the study. A dose lowering technique was utilized adhering to the principles of ALARA. CONTRAST: Patient received 93 ml opti 320 of IV contrast COMPARISON: No relevant prior studies available. FINDINGS: Lung bases: There is a trace left pleural effusion with atelectasis and/or consolidation at the left lung base. ABDOMEN: Liver: The liver is enlarged and of diffuse decreased attenuation. Gallbladder and bile ducts: The patient is status post cholecystectomy.. No ductal dilation. Pancreas: No mass. No ductal dilation. Spleen: No splenomegaly. Adrenals: No mass. Kidneys and ureters: No hydronephrosis. There are rounded lucencies noted in the kidneys. Stomach and bowel: There is air and fluid within the stomach. The colon is relatively decompressed. There are diverticula present on the colon. No significant inflammatory changes are seen.. PELVIS: Appendix: The appendix is not visualized.. Bladder: No calculi are noted within the bladder.. Reproductive: The patient appears to be status post hysterectomy.. ABDOMEN and PELVIS: Intraperitoneal space: No free air. No significant fluid collection. Bones/joints: The patient is status post right total hip replacement. There are degenerative and postoperative changes involving the spine. There is a compression fracture of the inferior endplate of T12.. Soft tissues: Unremarkable. Vasculature: There are atherosclerotic changes. No abdominal aortic aneurysm. Lymph nodes: No enlarged lymph nodes. IMPRESSION: Diverticulosis Liver is enlarged and of diffuse decreased attenuation which may be due to fatty infiltration. There are possible bilateral renal cysts. There is a trace left pleural effusion with atelectasis and/or consolidation at the left lung base. There is a compression fracture of the inferior endplate of T12 of undetermined age. Electronically signed by: Aamir Somers MD 08/01/24 23:28 PM Chest X-Ray 08/04/24 07:27 EXAM: XR chest 1V portable CLINICAL HISTORY: fever of unknown etiology TECHNIQUE: A portable X-ray image of the chest was obtained in frontal projection. COMPARISON: Prior X-ray study dated November 14, 2017 FINDINGS: Pulmonary Parenchyma: Exaggerated bilateral hilar and parahilar bronchovascular markings with operibronchial cuffing (increased). Otherwise, the lungs are clear bilaterally. No evidence of consolidation, collapse, or focal opacities. No sizable pulmonary nodules. Blunted left costophrenic angle with left pleural cap thickening (newly noted). No evidence of right pleural effusion. Heart and Mediastinum: Heart size and shape are normal. No mediastinal widening or masses. Prominent aortic knuckle (increased). Bony Thorax: Degenerative changes of both shoulder joints, more on the right side (stable). Soft Tissues: ECG leads are currently noted on the chest wall. IMPRESSION: - Suspected newly developed mild left pleural effusion. - Increased prominence of bilateral hilar and parahilar bronchovascular markings could be due to bronchial inflammatory process (bronchitis). - Stable course of the rest of the study. Electronically signed by Anthony Davidson 08-04-2024 08:50 AM Ordered Studies 08/01/24 19:45 CT abd pelvis IV con only Stat Hospital Course (1) Fever: 84-year-old female with past medical history significant for type 2 diabetes, diabetic polyneuropathy, diabetic retinopathy, CKD stage III, hyperlipidemia, hypomagnesia, hypertension, female stress incontinence, history of compression fracture of spine, osteoporosis, iron deficiency anemia, lumbar spinal stenosis, lives with her daughter and ambulates with a walker comes because of not feeling well since last Saturday. Since last Saturday patient has abdominal discomfort. Diarrhea. Feeling hot and cold. Feeling weak. Poor appetite. Today she had episode of vomiting. Not ambulating much. Denies any headache. No neck pain. Vision is okay. No runny nose or sore throat. No cough. No chest pain. No shortness of breath. Has some abdominal discomfort. Had temp spike in the ER.Micturating okay. Hemodynamics are okay. Community-acquired pneumonia Acute bronchitis --CXR:Increased prominence of bilateral hilar and parahilar bronchovascular markings could be due to bronchial inflammatory process (bronchitis). --Viral panel negative -- CT suggestive left lung consolidation -- Continue Rocephin, azithromycin --completed 5-day course Transition to oral antibiotics on discharge --Weaned off of prednisone Discharge to rehab today Atrial Fibrillation w/ RVR -ECHO showed no significant valvular pathology Spontaneously converted to sinus Continue metoprolol tartrate 25 mg twice a day IV heparin discontinued Needs outpatient ZIO monitor Appreciate cardiology input Hypokalemia Hypomagnesemia Hypophosphatemia Replete electrolytes as needed Monitor DM II HbA1c 7.8 Elevated blood glucose levels likely secondary to steroid use Continue insulin while hospitalized Monitor blood glucose levels CKD stage III Creatinine at baseline Monitor renal function Avoid nephrotoxic agents as able Hypocalcemia Resolved Monitor Hypertension Continue amlodipine, metoprolol Monitor blood pressure Hyperlipidemia On statin GERD On famotidine DVT Px: Heparin SQ CODE STATUS Full code Disposition Acute rehab Total Time Total Time Spent Total Time Spent (In Minutes): 44 minutes Discharge Plan Discharge Items Patient Disposition: Transfer Acute Care Hospital Reason For Visit: ILLNESS, UTI, DIZZY Discharge Diagnosis: Community-acquired pneumonia Atrial Fibrillation with rapid ventricular response Hypokalemia Hypomagnesemia Hypophosphatemia Condition on Discharge: Fair Activity: Per Instructions section Non-emergency contact: Primary Care Provider and Flight Radio Officer Call non-emergency contact if: you have any medication questions, your symptoms worsen, your pain is concerning for you and you have a fever Follow-up/Referrals: Thais Chiu MD [Primary Care Provider] - Diet: Carb Consistent or DM2 Addtl Attending Provider Instructions: Follow-up with your primary care physician Dr. Chiu in 1 week upon discharge from rehab facility Follow-up with your job coach Dr. Lacey for outpatient ZIO monitor as recommended --Complete the antibiotic course as prescribed--cefuroxime for 2 more days to complete the course --Monitor your blood glucose levels while at rehab facility. Discuss with your primary care physician for further adjustment of medications for management of diabetes as recommended. -- Monitor your blood pressure regularly as advised. Discuss with your primary care physician for further adjustment of medications as needed. Seek immediate medical attention if your symptoms reoccur or worsen Please review medication list provided on discharge for any medication changes as instructed. Please call if you have any questions or problems. You can reach a [facility] hospitalist on duty at [facility] 24 hours a day by calling [phone] Pending Studies at Discharge: Yes Studies:: Blood Cultures Stand-Alone Forms: [facility] Skilled Items Patient informed of condition?: Yes DNR: No Discharge Level of Care: Acute rehab Communicable Disease: No Discharge Prognosis: Stable Lines: None Urinary Catheter: No Medications and DC Order Prescriptions: New pantoprazole 40 mg Tablet,Delayed Release (Dr/Ec) 40 mg PO QAM Qty: 30 0RF metoprolol tartrate 25 mg Tablet 25 mg PO BID Qty: 60 1RF Advanced Probiotic 625 mg (10 billion cell) Capsule 1 cap PO DAILY Qty: 7 0RF cefuroxime axetil 500 mg tablet 500 mg PO BID Qty: 4 0RF Continued simvastatin 10 mg tablet 10 mg PO HS amlodipine 2.5 mg tablet 2.5 mg PO DAILY acetaminophen [Tylenol Extra Strength] 500 mg Tablet 500 mg PO Q6H PRN (Reason: PAIN/FEVER) acetaminophen [Tylenol Extended Release] 650 mg Tablet Extended Release 650 mg PO Q8H PRN (Reason: Pain) glipizide 2.5 mg tablet extended release 24hr 2.5 mg PO DAILYBB ferrous sulfate [iron] 325 mg (65 mg iron) Tablet 325 mg PO DAILY gabapentin 300 mg capsule 300 mg PO BID montelukast 10 mg tablet 10 mg PO DAILY furosemide 20 mg tablet 20 mg PO [id number] Rx Instructions: MON, WED, & FRI clobetasol 0.05 % Ointment 1 applic TOPICAL BID PRN (Reason: Skin Irritation) nystatin 100,000 unit/gram Powder 1 applic TOPICAL TID PRN (Reason: Skin Irritation) metformin 500 mg tablet extended release 24 hr 500 mg PO QAM clotrimazole 1 % Cream 1 applic TOPICAL BID PRN (Reason: Skin Irritation) Women's 50 Plus Multivitamin 400 mcg-500 mg calcium-20 mcg Tablet 1 tab PO DAILY magnesium oxide 400 mg magnesium Tablet 400 mg PO DAILY Gemtesa 75 mg tablet 75 mg PO QAM Discontinued famotidine 20 mg tablet 20 mg PO BID Discharge Orders: Discharge Order (Routine); Ordered 08/06/24 Ordered By: Gm Vasquez/Other Patient Handouts: Hypoglycemia (Low Blood Sugar), Managing Type 2 Diabetes, Special Foot Care for Diabetes Admission Data Admit Date/Time: 08/02/24 02:00 Attending Provider: Gm Brambila Admit Provider: Cody Yang Primary Care Provider: Thais Chiu Other Providers: [facility]; [facility]; Cody Yang; Cory Lacey
[2024-08-06 13:15] VITALS: BP 140/68
== END 2024-08-06 14:04 | DRG 194 ==
LOC: ED 19:23 → 2N 08-02 02:00 → SUATTDRO 08-02 02:00 → 2N 08-02 02:34 → 2E 08-02 23:04